=== PATIENT | female | born 1940 | race Caucasian/White ===

== ENCOUNTER → 2019-12-01 12:10 | Outpatient (CLI) | payer MEDICARE, SELFPAY ==
--- NOTE | ~2019-12-01 | XR_ITS ---
XR shoulder RT min 2V 12/01/2019 13:36 Indication: Adhesive capsulitis of the right shoulder Procedure: 4 views right shoulder Comparison: No prior studies for comparison. Findings: No fracture or traumatic malalignment. There are mild degenerative changes of the glenohume ral and acromioclavicular joints. Osteopenia. No significant soft tissue abnormality. No radiopaque f oreign bodies. Impression: 1: No acute fracture or subluxation. Reviewed, dictated and finalized at location B. Impression: 1: No acute fracture or subluxation.
== END ==
PROVIDERS: PCP Family Medicine; Visit Provider Physician Assistant
DX: M75.01 Adhesive capsulitis of right shoulder (principal)
CPT/HCPCS: 73030

== ENCOUNTER → 2020-07-12 14:55 | Outpatient (CLI) | payer MEDICARE, SELFPAY ==
--- NOTE | ~2020-07-12 | XR_ITS ---
XR_[id number]_CR DATE: 07/12/2020 15:16 INDICATION: Left rib pain. No recent known injury. Shortness of breath. History of COPD. TECHNIQUE: PA chest. 3 views of the left ribs. COMPARISON: None FINDINGS: Diffuse osteopenia. No recent rib fracture is evident. No apparent bone destruction. There is diffuse idiopathic skeletal hyperostosis of the thoracic spine. Mild to moderate bilateral hyperinflation. No pulmonary infiltrate or consolidation, pleural effusion or pulmonary vascular congestion or pneumothorax is detected. Heart size appears borderline. Aortic calcification. IMPRESSION: Diffuse osteopenia No apparent recent rib fracture or bone destruction Borderline heart size. Aortic calcification. Mild to moderate pulmonary hyperinflation Reviewed, dictated and finalized at Location A. Reviewed, dictated and finalized at location A. 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
== END ==
PROVIDERS: PCP Physician Assistant; Visit Provider Family Medicine
DX: R07.81 Pleurodynia (principal); M85.88 Other specified disorders of bone density and structure, other site; R91.8 Other nonspecific abnormal finding of lung field
CPT/HCPCS: 71101

== ENCOUNTER → 2020-08-06 08:55 | Outpatient (CLI) | payer MEDICARE, SELFPAY ==
--- NOTE | ~2020-08-06 | CT_ITS ---
EXAMINATION: CT abdomen pelvis wo con DATE: 08/06/2020 09:11 INDICATION: Right lower quadrant pain TECHNIQUE: Computed tomography (CT) of the abdomen and pelvis was performed without intravenous contr ast. The dose-length product was 869.13 mGy-cm. Automated exposure control and iterative reconstructi on technique were employed. COMPARISON: CT dated 01/26/2019. FINDINGS: Lung bases are unremarkable. No significant pleural or pericardial effusion. Heart size is normal. Moderate atherosclerosis. Small subcentimeter hypodensities of the right kidney, most likely benign cysts. No renal stones or hydronephrosis. The liver, spleen, pancreas, adrenal glands are unremarkable. Gallbladder is present. Colonic diverti culosis without evidence for diverticulitis. There are focal mesenteric calcifications in the right m id abdomen, likely of no clinical significance. No evidence for perforation. No free air or free flui d. Moderate osteoarthritis of the hips. There is degenerative grade 1 spondylolisthesis at L4-5. IMPRESSION: 1. No acute abdominal abnormality. Reviewed, dictated and finalized at location A.
== END ==
PROVIDERS: PCP Physician Assistant; Visit Provider Surgery
DX: R10.31 Right lower quadrant pain (principal)
CPT/HCPCS: 74176

== ENCOUNTER → 2021-03-04 10:36 | Outpatient (CLI) | payer MEDICARE, SELFPAY ==
--- NOTE | ~2021-03-04 | MR_ITS ---
EXAMINATION: MR abdomen wo con INDICATION: Generalized abdominal pain TECHNIQUE: Coronal SSFSE ARC, WATER:coronal LAVA-FLEX, Coronal 2D FIESTA FatSat, Axial SSFSE BH ARC, Axial 3D DualEcho BH, Axial SSFSE-IR, Axial DWI b=500, Axial 2D FIESTA FatSat, Axial LAVA ARC, Wilburn l In and Opposed phase LAVA FLEX COMPARISON: None available CONTRAST: None FINDINGS: Within the limitations of noncontrast examination, the liver, spleen, pancreas, gallbladder , and adrenal glands are normal. Cysts of the kidneys measure up to 9 mm on the right. There are no p athologically enlarged lymph nodes. No dilated loops of bowel are identified. IMPRESSION: 1. No MRI correlate for the patient's symptoms. Reviewed, dictated and finalized at location A.
== END ==
PROVIDERS: PCP Family Medicine; Visit Provider Physician Assistant
DX: R10.84 Generalized abdominal pain (principal)
CPT/HCPCS: 74181

== ENCOUNTER → 2021-11-21 10:59 | Outpatient (CLI) | payer MEDICARE, SELFPAY ==
--- NOTE | ~2021-11-21 | XR_ITS ---
EXAMINATION: XR chest 2V 11/21/2021 11:33 INDICATION: Bronchitis PROCEDURE: 2 view chest COMPARISON: Comparison to multiple prior studies sequentially, with oldest reviewed study dated 07/13/2012. FINDINGS: The lungs are clear. The cardiomediastinal silhouette is within normal limits. There are no pleural effusions. There is no pneumothorax suspected. The lungs are hyperinflated which is consistent with, but not diagnostic of chronic obstructive pulmo nary disease. 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 IMPRESSION: 1: NO ACUTE CARDIOPULMONARY DISEASE. Reviewed, dictated and finalized at location A.
== END ==
PROVIDERS: PCP Family Medicine; Visit Provider Physician Assistant
DX: J40 Bronchitis, not specified as acute or chronic (principal)
CPT/HCPCS: 71046

== ENCOUNTER 2022-06-18 00:41 | Day surgery (SDC) | payer MEDICARE, SELFPAY ==
[2022-06-08 14:41] VITALS: BMI 31.6
[2022-06-18 07:45] VITALS: BP 168/69; PULSE 70; RESP 17; TEMP 36.2; O2SAT 97; BMI 32.7
[2022-06-18] MEDS: LACTATED RINGERS 1,000 ML 150 ML IV CONT (07:56)
--- NOTE | 2022-06-18 08:06 | PM.HPGS ---
History of Present Illness History of Present Illness Consent: Risks, benefits, and alternatives have been discussed and questions answered. Patient agrees to proceed with procedure. Chief complaint: dysphagia Narrative: Felisa Valencia is a 81 year old female Presents for EGD. Patient complains of food catching in the midportion of her chest. This happens more with solid foods than liquids. Patient denies any heartburn. She has had no bleeding. She has had no weight loss. 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 Patient noticed improvement after dilatation. She presents today for follow-up EGD. Her family history is noncontributory. Review of Systems Review of Systems: Review of systems noncontributory. [facility] Past Medical History Medical History A-fib CAD (coronary artery disease) CHF (congestive heart failure) COPD (chronic obstructive pulmonary disease) HTN (hypertension) Hypothyroidism Peptic ulcer Surgical History Surgical History History of right knee joint replacement Hx of parathyroidectomy Hx of total hysterectomy Family History Family History Father No problems noted. Mother Diverticulitis of both large and small intestine with perforation and bleeding without abscess Sibling Malignant neoplasm of prostate Bladder cancer Pacemaker complications Mesothelioma Daughter Myelofibrosis Other Asthma Family history of malignant neoplasm Hypertension Social History Social History Smoking packs per day: 1 Smoking cigarettes per day: 20.0 Years smoked: 35 Smoking pack-years: 35.00 Smoking status: Former smoker Tobacco type: cigarettes Alcohol intake: never Substance use: never Substance use type: does not use Living arrangements: with family Occupation/Education: retired Gender identity (if verbalized by the patient): Female Sexual Orientation (if Verbalized by the Patient): Straight or Heterosexual Spiritual care concerns: No Meds Home Medications and Allergies Home Medications Medication Instructions Recorded Confirmed Type calcium carbonate 215 mg calcium 215 mg PO BID 07/22/20 06/18/22 History (500 mg) chewable tablet (Antacid Calcium) ipratropium 20 mcg-albuterol 100 1 puff inhalation QID 07/22/20 06/18/22 History mcg/actuation mist for inhalation (Combivent Respimat) levothyroxine 150 mcg tablet 150 mcg PO DAILY 07/22/20 06/18/22 History (Synthroid) nebulizers #1 ea 07/22/20 06/18/22 History warfarin 5 mg tablet 5 mg PO DAILY 07/22/20 06/18/22 History amiodarone 100 mg tablet 100 mg PO DAILY 04/15/22 06/18/22 History cholecalciferol (vitamin D3) 50 4,000 mcg PO BID 06/08/22 06/18/22 History mcg (2,000 unit) tablet (Vitamin D3) furosemide 40 mg tablet 40 mg PO DAILY 06/08/22 06/18/22 History ipratropium 0.5 mg-albuterol 3 mg 3 ml inhalation Q4-5H PRN 06/08/22 06/18/22 History (2.5 mg base)/3 mL nebulization Shortness Of Breath Or Wheezing soln irbesartan 150 mg tablet 75 mg PO BID 06/08/22 06/18/22 History magnesium 3 tablet PO HS 06/08/22 06/18/22 History vitamin A 2,400 mcg capsule 4,800 mcg PO BID 06/08/22 06/18/22 History Allergies Allergy/AdvReac Type Severity Reaction Status Date / Time flecainide Allergy Intermediate Elevated Verified 06/18/22 07:43 BP, Chest Tightness Quinolones Allergy Mild REDNESS/ITCHING Verified 06/18/22 07:43 AT EARS apixaban Allergy Unknown Rash Verified 06/18/22 07:43 apple Allergy Unknown Rash Verified 06/18/22 07:43 carvedilol Allergy Unknown Unknown Verified 06/18/22 07:43 Cephalosporins Allergy Unknown UNKNOWN Verified 06/18/22 07:43 cimetidine Allergy Unknown Unknown Verified 06/18/22 07:43 ciprofloxacin Young
[2022-06-18 08:12] LABS: INR 1.3; Prothrombin Time 15.9 Seconds (11.1-14.7)
--- NOTE | 2022-06-18 08:43 | WPDANESEPPF ---
Anes - Initial Pre Proc Eval Procedure: Operation Date: 06/18/22 09:00 Proposed Procedures p Esophagogastroduodenoscopy - Jorge A Cantrell MD Date/Time: 06/18/22 08:43 Surgeon: Jorge A Cantrell MD Pre Op Diagnosis: dysphagia Patient Data Age: 81 Gender: F Height: 1.68 m Weight: 92 kg Last Vital Signs Temp 97.2 F L 06/18/22 07:45 Pulse 70 06/18/22 07:45 Resp 17 06/18/22 07:45 BP 168/69 H 06/18/22 07:45 Pulse Ox 97 06/18/22 07:45 O2 Del Method Room Air 06/18/22 07:45 Allergies Allergy/AdvReac Type Severity Reaction Status Date / Time flecainide Allergy Intermediate Elevated Verified 06/18/22 07:43 BP, Chest Tightness Quinolones Allergy Mild REDNESS/ITCHING Verified 06/18/22 07:43 AT EARS apixaban Allergy Unknown Rash Verified 06/18/22 07:43 apple Allergy Unknown Rash Verified 06/18/22 07:43 carvedilol Allergy Unknown Unknown Verified 06/18/22 07:43 Cephalosporins Allergy Unknown UNKNOWN Verified 06/18/22 07:43 cimetidine Allergy Unknown Unknown Verified 06/18/22 07:43 ciprofloxacin Allergy Unknown Unknown Verified 06/18/22 07:43 citalopram Allergy Unknown Unknown Verified 06/18/22 07:43 clarithromycin Allergy Unknown Unknown Verified 06/18/22 07:43 doxycycline Allergy Unknown Rash Verified 06/18/22 07:43 Influenza Virus Vaccines Allergy Unknown Arm Verified 06/18/22 07:43 Swelling/Chills iodine Allergy Unknown Swelling Verified 06/18/22 07:43 levofloxacin Allergy Unknown Rash Verified 06/18/22 07:43 metoprolol Allergy Unknown Elevated Verified 06/18/22 07:43 BP, Chest Tightness pneumococcal vaccine Allergy Unknown Anaphylaxis Verified 06/18/22 07:43 propranolol Allergy Unknown Unknown Verified 06/18/22 07:43 rivaroxaban Allergy Unknown Elevated Verified 06/18/22 07:43 BP, Chest Tightness Sulfa (Sulfonamide Allergy Unknown Rash Verified 06/18/22 07:43 Antibiotics) tetanus and diphtheria Allergy Unknown Rash Verified 06/18/22 07:43 toxoids tetanus immune globulin Allergy Unknown Arm Verified 06/18/22 07:43 Swelling tetanus toxoid, adsorbed Allergy Unknown ANAPHYLAXIS Verified 06/18/22 07:43 metronidazole AdvReac Severe Stopped Verified 06/18/22 07:43 Breathing APPLE Allergy Severe ANAPHYLAXIS Uncoded 06/18/22 07:43 NECTARINE Allergy Severe Anaphylaxis Uncoded 06/18/22 07:43 FLU SHOTS Allergy Unknown ANAPHYLAXIS Uncoded 06/18/22 07:43 Home Medications Medication Instructions Recorded Confirmed Type calcium carbonate 215 mg calcium 215 mg PO BID 07/22/20 06/18/22 History (500 mg) chewable tablet (Antacid Calcium) ipratropium 20 mcg-albuterol 100 1 puff inhalation QID 07/22/20 06/18/22 History mcg/actuation mist for inhalation (Combivent Respimat) levothyroxine 150 mcg tablet 150 mcg PO DAILY 07/22/20 06/18/22 History (Synthroid) nebulizers #1 ea 07/22/20 06/18/22 History warfarin 5 mg tablet 5 mg PO DAILY 07/22/20 06/18/22 History amiodarone 100 mg tablet 100 mg PO DAILY 04/15/22 06/18/22 History cholecalciferol (vitamin D3) 50 4,000 mcg PO BID 06/08/22 06/18/22 History mcg (2,000 unit) tablet (Vitamin D3) furosemide 40 mg tablet 40 mg PO DAILY 06/08/22 06/18/22 History ipratropium 0.5 mg-albuterol 3 mg 3 ml inhalation Q4-5H PRN 06/08/22 06/18/22 History (2.5 mg base)/3 mL nebulization Shortness Of Breath Or Wheezing soln irbesartan 150 mg tablet 75 mg PO BID 06/08/22 06/18/22 History magnesium 3 tablet PO HS 06/08/22 06/18/22 History vitamin A 2,400 mcg capsule 4,800 mcg PO BID 06/08/22 06/18/22 History Laboratory Tests 06/18/22 07:50 PT 15.9 Seconds H Seconds (11.1-14.7) INR 1.3 Patient hx anesthesia problems: none Family hx anesthesia problems: none Results Review: All pre-operative results and documents have been reviewed as part of the pre-operative evaluation. [facility], [facility] Past Medical History Medical History (Reviewed 11/30/22 @ 13:29 by Alfonso Ann A-fi
[2022-06-18 09:39] VITALS: BP 133/59; PULSE 58; RESP 17; O2SAT 99
[2022-06-18 09:52] VITALS: BP 149/69; PULSE 67; RESP 20; O2SAT 100
[2022-06-18 10:02] VITALS: BP 167/74; PULSE 62; RESP 17; O2SAT 100
== END 2022-06-18 10:09 | disposition home or self-care (01) ==
PROVIDERS: PCP Physician Assistant; Visit Provider Internal Medicine Gastroenterology
PROC: 0DJ08ZZ Inspection of Upper Intestinal Tract, Via Natural or Artificial Opening Endoscopic (ICD-10-PCS; CPT 43235; principal; 2022-06-18 09:00)
DX: R13.10 Dysphagia, unspecified (principal); I48.91 Unspecified atrial fibrillation; I25.10 Atherosclerotic heart disease of native coronary artery without angina pectoris; I11.0 Hypertensive heart disease with heart failure; I50.9 Heart failure, unspecified; J44.9 Chronic obstructive pulmonary disease, unspecified; E03.9 Hypothyroidism, unspecified; Z87.11 Personal history of peptic ulcer disease; Z79.51 Long term (current) use of inhaled steroids; Z79.01 Long term (current) use of anticoagulants; Z87.891 Personal history of nicotine dependence
CPT/HCPCS: 43450; 43235; 36415; 85610; J2704; J7120

== ENCOUNTER → 2022-07-21 14:15 | Outpatient (CLI) | payer MEDICARE, SELFPAY ==
--- NOTE | ~2022-07-21 | XR_ITS ---
XR knee LT 3V DATE: 07/21/2022 14:36 INDICATION: Pain and swelling of left knee. No injury TECHNIQUE: Basye and standing AP and lateral views COMPARISON: None FINDINGS: There is valgus deformity. There is tricompartment osteoarthritis, most severe at the media l compartment with prominent loss of medial joint space and periarticular spurring. There is prominen t periarticular spurring of the patellofemoral compartment and to a minimal extent at the lateral com partment. There is faint chondrocalcinosis at the medial and lateral compartments. No radiopaque intra-articula r loose body is noted. No fracture or dislocation or joint effusion is evident. No periosteal reaction or bone destruction. There is osteopenia. 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
== END ==
PROVIDERS: PCP Family Medicine; Visit Provider Physician Assistant
DX: M17.12 Unilateral primary osteoarthritis, left knee (principal); M85.862 Other specified disorders of bone density and structure, left lower leg
CPT/HCPCS: 73562

== ENCOUNTER 2023-01-06 14:12 | Outpatient (CLI) | payer MEDICARE, SELFPAY ==
[2023-01-06 19:28] LABS: Total Triiodothyronine (T3) 0.73 NG/ML (0.97-1.69)
[2023-01-06 19:51] LABS: Free T4 Free Thyroxine 2.32 ng/mL (0.78-2.19)
[2023-01-09 05:27] LABS: Triiodothyronine T3 Free 2.2 pg/mL (2.3-4.2)
== END 2023-01-06 14:13 | disposition home or self-care (01) ==
PROVIDERS: PCP Family Medicine; Visit Provider Internal Medicine Endocrinology, Diabetes & Metabolism
DX: E03.9 Hypothyroidism, unspecified (principal); E04.9 Nontoxic goiter, unspecified; R13.10 Dysphagia, unspecified
CPT/HCPCS: 36415; 84436; 84439; 84443; 84480; 84481

== ENCOUNTER 2023-04-12 11:05 | Outpatient (CLI) | payer MEDICARE, SELFPAY ==
--- NOTE | ~2023-04-12 | US_ITS ---
EXAMINATION: US thyroid DATE: 04/12/2023 11:22 INDICATION: Hypothyroidism, unspecified. TECHNIQUE: Multiple ultrasound images of the thyroid were obtained. COMPARISON: Ultrasound 02/21/2013 FINDINGS: The right thyroid lobe measures 2.1 x 0.7 x 0.7 cm. The left thyroid lobe measures 2.1 x 0.7 x 0.7 c m. There is normal echotexture and echogenicity throughout the thyroid gland. No discrete nodules id entified. Normal vascular flow is present. IMPRESSION: 1. Small thyroid. Reviewed, dictated and finalized at location A. 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 Small thyroid.
== END 2023-04-12 11:06 ==
PROVIDERS: PCP Internal Medicine Endocrinology, Diabetes & Metabolism; Visit Provider Internal Medicine Endocrinology, Diabetes & Metabolism
DX: E03.9 Hypothyroidism, unspecified (principal); R49.0 Dysphonia
CPT/HCPCS: 76536

== ENCOUNTER 2023-09-06 12:02 | Outpatient (CLI) | payer MEDICARE, SELFPAY ==
--- NOTE | ~2023-09-06 | DEXA_ITS ---
Bone Density Report Name: RAUL AYON Age: 83 Sex: Female Ethnicity: White Date of : 1940 Indication: postmenopausal; screening for osteoporosis; height loss; asthma or emphysema; hysterectomy; Referring Provider: Mar Thurman Study: Bone densitometry was performed. Exam Date: September 06, 2023 Accession number: [id number] Bone Density: Region BMD T-score Z-score Classification AP Spine (L1-L4) 0.953 -0.9 1.9 Normal Femoral Neck (Left) 0.656 -1.7 0.7 Osteopenia Total Hip (Left) 0.722 -1.8 0.4 Osteopenia Femoral Neck (Right) 0.626 -2.0 0.4 Osteopenia Total Hip (Right) 0.712 -1.9 0.3 Osteopenia Total Hip Mean 0.717 -1.9 0.4 Osteopenia World Health Organization criteria for BMD impression classify patients as: Normal (T-score at or above -1.0), Osteopenia (T-score between -1.0 and -2.5), or Osteoporosis (T-score at or below -2.5). 10-year Fracture Risk(1): Major Osteoporotic Fracture 14% Hip Fracture 4.2% Reported Risk Factors: [place] (), Neck BMD=0.626, BMI=34.7 (1) FRAX(R) Version 3.08. Fracture probability calculated for an untreated patient. Fracture probability may be lower if the patient has received treatment. Clinical Information Provided by Patient: Has used the following medications: Vitamin D, Calcium, SYNTHROID Has the following medical conditions: Asthma or Emphysema, Hysterectomy Patient maximum height was 68.0 Menopause Age: 47 No regular weight bearing exercise Drinks caffeinated beverages Onset of menses at age 13 Number of children 3 Impression: The patient has low bone mass, based on the Right Femoral Neck T-score. The patient has an estimated ten-year risk of hip fracture of 4.2% and an estimated ten-year risk of major fracture of 14%, based on the WHO FRAX algorithm. Discussion: BONE DENSITY IS LOW AT ONE OR MORE SKELETAL SITES. THE PATIENT'S BMD AND CLINICAL RISK FACTORS CONTRIBUTE TO THIS PATIENT'S INCREASED RISK OF FRACTURE. This patient's lowest T-score is low at one or more skeletal sites. It meets the World Health Organization's (WHO) criteria for ?low bone mass? (T-score between -1.0 and -2.5). The patient's 10-year risk of hip fracture as calculated by FRAX exceeds the threshold where pharmacological therapy is recommended by the National Osteoporosis Foundation (NOF). However, all treatment decisions require clinical judgment and consideration of individual patient factors, including patient preferences, comorbidities, previous drug use, risk factors not captured in the FRAX model (e.g., frailty, falls, vitamin D deficiency, increased bone turnover, interval significant decline in bone density) and possible under or overestimation of fracture risk by FRAX. The patient should follow a healthful lifestyle (good nutrition with adequate calcium and
== END 2023-09-06 12:03 ==
PROVIDERS: PCP Internal Medicine Endocrinology, Diabetes & Metabolism; Visit Provider Internal Medicine Endocrinology, Diabetes & Metabolism
DX: Z78.0 Asymptomatic menopausal state (principal); M85.852 Other specified disorders of bone density and structure, left thigh; M85.851 Other specified disorders of bone density and structure, right thigh
CPT/HCPCS: 77080

== ENCOUNTER 2024-07-22 13:58 | Outpatient (NON) | payer MEDICARE, SELFPAY ==
--- OUTSIDE RECORDS SUMMARY | 2024-07-22 14:05 | XMS_ITS | Continuity of Care Document ---
Author Organization [facility] [place] Address [address] [place] [address] Phone Care Team Providers Care Client Architect Name Role Phone Catracho Bojorquez MD Unavailable Unavailable Allergies, Adverse Reactions, Alerts Substance Reaction Status Criticality CIMETIDINE HCL Active No Informatio n cimetidine Active No Information rivaroxaban Active No Information carvedilol Active No Information citalopram Active No Information doxycycline Active No Information apple Active No Information Iodinated Contrast Media Active No Information Sulfa (Sulfonamide Antibiotics) Active No Information levofloxacin Active No Information ciprofloxacin Active No Information Medications Medication Instructions Dosage Effective Dates (start - stop) Status Comments Synthroid 150 mcg tablet take 1 tablet by oral route every day 150 MCG - Active irbesartan 75 mg tablet take 1 tablet by oral route every day 75 MG - Active digoxin 125 mcg (0.125 mg) tablet take 1 tablet by oral route every day 125 MCG - Active furosemide 40 mg tablet take 3 tablet by oral route every day 120 MG - Active warfarin 5 mg tablet take 1 tablet by or al route every day 5 MG - Active warfarin 7.5 mg tablet take 1 tablet by oral route every day 7.5 MG - Active Combivent Respimat 20 mcg-100 mcg/actuation solution for inhalation inhale 1 puff by inhalation route 4 times every day ; may take additional puffs as needed not to exceed 6 puffs in 24hrs 1.00 puff - Active magnesium 200 mg tablet take 2 by oral route every day 2 - Active ThyroSafe 65 mg tablet Take once daily - Active Vitamin D3 50 mcg (2,000 unit) tablet take 1 by oral route every day 1 - Active vitamin A 2,400 mcg capsule take once daily - Active Viactiv 650 mg-12.5 mcg-40 mcg chewable tablet take 1 tablet by oral route every day 1 tablet - Active Procedures Procedure Date Fundus Photography W/ Report No Charge Refraction After Cataract Laser Surgery Office/outpatient Visit, New Advance Directives Directive Yes / No Effective Date File Name No Information Encounters Encounter Description Practice Location Reason(s) For Visit Diagnoses Date Provider Providers Copied on Encounter Office/outpa tient Visit, [facility], [address] [place] [address] [address], [place], [place], [id number], [place] [phone] [place] Professional yag pc ou evaluation (chief complaint) Presence of intraocular lensOther secondary cataract, right eyeMacular hole of left eye 1 [place]. [address] [facility], [facility] [address], [place], [place], [id number], [place]. tel:[phone] Sal Bliss MD.Referring Provider: Ashley Turcios, [address], [address]. tel:[phone] [facility], [address] [place] [address] [address], [place], [place], [id number], [place] tel:[phone] SEC Radha Bruno No Information 1 [place]. [address] [facility] [address], [place], [place], [id number], [place]. tel:[phone] Specialist: Sal Bliss MD, [address] [facility] [address], [place], [address]. tel:[phone] Provider: Ashley Turcios, [facility] [address], [address]. tel:[phone] Family History Family Member Type Diagnosis Age At Onset No Information Payers Payer name Insurance type Covered libertarian ID Authoriza tion(s) [place] [id number] [facility] [id number] Social History Type Description Quantity Date Captured Comments Alcohol Use Details No Caffeine Use Details Tobacco Use Status Ex-cigarette smoker 021 Smoking Status Former smoker Smoking Tobacco Use Details Cigarette: Age Started: 20, Age Stopped: 60, Years Used 40 Cigarette: 1 Packs per day, Pack Year: 40 Sex Female Chief Complaint And Reason For Visit From encounter dated '12/24/2020 10:15'. yag pc ou evaluation (chief complaint). Description: The 80 year old female presents for a yag pc ou evaluation per Dr. Garcia. Patient has hx of mac hole OS and recently had mac hole sx with Dr. Narvaez. Patient is bothered by glare around lights at night x 9 months. Patient is having a hard time watching TV and seeing road signs. Patient is having a hard time reading small print. Patient states she is bothered by lights even during the day. Patient is using Pred qd OS. Reason For Referral Reason For Referral No Information Plan Of Treatment Date Type Action Status Patient Education Learning About YAG Lase r Capsulotomy completed History Of Present Illness Encounter Date Complaint History Of Prese nt Illness yag pc ou evaluation The 80 year old female presents for a yag pc ou evaluation per Dr. Garcia. Patient has hx of mac hole OS and recently had mac hole sx with Dr. Narvaez. Patient is bothered by glare around lights at night x 9 months. Patient is having a hard time watching TV and seeing road signs. Patient is having a hard time reading small print. Patient states she is bothered by lights even during the day. Patient is using Pred qd OS. Functional Status Date Functional Assessmen t No Information Instructions Date Instruction Additional Infor mation Impression/Plan Assessments Type Assessment Date assessment Presence of intraocular lens Dec assessment Other secondary cataract, right eye assessment Macular hole of left eye 2020 Patient Care Teams Name Effective Dates (start - stop) Status Members No Information
--- OUTSIDE RECORDS SUMMARY | 2024-07-22 14:05 | XMS_ITS | Encounter Summary ---
Author Organization [facility] Address Formerly [facility] [place] [address] Care Team Providers Care Ultrasound Supervisor Name Role Phone Mo Moy MD Primary Care Provider [phone] Sal Bliss MD Unavailable [phone] Angel Lopez MD Unavailable Encounter Details Date Type Department Care Team (Late st Contact Info) Description 08/05/2022 Abstract [facility] [phone] Faizan Pereira MA Social History Tobacco Use Types Packs/Day Years Used Date Smoking Tobacco: Former Cigarettes 1 35 1 965 - 2000 Smokeless Tobacco: Never Comments:distant past Alcohol Use Standard Drinks/Week Comments No 0 (1 standard drink = 0.6 oz pur e alcohol) PHQ-2 Answer Date Recorded PHQ-2 Score - If the patient scores above 3, please move on to questions 3-9 0 02/26/2022 Comments No Sex and Gender Information Value Date Recorded Sex Assigned at Female 05/30/2024 12:35 PM HISTOLOGY SPECIALIST Legal Sex Female 6:49 PM CDT Gender Identity Not on file Sexual Orientation Not on file Occupation Industry Job Start Date Job End Date Not on file Not on file Not on file Not on file COVID-19 Exposure Response Date Recorded In the last 10 days, have yo u been in contact with someone who was confirmed or suspected to have Coronavirus/COVID-19? No / Unsure 07/28/2022 1:30 PM CDT documented as of this encounter Plan of Treatment Upcoming Encounters Date Type Department Care Team (Late st Contact Info) Description 10/26/2024 11:00 AM CDT Office Visit [facility] Multispecialty Care - [facility] [address] [facility] [place] [phone] Jacob Landry MD [address] [facility] [address] [place] [address] documented as of this encounter Procedures Procedure Name Priority Date/Time Associated Diagnosis Comments COMPREHENSIVE METABOLIC PANEL Routine 08/04/2022 documented in this encounter Results * (ABNORMAL) COMPREHENSIVE METABOLIC PANEL (08/04/2022) SODIUM S/P/B 137 POTASSIUM S/P/B 5.2 CO2 33 CHLORIDE S/P/B 97 GLUCOSE 77 mg/dL CALCIUM S/P/B 10.3 BUN 49 CREATININE S/P/B 1.97(A) 0.5 - 1.0 EGFR NON-AFR. AMER. 25 <=90 ALKALINE PHOSPHATASE S/P/B 97 ALT 16 AST 17 BILIRUBIN TOTAL S/P/B 0.5 ALBUMIN S/P/B 4.6 3.5 - 5.0 TOTAL PROTEIN S/P/B 6.9 GLOBULIN 2.3 08/04/2022 us Default History Genericprovider LABORATORY Final Result documented in this encounter Visit Diagnoses Not on filedocumented in this encounter Additional Health Concerns Infection Onset Date Last Indicated Resolved Time COVID-19 Rule Out 07/01/2023 07/01/2023 07/01/2023 3:40 PM HISTOLOGY SPECIALIST COVID-19 Rule Out 11/03/2023 11/03/2023 11/03/2023 1:01 AM CDT Assessment Noted Time PHQ-9 Depression Total Score: 0 05/05/20 1:33 PM HISTOLOGY SPECIALIST documented as of this encounter Care Teams Ultrasound Supervisor Relationship Specialty Start Date End Date Mo Moy MD [address] [place] [id number] PCP - General FAMILY PRACTICE 11/26/17 Sal Bliss MD [address] [facility] [place], [place] [id number] [place] [employer] CARDIOVASCULAR DISEASE 12/10/17 Angel Lopez MD [address] [place], [place] [id number] [employer] CLINICAL CARDIAC ELECTROPHYSIOLOGY 01/15/18 documented as of this encounter
--- OUTSIDE RECORDS SUMMARY | 2024-07-22 14:05 | XMS_ITS | Encounter Summary ---
Author Organization [facility] Address [facility] [place] [address] Care Team Providers Care Loan Originator Name Role Phone Mo Moy MD Primary Care Provider [phone] Sal Bliss MD Unavailable [phone] Angel Lopez MD Unavailable Encounter Details Date Type Department Care Team (Late Contact Info) Description 10/14/2018 Abstract [facility] [address] [place], [place] [phone] Sal Bliss MD [address] [address] Social History Tobacco Use Types Packs/Day Years Used Date Smoking Tobacco: Former Cigarettes 0.5 35 1 965 - 2000 Smokeless Tobacco: Never Comments:distant past Alcohol Use Standard Drinks/Week Comments No 0 (1 standard drink = 0.6 oz pur e alcohol) Comments No Sex and Gender Information Value Date Recorded Sex Assigned at Female 05/30/2024 12:35 PM DIRECTOR OF COLLECTIONS AND ARCHIVES Legal Sex Female 6:49 PM CDT Gender Identity Not on file Sexual Orientation Not on file Occupation Industry Job Start Date Job End Date Not on file Not on file Not on file Not on file documented as of this encounter Plan of Treatment Upcoming Encounters Date Type Department Care Team (Late Contact Info) Description 10/26/2024 11:00 AM CDT Office Visit [facility] Medical [facility]pecialty Care - [facility] [address] [facility] [address] [place] [address] Jacob Landry MD [address] [facility] [address] [place] [address] documented as of this encounter Procedures Procedure Name Priority Date/Time Associated Diagnosis Comments PROTHROMBIN TIME, FINGERSTICK Routine 10/14/2018 10:05 AM CDT documented in this encounter Results * PROTIME/INR, FINGERSTICK (10/14/2018 10:05 AM CDT) INR WHOLE BLOOD 2.3 9 10:09 AM CDT [facility] Comment: Recommend INR ranges for Oral Anticoagulant Therapy:Mechanical Cardiac Values 2.5-3.5All others indication 2.0-3.0 10/14/2018 10:0 5 AM CDT 10/14/2018 10:06 AM CDT us Generic Conversion Md [facility] Final R esult [facility] [address] [place] [address], documented in this encounter Visit Diagnoses Diagnosis Atrial fibrillation (CMS/HCC HHS/HCC) Atrial fibrillation documented in this encounter Additional Health Concerns Infection Onset Date Last Indicated Resolved Time COVID-19 Rule Out 01/14/2020 01/27/2020 01/28/2020 4:35 PM CDT COVID-19 Rule Out 07/07/2021 07/07/2021 07/08/2021 7:49 PM DIRECTOR OF COLLECTIONS AND ARCHIVES COVID-19 Rule Out 09/27/2021 09/27/2021 09/28/2021 10:26 AM CDT COVID-19 Rule Out 07/01/2023 07/01/2023 07/01/2023 3:40 PM DIRECTOR OF COLLECTIONS AND ARCHIVES COVID-19 Rule Out 11/03/2023 11/03/2023 11/03/2023 1:01 AM CDT documented as of this encounter Care Teams Loan Originator Relationship Specialty Start Date End Date Mo Moy MD [address] [place] [id number] PCP - General FAMILY PRACTICE 11/26/17 Sal Bliss MD [address] [facility] [place] [address] [place] [employer] CARDIOVASCULAR DISEASE 12/10/17 Angel Lopez MD [address] [facility] [place], [place] [id number] [employer] CLINICAL CARDIAC ELECTROPHYSIOLOGY 01/15/18 documented as of this encounter
--- OUTSIDE RECORDS SUMMARY | 2024-07-22 14:05 | XMS_ITS | Referral Summary ---
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 2.Tree-in-bud opacities in the anterior superior aspect of the rightlower lobe. Minimal tree-in-bud opacity also seen in the lateral aspect of the right upper lobe 3.Air-fluid level is present in the esophagus which appears dilated, may represent gastroesophageal reflux. A small hiatal hernia is present. 4.Colonic diverticulosis. The colon is distended with stool and gas.There is mild colonic wall thickening more prominent involving the left colon with surrounding fat stranding and fluid, may represent colitis. 5.New trace free fluid throughout the abdomen and pelvis more prominentin the left upper abdomen. > Dictated by Dimitris Sneed MD (residential housekeeper). I, Higinio Whittington MD have personally reviewed and interpreted this examination/study. > Interpreting Provider: Higinio Whittington MD on 06/26/2024 10:19 PM [facility] COORDINATOR-MULTIMEDIA TEACHER CT ORDERABLES * (ABNORMAL) URINALYSIS REFLEX TO MICROSCOPIC NO CULTURE (06/26/2024 3:15 PM [facility]) Color UA Ellie(A) Straw, Yellow 06/26/2024 4:12 PM [facility] Clarity UA Slt Cloudy(A) Clear 06/26/2024 4:12 PM [facility] Specific [place] UA 1.025 1.005 - 1.030 06/26/2024 4:12 PM [facility] pH UA 5.0 5.0 - 8.0 pH 06/26/2024 4:12 PM [facility] Protein UA Negative Negative 06/26/2024 4:12 PM [facility] Glucose UA Negative Negative 06/26/2024 4:12 PM [facility] Ketone UA Trace(A) Negative 06/26/2024 4:12 PM [facility] Bilirubin UA Negative Negative 06/26/2024 4:12 PM [facility] Blood UA 1+(A) Negative 06/26/2024 4:12 PM [facility] Nitrite UA Negative Negative 06/26/2024 4:12 PM [facility] Leukocyte Esterase Trace(A) Negative 06/26/2024 4:12 PM [facility] Urobilinogen UA 2.0(A) Negative mg/dL 06/26/2024 4:12 PM [facility] RBC UA 11-20(A) None Seen, 0-2, 3-5 /HPF 06/26/2024 4:12 PM [facility] WBC UA 21-50(A) None Seen, 0-5 /HPF 06/26/2024 4:12 PM [facility] Bacteria UA 1+(A) None /HPF 06/26/2024 4:12 PM [facility] Squamous Epithelial Cells UA 0-2 None Seen, 0-2, 3-5 /HPF 06/26/2024 4:12 PM [facility] Mucus UA 1+ /LPF 06/26/2024 4:12 PM [facility] Urine URINE SPECIMEN OBTAINED VIA INDWELLING URINARY CATHETER / Unknown Collection / Unknown 06/26/2024 3:15 PM [facility] 06/26/2024 3:54 PM [facility] - 06/26/2024 4:12 PM [facility] - URINALYSIS ORDERABLES Performing Organization Address [facility] Co de Phone Number [address] [address], [facility] [phone] * HEMOGLOBIN A1C (06/22/2024 6:18 AM [facility]) Pathologist [facility] Hemoglobin A1c 5.4 <=5.6 % 06/22/2024 10:33 AM [facility] Estimated Average Glucose 108 mg/dL 06/22/2024 10:33 AM [facility] Comment: HbA1c Interpretation: Normal : < 5.7% Pre-diabetes: 5.7-6.4% Diabetes: Equal to or greater than 6.5% Test results diagnostic of diabetes should be repeated for confirmation. Treatment target values recommended by ADA and other clinical organizations should be used to evaluate metabolic control in patients. Reference: [place] [employer], Standards of Care in Diabetes -2020 In patients 70 years and older consider HbA1c target range of 7.0-7.5% (Reference: Obdulio Soriano et al. JAMDA. 2012) The Sebia assay for the measurement of HbA1c is a National Glycohemoglobin Standardization Program (NGSP) certified method. Blood BLOOD SPECIMEN / Unknown Lab Venipuncture / Unknown 06/22/2024 6:18 AM [facility] 06/22/2024 6:37 AM [facility] - CHEMISTRY O RDERABLES Performing Organization Address City/[facility]/ZIP Co de Phone Number [address] [address], [place] [phone] * PREPARE (CROSSMATCH) RBC UNIT(S), 4 Units (06/22/2024 1:17 AM [facility]) Unit Description AS1 LR PRBC [facility] Unit ABO O [facility] Unit Rh POS [facility] Product Number R44 [facility] B LOOD [facility] Unit Donor # [id number] [facility] Unit Status transfused [facility] Product Code [id number] [facility] Blood Type Barcode 5100 [facility] Expiration Date S BLOOD BANK LAB Unit Description AS1 LR PRBC [facility] Unit ABO O [facility] Unit Rh POS [facility] Product Number R02 [facility] B LO[facility] Unit Donor # [id number] [facility] Unit Status released [facility] BLOO D BANK LAB Product Code [id number] [facility] Blood Type Barcode 5100 [facility] Expiration Date [facility] Unit Description AS1 LR PRBC [facility] Unit ABO O [facility] Unit Rh POS [facility] Product Number R02 [facility] B LOOD [facility] Unit Donor # [id number] [facility] Unit Status released [facility] BL[facility] Product Code [id number] [facility] Blood Type Barcode 5100 [facility] Expiration Date [facility] Unit Description AS1 LR PRBC [facility] Unit ABO O [facility] Unit Rh POS [facility] Product Number R02 [facility] B LOOD [facility] Unit Donor # [id number] [facility] Unit Status released [facility] BLOO D [facility] Product Code [id number] [facility] B[facility] OD [facility] Blood Type Barcode 5100 [facility] Expiration Date S BLOOD BANK LAB Blood Bank BLOOD SPECIMEN / Unknown 06/18/2024 2:53 PM [facility] Gordon Ingram MD LAB - BLOOD BANK ORD ERABLES [facility] [address] [place] [address], [facility] [phone] * [place] Korin Surgery (06/21/2024 2:45 PM [facility]) Narrative [facility] RAD[facility] - 06/21/2024 2:45 PM [facility] Fluoroscopy was used for this exam in the OR. Please see the Operative report. Mikey Cortez DO FLUOROSCOPY ORDERABL ES [facility] * TRANSFUSE RED BLOOD CELL LEUKOREDUCED ML(S) (06/21/2024 2:15 PM [facility]) Jorge A Ceron MD NURSING - BLOOD PROD TRANSFUSION * ETT LINE PERFORMABLE (06/21/2024 1:48 PM [facility]) Narrative Kacy Momin DO - 06/21/2024 1:48 PM [facility] Kacy Momin DO 06/21/2024 1:48 PM Endotracheal Tube Placement: Patient Location: OR. Intubation Event Date/Time: 06/21/2024 12:57 PM Procedure: intubation ([id number]) Procedure Section: Sedation: under general anesthesia. Indications for Airway Management: anesthesia Procedure pretreatments used? No Induction: standard IV Patient Position: sniffing Mask Ventilation: easy. Blade Type: Ledy Blade Size: 3 Laryngoscopy View: grade 2 (partial cords) Intubation Adjuncts: stylet Tube: endotracheal tube Placement: oral Tube type: cuff - inflated Tube Size (MM): 7 Depth of Insertion (CM): 22 Measured From: teeth Cuff Inflated With: air Number of Attempts: 1. Placement Verified By: direct visualization, bilateral breath sounds and CO2 monitor Tube secured with: adhesive tape. Dentition unchanged? Yes Difficult Airway? No. Procedure Start Time: 06/21/2024 12:57 PM. Staff Section Anesthesia Provider: Kayc Momin DO, Performed the procedure Provider #1: Cory Nielson MD. Cory Nielson MD GENERAL ANESTHESIA O RDERABLES * TSH (06/21/2024 12:07 AM [facility]) TSH 0.552 0.350 - 4.940 uIU/mL 06/21/2024 1:14 AM [facility] Blood BLOOD SPECIMEN / Unknown Venipuncture / Unknown 06/21/2024 12:07 AM [facility] 06/21/2024 12:22 AM [facility] Gordon Ingram MD LAB - CHEMISTRY JULIANNE OROZCO Performing Organization Address City/[facility]/ZIP Co de Phone Number [facility] [address] [place] [address], [place] [phone] * (ABNORMAL) CALCIUM IONIZED WHOLE BLOOD (06/20/2024 12:21 AM [facility]) Calcium Ionized 1.34 mmol/L 06/20/2024 12:29 AM [facility] pH 7.28(L) 7.35 - 7.45 pH 06/20/2024 12:29 AM [facility] Ionized Calcium pH Adjusted 1.28 1.19 - 1.34 mmol/L 06/20/2024 12:29 AM [facility] Blood BLOOD SPECIMEN / Unknown Venipuncture / Unknown 06/20/2024 12:21 AM [facility] 06/20/2024 12:25 AM [facility] Warren Siegel PA-C LAB - CHEMISTRY O RDERABLES [facility] [address] [place] [address], [facility] [phone] * (ABNORMAL) URINE DRUG SCREEN IMMUNOASSAY (06/19/2024 12:36 PM [facility]) Pathologist [facility] Amphetamines Screen Urine Negative Negative : < 1000 ng/mL 06/19/2024 1:05 PM [facility] Barbiturates Screen Urine Negative Negative : < 200 ng/mL 06/19/2024 1:05 PM [facility] Benzodiazepine Screen Urine Negative Negative : < 200 ng/mL 06/19/2024 1:05 PM [facility] Opiates Urine Positive(A) Negative : < 300 ng/mL 06/19/2024 1:05 PM [facility] Comment:Positive urine opiat e screening results should be confirmed by another generally accepted non-immunological method such as gas chromatography or mass spectrometry. Cocaine Metabolites Urine Negative Negative : < 300 ng/mL 06/19/2024 1:05 PM [facility] Phencyclidine Screen Urine Negative Negative : < 25 ng/ml 06/19/2024 1:05 PM [facility] Cannabinoids Screen Urine Negative Negative : <50 ng/mL 06/19/2024 1:05 PM [facility] Methadone Screen Urine Negative Negative : < 300 ng/mL 06/19/2024 1:05 PM [facility] Fentanyl Screen Urine Positive(A) Negative : <1.5 ng/mL 06/19/2024 1:05 PM [facility] Comment:Positive urine fenta nyl screening results should be confirmed by another generally accepted non-immunological method such as gas chromatography or mass spectrometry. Urine URINE / Unknown Collection / Unknown 06/19/2024 12:36 PM [facility] 06/19/2024 12:39 PM [facility] Narrative [facility] - 06/19/2024 1:05 PM [facility] The Urine Toxicology Screening Panel does not screen for Propoxyphene, Meprobamate, Carisoprodol, Trazodone, bbke-thl-mayynog medications and/or volatiles (Acetone, Isopropanol, Methanol or Ethylene Glycol). Ethanol, Salicylate, Acetaminophen, Tricyclic Antidepressants and several therapeutic drugs may be individually assayed in serum or plasma specimen. Toxicology testing by the [facility] is an aid to medical diagnosis and treatment of patients. No documented chain of custody was maintained. Results are intended to be used for clinical purposes only. Gordon Ingram MD LAB - URINE CHEMISTR Y ORDERABLES [facility] [address] [place] [address], [facility] [phone] * CT 3D Recon W Independent Wksn (06/19/2024 10:27 AM [facility]) Anatomical Region Laterality Modality Computed Tomogra phy 06/19/2024 12:0 2 PM [facility] Impressions 06/19/2024 12:17 PM [facility] IMPRESSION: Three-dimensional rendering for operative planning. The report was drafted by Álvaro Fernández MD (residential nurse) 06/19/2024 12:02 PM. IHiginio MD have personally reviewed and interpreted this examination/study. > Interpreting Provider: Higinio Whittington MD on 06/19/2024 12:17 PM Narrative 06/19/2024 12:17 PM [facility] PROCEDURE: CT 3D RECON W INDEPENDENT WKSN, DATE/TIME OF EXAM: 06/19/2024 10:28 AM, LOCATION [facility] INDICATION: S22.43XA: Closed fracture of multiple ribs of both sides, initial encounter ADDITIONAL CLINICAL INFORMATION: Ordering Provider Reason For Exam: chest ct for possible rib plating Technologist Note: Additional: COMPARISON: None. TECHNIQUE: Three-dimensional shaded surface rendering of the chest wall was performed by a technologist on a separate three-dimensional workstation at the request of the referring physician and submitted for review. FINDINGS: The three-dimensional images confirm the findings of multiple bilateral rib fractures. Please see the report from the original study for further details. Procedure Note Roseann Whittington MD - 06/19/2024 PROCEDURE: CT 3D RECON W INDEPENDENT WKSN, DATE/TIME OF EXAM: 06/19/2024 10:28 AM, LOCATION [facility] INDICATION: S22.43XA: Closed fracture of multiple ribs of both sides, initialencounter ADDITIONAL CLINICAL INFORMATION: Ordering Provider Reason For Exam: chest ct for possible rib plating Technologist Note: Additional: COMPARISON: None. TECHNIQUE: Three-dimensional shaded surface rendering of the chest wallwas performed by a technologist on a separate three-dimensional workstationat the request of the referring physician and submitted for review. FINDINGS: The three-dimensional images confirm the findings of multiple bilateralrib fractures. Please see the report from the original study for further details. IMPRESSION: Three-dimensional rendering for operative planning. The report was drafted by Álvaro Fernández MD (residential nurse) 06/19/2024 12:02 PM. IHiginio MD have personally reviewed and interpreted this examination/study. > Interpreting Provider: Higinio Whittington MD on 06/19/2024 12:17 PM Gordon Ingram MD CT ORDERABLES * TRANSFUSE PLATELET PHERESIS UNIT(S) (06/19/2024 4:54 AM [facility]) Grodon Fernández MD NURSING - BLOOD PROD TRANSFUSION * (ABNORMAL) HGB HCT PANEL (06/19/2024 3:29 AM [facility]) Only the most recent of2 resultswithin the time period is included. Hemoglobin 7.9(L) 11.9 - 15.8 g/dL 06/19/2024 3:42 AM [facility] Hematocrit 25.2(L) 34.8 - 46.1 % 06/19/2024 3:42 AM [facility] Blood BLOOD SPECIMEN / Unknown Venipuncture / Unknown 06/19/2024 3:29 AM [facility] 06/19/2024 3:39 AM [facility] Gordon Ingram MD LAB - HEMATOLOGY ORD ERABLES Performing Organization Address City/[facility]/ZIP Co de Phone Number [address] [address], [facility] [phone] * PTT [facility] (06/18/2024 8:38 PM [facility]) Only the most recent of2 resultswithin the time period is included. APTT 27.5 23.0 - 38.4 Seconds 06/18/2024 9:35 PM [facility] Comment:Suggested therapeuti c range for full dose I.V. unfractionated heparin therapy for venous thromboembolism is 71 to 109 seconds. Blood BLOOD SPECIMEN / Unknown Venipuncture / Unknown 06/18/2024 8:38 PM [facility] 06/18/2024 8:44 PM [facility] Gordon Ingram MD LAB - COAGULATION OR DERABLES Performing Organization Address [facility] Co de Phone Number [address] [address], [facility] [phone] * (ABNORMAL) VITAMIN D 25-HYDROXY (06/18/2024 8:38 PM [facility]) Vitamin D, 25 Hydroxy 94.0(H) 30.0 - 80.0 ng/mL 06/19/2024 6:51 AM [facility] Comment: The recommendations for 25-Hydroxy Vitamin D clinical decision points are as follows: Deficient: <20.0 ng/mL Insufficient: 20.0 - 29.9 ng/mL Sufficient: 30.0 - 100.0 ng/mL Potential Toxicity: >100 ng/mL Reference: The Endocrine Society Clinical Practice Guidelines. 2011 If the 25-Hydroxy Vitamin D results are inconsitent with clinical evidence, it is recommended that follow-up testing using a method such as LC/MS/MS be performed to confirm the result. Blood BLOOD SPECIMEN / Unknown Venipuncture / Unknown 06/18/2024 8:38 PM [facility] 06/18/2024 9:09 PM [facility] Sulema Whyte PA-C LAB - CHEMISTRY OR DERABLES Performing Organization Address [facility]/ZIP Co de Phone Number [address] [address], [facility] [phone] * LACTIC ACID BLOOD (06/18/2024 8:38 PM [facility]) Lactic Acid-Stat 1.4 <=2.0 mmol/L 06/18/2024 9:38 PM [facility] Blood BLOOD SPECIMEN / Unknown Venipuncture / Unknown 06/18/2024 8:38 PM [facility] 06/18/2024 9:12 PM [facility] Gordon Ingram MD LAB - CHEMISTRY JULIANNE OROZCO Performing Organization Address [facility]/ZIP Co de Phone Number [address] [address], [facility] [phone] * CT Ankle Left Wo Contrast (06/18/2024 7:57 PM [facility]) Anatomical Region Laterality Modality Lower Extremity Computed Tomogra phy 06/18/2024 8:46 PM [facility] Narrative 06/18/2024 9:15 PM [facility] PROCEDURE: CT KNEE LEFT WO CONTRAST, CT ANKLE LEFT WO CONTRAST DATE/TIME OF EXAM: 06/18/2024 7:58 PM CLINICAL INFORMATION: None relevant/not provided if blank. Indication: T14.90XA: Trauma COMPARISON: Left knee and ankle x-ray dated 06/18/2024 TECHNIQUE: CT of the [left knee and left ankle' was performed utilizing standard protocol. CT dose reduction technique was used, including Automated Exposure Control. FINDINGS /IMPRESSION: Left knee: No evidence of acute osseous fracture. There is dislocation of the patella laterally. Significant soft tissue swelling and hemorrhage is present at the anteromedial aspect of the knee. Degenerative changes are present in the knee joint and in the patellofemoral and both medial and lateral tibial femoral compartments Left ankle: Acute, comminuted, intra-articular fracture of the distal fibula/lateral malleolus. Acute, mildly displaced intra-articular fracture of the medial malleolus. There is acute, mildly displaced fracture of the posterior malleolus. There is enlargement of the medial clear space, suggestive of ligamentous injury. Adjacent soft tissue edema is present. > Dictated by Dimitris Avila MD (Passenger Conductor) Higinio Price MD have personally reviewed and interpreted this examination/study. > Interpreting Provider: Higinio Whittington MD on 06/18/2024 9:15 PM Procedure Note Roseann Whittington MD - 06/18/2024 PROCEDURE: CT KNEE LEFT WO CONTRAST, CT ANKLE LEFT WO CONTRAST DATE/TIME OF EXAM: 06/18/2024 7:58 PM CLINICAL INFORMATION: None relevant/not provided if blank. Indication: T14.90XA: Trauma COMPARISON: Left knee and ankle x-ray dated 06/18/2024 TECHNIQUE: CT of the [left knee and left ankle' was performed utilizing standard protocol. CT dose reduction technique was used, including Automated ExposureControl. FINDINGS /IMPRESSION: Left knee: No evidence of acute osseous fracture. There is dislocation of thepatella laterally. Significant soft tissue swelling and hemorrhage is present at the anteromedial aspect of the knee. Degenerative changes are present in the knee joint and in the patellofemoral and both medial and lateraltibial femoral compartments Left ankle: Acute, comminuted, intra-articular fracture of the distal fibula/lateral malleolus. Acute, mildly displaced intra-articular fracture of themedial malleolus. There is acute, mildly displaced fracture of the posterior malleolus. There is enlargement of the medial clear space, suggestive ofligamentous injury. Adjacent soft tissue edema is present. > Dictated by Dimitris Avila MD (Passenger Conductor) Higinio Price MD have personally reviewed and interpreted this examination/study. > Interpreting Provider: Higinio Whittington MD on 06/18/2024 9:15 PM Gordon Ingram MD CT ORDERABLES * CT Knee Left Wo Contrast (06/18/2024 7:57 PM [facility]) Anatomical Region Laterality Modality Lower Extremity Computed Tomogra phy 06/18/2024 8:46 PM [facility] Narrative 06/18/2024 9:15 PM [facility] PROCEDURE: CT KNEE LEFT WO CONTRAST, CT ANKLE LEFT WO CONTRAST DATE/TIME OF EXAM: 06/18/2024 7:58 PM CLINICAL INFORMATION: None relevant/not provided if blank. Indication: T14.90XA: Trauma COMPARISON: Left knee and ankle x-ray dated 06/18/2024 TECHNIQUE: CT of the [left knee and left ankle' was performed utilizing standard protocol. CT dose reduction technique was used, including Automated Exposure Control. FINDINGS /IMPRESSION: Left knee: No evidence of acute osseous fracture. There is dislocation of the patella laterally. Significant soft tissue swelling and hemorrhage is present at the anteromedial aspect of the knee. Degenerative changes are present in the knee joint and in the patellofemoral and both medial and lateral tibial femoral compartments Left ankle: Acute, comminuted, intra-articular fracture of the distal fibula/lateral malleolus. Acute, mildly displaced intra-articular fracture of the medial malleolus. There is acute, mildly displaced fracture of the posterior malleolus. There is enlargement of the medial clear space, suggestive of ligamentous injury. Adjacent soft tissue edema is present. > Dictated by Dimitris Avila MD (Passenger Conductor) Higinio Price MD have personally reviewed and interpreted this examination/study. > Interpreting Provider: Higinio Whittington MD on 06/18/2024 9:15 PM Procedure Note Roseann Whittington MD - 06/18/2024 PROCEDURE: CT KNEE LEFT WO CONTRAST, CT ANKLE LEFT WO CONTRAST DATE/TIME OF EXAM: 06/18/2024 7:58 PM CLINICAL INFORMATION: None relevant/not provided if blank. Indication: T14.90XA: Trauma COMPARISON: Left knee and ankle x-ray dated 06/18/2024 TECHNIQUE: CT of the [left knee and left ankle' was performed utilizing standard protocol. CT dose reduction technique was used, including Automated ExposureControl. FINDINGS /IMPRESSION: Left knee: No evidence of acute osseous fracture. There is dislocation of thepatella laterally. Significant soft tissue swelling and hemorrhage is present at the anteromedial aspect of the knee. Degenerative changes are present in the knee joint and in the patellofemoral and both medial and lateraltibial femoral compartments Left ankle: Acute, comminuted, intra-articular fracture of the distal fibula/lateral malleolus. Acute, mildly displaced intra-articular fracture of themedial malleolus. There is acute, mildly displaced fracture of the posterior malleolus. There is enlargement of the medial clear space, suggestive ofligamentous injury. Adjacent soft tissue edema is present. > Dictated by Dimitris Avila MD (Passenger Conductor) IHiginio MD have personally reviewed and interpreted this examination/study. > Interpreting Provider: Higinio Whittington MD on 06/18/2024 9:15 PM Gordon Ingram MD CT ORDERABLES * BLOOD TYPE VERIFICATION (06/18/2024 6:57 PM RADIUS GRINDER) [facility] ABO Rh O POS 06/18/2024 7:2 6 PM [facility]IUS GRINDER [facility] Blood Bank BLOOD SPECIMEN / Unknown Venipuncture / Unknown 06/18/2024 6:57 PM RADIUS GRINDER 06/18/2024 7:05 PM [facility] GRINDER Gordon Ingram MD LAB - BLOOD BANK ORD ERABLES [facility] [address] [place] [address], [facility] [phone] * [facility]ERESIS UNIT(S), 1 Units (06/18/2024 6:45 PM RADIUS GRINDER) Pathologist [facility] Unit Description LRPLTphere B7 IR [facility] Unit ABO O [facility] Unit Rh POS [facility] Product Number P31 [facility] B LOOD [facility]ANK LAB Unit Donor # [id number] [facility] Unit Status transfused [facility] B[facility] OD [facility] Product Code [id number] [facility] Blood Type Barcode 5100 [facility] Expiration Date S BLOOD BANK LAB Blood Bank BLOOD SPECIMEN / Unknown 06/18/2024 2:53 PM [facility]IUS GRINDER Gordon Fernández MD LAB - BLOOD BANK ORD ERABLES [facility] [address] [place] [address], [facility] [phone] * XR Wrist Right 3Vw or More (06/18/2024 3:39 PM RADIUS GRINDER) Anatomical Region Laterality Modality Wrist / Hand Digital Radiogra phy 06/18/2024 5:17 PM RADIUS GRINDER Impressions 06/18/2024 8:04 PM [facility]IUS GRINDER IMPRESSION: No acute fracture or dislocation identified. Report dictated by Vijay Jeong DO (residential housekeeper). IMalcolm MD have personally reviewed and interpreted this examination/study. > Interpreting Provider: Malcolm Marroquin MD on 06/18/2024 8:04 PM Narrative 06/18/2024 8:04 PM RADIUS GRINDER PROCEDURE: XR WRIST RIGHT 3VW OR MORE, DATE/TIME OF EXAM: 06/18/2024 3:39 PM, LOCATION [facility] INDICATION: T14.90XA: Trauma ADDITIONAL CLINICAL INFORMATION: Ordering Provider Reason For Exam: trauma COMPARISON: None. FINDINGS: The osseous structures are intact and well aligned without acute fracture or dislocation. Degenerative changes of the first carpometacarpal joint. The joint spaces are otherwise preserved. The bones are diffusely demineralized. No soft tissue swelling is present. Procedure Note Malcolm Marroquin MD - 06/18/2024 PROCEDURE: XR WRIST RIGHT 3VW OR MORE, DATE/TIME OF EXAM: 53:39 PM, LOCATION [facility] INDICATION: T14.90XA: Trauma ADDITIONAL CLINICAL INFORMATION: Ordering Provider Reason For Exam: trauma COMPARISON: None. FINDINGS: The osseous structures are intact and well aligned without acutefracture or dislocation. Degenerative changes of the first carpometacarpal joint. The joint spaces are otherwise preserved. The bones are diffusely demineralized. No soft tissue swelling is present. IMPRESSION: No acute fracture or dislocation identified. Report dictated by Vijay Jeong DO (residential housekeeper). Malcolm Price MD have personally reviewed and interpreted this examination/study. > Interpreting Provider: Malcolm Marroquin MD on 06/18/2024 8:04 PM Gordon Ingram MD DIAGNOSTIC IMAGING O RDERABLES * XR Tibia Fibula Left 2Vw (06/18/2024 3:39 PM RADIUS GRINDER) Anatomical Region Laterality Modality Lower Extremity Digital Radiogra phy 06/18/2024 5:13 PM [facility]IUS GRINDER Impressions 06/18/2024 5:22 PM [facility] GRINDER IMPRESSION: Quadrimalleolar fracture. Report dictated by Vijay Jeong DO (residential housekeeper). Malcolm Price MD have personally reviewed and interpreted this examination/study. > Interpreting Provider: Malcolm Marroquin MD on 06/18/2024 5:22 PM Narrative 06/18/2024 5:22 PM RADIUS GRINDER PROCEDURE: XR TIBIA FIBULA LEFT 2VW, DATE/TIME OF EXAM: 06/18/2024 3:39 PM, LOCATION [facility] INDICATION: T14.90XA: Trauma COMPARISON: None. FINDINGS: Quadrimalleolar fracture. Bone density and texture are normal. Soft tissue swelling is present. Procedure Note Malcolm Marroquin MD - 06/18/2024 PROCEDURE: XR TIBIA FIBULA LEFT 2VW, DATE/TIME OF EXAM: 06/18/2024 3:39PM, LOCATION [facility] INDICATION: T14.90XA: Trauma COMPARISON: None. FINDINGS: Quadrimalleolar fracture. Bone density and texture are normal. Softtissue swelling is present. IMPRESSION: Quadrimalleolar fracture. Report dictated by Vijay Jeong DO (residential housekeeper). Malcolm Price MD have personally reviewed and interpreted this examination/study. > Interpreting Provider: Malcolm Marroquin MD on 06/18/2024 5:22 PM Gordon Ingram MD DIAGNOSTIC IMAGING O RDERABLES * XR Hand Right 3Vw or More (06/18/2024 3:39 PM RADIUS GRINDER) Anatomical Region Laterality Modality Wrist / Hand Digital Radiogra phy 06/18/2024 5:17 PM RADIUS GRINDER Impressions 06/18/2024 8:05 PM [facility]IUS GRINDER IMPRESSION: No acute fracture or dislocation identified. Report dictated by Vijay eJong DO (residential housekeeper). Malcolm Price MD have personally reviewed and interpreted this examination/study. > Interpreting Provider: Malcolm Marroquin MD on 06/18/2024 8:05 PM Narrative 06/18/2024 8:05 PM RADIUS GRINDER PROCEDURE: XR HAND RIGHT 3VW OR MORE, DATE/TIME OF EXAM: 06/18/2024 3:39 PM, LOCATION [facility] INDICATION: T14.90XA: Trauma COMPARISON: None. FINDINGS: The osseous structures are intact and well aligned without acute fracture or dislocation. Degenerative changes of the third and fifth distal interphalangeal atelectasis first carpometacarpal joints. The joint spaces are otherwise preserved. Nonspecific sclerotic lesion in the fourth proximal phalanx may represent a bone island. The bones are diffusely demineralized. No soft tissue swelling is present. Procedure Note Malcolm Marroquin MD - 06/18/2024 PROCEDURE: XR HAND RIGHT 3VW OR MORE, DATE/TIME OF EXAM: 06/18/2024 3:39 PM, LOCATION [facility] INDICATION: T14.90XA: Trauma COMPARISON: None. FINDINGS: The osseous structures are intact and well aligned without acutefracture or dislocation. Degenerative changes of the third and fifth distal interphalangeal atelectasis first carpometacarpal joints. The jointspaces are otherwise preserved. Nonspecific sclerotic lesion in the fourth proximal phalanx may represent a bone island. The bones are diffusely demineralized. No soft tissue swelling is present. IMPRESSION: No acute fracture or dislocation identified. Report dictated by Vijay Jeong DO (residential housekeeper). Malcolm Price MD have personally reviewed and interpreted this examination/study. > Interpreting Provider: Malcolm Marroquin MD on 06/18/2024 8:05 PM Gordon Ingram MD DIAGNOSTIC IMAGING O RDERABLES * XR Hand Left 3Vw or More (06/18/2024 3:39 PM RADIUS GRINDER) Anatomical Region Laterality Modality Wrist / Hand Digital Radiogra phy 06/18/2024 5:16 PM RADIUS GRINDER Impressions 06/18/2024 8:03 PM RADIUS GRINDER IMPRESSION: No acute fracture or dislocation identified. Report dictated by Vijay Jeong DO (residential housekeeper). Malcolm Price MD have personally reviewed and interpreted this examination/study. > Interpreting Provider: Malcolm Marroquin MD on 06/18/2024 8:03 PM Narrative 06/18/2024 8:03 PM RADIUS GRINDER PROCEDURE: XR HAND LEFT 3VW OR MORE, DATE/TIME OF EXAM: 06/18/2024 3:39 PM, LOCATION [facility] INDICATION: T14.90XA: Trauma COMPARISON: None. FINDINGS: The osseous structures are intact and well aligned without acute fracture or dislocation. The joint spaces are preserved. The bones are diffusely demineralized. No soft tissue swelling is present. Degenerative changes of the fifth distal interphalangeal and first carpometacarpal joints. Procedure Note Malcolm Marroquin MD - 06/18/2024 PROCEDURE: XR HAND LEFT 3VW OR MORE, DATE/TIME OF EXAM: 06/18/2024 3:39PM, LOCATION [facility] INDICATION: T14.90XA: Trauma COMPARISON: None. FINDINGS: The osseous structures are intact and well aligned without acutefracture or dislocation. The joint spaces are preserved. The bones are diffusely demineralized. No soft tissue swelling is present. Degenerative changesof the fifth distal interphalangeal and first carpometacarpal joints. IMPRESSION: No acute fracture or dislocation identified. Report dictated by Vijay Jeong DO (residential housekeeper). Malcolm Price MD have personally reviewed and interpreted this examination/study. > Interpreting Provider: Malcolm Marroquin MD on 06/18/2024 8:03 PM Gordon Ingram MD DIAGNOSTIC IMAGING O RDERABLES * CT LUMBAR SPINE WO CONTRAST - T/L-spine trauma, Spine fracture (06/18/2024 3:21 PM RADIUS GRINDER) Anatomical Region Laterality Modality Spine Computed Tomogra phy 06/18/2024 3:49 PM RADIUS GRINDER Impressions 06/18/2024 5:25 PM RADIUS GRINDER IMPRESSION: 1.No evidence of acute fracture in the cervical, thoracic, or lumbar spine. 2.Please refer to the concurrent, dedicated body report for findings in the chest, abdomen, and pelvis. > Dictated by Vijay Jeong DO (Passenger Conductor), 06/18/2024 3:49 PM. IGlenny MD have personally reviewed and interpreted this examination/study. > Interpreting Provider: Glenny Ragsdale MD on 06/18/2024 5:25 PM Narrative 06/18/2024 5:25 PM [facility]IUS GRINDER PROCEDURE: CT CERVICAL SPINE WO CONTRAST, CT LUMBAR SPINE WO CONTRAST, CT THORACIC SPINE WO CONTRAST, DATE/TIME OF EXAM: 06/18/2024 3:23 PM, LOCATION [facility] INDICATION: Trauma EXAMINATION: 1.CT of the cervical spine without contrast 2.CT of the thoracic spine without contrast 3.CT of the lumbar spine without contrast TECHNIQUE: CT of the cervical spine was performed without contrast according to standard protocol. Reformatted axial, sagittal, and coronal images of the thoracic and lumbar spine were obtained by the technologist from a concurrently performed body CT and sent to the workstation for review. CT dose reduction technique was used, including Automated Exposure Control. COMPARISON: No prior study is available for comparison at the time of this dictation. FINDINGS: Cervical spine: There is gentle cervical kyphosis. Grade 1 anterolisthesis of C3 on C4. Trace retrolisthesis of C5 on C6. Trace anterolisthesis of C7 on T1. The bones are mildly osteopenic. Vertebral bodies are normal in height without evidence of acute fracture. Other than middle atlantoaxial joint osteoarthritis, the craniocervical junction appears normal. 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 Posterior disc bulge noted at multiple levels with varying degrees of mild spinal canal narrowing, most prominent at C6-C7 secondary to posterior disc osteophyte complex. There are varying degrees of advanced facet osteoarthritis. There are varying degrees of advanced uncovertebral joint osteoarthritis with the same degree of neural foraminal stenosis at these levels. There is atherosclerotic calcification of the carotid bifurcations. Thoracic spine: Exaggeration of the thoracic kyphosis. The alignment is otherwise maintained. The bones are osteopenic. Vertebral bodies are normal in height without evidence of acute fracture. There is mild degenerative disc disease with Schmorl's nodes noted at multiple levels. Posterior disc protrusion at T12-L1 with mild spinal canal narrowing. 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 There are varying degrees of neural foraminal stenosis at multiple levels. There is atherosclerotic calcification of the thoracic aorta and its branch vessels. Lumbar spine: Trace retrolisthesis of L1 on L2 and L2 on L3. Trace anterolisthesis of L3 on L4 and L4 on L5. The bones are osteopenic. Vertebral bodies are normal in height without evidence of acute fracture. 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 Posterior disc bulge with a resultant mild spinal canal narrowing noted at multiple levels. 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 There are varying degrees of neural foraminal stenosis at multiple levels. Distended rectum with loads of fecal matter in the rectum and colon. Colonic diverticulosis is partially imaged. There is atherosclerotic calcification of the abdominal aorta and its branch vessels. Procedure Note Glenny Ragsdale MD - 06/18/2024 PROCEDURE: CT CERVICAL SPINE WO CONTRAST, CT LUMBAR SPINE WO CONTRAST,CT THORACIC SPINE WO CONTRAST, DATE/TIME OF EXAM: 06/18/2024 3:23 PM, LOCATION [facility] INDICATION: Trauma EXAMINATION: 1.CT of the cervical spine without contrast 2.CT of the thoracic spine without contrast 3.CT of the lumbar spine without contrast TECHNIQUE: CT of the cervical spine was performed without contrast according to standard protocol. Reformatted axial, sagittal, and coronal images of the thoracic and lumbar spine were obtained by thetechnologist from a concurrently performed body CT and sent to the workstation for review. CT dose reduction technique was used, including AutomatedExposure Control. COMPARISON: No prior study is available for comparison at the time ofthis dictation. FINDINGS: Cervical spine: There is gentle cervical kyphosis. Grade 1 anterolisthesis of C3 on C4. Trace retrolisthesis of C5 on C6. Trace anterolisthesis of C7 on T1. The bones are mildly osteopenic. Vertebral bodies are normal in heightwithout evidence of acute fracture. Other than middle atlantoaxial joint osteoarthritis, the craniocervical junction appears normal. 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 Posterior disc bulge noted atmultiple levels with varying degrees of mild spinal canal narrowing, mostprominent at C6-C7 secondary to posterior disc osteophyte complex. There arevarying degrees of advanced facet osteoarthritis. There are varying degrees of advanced uncovertebral joint osteoarthritis with the same degree ofneural foraminal stenosis at these levels. There is atheroscleroticcalcification of the carotid bifurcations. Thoracic spine: Exaggeration of the thoracic kyphosis. The alignment is otherwise maintained. The bones are osteopenic. Vertebral bodies are normal inheight without evidence of acute fracture. There is mild degenerative discdisease with Schmorl's nodes noted at multiple levels. Posterior disc protrusionat T12-L1 with mild spinal canal narrowing. 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 There are varying degrees of neural foraminal stenosis at multiple levels. There is atherosclerotic calcification of the thoracic aorta and its branch vessels. Lumbar spine: Trace retrolisthesis of L1 on L2 and L2 on L3. Trace anterolisthesis ofL3 on L4 and L4 on L5. The bones are osteopenic. Vertebral bodies arenormal in height without evidence of acute fracture. 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 Posterior disc bulge with a resultant mild spinal canal narrowing noted at multiple levels. 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 There are varying degrees of neural foraminal stenosis at multiple levels. Distended rectum with loads offecal matter in the rectum and colon. Colonic diverticulosis is partiallyimaged. There is atherosclerotic calcification of the abdominal aorta and its branch vessels. IMPRESSION: 1.No evidence of acute fracture in the cervical, thoracic, or lumbarspine. 2.Please refer to the concurrent, dedicated body report for findings inthe chest, abdomen, and pelvis. > Dictated by Vijay Jeong DO (Passenger Conductor), 06/18/2024 3:49 PM. IGlenny MD have personally reviewed and interpretedthis examination/study. > Interpreting Provider: Glenny Ragsdale MD on 06/18/2024 5:25 PM Gordon Ingram MD CT ORDERABLES * CT THORACIC SPINE WO CONTRAST - T/L-spine trauma, spine fracture (06/18/2024 3:21 PM RADIUS GRINDER) Anatomical Region Laterality Modality Spine Computed Tomogra phy 06/18/2024 3:49 PM RADIUS GRINDER Impressions 06/18/2024 5:25 PM RADIUS GRINDER IMPRESSION: 1.No evidence of acute fracture in the cervical, thoracic, or lumbar spine. 2.Please refer to the concurrent, dedicated body report for findings in the chest, abdomen, and pelvis. > Dictated by Vijay Jeong DO (Passenger Conductor), 06/18/2024 3:49 PM. IGlenny MD have personally reviewed and interpreted this examination/study. > Interpreting Provider: Glenny Ragsdale MD on 06/18/2024 5:25 PM Narrative 06/18/2024 5:25 PM RADIUS GRINDER PROCEDURE: CT CERVICAL SPINE WO CONTRAST, CT LUMBAR SPINE WO CONTRAST, CT THORACIC SPINE WO CONTRAST, DATE/TIME OF EXAM: 06/18/2024 3:23 PM, LOCATION [facility] INDICATION: Trauma EXAMINATION: 1.CT of the cervical spine without contrast 2.CT of the thoracic spine without contrast 3.CT of the lumbar spine without contrast TECHNIQUE: CT of the cervical spine was performed without contrast according to standard protocol. Reformatted axial, sagittal, and coronal images of the thoracic and lumbar spine were obtained by the technologist from a concurrently performed body CT and sent to the workstation for review. CT dose reduction technique was used, including Automated Exposure Control. COMPARISON: No prior study is available for comparison at the time of this dictation. FINDINGS: Cervical spine: There is gentle cervical kyphosis. Grade 1 anterolisthesis of C3 on C4. Trace retrolisthesis of C5 on C6. Trace anterolisthesis of C7 on T1. The bones are mildly osteopenic. Vertebral bodies are normal in height without evidence of acute fracture. Other than middle atlantoaxial joint osteoarthritis, the craniocervical junction appears normal. 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 Posterior disc bulge noted at multiple levels with varying degrees of mild spinal canal narrowing, most prominent at C6-C7 secondary to posterior disc osteophyte complex. There are varying degrees of advanced facet osteoarthritis. There are varying degrees of advanced uncovertebral joint osteoarthritis with the same degree of neural foraminal stenosis at these levels. There is atherosclerotic calcification of the carotid bifurcations. Thoracic spine: Exaggeration of the thoracic kyphosis. The alignment is otherwise maintained. The bones are osteopenic. Vertebral bodies are normal in height without evidence of acute fracture. There is mild degenerative disc disease with Schmorl's nodes noted at multiple levels. Posterior disc protrusion at T12-L1 with mild spinal canal narrowing. 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 There are varying degrees of neural foraminal stenosis at multiple levels. There is atherosclerotic calcification of the thoracic aorta and its branch vessels. Lumbar spine: Trace retrolisthesis of L1 on L2 and L2 on L3. Trace anterolisthesis of L3 on L4 and L4 on L5. The bones are osteopenic. Vertebral bodies are normal in height without evidence of acute fracture. 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 Posterior disc bulge with a resultant mild spinal canal narrowing noted at multiple levels. 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 There are varying degrees of neural foraminal stenosis at multiple levels. Distended rectum with loads of fecal matter in the rectum and colon. Colonic diverticulosis is partially imaged. There is atherosclerotic calcification of the abdominal aorta and its branch vessels. Procedure Note Glenny Ragsdale MD - 06/18/2024 PROCEDURE: CT CERVICAL SPINE WO CONTRAST, CT LUMBAR SPINE WO CONTRAST,CT THORACIC SPINE WO CONTRAST, DATE/TIME OF EXAM: 06/18/2024 3:23 PM, LOCATION [facility] INDICATION: Trauma EXAMINATION: 1.CT of the cervical spine without contrast 2.CT of the thoracic spine without contrast 3.CT of the lumbar spine without contrast TECHNIQUE: CT of the cervical spine was performed without contrast according to standard protocol. Reformatted axial, sagittal, and coronal images of the thoracic and lumbar spine were obtained by thetechnologist from a concurrently performed body CT and sent to the workstation for review. CT dose reduction technique was used, including AutomatedExposure Control. COMPARISON: No prior study is available for comparison at the time ofthis dictation. FINDINGS: Cervical spine: There is gentle cervical kyphosis. Grade 1 anterolisthesis of C3 on C4. Trace retrolisthesis of C5 on C6. Trace anterolisthesis of C7 on T1. The bones are mildly osteopenic. Vertebral bodies are normal in heightwithout evidence of acute fracture. Other than middle atlantoaxial joint osteoarthritis, the craniocervical junction appears normal. 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 Posterior disc bulge noted atmultiple levels with varying degrees of mild spinal canal narrowing, mostprominent at C6-C7 secondary to posterior disc osteophyte complex. There arevarying degrees of advanced facet osteoarthritis. There are varying degrees of advanced uncovertebral joint osteoarthritis with the same degree ofneural foraminal stenosis at these levels. There is atheroscleroticcalcification of the carotid bifurcations. Thoracic spine: Exaggeration of the thoracic kyphosis. The alignment is otherwise maintained. The bones are osteopenic. Vertebral bodies are normal inheight without evidence of acute fracture. There is mild degenerative discdisease with Schmorl's nodes noted at multiple levels. Posterior disc protrusionat T12-L1 with mild spinal canal narrowing. 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 There are varying degrees of neural foraminal stenosis at multiple levels. There is atherosclerotic calcification of the thoracic aorta and its branch vessels. Lumbar spine: Trace retrolisthesis of L1 on L2 and L2 on L3. Trace anterolisthesis ofL3 on L4 and L4 on L5. The bones are osteopenic. Vertebral bodies arenormal in height without evidence of acute fracture. 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 Posterior disc bulge with a resultant mild spinal canal narrowing noted at multiple levels. 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 There are varying degrees of neural foraminal stenosis at multiple levels. Distended rectum with loads offecal matter in the rectum and colon. Colonic diverticulosis is partiallyimaged. There is atherosclerotic calcification of the abdominal aorta and its branch vessels. IMPRESSION: 1.No evidence of acute fracture in the cervical, thoracic, or lumbarspine. 2.Please refer to the concurrent, dedicated body report for findings inthe chest, abdomen, and pelvis. > Dictated by Vijay Jeong DO (Passenger Conductor), 06/18/2024 3:49 PM. IGlenny MD have personally reviewed and interpretedthis examination/study. > Interpreting Provider: Glenny Ragsdale MD on 06/18/2024 5:25 PM Gordon Ingram MD CT ORDERABLES * CT CERVICAL SPINE WO CONTRAST - C-Spine Trauma, Spine fracture (06/18/2024 3:21 PM RADIUS GRINDER) Anatomical Region Laterality Modality Spine Computed Tomogra phy 06/18/2024 3:49 PM RADIUS GRINDER Impressions 06/18/2024 5:25 PM RADIUS GRINDER IMPRESSION: 1.No evidence of acute fracture in the cervical, thoracic, or lumbar spine. 2.Please refer to the concurrent, dedicated body report for findings in the chest, abdomen, and pelvis. > Dictated by Vijay Jeong DO (Passenger Conductor), 06/18/2024 3:49 PM. IGlenny MD have personally reviewed and interpreted this examination/study. > Interpreting Provider: Glenny Ragsdale MD on 06/18/2024 5:25 PM Narrative 06/18/2024 5:25 PM RADIUS GRINDER PROCEDURE: CT CERVICAL SPINE WO CONTRAST, CT LUMBAR SPINE WO CONTRAST, CT THORACIC SPINE WO CONTRAST, DATE/TIME OF EXAM: 06/18/2024 3:23 PM, LOCATION [facility] INDICATION: Trauma EXAMINATION: 1.CT of the cervical spine without contrast 2.CT of the thoracic spine without contrast 3.CT of the lumbar spine without contrast TECHNIQUE: CT of the cervical spine was performed without contrast according to standard protocol. Reformatted axial, sagittal, and coronal images of the thoracic and lumbar spine were obtained by the technologist from a concurrently performed body CT and sent to the workstation for review. CT dose reduction technique was used, including Automated Exposure Control. COMPARISON: No prior study is available for comparison at the time of this dictation. FINDINGS: Cervical spine: There is gentle cervical kyphosis. Grade 1 anterolisthesis of C3 on C4. Trace retrolisthesis of C5 on C6. Trace anterolisthesis of C7 on T1. The bones are mildly osteopenic. Vertebral bodies are normal in height without evidence of acute fracture. Other than middle atlantoaxial joint osteoarthritis, the craniocervical junction appears normal. 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 Posterior disc bulge noted at multiple levels with varying degrees of mild spinal canal narrowing, most prominent at C6-C7 secondary to posterior disc osteophyte complex. There are varying degrees of advanced facet osteoarthritis. There are varying degrees of advanced uncovertebral joint osteoarthritis with the same degree of neural foraminal stenosis at these levels. There is atherosclerotic calcification of the carotid bifurcations. Thoracic spine: Exaggeration of the thoracic kyphosis. The alignment is otherwise maintained. The bones are osteopenic. Vertebral bodies are normal in height without evidence of acute fracture. There is mild degenerative disc disease with Schmorl's nodes noted at multiple levels. Posterior disc protrusion at T12-L1 with mild spinal canal narrowing. 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 There are varying degrees of neural foraminal stenosis at multiple levels. There is atherosclerotic calcification of the thoracic aorta and its branch vessels. Lumbar spine: Trace retrolisthesis of L1 on L2 and L2 on L3. Trace anterolisthesis of L3 on L4 and L4 on L5. The bones are osteopenic. Vertebral bodies are normal in height without evidence of acute fracture. 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 Posterior disc bulge with a resultant mild spinal canal narrowing noted at multiple levels. 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 There are varying degrees of neural foraminal stenosis at multiple levels. Distended rectum with loads of fecal matter in the rectum and colon. Colonic diverticulosis is partially imaged. There is atherosclerotic calcification of the abdominal aorta and its branch vessels. Procedure Note Glenny Ragsdale MD - 06/18/2024 PROCEDURE: CT CERVICAL SPINE WO CONTRAST, CT LUMBAR SPINE WO CONTRAST,CT THORACIC SPINE WO CONTRAST, DATE/TIME OF EXAM: 06/18/2024 3:23 PM, LOCATION [facility] INDICATION: Trauma EXAMINATION: 1.CT of the cervical spine without contrast 2.CT of the thoracic spine without contrast 3.CT of the lumbar spine without contrast TECHNIQUE: CT of the cervical spine was performed without contrast according to standard protocol. Reformatted axial, sagittal, and coronal images of the thoracic and lumbar spine were obtained by thetechnologist from a concurrently performed body CT and sent to the workstation for review. CT dose reduction technique was used, including AutomatedExposure Control. COMPARISON: No prior study is available for comparison at the time ofthis dictation. FINDINGS: Cervical spine: There is gentle cervical kyphosis. Grade 1 anterolisthesis of C3 on C4. Trace retrolisthesis of C5 on C6. Trace anterolisthesis of C7 on T1. The bones are mildly osteopenic. Vertebral bodies are normal in heightwithout evidence of acute fracture. Other than middle atlantoaxial joint osteoarthritis, the craniocervical junction appears normal. 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 Posterior disc bulge noted atmultiple levels with varying degrees of mild spinal canal narrowing, mostprominent at C6-C7 secondary to posterior disc osteophyte complex. There arevarying degrees of advanced facet osteoarthritis. There are varying degrees of advanced uncovertebral joint osteoarthritis with the same degree ofneural foraminal stenosis at these levels. There is atheroscleroticcalcification of the carotid bifurcations. Thoracic spine: Exaggeration of the thoracic kyphosis. The alignment is otherwise maintained. The bones are osteopenic. Vertebral bodies are normal inheight without evidence of acute fracture. There is mild degenerative discdisease with Schmorl's nodes noted at multiple levels. Posterior disc protrusionat T12-L1 with mild spinal canal narrowing. 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 There are varying degrees of neural foraminal stenosis at multiple levels. There is atherosclerotic calcification of the thoracic aorta and its branch vessels. Lumbar spine: Trace retrolisthesis of L1 on L2 and L2 on L3. Trace anterolisthesis ofL3 on L4 and L4 on L5. The bones are osteopenic. Vertebral bodies arenormal in height without evidence of acute fracture. 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 Posterior disc bulge with a resultant mild spinal canal narrowing noted at multiple levels. 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 There are varying degrees of neural foraminal stenosis at multiple levels. Distended rectum with loads offecal matter in the rectum and colon. Colonic diverticulosis is partiallyimaged. There is atherosclerotic calcification of the abdominal aorta and its branch vessels. IMPRESSION: 1.No evidence of acute fracture in the cervical, thoracic, or lumbarspine. 2.Please refer to the concurrent, dedicated body report for findings inthe chest, abdomen, and pelvis. > Dictated by Vijay Jeong DO (Passenger Conductor), 06/18/2024 3:49 PM. IGlenny MD have personally reviewed and interpretedthis examination/study. > Interpreting Provider: Glenny Ragsdale MD on 06/18/2024 5:25 PM Gordon Ingram MD CT ORDERABLES * CT HEAD WO CONTRAST - Head Trauma, CSF leak, mental status changes (06/18/2024 3:21 PM [facility] GRINDER) Anatomical Region Laterality Modality Head Computed Tomogra phy 06/18/2024 3:01 PM [facility] Impressions 06/18/2024 3:03 PM [facility]INDER IMPRESSION: 1. No acute intracranial process. 2. 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 > Interpreting Provider: Karin Velasco MD on 06/18/2024 3:03 PM Narrative 06/18/2024 3:03 PM [facility] PROCEDURE: CT HEAD WO CONTRAST, DATE/TIME OF EXAM: 06/18/2024 2:46 PM, LOCATION [facility] INDICATION: Trauma ADDITIONAL CLINICAL INFORMATION: Ordering Provider Reason For Exam: Technologist Note: Additional: TECHNIQUE: CT of the head was performed without contrast according to standard protocol. CONTRAST: COMPARISON: No prior study is available for comparison at the time of this dictation. FINDINGS: The study is degraded by motion artifacts which can obscure abnormalities. No acute intracranial hemorrhage or intra- or extra-axial fluid collections are identified. There is mild cerebral volume loss with associated ex vacuo ventricular dilatation. The basal cisterns are patent. No mass effect or midline shift is seen. The gallo-white matter differentiation is normal. Periventricular white matter hypoattenuation is a nonspecific finding that may be indicative of chronic small vessel ischemic disease. There is atherosclerotic calcification of the carotid siphons. The visualized portions of the orbits, paranasal sinuses, and mastoids appear normal. No acute calvarial fracture is identified. Procedure Note Karin Velasco MD - 06/18/2024 PROCEDURE: CT HEAD WO CONTRAST, DATE/TIME OF EXAM: 06/18/2024 2:46 PM, LOCATION [facility] INDICATION: Trauma ADDITIONAL CLINICAL INFORMATION: Ordering Provider Reason For Exam: Technologist Note: Additional: TECHNIQUE: CT of the head was performed without contrast according to standard protocol. CONTRAST: COMPARISON: No prior study is available for comparison at the time ofthis dictation. FINDINGS: The study is degraded by motion artifacts which can obscureabnormalities. No acute intracranial hemorrhage or intra- or extra-axial fluidcollections are identified. There is mild cerebral volume loss with associated exvacuo ventricular dilatation. The basal cisterns are patent. No mass effect or midline shift is seen. The gallo-white matter differentiation is normal. Periventricular white matter hypoattenuation is a nonspecific findingthat may be indicative of chronic small vessel ischemic disease. There is atherosclerotic calcification of the carotid siphons. The visualized portions of the orbits, paranasal sinuses, and mastoids appear normal. No acute calvarial fracture is identified. IMPRESSION: 1. No acute intracranial process. 2. Chronic small vessel ischemic disease of the brain with cerebralvolume loss. > Interpreting Provider: Karin Velasco MD on 06/18/2024 3:03 PM Gordon Ingram MD CT ORDERABLES * TROPONIN-I HIGH SENSITIVE (06/18/2024 2:44 PM [facility]IUS GRINDER) Pathologist [facility] Troponin I High Sensitive 4 <=14 ng/L 06/18/2024 3:19 PM [facility] GRINDER [facility] Blood BLOOD SPECIMEN / Unknown Venipuncture / Unknown 06/18/2024 2:44 PM RADIUS GRINDER 06/18/2024 2:48 PM [facility] GR[facility]ER Gordon Ingram MD LAB - CHEMISTRY [facility] Organization Address [facility] Co de Phone Number [address] [address] [phone] * (ABNORMAL) TEG 6 GLOBAL HEMOSTASIS W/ LYSIS (06/18/2024 2:44 PM RADIUS GRINDER) Pathologist [facility] Citrated Kaolin R (Reaction Time) 4.3(L) 4.6 - 9.1 min 06/18/2024 3:54 PM RADIUS GRINDER [facility] Comment:CK R result below no rmal range. Consistent with hypercoagulable clotting factors. Citrated Kaolin LY30 (Lysis) 0.1 0.0 - 2.6 % 06/18/2024 3:54 PM RADIUS GRINDER [facility] Citrated Functional Fibrinogen MA (Max Amplitude) 19.3 15.0 - 32.0 mm 06/18/2024 3:54 PM [facility] Citrated RapidTEG MA (Max Amplitude) 62.8 52.0 - 70.0 mm 06/18/2024 3:54 PM RADIUS GRINDER [facility] Blood BLOOD SPECIMEN / Unknown Venipuncture / Unknown 06/18/2024 2:44 PM [facility] GRINDER 06/18/2024 2:52 PM [facility]IUS GRINDER Gordon Ingram MD LAB - HEMATOLOGY ORD ERABLES Performing Organization Address City/[facility]/ZIP Co de Phone Number [facility] [address] [place] [address], [facility] [phone] * (ABNORMAL) TEG 6S PLATELET MAPPING (06/18/2024 2:44 PM RADIUS GRINDER) [facility] Signature TEGPLM (Max Amplitude) Koalin 64.2 53.0 - 68.0 mm 06/18/2024 4:03 PM [facility] TEGPLM (Max Amplitude) ACTF 10.1 2.0 - 19.0 mm 06/18/2024 4:03 PM [facility] TEGPLM (Max Amplitude) ADP 48.6 45.0 - 69.0 mm 06/18/2024 4:03 PM [facility] TEGPLM (Max Amplitude) AA 18.0(L) 51.0 - 71.0 mm 06/18/2024 4:03 PM [facility] Comment:AA MA below normal r dov. Inhibition present. TEGPLM %Inhibition ADP 28.8(H) 0.0 - 17.0 % 06/18/2024 4:03 PM [facility] TEGPLM %Inhibition AA 85.4(H) 0.0 - 11.0 % 06/18/2024 4:03 PM [facility] TEGPLM %Aggregation ADP 71.2(L) 83.0 - 100.0 % 06/18/2024 4:03 PM [facility] TEGPLM % Aggregation AA 14.6(L) 89.0 - 100.0 % 06/18/2024 4:03 PM [facility] Blood BLOOD SPECIMEN / Unknown Venipuncture / Unknown 06/18/2024 2:44 PM [facility] GRINDER 06/18/2024 2:52 PM [facility]IUS GRINDER Gordon Ingram MD LAB - HEMATOLOGY ORD ERABLES [facility] [address] [place] [address], [facility] [phone] * TYPE + SCREEN PANEL (06/18/2024 2:44 PM RADIUS GRINDER) Antibody Screen NEG 3:33 PM [facility]IUS GRINDER [facility] LAB ABO Rh O POS 06/18/2024 3:33 PM RADIUS GRINDER [facility] Blood Bank BLOOD SPECIMEN / Unknown Venipuncture / Unknown 06/18/2024 2:44 PM RADIUS GRINDER 06/18/2024 2:53 PM RADIUS GRINDER Gordon Ingram MD LAB - BLOOD BANK ORD [place] Performing Organization Address [facility]/ZIP Co de Phone Number [facility] [address] [place] [address], [facility] [phone] * ALCOHOL ETHYL BLOOD (06/18/2024 2:44 PM RADIUS GRINDER) Ethanol (mg/dL) <10 <10 mg/dL 3:15 PM [facility] GRINDER [facility] Ethanol Calculated (g/dL) <0.010 <=0.010 g/dL 06/18/2024 3:15 PM RADIUS GRINDER [facility] Blood BLOOD SPECIMEN / Unknown Venipuncture / Unknown 06/18/2024 2:44 PM RADIUS GRINDER 06/18/2024 2:48 PM RADIUS GRINDER Narrative [facility] - 06/18/2024 3:15 PM RADIUS GRINDER Ethanol Interp <10: None Detected. Depression of WELL SITE DRILLING ENGINEER: >100 mg/dl Potentially Critical: >250 mg/dl Potentially Fatal >400 mg/dl Ethanol in the patient's blood will contribute to the osmolar gap. Ethanol's contribution to the osmolar gap can be estimated by dividing the concentration of ethanol in mg/dL by 4.6. This test is for clinical use only and does not equal a SAKSHI for legal purposes. Gordon Ingram MD LAB - CHEMISTRY ORDEfrem OROZCO Performing Organization Address [facility]/ZIP Co de Phone Number [address] [address], [place] [phone] * XR PELVIS 1 OR 2VW (06/18/2024 2:43 PM RADIUS GRINDER) Anatomical Region Laterality Modality Pelvis Digital Radiogra phy 06/18/2024 5:02 PM [facility] GR[facility]ER Impressions 06/18/2024 5:20 PM [facility]ER IMPRESSION: No acute fracture identified. Report dictated by Vijay Jeong DO (residential housekeeper). Malcolm Price MD have personally reviewed and interpreted this examination/study. > Interpreting Provider: Malcolm Marroquin MD on 06/18/2024 5:20 PM Narrative 06/18/2024 5:20 PM [facility] GR[facility]ER PROCEDURE: XR PELVIS 1 OR 2VW, DATE/TIME OF EXAM: 06/18/2024 2:44 PM, LOCATION [facility] INDICATION: Trauma Fracture suspected COMPARISON: None. FINDINGS: No acute fracture is identified. The femoral heads appear well-seated within their respective acetabula. The pubic symphysis is intact. Bone density and texture are normal. The sacroiliac joints are normal. Procedure Note Malcolm Marroquin MD - 06/18/2024 PROCEDURE: XR PELVIS 1 OR 2VW, DATE/TIME OF EXAM: 06/18/2024 2:44 PM, LOCATION [facility] INDICATION: Trauma Fracture suspected COMPARISON: None. FINDINGS: No acute fracture is identified. The femoral heads appear well-seated within their respective acetabula. The pubic symphysis is intact. Bone density and texture are normal. The sacroiliac joints are normal. IMPRESSION: No acute fracture identified. Report dictated by Vijay Jeong DO (residential housekeeper). Malcolm Price MD have personally reviewed and interpreted this examination/study. > Interpreting Provider: Malcolm Marroquin MD on 06/18/2024 5:20 PM Gordon Ingram MD DIAGNOSTIC IMAGING O RDERABLES * XR Knee Left 2Vw or Less (06/18/2024 2:43 PM RADIUS GRINDER) Anatomical Region Laterality Modality Lower Extremity Digital Radiogra phy 06/18/2024 5:03 PM [facility] GRINDER Impressions 06/18/2024 7:59 PM [facility] GRINDER Impression: Likely chronic osseous fragment adjacent to the lateral aspect of the tibial plateau. The patella appears displaced slightly laterally on the best attempted AP view, may be positional. Correlate clinically. Consider sunrise view if clinically indicated. No obvious acute fracture identified. No large joint effusion is seen. Bone density and texture are normal. Diffuse soft tissue swelling on the anterior aspect of the knee. Report dictated by Vijay Jeong DO (residential housekeeper). Malcolm Price MD have personally reviewed and interpreted this examination/study. > Interpreting Provider: Malcolm Marroquin MD on 06/18/2024 7:59 PM Narrative 06/18/2024 7:59 PM [facility] GRINDER PROCEDURE: XR KNEE LEFT 2VW OR LESS, DATE/TIME OF EXAM: 06/18/2024 2:43 PM, LOCATION [facility] INDICATION: T14.90XA: Trauma COMPARISON: None. Procedure Note Malcolm Marroquin MD - 06/18/2024 PROCEDURE: XR KNEE LEFT 2VW OR LESS, DATE/TIME OF EXAM: 06/18/2024 2:43PM, LOCATION [facility] INDICATION: T14.90XA: Trauma COMPARISON: None. Impression: Likely chronic osseous fragment adjacent to the lateral aspect of the tibial plateau. The patella appears displaced slightly laterally on the best attempted AP view, may be positional. Correlate clinically.Consider sunrise view if clinically indicated. No obvious acute fractureidentified. No large joint effusion is seen. Bone density and texture are normal. Diffuse soft tissue swelling on the anterior aspect of the knee. Report dictated by Vijay Jeong DO (residential housekeeper). Malcolm Price MD have personally reviewed and interpreted this examination/study. > Interpreting Provider: Malcolm Marroquin MD on 06/18/2024 7:59 PM Gordon Ingram MD DIAGNOSTIC IMAGING O RDERABLES from Last 3 Months Advance Directives Documents on File Type Date Recorded Patient Can Worker Expl anation Adv Directive/Living Will/POA 06/27/2024 10:06 AM * Full Code (Latest Code Status on File) Date Activated Date Inactivated Comments 06/18/2024 4:59 PM 07/05/2024 12:48 PM
--- OUTSIDE RECORDS SUMMARY | 2024-07-22 14:05 | XMS_ITS | Encounter Summary ---
Author Organization [facility] Address [facility] [place] [address] Care Team Providers Care Veterinary Laboratory Technician Name Role Phone Mo Moy MD Primary Care Provider [phone] Sal Bliss MD Unavailable [phone] Angel Lopez MD Unavailable Encounter Details Date Type Department Care Team (Late st Contact Info) Description 01/26/2019 Abstract [facility] at [address] [address] Faizan Pereira MA Social History Tobacco Use Types Packs/Day Years Used Date Smoking Tobacco: Former Cigarettes 0.5 35 1 965 - 2000 Smokeless Tobacco: Never Comments:distant past Alcohol Use Standard Drinks/Week Comments No 0 (1 standard drink = 0.6 oz pur e alcohol) Comments No Sex and Gender Information Value Date Recorded Sex Assigned at Female 05/30/2024 12:35 PM PHOTOENGRAVING APPRENTICE Legal Sex Female 6:49 PM CDT Gender Identity Not on file Sexual Orientation Not on file Occupation Industry Job Start Date Job End Date Not on file Not on file Not on file Not on file documented as of this encounter Plan of Treatment Upcoming Encounters Date Type Department Care Team (Late st Contact Info) Description 10/26/2024 11:00 AM CDT Office Visit [facility] - [address] [place] [address] Jacob Landry MD [address] [place] [address] [place] [id number] documented as of this encounter Procedures Procedure Name Priority Date/Time Associated Diagnosis Comments CBC (OUTSIDE LAB) Routine 01/24/2019 COMPREHENSIVE METABOLIC PANEL Routine 01/24/2019 LIPID PANEL Routine 01/24/2019 THYROXINE, FREE (FT4) Routine 01/24/2019 THYROID STIM HORMONE TSH Routine 01/24/2019 documented in this encounter Results * LIPID PANEL (01/24/2019) CHOLESTEROL 243 HDL 72 TRIGLYCERIDES 99 NON HDL CHOLESTEROL 171 LDL (CALCULATED) 150 01/24/2019 us Doc [facility] LABORATORY Edited Resul t - Final * (ABNORMAL) COMPREHENSIVE METABOLIC PANEL (01/24/2019) Pathologist [facility] SODIUM S/P/B 140 POTASSIUM S/P/B 4.7 CO2 27 CHLORIDE S/P/B 103 GLUCOSE 91 mg/dL CALCIUM S/P/B 10.0 BUN 25 CREATININE S/P/B 1.24(A) 0.5 - 1.0 EGFR AFR. AMER. 48 <=90 EGFR NON-AFR. AMER. 42 <=90 ALKALINE PHOSPHATASE S/P/B 89 ALT 19 AST 20 BILIRUBIN TOTAL S/P/B 0.5 ALBUMIN S/P/B 4.2 3.5 - 5.0 TOTAL PROTEIN S/P/B 6.9 GLOBULIN 2.7 01/24/2019 us Doc [facility] Abstract LABORATORY Edited Resul t - Final * THYROID STIM HORMONE, TSH (01/24/2019) TSH 0.52 0.40 - 4.50 01/24/2019 us Doc [facility] Final Result * THYROXINE, FREE (FT4) (01/24/2019) FREE T4 1.7 0.8 - 1.8 01/24/2019 us Doc [facility] Final Result * CBC (OUTSIDE LAB) (01/24/2019) WBC 6.9 HGB 11.6 HCT 34.9 PLT 191 01/24/2019 us Doc [facility] Abstract LAB-OUTSIDE/ABSTRACTED Final Result documented in this encounter Visit Diagnoses Not on filedocumented in this encounter Additional Health Concerns Infection Onset Date Last Indicated Resolved Time COVID-19 Rule Out 01/14/2020 01/27/2020 01/28/2020 4:35 PM CDT COVID-19 Rule Out 07/07/2021 07/07/2021 07/08/2021 7:49 PM PHOTOENGRAVING APPRENTICE COVID-19 Rule Out 09/27/2021 09/27/2021 09/28/2021 10:26 AM CDT COVID-19 Rule Out 07/01/2023 07/01/2023 07/01/2023 3:40 PM PHOTOENGRAVING APPRENTICE COVID-19 Rule Out 11/03/2023 11/03/2023 11/03/2023 1:01 AM CDT documented as of this encounter Care Teams Veterinary Laboratory Technician Relationship Specialty Start Date End Date Mo Moy MD [address] [place] [phone] PCP - General FAMILY PRACTICE 11/26/17 Sal Bliss MD [address] [address] [place] Bonding Supervisor CARDIOVASCULAR DISEASE 12/10/17 Angel Lopez MD [facility]. [facility] [address] [place] [address] EP Bonding Supervisor CLINICAL CARDIAC ELECTROPHYSIOLOGY 01/15/18 documented as of this encounter
--- OUTSIDE RECORDS SUMMARY | 2024-07-22 14:05 | XMS_ITS | Encounter Summary ---
Author Organization [facility] Address [facility] [place] [address] Care Team Providers Care Central Office Frame Wirer Name Role Phone Mo Moy MD Primary Care Provider [phone] Sal Bliss MD Unavailable [phone] Angel Lopez MD Unavailable Encounter Details Date Type Department Care Team (Late st Contact Info) Description 12/29/2017 Abstract [facility] at [address] [address] Faizan Pereira MA Social History Tobacco Use Types Packs/Day Years Used Date Smoking Tobacco: Former Cigarettes Q uit: 2000 Smokeless Tobacco: Never Alcohol Use Standard Drinks/Week Comments No 0 (1 standard drink = 0.6 oz pur e alcohol) Comments Unknown Sex and Gender Information Value Date Recorded Sex Assigned at Female 05/30/2024 12:35 PM STEM SIZER Legal Sex Female 6:49 PM CDT Gender Identity Not on file Sexual Orientation Not on file documented as of this encounter Progress Notes * MARIA DE JESUS Allen - 01/03/2018 8:47 AM CDT PG pt send letter continue current meds documented in this encounter Plan of Treatment Upcoming Encounters Date Type Department Care Team (Late st Contact Info) Description 10/26/2024 11:00 AM CDT Office Visit [facility] Multispecialty Care - [facility] [address] [place] [address] Jacob Landry MD [address] [facility] [address] [place] [address] documented as of this encounter Procedures Procedure Name Priority Date/Time Associated Diagnosis Comments COMPREHENSIVE METABOLIC PANEL Routine 12/13/2017 COMPREHENSIVE METABOLIC PANEL Routine 06/28/2017 LIPID PANEL Routine 06/28/2017 THYROXINE, FREE (FT4) Routine 06/28/2017 THYROID STIM HORMONE TSH Routine 06/28/2017 documented in this encounter Results * (ABNORMAL) COMPREHENSIVE METABOLIC PANEL (12/13/2017) SODIUM S/P/B 136 POTASSIUM S/P/B 4.3 CO2 24.2 CHLORIDE S/P/B 101 GLUCOSE 107 mg/dL CALCIUM S/P/B 9.7 BUN 22 CREATININE S/P/B 1.06(A) 0.5 - 1.0 EGFR AFR. AMER. 59 <=90 EGFR NON-AFR. AMER. 51 <=90 ALKALINE PHOSPHATASE S/P/B 111 ALT 22 AST 16 BILIRUBIN TOTAL S/P/B 0.4 ALBUMIN S/P/B 3.8 3.5 - 5.0 TOTAL PROTEIN S/P/B 7.3 12/13/2017 [facility] LABORATORY Edited Resul t - Final * (ABNORMAL) COMPREHENSIVE METABOLIC PANEL (06/28/2017) SODIUM S/P/B 140 POTASSIUM S/P/B 4.6 CO2 26 CHLORIDE S/P/B 104 GLUCOSE 114 mg/dL CALCIUM S/P/B 9.7 BUN 29 CREATININE S/P/B 1.08(A) 0.5 - 1.0 EGFR AFR. AMER. 58 <=90 EGFR NON-AFR. AMER. 50 <=90 ALKALINE PHOSPHATASE S/P/B 102 ALT 13 AST 16 BILIRUBIN TOTAL S/P/B 0.5 ALBUMIN S/P/B 4.7 3.5 - 5.0 TOTAL PROTEIN S/P/B 7.1 GLOBULIN 2.4 06/28/2017 [facility] LABORATORY Final Result * THYROID STIM HORMONE, TSH (06/28/2017) TSH 4.14 06/28/2017 us [facility] LABORATORY Final Result * THYROXINE, FREE (FT4) (06/28/2017) FREE T4 1.7 06/28/2017 us [facility] LABORATORY Final Result * LIPID PANEL (06/28/2017) CHOLESTEROL 227 HDL 74 TRIGLYCERIDES 140 NON HDL CHOLESTEROL 153 LDL (CALCULATED) 128 06/28/2017 us [facility] LABORAT[facility] Final Result documented in this encounter Visit Diagnoses Not on filedocumented in this encounter Additional Health Concerns Infection Onset Date Last Indicated Resolved Time COVID-19 Rule Out 01/14/2020 01/27/2020 01/28/2020 4:35 PM CDT COVID-19 Rule Out 07/07/2021 07/07/2021 07/08/2021 7:49 PM STEM SIZER COVID-19 Rule Out 09/27/2021 09/27/2021 09/28/2021 10:26 AM CDT COVID-19 Rule Out 07/01/2023 07/01/2023 07/01/2023 3:40 PM STEM SIZER COVID-19 Rule Out 11/03/2023 11/03/2023 11/03/2023 1:01 AM CDT documented as of this encounter Care Teams Central Office Frame Wirer Relationship Specialty Start Date End Date Mo Moy MD [address] [place] [id number] PCP - General FAMILY PRACTICE 11/26/17 Sal Bliss MD [address] [facility] [place] [address] [place] Band Tacker CARDIOVASCULAR DISEASE 12/10/17 Angel Lopez MD [address] [facility]. [address] [place], [place] [id number] [place] [employer] CLINICAL CARDIAC ELECTROPHYSIOLOGY 01/15/18 documented as of this encounter
--- OUTSIDE RECORDS SUMMARY | 2024-07-22 14:06 | XMS_ITS | Encounter Summary ---
Author Organization [facility] Address [facility] [place] [address] Care Team Providers Care Monitor Tech Name Role Phone Mo Moy MD Primary Care Provider [phone] Sal Bliss MD Unavailable [phone] Angel Lopez MD Unavailable Encounter Details Date Type Department Care Team (Late st Contact Info) Description 07/05/2023 Hospital Follow-up Call [facility] Management [address] [place] [address] Chrissy Chaney RN Social History Tobacco Use Types Packs/Day Years Used Date Smoking Tobacco: Former Cigarettes 1 35 1 965 - 2000 Smokeless Tobacco: Never Comments:distant past Alcohol Use Standard Drinks/Week Comments No 0 (1 standard drink = 0.6 oz pur e alcohol) [facility] Utilities Answer Date Recorded In the past 12 months has e [employer], gas, oil, or water [employer] threatened to shut off services in your home? No 07/01/2023 Humiliation, Afraid, Rape, and Kick questionnair e Answer Date Recorded Within the last year, have y ou been afraid of your partner or ex-partner? No 07/01/2023 Within the last year, have y ou been humiliated or emotionally abused in other ways by your partner or ex-partner? No Within the last year, have y ou been kicked, hit, slapped, or otherwise physically hurt by your partner or ex-partner? No 07/01/2023 Within the last year, have y ou been raped or forced to have any kind of sexual activity by your partner or ex-partner? No 07/01/2023 Overall Financial Resource Strain (CARDIA) Answe r Date Recorded How hard is it for you to pa y for the very basics like food, housing, medical care, and heating? Not hard at all 07/01/2023 PHQ-2 Answer Date Recorded Patient Health Questionnaire-2 Score 0 10/26/2022 Hunger Vital Sign Answer Date Recorded Within the past 12 months, y ou worried that your food would run out before you got the money to buy more. Never true 07/01/19 24 Within the past 12 months, t he food you bought just didn't last and you didn't have money to get more. Never true 07/01/2023 PRAPARE - Transportation Answer Date Re corded In the past 12 months, has l ack of transportation kept you from medical appointments or from getting medications? No 06/17 In the past 12 months, has l ack of transportation kept you from meetings, work, or from getting things needed for daily living? No 07/01/2023 Housing Stability Vital Sign Answer Maxwell e Recorded In the last 12 months, was t here a time when you were not able to pay the mortgage or rent on time? No 07/01/2023 In the last 12 months, how many places have you lived? 1 07/01/2023 In the last 12 months, was t here a time when you did not have a steady place to sleep or slept in a longterm (including now)? No 07/01/2023 Comments No Sex and Gender Information Value Date Recorded Sex Assigned at Female 05/30/2024 12:35 PM LINUX ADMINISTRATOR Legal Sex Female 6:49 PM CDT Gender Identity Not on file Sexual Orientation Not on file Occupation Industry Job Start Date Job End Date Not on file Not on file Not on file Not on file documented as of this encounter Functional Status * Are you deaf or do you have serious difficulty hearing Answer Date of Assessment Author Status No 07/03/2023 10:20 AM LINUX ADMINISTRATOR Maddi Bryant R N Active * Are you blind or do you have serious difficulty seeing, even when wearing glasses? Answer Date of Assessment Author Status No 07/03/2023 10:20 AM Maddi Daniel R N Active * Do you have serious difficulty walking or climbing stairs? Answer Date of Assessment Author Status Yes 07/03/2023 10:20 AM Maddi Daniel R N Active * Do you have difficulty dressing or bathing? Answer Date of Assessment Author Status No 07/03/2023 10:20 AM Maddi Daniel R N Active * Because of a physical, mental, or emotional condition, do you have difficulty doing errands alone such as visiting a doctor's office or shopping? Answer Date of Assessment Author Status No 07/03/2023 10:20 AM Maddi Daniel R N Active documented as of this encounter Mental Status * Because of a physical, mental, or emotional condition, do you have serious difficulty concentrating, remembering, or making decisions? Answer Entry Date Author Status No 07/03/2023 10:20 AM Maddi Daniel R N Active documented in this encounter Plan of Treatment Upcoming Encounters Date Type Department Care Team (Late st Contact Info) Description 10/26/2024 11:00 AM CDT Office Visit [facility] Multispecialty Care - [address], [address] [place] [address] Jacob Landry MD [address] [place] [address] [place] [address] documented as of this encounter Visit Diagnoses Not on filedocumented in this encounter Additional Health Concerns Infection Onset Date Last Indicated Resolved Time COVID-19 Rule Out 11/03/2023 11/03/2023 11/03/2023 1:01 AM CDT Assessment Noted Time PHQ-9 Depression Total Score: 0 05/05/20 21 1:33 PM LINUX ADMINISTRATOR documented as of this encounter Care Teams Monitor Tech Relationship Specialty Start Date End Date Mo Moy MD [address] [place] [id number] PCP - General FAMILY PRACTICE 11/26/17 Sal Bliss MD [address] [place] [address] [place] Contact Center Engineer CARDIOVASCULAR DISEASE 12/10/17 Angel Lopez MD [address] [place] [address] EP Contact Center Engineer CLINICAL CARDIAC ELECTROPHYSIOLOGY 01/15/18 documented as of this encounter
--- OUTSIDE RECORDS SUMMARY | 2024-07-22 14:06 | XMS_ITS | Patient Health Summary ---
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 Acetaminophen, Tricyclic Antidepressants and several therapeutic drugs may be individually assayed in serum or plasma specimen. Toxicology testing by the [facility] is an aid to medical diagnosis and treatment of patients. No documented chain of custody was maintained. Results are intended to be used for clinical purposes only. Gordon Ingram MD LAB - URINE CHEMISTR Y ORDERABLES [facility] [address] [place] [address], [facility] [phone] * CT 3D Recon W Independent Wksn (06/19/2024 10:27 AM JUICE TESTER) Anatomical Region Laterality Modality Computed Tomogra phy 06/19/2024 12:0 2 PM JUICE TESTER Impressions 06/19/2024 12:17 PM JUICE TESTER IMPRESSION: Three-dimensional rendering for operative planning. The report was drafted by Álvaro Fernández MD (administration vice president) 06/19/2024 12:02 PM. Higinio Price MD have personally reviewed and interpreted this examination/study. > Interpreting Provider: Higinio Whittington MD on 06/19/2024 12:17 PM Narrative 06/19/2024 12:17 PM JUICE TESTER PROCEDURE: CT 3D RECON W INDEPENDENT WKSN, DATE/TIME OF EXAM: 06/19/2024 10:28 AM, LOCATION [facility] INDICATION: S22.43XA: Closed fracture of multiple ribs [...] 06/19/2024 PROCEDURE: CT 3D RECON W INDEPENDENT SN, DATE/TIME OF EXAM: 06/19/2024 10:28 AM, LOCATION [facility] INDICATION: S22.43XA: Closed fracture of multiple ribs [...] report was drafted by Álvaro Fernández MD (administration vice president) 06/19/2024 12:02 PM. IHiginio MD have personally reviewed and interpreted this examination/study. > Interpreting Provider: Higinio Whittington MD on 06/19/2024 12:17 PM Gordon Ingram MD CT ORDERABLES * TRANSFUSE PLATELET PHERESIS UNIT(S) (06/19/2024 4:54 AM JUICE TESTER) Gordon Fernández MD NURSING - BLOOD PROD TRANSFUSION * (ABNORMAL) HGB HCT PANEL (06/19/2024 3:29 AM JUICE TESTER) Only the most recent of2 resultswithin the time period is included. Hemoglobin 7.9(L) 11.9 - 15.8 g/dL 06/19/2024 3:42 AM [facility] Hematocrit 25.2(L) 34.8 - 46.1 % 06/19/2024 3:42 AM [facility] Blood BLOOD SPECIMEN / Unknown Venipuncture / Unknown 06/19/2024 3:29 AM JUICE TESTER 06/19/2024 3:39 AM JUICE TESTER Gordon Ingram MD LAB - HEMATOLOGY ORD ERABLES Performing Organization Address [facility] Co de Phone Number [address] [address], [facility] [phone] * PTT [facility] (06/18/2024 8:38 PM JUICE TESTER) Only the most recent of2 resultswithin the time period is included. Pathologist [facility] [place] APTT 27.5 23.0 - 38.4 Seconds 06/18/2024 9:35 PM [facility] Comment:Suggested therapeuti c range for full dose I.V. unfractionated heparin therapy for venous thromboembolism is 71 to 109 seconds. Blood BLOOD SPECIMEN / Unknown Venipuncture / Unknown 06/18/2024 8:38 PM JUICE TESTER 06/18/2024 8:44 PM JUICE TESTER Gordon Ingram MD LAB - COAGULATION OR DERABLES Performing Organization Address [facility]/ZIP Co de Phone Number [address] [address], [facility] [phone] * (ABNORMAL) VITAMIN D 25-HYDROXY (06/18/2024 8:38 PM JUICE TESTER) Vitamin D, 25 Hydroxy 94.0(H) 30.0 - 80.0 ng/mL 06/19/2024 6:51 AM [facility] Comment: The recommendations for 25-Hydroxy Vitamin [...] Unknown Venipuncture / Unknown 06/18/2024 8:38 PM JUICE TESTER 06/18/2024 9:09 PM JUICE TESTER Sulema Whyte PA-C LAB - CHEMISTRY OR DERABLES [address] [address], [place] [phone] * LACTIC ACID BLOOD (06/18/2024 8:38 PM JUICE TESTER) Lactic Acid-Stat 1.4 <=2.0 mmol/L 06/18/2024 9:38 PM JUICE TESTER [facility] Blood BLOOD SPECIMEN / Unknown Venipuncture / Unknown 06/18/2024 8:38 PM JUICE TESTER 06/18/2024 9:12 PM JUICE TESTER Gordon Ingram MD LAB - CHEMISTRY JULIANNE OROZCO Performing Organization Address City/[facility]/ZIP Co de Phone Number [address] [address], [place] [phone] * CT Ankle Left Wo Contrast (06/18/2024 7:57 PM JUICE TESTER) Anatomical Region Laterality Modality Lower Extremity Computed Tomogra phy 06/18/2024 8:46 PM JUICE TESTER Narrative 06/18/2024 9:15 PM JUICE TESTER PROCEDURE: CT KNEE LEFT WO CONTRAST, CT [...] present. > Dictated by Dimitris Avila MD ([employer]) Higinio Price MD have personally reviewed and [...] present. > Dictated by Dimitris Avila MD ([employer]) IHiginio MD have personally reviewed and interpreted this examination/study. > Interpreting Provider: Higinio Whittington MD on 06/18/2024 9:15 PM Gordon Christie Ingram MD CT ORDERABLES * CT Knee Left Wo Contrast (06/18/2024 7:57 PM JUICE TESTER) Anatomical Region Laterality Modality Lower Extremity Computed Tomogra phy 06/18/2024 8:46 PM JUICE TESTER Narrative 06/18/2024 9:15 PM JUICE TESTER PROCEDURE: CT KNEE LEFT WO CONTRAST, CT [...] present. > Dictated by Dimitris Avila MD ([employer]) Higinio Price MD have personally reviewed and [...] present. > Dictated by Dimitris Avila MD ([employer]) IHiginio MD have personally reviewed and interpreted this examination/study. > Interpreting Provider: Higinio Whittington MD on 06/18/2024 9:15 PM Gordon Ingram MD CT ORDERABLES * BLOOD TYPE VERIFICATION (06/18/2024 6:57 PM JUICE TESTER) ABO Rh O POS 06/18/2024 7:2 6 PM JUICE TESTER [facility] Blood Bank BLOOD SPECIMEN / Unknown Venipuncture / Unknown 06/18/2024 6:57 PM JUICE TESTER 06/18/2024 7:05 PM JUICE TESTER Gordon Ingram MD LAB - BLOOD BANK ORD ERABLES [facility] [address] [place] [address], [facility] [phone] * PREPARE PLATELET PHERESIS UNIT(S), 1 Units (06/18/2024 6:45 PM JUICE TESTER) Unit Description LRPLTphere B7 IR [facility] Unit ABO O [facility] Unit Rh POS [facility] Product Number P31 [facility] LO[facility] Unit Donor # [id number] [facility] Unit Status transfused [facility] Product Code [id number] [facility] Blood Type Barcode 5100 [facility] Expiration Date S BLOOD BANK LAB Blood Bank BLOOD SPECIMEN / Unknown 06/18/2024 2:53 PM JUICE TESTER Gordon Fernández MD LAB - BLOOD BANK ORD ERABLES [facility] [address] [place] [address], [facility] [phone] * XR Wrist Right 3Vw or More (06/18/2024 3:39 PM JUICE TESTER) Anatomical Region Laterality Modality Wrist / Hand Digital Radiogra phy 06/18/2024 5:17 PM JUICE TESTER Impressions 06/18/2024 8:04 PM JUICE TESTER IMPRESSION: No acute fracture or dislocation identified. Report dictated by Vijay Jeong DO (nursing resident). IMalcolm MD have personally reviewed and interpreted this examination/study. > Interpreting Provider: Malcolm Marroquin MD on 06/18/2024 8:04 PM Narrative 06/18/2024 8:04 PM JUICE TESTER PROCEDURE: XR WRIST RIGHT 3VW OR MORE, DATE/TIME OF EXAM: 06/18/2024 3:39 PM, LOCATION [facility] INDICATION: T14.90XA: Trauma ADDITIONAL CLINICAL INFORMATION: Ordering [...] MORE, DATE/TIME OF EXAM: 53:39 PM, LOCATION [facility] INDICATION: T14.90XA: Trauma ADDITIONAL CLINICAL INFORMATION: Ordering [...] identified. Report dictated by Vijay Jeong DO (nursing resident). Malcolm Price MD have personally reviewed and interpreted this examination/study. > Interpreting Provider: Malcolm Marroquin MD on 06/18/2024 8:04 PM Gordon Christie Ingram MD DIAGNOSTIC IMAGING O RDERABLES * XR Tibia Fibula Left 2Vw (06/18/2024 3:39 PM JUICE TESTER) Anatomical Region Laterality Modality Lower Extremity Digital Radiogra phy 06/18/2024 5:13 PM JUICE TESTER Impressions 06/18/2024 5:22 PM JUICE TESTER IMPRESSION: Quadrimalleolar fracture. Report dictated by Vijay Jeong DO (nursing resident). Malcolm Price MD have personally reviewed and interpreted this examination/study. > Interpreting Provider: Malcolm Marroquin MD on 06/18/2024 5:22 PM Narrative 06/18/2024 5:22 PM JUICE TESTER PROCEDURE: XR TIBIA FIBULA LEFT 2VW, DATE/TIME OF EXAM: 06/18/2024 3:39 PM, LOCATION [facility] INDICATION: T14.90XA: Trauma COMPARISON: None. FINDINGS: Quadrimalleolar fracture. Bone density and texture are normal. Soft tissue swelling is present. Procedure Note Malcolm Marroquin MD - 06/18/2024 PROCEDURE: XR TIBIA FIBULA LEFT 2VW, DATE/TIME OF EXAM: 06/18/2024 3:39PM, LOCATION [facility] INDICATION: T14.90XA: Trauma COMPARISON: None. FINDINGS: Quadrimalleolar fracture. Bone density and texture are normal. Softtissue swelling is present. IMPRESSION: Quadrimalleolar fracture. Report dictated by Vijay Jeong DO (nursing resident). Malcolm Price MD have personally reviewed and interpreted this examination/study. > Interpreting Provider: Malcolm Marroquin MD on 06/18/2024 5:22 PM Gordon Ingram MD DIAGNOSTIC IMAGING O RDERABLES * XR Hand Right 3Vw or More (06/18/2024 3:39 PM JUICE TESTER) Anatomical Region Laterality Modality Wrist / Hand Digital Radiogra phy 06/18/2024 5:17 PM JUICE TESTER Impressions 06/18/2024 8:05 PM JUICE TESTER IMPRESSION: No acute fracture or dislocation identified. Report dictated by Vijay Jeong DO (nursing resident). Malcolm Price MD have personally reviewed and interpreted this examination/study. > Interpreting Provider: Malcolm Marroquin MD on 06/18/2024 8:05 PM Narrative 06/18/2024 8:05 PM JUICE TESTER PROCEDURE: XR HAND RIGHT 3VW OR MORE, DATE/TIME OF EXAM: 06/18/2024 3:39 PM, LOCATION [facility] INDICATION: T14.90XA: Trauma COMPARISON: None. FINDINGS: The [...] DATE/TIME OF EXAM: 06/18/2024 3:39 PM, LOCATION [facility] INDICATION: T14.90XA: Trauma COMPARISON: None. FINDINGS: The [...] identified. Report dictated by Vijay Jeong DO (nursing resident). Malcolm Price MD have personally reviewed and interpreted this examination/study. > Interpreting Provider: Malcolm Marroquin MD on 06/18/2024 8:05 PM Gordon Ingram MD DIAGNOSTIC IMAGING O RDERABLES * XR Hand Left 3Vw or More (06/18/2024 3:39 PM JUICE TESTER) Anatomical Region Laterality Modality Wrist / Hand Digital Radiogra phy 06/18/2024 5:16 PM JUICE TESTER Impressions 06/18/2024 8:03 PM JUICE TESTER IMPRESSION: No acute fracture or dislocation identified. Report dictated by Vijay Jeong DO (nursing resident). Malcolm Price MD have personally reviewed and interpreted this examination/study. > Interpreting Provider: Malcolm Marroquin MD on 06/18/2024 8:03 PM Narrative 06/18/2024 8:03 PM JUICE TESTER PROCEDURE: XR HAND LEFT 3VW OR MORE, DATE/TIME OF EXAM: 06/18/2024 3:39 PM, LOCATION [facility] INDICATION: T14.90XA: Trauma COMPARISON: None. FINDINGS: The [...] MORE, DATE/TIME OF EXAM: 06/18/2024 3:39PM, LOCATION [facility] INDICATION: T14.90XA: Trauma COMPARISON: None. FINDINGS: The osseous structures are intact and well aligned without acutefracture or dislocation. The joint spaces are preserved. The bones are diffusely demineralized. No soft tissue swelling is present. Degenerative changesof the fifth distal interphalangeal and first carpometacarpal joints. IMPRESSION: No acute fracture or dislocation identified. Report dictated by Vijay Jeong DO (nursing resident). Malcolm Price MD have personally reviewed and interpreted this examination/study. > Interpreting Provider: Malcolm Marroquin MD on 06/18/2024 8:03 PM Gordon Ingram MD DIAGNOSTIC IMAGING O RDERABLES * CT LUMBAR SPINE WO CONTRAST - T/L-spine trauma, Spine fracture (06/18/2024 3:21 PM JUICE TESTER) Anatomical Region Laterality Modality Spine Computed Tomogra phy 06/18/2024 3:49 PM JUICE TESTER Impressions 06/18/2024 5:25 PM JUICE TESTER IMPRESSION: 1.No evidence of acute fracture in the cervical, thoracic, or lumbar spine. 2.Please refer to the concurrent, dedicated body report for findings in the chest, abdomen, and pelvis. > Dictated by Vijay Jeong DO ([employer]), 06/18/2024 3:49 PM. Glenny Price MD have personally reviewed and interpreted this examination/study. > Interpreting Provider: Glenny Ragsdale MD on 06/18/2024 5:25 PM Narrative 06/18/2024 5:25 PM JUICE TESTER PROCEDURE: CT CERVICAL SPINE WO CONTRAST, CT LUMBAR SPINE WO CONTRAST, CT THORACIC SPINE WO CONTRAST, DATE/TIME OF EXAM: 06/18/2024 3:23 PM, LOCATION [facility] INDICATION: Trauma EXAMINATION: 1.CT of the cervical [...] DATE/TIME OF EXAM: 06/18/2024 3:23 PM, LOCATION [facility] INDICATION: Trauma EXAMINATION: 1.CT of the cervical [...] pelvis. > Dictated by Vijay Jeong DO ([employer]), 06/18/2024 3:49 PM. Glenny Price MD have personally reviewed and interpretedthis examination/study. > Interpreting Provider: Glenny Ragsdale MD on 06/18/2024 5:25 PM Gordon Ingram MD CT ORDERABLES * CT THORACIC SPINE WO CONTRAST - T/L-spine trauma, spine fracture (06/18/2024 3:21 PM JUICE TESTER) Anatomical Region Laterality Modality Spine Computed Tomogra phy 06/18/2024 3:49 PM JUICE TESTER Impressions 06/18/2024 5:25 PM JUICE TESTER IMPRESSION: 1.No evidence of acute fracture in the cervical, thoracic, or lumbar spine. 2.Please refer to the concurrent, dedicated body report for findings in the chest, abdomen, and pelvis. > Dictated by Vijay Jeong DO ([employer]), 06/18/2024 3:49 PM. IGlenny MD have personally reviewed and interpreted this examination/study. > Interpreting Provider: Glenny Ragsdale MD on 06/18/2024 5:25 PM Narrative 06/18/2024 5:25 PM JUICE TESTER PROCEDURE: CT CERVICAL SPINE WO CONTRAST, CT LUMBAR SPINE WO CONTRAST, CT THORACIC SPINE WO CONTRAST, DATE/TIME OF EXAM: 06/18/2024 3:23 PM, LOCATION [facility] INDICATION: Trauma EXAMINATION: 1.CT of the cervical [...] DATE/TIME OF EXAM: 06/18/2024 3:23 PM, LOCATION [facility] INDICATION: Trauma EXAMINATION: 1.CT of the cervical [...] pelvis. > Dictated by Vijay Jeong DO ([employer]), 06/18/2024 3:49 PM. IGlenny MD have personally reviewed and interpretedthis examination/study. > Interpreting Provider: Glenny Ragsdale MD on 06/18/2024 5:25 PM Gordon Ingram MD CT ORDERABLES * CT CERVICAL SPINE WO CONTRAST - C-Spine Trauma, Spine fracture (06/18/2024 3:21 PM JUICE TESTER) Anatomical Region Laterality Modality Spine Computed Tomogra phy 06/18/2024 3:49 PM JUICE TESTER Impressions 06/18/2024 5:25 PM JUICE TESTER IMPRESSION: 1.No evidence of acute fracture in the cervical, thoracic, or lumbar spine. 2.Please refer to the concurrent, dedicated body report for findings in the chest, abdomen, and pelvis. > Dictated by Vijay Jeong DO ([employer]), 06/18/2024 3:49 PM. IGlenny MD have personally reviewed and interpreted this examination/study. > Interpreting Provider: Glenny Ragsdale MD on 06/18/2024 5:25 PM Narrative 06/18/2024 5:25 PM JUICE TESTER PROCEDURE: CT CERVICAL SPINE WO CONTRAST, CT LUMBAR SPINE WO CONTRAST, CT THORACIC SPINE WO CONTRAST, DATE/TIME OF EXAM: 06/18/2024 3:23 PM, LOCATION [facility] INDICATION: Trauma EXAMINATION: 1.CT of the cervical [...] DATE/TIME OF EXAM: 06/18/2024 3:23 PM, LOCATION [facility] INDICATION: Trauma EXAMINATION: 1.CT of the cervical [...] pelvis. > Dictated by Vijay Jeong DO ([employer]), 06/18/2024 3:49 PM. IGlenny MD have personally reviewed and interpretedthis examination/study. > Interpreting Provider: Glenny Ragsdale MD on 06/18/2024 5:25 PM Gordon A Ingram MD CT ORDERABLES * CT HEAD WO CONTRAST - Head Trauma, CSF leak, mental status changes (06/18/2024 3:21 PM JUICE TESTER) Anatomical Region Laterality Modality Head Computed Tomogra phy 06/18/2024 3:01 PM JUICE TESTER Impressions 06/18/2024 3:03 PM JUICE TESTER IMPRESSION: 1. No acute intracranial process. 2. 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 > Interpreting Provider: Karin Velasco MD on 06/18/2024 3:03 PM Narrative 06/18/2024 3:03 PM JUICE TESTER PROCEDURE: CT HEAD WO CONTRAST, DATE/TIME OF EXAM: 06/18/2024 2:46 PM, LOCATION [facility] INDICATION: Trauma ADDITIONAL CLINICAL INFORMATION: Ordering Provider [...] DATE/TIME OF EXAM: 06/18/2024 2:46 PM, LOCATION [facility] INDICATION: Trauma ADDITIONAL CLINICAL INFORMATION: Ordering Provider [...] * TROPONIN-I HIGH SENSITIVE (06/18/2024 2:44 PM JUICE TESTER) [facility] Troponin I High Sensitive 4 <=14 ng/L 06/18/2024 3:19 PM JUICE TESTER [facility] Blood BLOOD SPECIMEN / Unknown Venipuncture / Unknown 06/18/2024 2:44 PM JUICE TESTER 06/18/2024 2:48 PM JUICE TESTER Gordon Ingram MD [facility] Organization Address City/State/ZIP Co de Phone Number [facility] [address] [place] [address], [facility] [phone] * (ABNORMAL) TEG 6 GLOBAL HEMOSTASIS W/ LYSIS (06/18/2024 2:44 PM JUICE TESTER) [facility] Citrated Kaolin R (Reaction Time) 4.3(L) 4.6 - 9.1 min 06/18/2024 3:54 PM [facility] Comment:CK R result below no rmal range. Consistent with hypercoagulable clotting factors. Citrated Kaolin LY30 (Lysis) 0.1 0.0 - 2.6 % 06/18/2024 3:54 PM JUICE TESTER [facility] Citrated Functional Fibrinogen MA (Max Amplitude) 19.3 15.0 - 32.0 mm 06/18/2024 3:54 PM JUICE TESTER [facility] Citrated RapidTEG MA (Max Amplitude) 62.8 52.0 - 70.0 mm 06/18/2024 3:54 PM [facility] Blood BLOOD SPECIMEN / Unknown Venipuncture / Unknown 06/18/2024 2:44 PM JUICE TESTER 06/18/2024 2:52 PM JUICE TESTER Gordon Ingram MD LAB - HEMATOLOGY ORD ERABLES [facility] [address] [place] [address], [facility] [phone] * (ABNORMAL) TEG 6S PLATELET MAPPING (06/18/2024 2:44 PM JUICE TESTER) TEGPLM (Max Amplitude) Koalin 64.2 53.0 - 68.0 mm 06/18/2024 4:03 PM [facility] TEGPLM (Max Amplitude) ACTF 10.1 2.0 - 19.0 mm 06/18/2024 4:03 PM [facility] TEGPLM (Max Amplitude) ADP 48.6 45.0 - 69.0 mm 06/18/2024 4:03 PM [facility] TEGPLM (Max Amplitude) AA 18.0(L) 51.0 - 71.0 mm 06/18/2024 4:03 PM [facility] Comment:AA MA below normal r dov. Inhibition present. TEGPLM %Inhibition ADP 28.8(H) 0.0 - 17.0 % 06/18/2024 4:03 PM [facility] TEGPLM %Inhibition AA 85.4(H) 0.0 - 11.0 % 06/18/2024 4:03 PM [facility] TEGPLM %Aggregation ADP 71.2(L) 83.0 - 100.0 % 06/18/2024 4:03 PM [facility] TEGPLM % Aggregation AA 14.6(L) 89.0 - 100.0 % 06/18/2024 4:03 PM [facility] Blood BLOOD SPECIMEN / Unknown Venipuncture / Unknown 06/18/2024 2:44 PM JUICE TESTER 06/18/2024 2:52 PM JUICE TESTER Gordon Ingram MD LAB - HEMATOLOGY ORD ERABLES Performing Organization Address [facility] Co de Phone Number [address] [address], [facility] [phone] * TYPE + SCREEN PANEL (06/18/2024 2:44 PM JUICE TESTER) Antibody Screen NEG 3:33 PM JUICE TESTER [facility] ABO Rh O POS 06/18/2024 3:33 PM JUICE TESTER [facility] Blood Bank BLOOD SPECIMEN / Unknown Venipuncture / Unknown 06/18/2024 2:44 PM JUICE TESTER 06/18/2024 2:53 PM JUICE TESTER Gordon Ingram MD LAB - BLOOD BANK ORD ERABLES Performing Organization Address [facility] Co de Phone Number [facility] [address] [place] [address], [facility] [phone] * ALCOHOL ETHYL BLOOD (06/18/2024 2:44 PM JUICE TESTER) Ethanol (mg/dL) <10 <10 mg/dL 3:15 PM JUICE TESTER [facility] Ethanol Calculated (g/dL) <0.010 <=0.010 g/dL 06/18/2024 3:15 PM [facility] Blood BLOOD SPECIMEN / Unknown Venipuncture / Unknown 06/18/2024 2:44 PM JUICE TESTER 06/18/2024 2:48 PM JUICE TESTER Narrative [facility] - 06/18/2024 3:15 PM JUICE TESTER Ethanol Interp <10: None Detected. Depression of DEMOLITION EXPERT: >100 mg/dl Potentially Critical: >250 mg/dl Potentially Fatal >400 mg/dl Ethanol in the patient's blood will contribute to the osmolar gap. Ethanol's contribution to the osmolar gap can be estimated by dividing the concentration of ethanol in mg/dL by 4.6. This test is for clinical use only and does not equal a SAKSHI for legal purposes. Gordon Ingram MD LAB - CHEMISTRY AGE RABLES [facility] [address] [place] [address], [facility] [phone] * XR PELVIS 1 OR 2VW (06/18/2024 2:43 PM JUICE TESTER) Anatomical Region Laterality Modality Pelvis Digital Radiogra phy 06/18/2024 5:02 PM JUICE TESTER Impressions 06/18/2024 5:20 PM JUICE TESTER IMPRESSION: No acute fracture identified. Report dictated by Vijay Jeong DO (nursing resident). Malcolm Price MD have personally reviewed and interpreted this examination/study. > Interpreting Provider: Malcolm Marroquin MD on 06/18/2024 5:20 PM Narrative 06/18/2024 5:20 PM JUICE TESTER PROCEDURE: XR PELVIS 1 OR 2VW, DATE/TIME OF EXAM: 06/18/2024 2:44 PM, LOCATION [facility] INDICATION: Trauma Fracture suspected COMPARISON: None. FINDINGS: No acute fracture is identified. The femoral heads appear well-seated within their respective acetabula. The pubic symphysis is intact. Bone density and texture are normal. The sacroiliac joints are normal. Procedure Note Malcolm Marroquin MD - 06/18/2024 PROCEDURE: XR PELVIS 1 OR 2VW, DATE/TIME OF EXAM: 06/18/2024 2:44 PM, LOCATION [facility] INDICATION: Trauma Fracture suspected COMPARISON: None. FINDINGS: No acute fracture is identified. The femoral heads appear well-seated within their respective acetabula. The pubic symphysis is intact. Bone density and texture are normal. The sacroiliac joints are normal. IMPRESSION: No acute fracture identified. Report dictated by Vijay Jeong DO (nursing resident). Malcolm Price MD have personally reviewed and interpreted this examination/study. > Interpreting Provider: Malcolm Marroquin MD on 06/18/2024 5:20 PM Gordon Ingram MD DIAGNOSTIC IMAGING O RDERABLES * XR Knee Left 2Vw or Less (06/18/2024 2:43 PM JUICE TESTER) Anatomical Region Laterality Modality Lower Extremity Digital Radiogra phy 06/18/2024 5:03 PM JUICE TESTER Impressions 06/18/2024 7:59 PM JUICE TESTER Impression: Likely chronic osseous fragment adjacent to [...] knee. Report dictated by Vijay Jeong DO (nursing resident). Malcolm Price MD have personally reviewed and interpreted this examination/study. > Interpreting Provider: Malcolm Marroquin MD on 06/18/2024 7:59 PM Narrative 06/18/2024 7:59 PM JUICE TESTER PROCEDURE: XR KNEE LEFT 2VW OR LESS, DATE/TIME OF EXAM: 06/18/2024 2:43 PM, LOCATION [facility] INDICATION: T14.90XA: Trauma COMPARISON: None. Procedure Note Malcolm Marroquin MD - 06/18/2024 PROCEDURE: XR KNEE LEFT 2VW OR LESS, DATE/TIME OF EXAM: 06/18/2024 2:43PM, LOCATION [facility] INDICATION: T14.90XA: Trauma COMPARISON: None. Impression: Likely [...] knee. Report dictated by Vijay Jeong DO (nursing resident). Malcolm Price MD have personally reviewed and interpreted this examination/study. > Interpreting Provider: Malcolm Marroquin MD on 06/18/2024 7:59 PM Gordon Ingram MD DIAGNOSTIC IMAGING O ERABLES
--- OUTSIDE RECORDS SUMMARY | 2024-07-22 14:06 | XMS_ITS | Encounter Summary ---
Author Organization [facility] Address [facility] [place] [address] Care Team Providers Care Trash Man Name Role Phone Mo Moy MD Primary Care Provider [phone] Sal Bliss MD Unavailable [phone] Angel Lopez MD Unavailable Encounter Details Date Type Department Care Team (Late st Contact Info) Description 03/14/2018 Abstract [facility] at [address] [address] Faizan Pereira MA Social History Tobacco Use Types Packs/Day Years Used Date Smoking Tobacco: Former Cigarettes 0.5 35 1 965 - 2000 Smokeless Tobacco: Never Comments:distant past Alcohol Use Standard Drinks/Week Comments No 0 (1 standard drink = 0.6 oz pur e alcohol) Comments No Sex and Gender Information Value Date Recorded Sex Assigned at Female 05/30/2024 12:35 PM BOX ESTIMATOR Legal Sex Female 6:49 PM CDT Gender Identity Not on file Sexual Orientation Not on file documented as of this encounter Progress Notes * MARIA DE JESUS Allen - 03/14/2018 2:47 PM CDT PG pt send letter continue current meds documented in this encounter Plan of Treatment Upcoming Encounters Date Type Department Care Team (Late st Contact Info) Description 10/26/2024 11:00 AM CDT Office Visit [facility] - [facility] [address] [place] [address] Jacob Landry MD [address] [place] [address] documented as of this encounter Procedures Procedure Name Priority Date/Time Associated Diagnosis Comments THYROID STIM HORMONE TSH Routine 03/01/2018 MAGNESIUM Routine 03/01/2018 DIGOXIN Routine 03/01/2018 documented in this encounter Results * DIGOXIN (03/01/2018) DIGOXIN 0.8 03/01/2018 [facility] Final Result * THYROID STIM HORMONE, TSH (03/01/2018) TSH 2.093 03/01/2018 [facility] Final Result * MAGNESIUM (03/01/2018) MAGNESIUM 1.4 03/01/2018 [facility] Final Result documented in this encounter Visit Diagnoses Not on filedocumented in this encounter Additional Health Concerns Infection Onset Date Last Indicated Resolved Time COVID-19 Rule Out 01/14/2020 01/27/2020 01/28/2020 4:35 PM CDT COVID-19 Rule Out 07/07/2021 07/07/2021 07/08/2021 7:49 PM BOX ESTIMATOR COVID-19 Rule Out 09/27/2021 09/27/2021 09/28/2021 10:26 AM CDT COVID-19 Rule Out 07/01/2023 07/01/2023 07/01/2023 3:40 PM BOX ESTIMATOR COVID-19 Rule Out 11/03/2023 11/03/2023 11/03/2023 1:01 AM CDT documented as of this encounter Care Teams Trash Man Relationship Specialty Start Date End Date Mo Moy MD [address] [place] [id number] PCP - General FAMILY PRACTICE 11/26/17 Sal Bliss MD [address] [facility] [address] [place] [address] [employer] Manager Community CARDIOVASCULAR DISEASE 12/10/17 Angel Lopez MD [address] [facility] [address] [place], [place] [id number] EP Manager Community CLINICAL CARDIAC ELECTROPHYSIOLOGY 01/15/18 documented as of this encounter
--- OUTSIDE RECORDS SUMMARY | 2024-07-22 14:06 | XMS_ITS | Clinical Summary ---
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 Type Barcode 5100 [facility] BLOOD BANK LAB Expiration Date S BLOOD BANK LAB Unit Description AS1 LR PRBC [facility] BLOOD BANK LAB Unit ABO O [facility] BLOOD [facility]ANK LAB Unit POS [facility] BLOOD BANK LAB Product Number R02 [facility] B LOOD BANK LAB Unit Donor # [id number] [facility] BLOOD BANK LAB Unit Status released [facility] BLOO D BANK LAB Product Code [id number] [facility] BLO OD BANK LAB Blood Type Barcode 5100 [facility] BLOOD BANK LAB Expiration Date S BLOOD BANK LAB Unit Description AS1 LR PRBC [facility] BLOOD BANK LAB Unit ABO O [facility] BLOOD BANK LAB Unit POS [facility] BLOOD BANK LAB Product Number R02 [facility] B LOOD BANK LAB Unit Donor # [id number] [facility] BLOOD BANK LAB Unit Status released [facility] BLOO D BANK LAB Product Code [id number] [facility] BLO OD BANK LAB Blood Type Barcode 5100 [facility] BLOOD BANK LAB Expiration Date S BLOOD BANK LAB Unit Description AS1 LR PRBC [facility] BLOOD [facility] LAB Unit ABO O [facility] BLOOD [facility] Unit POS [facility] BLOOD B[facility] LAB Product Number R02 [facility] B LOOD BANK LAB Unit Donor # [id number] [facility] BLOOD BANK LAB Unit Status released [facility] BLOO D BANK LAB Product Code [id number] [facility] BLO OD BANK LAB Blood Type Barcode 5100 [facility] BLOOD BANK LAB Expiration Date S BLOOD BANK LAB Blood Bank BLOOD SPECIMEN / Unknown 06/18/2024 2:53 PM SALES AND MARKETING INTERN Gordon Ingram MD LAB - BLOOD BANK ORD ERABLES [facility] BLOOD BANK LAB [address] [place] [address], [facility] [phone] * FL Korin Surgery (06/21/2024 2:45 PM SALES AND MARKETING INTERN) Narrative [facility] RADIOLOGY - 06/21/2024 2:45 PM SALES AND MARKETING INTERN Fluoroscopy was used for this exam in the OR. Please see the Operative report. Mikey Cortez DO FLUOROSCOPY ORDERABL ES Performing Organization Address City/[facility]/ZIP Co de Phone Number [facility] RADIOLOGY * TRANSFUSE RED BLOOD CELL LEUKOREDUCED ML(S) (06/21/2024 2:15 PM SALES AND MARKETING INTERN) Jorge A Ceron MD NURSING - BLOOD PROD TRANSFUSION * ETT LINE PERFORMABLE (06/21/2024 1:48 PM SALES AND MARKETING INTERN) Narrative Kacy Momin DO - 06/21/2024 1:48 PM SALES AND MARKETING INTERN Kacy Momin DO 06/21/2024 1:48 PM Endotracheal Tube Placement: Patient Location: OR. Intubation Event Date/Time: 06/21/2024 12:57 PM Procedure: intubation ([id number]) Procedure Section: Sedation: under general anesthesia. Indications [...] PM. Staff Section Anesthesia Provider: Kacy Momin DO Performed the procedure Provider #1: Cory Nielson MD. Cory Nielson MD GENERAL ANESTHESIA O RDERABLES * TSH (06/21/2024 12:07 AM SALES AND MARKETING INTERN) TSH 0.552 0.350 - 4.940 uIU/mL 06/21/2024 1:14 AM [facility] Blood BLOOD SPECIMEN / Unknown Venipuncture / Unknown 06/21/2024 12:07 AM SALES AND MARKETING INTERN 06/21/2024 12:22 AM SALES AND MARKETING INTERN Gordon Ingram MD LAB - CHEMISTRY JULIANNE OROZCO Performing Organization Address City/[facility]/ZIP Co de Phone Number [facility] [address] [place] [phone], [facility] [phone] * (ABNORMAL) CALCIUM IONIZED WHOLE BLOOD (06/20/2024 12:21 AM SALES AND MARKETING INTERN) [facility] Calcium Ionized 1.34 mmol/L 06/20/2024 12:29 AM [facility] pH 7.28(L) 7.35 - 7.45 pH 06/20/2024 12:29 AM [facility] Ionized Calcium pH Adjusted 1.28 1.19 - 1.34 mmol/L 06/20/2024 12:29 AM [facility] Blood BLOOD SPECIMEN / Unknown Venipuncture / Unknown 06/20/2024 12:21 AM SALES AND MARKETING INTERN 06/20/2024 12:25 AM SALES AND MARKETING INTERN Warren Siegel PA-C LAB - CHEMISTRY Dewayne RDERABLES Performing Organization Address City/[facility]/ZIP Co de Phone Number [address] [address], [facility] [phone] * (ABNORMAL) URINE DRUG SCREEN IMMUNOASSAY (06/19/2024 12:36 PM SALES AND MARKETING INTERN) [facility] Amphetamines Screen Urine Negative Negative : < 1000 ng/mL 06/19/2024 1:05 PM [facility] Barbiturates Screen Urine Negative Negative : < 200 ng/mL 06/19/2024 1:05 PM [facility] Benzodiazepine Screen Urine Negative Negative : < 200 ng/mL 06/19/2024 1:05 PM [facility] Opiates Urine Positive(A) Negative : < 300 ng/mL 06/19/2024 1:05 PM [facility] Comment:Positive urine opiat e screening results should be confirmed by another generally accepted non-immunological method such as gas chromatography or mass spectrometry. Cocaine Metabolites Urine Negative Negative : < 300 ng/mL 06/19/2024 1:05 PM [facility] Phencyclidine Screen Urine Negative Negative : < 25 ng/ml 06/19/2024 1:05 PM [facility] Cannabinoids Screen Urine Negative Negative : <50 ng/mL 06/19/2024 1:05 PM [facility] Methadone Screen Urine Negative Negative : < 300 ng/mL 06/19/2024 1:05 PM [facility] Fentanyl Screen Urine Positive(A) Negative : <1.5 ng/mL 06/19/2024 1:05 PM [facility] Comment:Positive urine fenta nyl screening results should be confirmed by another generally accepted non-immunological method such as gas chromatography or mass spectrometry. Urine URINE / Unknown Collection / Unknown 06/19/2024 12:36 PM SALES AND MARKETING INTERN 06/19/2024 12:39 PM SALES AND MARKETING INTERN Narrative [facility] - 06/19/2024 1:05 PM SALES AND MARKETING INTERN The Urine Toxicology Screening Panel does not screen for Propoxyphene, Meprobamate, Carisoprodol, Trazodone, eqay-wgo-oyfynus medications and/or volatiles (Acetone, Isopropanol, Methanol or Ethylene Glycol). Ethanol, Salicylate, Acetaminophen, Tricyclic Antidepressants and several therapeutic drugs may be individually assayed in serum or plasma specimen. Toxicology testing by the [facility] is an aid to medical diagnosis and treatment of patients. No documented chain of custody was maintained. Results are intended to be used for clinical purposes only. Gordon Ingram MD LAB - URINE CHEMISTR Y ORDERABLES [facility] [address] [place] [address], [facility] [phone] * CT 3D Recon W Independent Wksn (06/19/2024 10:27 AM SALES AND MARKETING INTERN) Anatomical Region Laterality Modality Computed Tomogra phy 06/19/2024 12:0 2 PM SALES AND MARKETING INTERN Impressions 06/19/2024 12:17 PM SALES AND MARKETING INTERN IMPRESSION: Three-dimensional rendering for operative planning. The report was drafted by Álvaro Fernández MD (academic affairs vice president) 06/19/2024 12:02 PM. Higinio Price MD have personally reviewed and interpreted this examination/study. > Interpreting Provider: Higinio Whittington MD on 06/19/2024 12:17 PM Narrative 06/19/2024 12:17 PM SALES AND MARKETING INTERN PROCEDURE: CT 3D RECON W INDEPENDENT WKSN, DATE/TIME OF EXAM: 06/19/2024 10:28 AM, LOCATION [facility] INDICATION: S22.43XA: Closed fracture of multiple ribs [...] DATE/TIME OF EXAM: 06/19/2024 10:28 AM, LOCATION [facility] INDICATION: S22.43XA: Closed fracture of multiple ribs [...] report was drafted by Álvaro Fernández MD (academic affairs vice president) 06/19/2024 12:02 PM. Higinio Price MD have personally reviewed and interpreted this examination/study. > Interpreting Provider: Higinio Whittington MD on 06/19/2024 12:17 PM Gordon Ingram MD CT ORDERABLES * TRANSFUSE PLATELET PHERESIS UNIT(S) (06/19/2024 4:54 AM SALES AND MARKETING INTERN) Gordon Fernández MD NURSING - BLOOD PROD TRANSFUSION * (ABNORMAL) HGB HCT PANEL (06/19/2024 3:29 AM SALES AND MARKETING INTERN) Only the most recent of2 resultswithin the time period is included. Hemoglobin 7.9(L) 11.9 - 15.8 g/dL 06/19/2024 3:42 AM SALES AND MARKETING INTERN [facility] Hematocrit 25.2(L) 34.8 - 46.1 % 06/19/2024 3:42 AM [facility] Blood BLOOD SPECIMEN / Unknown Venipuncture / Unknown 06/19/2024 3:29 AM SALES AND MARKETING INTERN 06/19/2024 3:39 AM SALES AND MARKETING INTERN Gordon Ingram MD LAB - HEMATOLOGY ORD ERABLES [facility] [address] [place] [address], [place] [phone] * PTT [facility] (06/18/2024 8:38 PM SALES AND MARKETING INTERN) Only the most recent of2 resultswithin the time period is included. APTT 27.5 23.0 - 38.4 Seconds 06/18/2024 9:35 PM SALES AND MARKETING INTERN [facility] Comment:Suggested therapeuti c range for full dose I.V. unfractionated heparin therapy for venous thromboembolism is 71 to 109 seconds. Blood BLOOD SPECIMEN / Unknown Venipuncture / Unknown 06/18/2024 8:38 PM SALES AND MARKETING INTERN 06/18/2024 8:44 PM SALES AND MARKETING INTERN Gordon Ingram MD LAB - COAGULATION OR DERABLES Performing Organization Address City/[facility]/ZIP Co de Phone Number [facility] [address] [place] [address], [place] [phone] * (ABNORMAL) VITAMIN D 25-HYDROXY (06/18/2024 8:38 PM SALES AND MARKETING INTERN) Vitamin D, 25 Hydroxy 94.0(H) 30.0 - 80.0 ng/mL 06/19/2024 6:51 AM SALES AND MARKETING INTERN [facility] Comment: The recommendations for 25-Hydroxy Vitamin D [...] Unknown Venipuncture / Unknown 06/18/2024 8:38 PM SALES AND MARKETING INTERN 06/18/2024 9:09 PM SALES AND MARKETING INTERN Sulema Whyte PA-C LAB - CHEMISTRY OR DERABLES [address] [address], [facility] [phone] * LACTIC ACID BLOOD (06/18/2024 8:38 PM SALES AND MARKETING INTERN) [facility] Lactic Acid-Stat 1.4 <=2.0 mmol/L 06/18/2024 9:38 PM SALES AND MARKETING INTERN [facility] Blood BLOOD SPECIMEN / Unknown Venipuncture / Unknown 06/18/2024 8:38 PM SALES AND MARKETING INTERN 06/18/2024 9:12 PM SALES AND MARKETING INTERN Gordon Ingram MD LAB - CHEMISTRY JULIANNE OROZCO [address] [address], [place] [phone] * CT Ankle Left Wo Contrast (06/18/2024 7:57 PM SALES AND MARKETING INTERN) Anatomical Region Laterality Modality Lower Extremity Computed Tomogra phy 06/18/2024 8:46 PM SALES AND MARKETING INTERN Narrative 06/18/2024 9:15 PM SALES AND MARKETING INTERN PROCEDURE: CT KNEE LEFT WO CONTRAST, CT [...] present. > Dictated by Dimitris Avila MD (Apartment Groundskeeper) Higinio Price MD have personally reviewed and [...] present. > Dictated by Dimitris Avila MD (Apartment Groundskeeper) Higinio Price MD have personally reviewed and interpreted this examination/study. > Interpreting Provider: Higinio Whittington MD on 06/18/2024 9:15 PM Gordon Ingram MD CT ORDERABLES * CT Knee Left Wo Contrast (06/18/2024 7:57 PM SALES AND MARKETING INTERN) Anatomical Region Laterality Modality Lower Extremity Computed Tomogra phy 06/18/2024 8:46 PM SALES AND MARKETING INTERN Narrative 06/18/2024 9:15 PM SALES AND MARKETING INTERN PROCEDURE: CT KNEE LEFT WO CONTRAST, CT [...] present. > Dictated by Dimitris Avila MD (Apartment Groundskeeper) IHiginio MD have personally reviewed and interpreted [...] present. > Dictated by Dimitris Avila MD (Apartment Groundskeeper) Higinio Price MD have personally reviewed and interpreted this examination/study. > Interpreting Provider: Higinio Whittington MD on 06/18/2024 9:15 PM Gordon Ingram MD CT ORDERABLES * BLOOD TYPE VERIFICATION (06/18/2024 6:57 PM SALES AND MARKETING INTERN) ABO Rh O POS 06/18/2024 7:2 6 PM SALES AND MARKETING INTERN [facility] BLOOD BANK LAB Blood Bank BLOOD SPECIMEN / Unknown Venipuncture / Unknown 06/18/2024 6:57 PM SALES AND MARKETING INTERN 06/18/2024 7:05 PM SALES AND MARKETING INTERN Gordon Ingram MD LAB - BLOOD BANK ORD ERABLES [facility] BLOOD BANK LAB [address] [place] [address], [facility] [phone] * PREPARE PLATELET PHERESIS UNIT(S), 1 Units (06/18/2024 6:45 PM SALES AND MARKETING INTERN) Unit Description LRPLTphere B7 IR [facility] BLOOD BANK LAB Unit ABO O [facility] BLOOD BANK LAB Unit Rh POS [facility] BLOOD BANK LAB Product Number P31 [facility] B LOOD BANK LAB Unit Donor # [id number] [facility] BLOOD BANK LAB Unit Status transfused [facility] BLO OD BANK LAB Product Code [id number] [facility] BLO OD BANK LAB Blood Type Barcode 5100 [facility] BLOOD BANK LAB Expiration Date S BLOOD BANK LAB Blood Bank BLOOD SPECIMEN / Unknown 06/18/2024 2:53 PM SALES AND MARKETING INTERN Gordon Fernández MD LAB - BLOOD BANK ORD ERABLES Performing Organization Address [facility]/ZIP Co de Phone Number [facility] BLOOD BANK LAB [address] [place] [address], [facility] [phone] * XR Wrist Right 3Vw or More (06/18/2024 3:39 PM SALES AND MARKETING INTERN) Anatomical Region Laterality Modality Wrist / Hand Digital Radiogra phy 06/18/2024 5:17 PM SALES AND MARKETING INTERN Impressions 06/18/2024 8:04 PM SALES AND MARKETING INTERN IMPRESSION: No acute fracture or dislocation identified. Report dictated by Vijay Jeong DO (radiology specialist). I, Malcolm Marroquin MD have personally reviewed and interpreted this examination/study. > Interpreting Provider: Malcolm Marroquin MD on 06/18/2024 8:04 PM Narrative 06/18/2024 8:04 PM SALES AND MARKETING INTERN PROCEDURE: XR WRIST RIGHT 3VW OR MORE, DATE/TIME OF EXAM: 06/18/2024 3:39 PM, LOCATION [facility] INDICATION: T14.90XA: Trauma ADDITIONAL CLINICAL INFORMATION: Ordering [...] MORE, DATE/TIME OF EXAM: 53:39 PM, LOCATION [facility] INDICATION: T14.90XA: Trauma ADDITIONAL CLINICAL INFORMATION: Ordering [...] identified. Report dictated by Vijay Jeong DO (radiology specialist). Malcolm Price MD have personally reviewed and interpreted this examination/study. > Interpreting Provider: Malcolm Marroquin MD on 06/18/2024 8:04 PM Gordon Ingram MD DIAGNOSTIC IMAGING O RDERABLES * XR Tibia Fibula Left 2Vw (06/18/2024 3:39 PM SALES AND MARKETING INTERN) Anatomical Region Laterality Modality Lower Extremity Digital Radiogra phy 06/18/2024 5:13 PM SALES AND MARKETING INTERN Impressions 06/18/2024 5:22 PM SALES AND MARKETING INTERN IMPRESSION: Quadrimalleolar fracture. Report dictated by Vijay Jeong DO (radiology specialist). Malcolm Price MD have personally reviewed and interpreted this examination/study. > Interpreting Provider: Malcolm Marroquin MD on 06/18/2024 5:22 PM Narrative 06/18/2024 5:22 PM SALES AND MARKETING INTERN PROCEDURE: XR TIBIA FIBULA LEFT 2VW, DATE/TIME OF EXAM: 06/18/2024 3:39 PM, LOCATION [facility] INDICATION: T14.90XA: Trauma COMPARISON: None. FINDINGS: Quadrimalleolar fracture. Bone density and texture are normal. Soft tissue swelling is present. Procedure Note Malcolm Marroquin MD - 06/18/2024 PROCEDURE: XR TIBIA FIBULA LEFT 2VW, DATE/TIME OF EXAM: 06/18/2024 3:39PM, LOCATION [facility] INDICATION: T14.90XA: Trauma COMPARISON: None. FINDINGS: Quadrimalleolar fracture. Bone density and texture are normal. Softtissue swelling is present. IMPRESSION: Quadrimalleolar fracture. Report dictated by Vijay Jeong DO (radiology specialist). Malcolm Price MD have personally reviewed and interpreted this examination/study. > Interpreting Provider: Malcolm Marroquin MD on 06/18/2024 5:22 PM Gordon Ingram MD DIAGNOSTIC IMAGING O RDERABLES * XR Hand Right 3Vw or More (06/18/2024 3:39 PM [employer] INTERN) Anatomical Region Laterality Modality Wrist / Hand Digital Radiogra phy 06/18/2024 5:17 PM [employer] MARKETING INTERN Impressions 06/18/2024 8:05 PM [employer] MARKET[employer] INTERN IMPRESSION: No acute fracture or dislocation identified. Report dictated by Vijay Jeong DO (radiology specialist). Malcolm Price MD have personally reviewed and interpreted this examination/study. > Interpreting Provider: Malcolm Marroquin MD on 06/18/2024 8:05 PM Narrative 06/18/2024 8:05 PM [employer]N PROCEDURE: XR HAND RIGHT 3VW OR MORE, DATE/TIME OF EXAM: 06/18/2024 3:39 PM, LOCATION [facility] INDICATION: T14.90XA: Trauma COMPARISON: None. FINDINGS: The [...] DATE/TIME OF EXAM: 06/18/2024 3:39 PM, LOCATION [facility] INDICATION: T14.90XA: Trauma COMPARISON: None. FINDINGS: The [...] identified. Report dictated by Vijay Jeong DO (radiology specialist). Malcolm Price MD have personally reviewed and interpreted this examination/study. > Interpreting Provider: Malcolm Marroquin MD on 06/18/2024 8:05 PM Gordon Christie Ingram MD DIAGNOSTIC IMAGING O RDERABLES * XR Hand Left 3Vw or More (06/18/2024 3:39 PM [employer] INTERN) Anatomical Region Laterality Modality Wrist / Hand Digital Radiogra phy 06/18/2024 5:16 PM [employer] INTERN Impressions 06/18/2024 8:03 PM [employer] MARK[employer] INTERN IMPRESSION: No acute fracture or dislocation identified. Report dictated by Vijay Jeong DO (radiology specialist). Malcolm Price MD have personally reviewed and interpreted this examination/study. > Interpreting Provider: Malcolm Marroquin MD on 06/18/2024 8:03 PM Narrative 06/18/2024 8:03 PM [employer] PROCEDURE: XR HAND LEFT 3VW OR MORE, DATE/TIME OF EXAM: 06/18/2024 3:39 PM, LOCATION [facility] INDICATION: T14.90XA: Trauma COMPARISON: None. FINDINGS: The [...] MORE, DATE/TIME OF EXAM: 06/18/2024 3:39PM, LOCATION [facility] INDICATION: T14.90XA: Trauma COMPARISON: None. FINDINGS: The osseous structures are intact and well aligned without acutefracture or dislocation. The joint spaces are preserved. The bones are diffusely demineralized. No soft tissue swelling is present. Degenerative changesof the fifth distal interphalangeal and first carpometacarpal joints. IMPRESSION: No acute fracture or dislocation identified. Report dictated by Vijay Jeong DO (radiology specialist). Malcolm Price MD have personally reviewed and interpreted this examination/study. > Interpreting Provider: Malcolm Marroquin MD on 06/18/2024 8:03 PM Gordon Ingram MD DIAGNOSTIC IMAGING O RDERABLES * CT LUMBAR SPINE WO CONTRAST - T/L-spine trauma, Spine fracture (06/18/2024 3:21 PM [employer]N) Anatomical Region Laterality Modality Spine Computed Tomogra phy 06/18/2024 3:49 PM [employer] MARKETING INTERN Impressions 06/18/2024 5:25 PM SAL[employer] MARKETING INTERN IMPRESSION: 1.No evidence of acute fracture in the cervical, thoracic, or lumbar spine. 2.Please refer to the concurrent, dedicated body report for findings in the chest, abdomen, and pelvis. > Dictated by Vijay Jeong DO (Apartment Groundskeeper), 06/18/2024 3:49 PM. Glenny Price MD have personally reviewed and interpreted this examination/study. > Interpreting Provider: Glenny Ragsdale MD on 06/18/2024 5:25 PM Narrative 06/18/2024 5:25 PM [employer]N PROCEDURE: CT CERVICAL SPINE WO CONTRAST, CT LUMBAR SPINE WO CONTRAST, CT THORACIC SPINE WO CONTRAST, DATE/TIME OF EXAM: 06/18/2024 3:23 PM, LOCATION [facility] INDICATION: Trauma EXAMINATION: 1.CT of the cervical [...] DATE/TIME OF EXAM: 06/18/2024 3:23 PM, LOCATION [facility] INDICATION: Trauma EXAMINATION: 1.CT of the cervical [...] pelvis. > Dictated by Vijay Jeong DO (Apartment Groundskeeper), 06/18/2024 3:49 PM. Glenny Price MD have personally reviewed and interpretedthis examination/study. > Interpreting Provider: Glenny Ragsdale MD on 06/18/2024 5:25 PM Gordon Ingram MD CT ORDERABLES * CT THORACIC SPINE WO CONTRAST - T/L-spine trauma, spine fracture (06/18/2024 3:21 PM [employer] MARK[employer] INTERN) Anatomical Region Laterality Modality Spine Computed Tomogra phy 06/18/2024 3:49 PM SAL[employer] MARKETING INTERN Impressions 06/18/2024 5:25 PM SAL[employer] MARKETING INTERN IMPRESSION: 1.No evidence of acute fracture in the cervical, thoracic, or lumbar spine. 2.Please refer to the concurrent, dedicated body report for findings in the chest, abdomen, and pelvis. > Dictated by Vijay Jeong DO (Apartment Groundskeeper), 06/18/2024 3:49 PM. Glenny Price MD have personally reviewed and interpreted this examination/study. > Interpreting Provider: Glenny Ragsdale MD on 06/18/2024 5:25 PM Narrative 06/18/2024 5:25 PM [employer]N PROCEDURE: CT CERVICAL SPINE WO CONTRAST, CT LUMBAR SPINE WO CONTRAST, CT THORACIC SPINE WO CONTRAST, DATE/TIME OF EXAM: 06/18/2024 3:23 PM, LOCATION [facility] INDICATION: Trauma EXAMINATION: 1.CT of the cervical [...] DATE/TIME OF EXAM: 06/18/2024 3:23 PM, LOCATION [facility] INDICATION: Trauma EXAMINATION: 1.CT of the cervical [...] pelvis. > Dictated by Vijay Jeong DO (Apartment Groundskeeper), 06/18/2024 3:49 PM. Glenny Price MD have personally reviewed and interpretedthis examination/study. > Interpreting Provider: Glenny Ragsdale MD on 06/18/2024 5:25 PM Gordon Ingram MD CT ORDERABLES * CT CERVICAL SPINE WO CONTRAST - C-Spine Trauma, Spine fracture (06/18/2024 3:21 PM [employer] MARKETING INTERN) Anatomical Region Laterality Modality Spine Computed Tomogra phy 06/18/2024 3:49 PM SAL[employer] MARKETING INTERN Impressions 06/18/2024 5:25 PM SALES AND MARKETING INTERN IMPRESSION: 1.No evidence of acute fracture in the cervical, thoracic, or lumbar spine. 2.Please refer to the concurrent, dedicated body report for findings in the chest, abdomen, and pelvis. > Dictated by Vijay Jeong DO (Apartment Groundskeeper), 06/18/2024 3:49 PM. Glenny Price MD have personally reviewed and interpreted this examination/study. > Interpreting Provider: Glenny Ragsdale MD on 06/18/2024 5:25 PM Narrative 06/18/2024 5:25 PM [employer]N PROCEDURE: CT CERVICAL SPINE WO CONTRAST, CT LUMBAR SPINE WO CONTRAST, CT THORACIC SPINE WO CONTRAST, DATE/TIME OF EXAM: 06/18/2024 3:23 PM, LOCATION [facility] INDICATION: Trauma EXAMINATION: 1.CT of the cervical [...] DATE/TIME OF EXAM: 06/18/2024 3:23 PM, LOCATION [facility] INDICATION: Trauma EXAMINATION: 1.CT of the cervical [...] pelvis. > Dictated by Vijay Jeong DO (Apartment Groundskeeper), 06/18/2024 3:49 PM. IGlenny MD have personally reviewed and interpretedthis examination/study. > Interpreting Provider: Glenny Ragsdale MD on 06/18/2024 5:25 PM Gordon Ingram MD CT ORDERABLES * CT HEAD WO CONTRAST - Head Trauma, CSF leak, mental status changes (06/18/2024 3:21 PM [employer] MARKETING INTERN) Anatomical Region Laterality Modality Head Computed Tomogra phy 06/18/2024 3:01 PM SAL[employer] MARKETING INTERN Impressions 06/18/2024 3:03 PM SAL[employer] AND MARKETING INTERN IMPRESSION: 1. No acute intracranial process. 2. 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 > Interpreting Provider: Karin Velasco MD on 06/18/2024 3:03 PM Narrative 06/18/2024 3:03 PM [employer] MARK[employer] INTERN PROCEDURE: CT HEAD WO CONTRAST, DATE/TIME OF EXAM: 06/18/2024 2:46 PM, LOCATION [facility] INDICATION: Trauma ADDITIONAL CLINICAL INFORMATION: Ordering Provider [...] DATE/TIME OF EXAM: 06/18/2024 2:46 PM, LOCATION [facility] INDICATION: Trauma ADDITIONAL CLINICAL INFORMATION: Ordering Provider [...] * TROPONIN-I HIGH SENSITIVE (06/18/2024 2:44 PM SALES AND MARKETING INTERN) [facility] Troponin I High Sensitive 4 <=14 ng/L 06/18/2024 3:19 PM SALES AND MARKETING INTERN [facility] Blood BLOOD SPECIMEN / Unknown Venipuncture / Unknown 06/18/2024 2:44 PM SAL[employer] AND MARKETING INTERN 06/18/2024 2:48 PM SAL[employer] MARKETING INTERN Gordon Ingram MD LAB - CHEMISTRY [facility] Organization Address City/State/[facility] Co de Phone Number [facility] [address] [place] [phone], [facility] [phone] * (ABNORMAL) TEG 6 GLOBAL HEMOSTASIS W/ LYSIS (06/18/2024 2:44 PM SALES AND MARKETING INTERN) Pathologist [facility] Citrated Kaolin R (Reaction Time) 4.3(L) 4.6 - 9.1 min 06/18/2024 3:54 PM SALES AND MARKETING INTERN [facility] Comment:CK R result below no rmal range. Consistent with hypercoagulable clotting factors. Citrated Kaolin LY30 (Lysis) 0.1 0.0 - 2.6 % 06/18/2024 3:54 PM [facility] Citrated Functional Fibrinogen MA (Max Amplitude) 19.3 15.0 - 32.0 mm 06/18/2024 3:54 PM [facility] Citrated RapidTEG MA (Max Amplitude) 62.8 52.0 - 70.0 mm 06/18/2024 3:54 PM [facility] Blood BLOOD SPECIMEN / Unknown Venipuncture / Unknown 06/18/2024 2:44 PM SAL[employer] MARKETING INTERN 06/18/2024 2:52 PM SAL[employer] MARKETING INTERN Gordon Ingram MD LAB - HEMATOLOGY ORD ERABLES [address] [phone], [facility] [phone] * (ABNORMAL) TEG 6S PLATELET MAPPING (06/18/2024 2:44 PM SALES AND MARKETING INTERN) TEGPLM (Max Amplitude) Koalin 64.2 53.0 - 68.0 mm 06/18/2024 4:03 PM [facility] TEGPLM (Max Amplitude) ACTF 10.1 2.0 - 19.0 mm 06/18/2024 4:03 PM [facility] TEGPLM (Max Amplitude) ADP 48.6 45.0 - 69.0 mm 06/18/2024 4:03 PM [facility] TEGPLM (Max Amplitude) AA 18.0(L) 51.0 - 71.0 mm 06/18/2024 4:03 PM [facility] Comment:AA MA below normal r dov. Inhibition present. TEGPLM %Inhibition ADP 28.8(H) 0.0 - 17.0 % 06/18/2024 4:03 PM [facility] TEGPLM %Inhibition AA 85.4(H) 0.0 - 11.0 % 06/18/2024 4:03 PM [facility] TEGPLM %Aggregation ADP 71.2(L) 83.0 - 100.0 % 06/18/2024 4:03 PM [facility] TEGPLM % Aggregation AA 14.6(L) 89.0 - 100.0 % 06/18/2024 4:03 PM SALES AND MARKETING INTERN [facility] Blood BLOOD SPECIMEN / Unknown Venipuncture / Unknown 06/18/2024 2:44 PM SALES AND MARKETING INTERN 06/18/2024 2:52 PM SAL[employer] AND MARKETING INTERN Gordon Ingram MD LAB - HEMATOLOGY ORD ERABLES Performing Organization Address City/[facility]/ZIP Co de Phone Number [facility] [address] [place] [phone], [facility] [phone] * TYPE + SCREEN PANEL (06/18/2024 2:44 PM SALES AND MARKETING INTERN) Antibody Screen NEG 3:33 PM SALES AND MARKETING INTERN [facility] BLOOD BANK LAB ABO Rh O POS 06/18/2024 3:33 PM SALES AND MARKETING INTERN [facility] BLOOD [facility] LAB Blood Bank BLOOD SPECIMEN / Unknown Venipuncture / Unknown 06/18/2024 2:44 PM SALES AND MARKETING INTERN 06/18/2024 2:53 PM SALES AND MARKETING INTERN Gordon Ingram MD LAB - BLOOD BANK ORD ERABLES Performing Organization Address City/[facility]/ZIP Co de Phone Number [facility] BLOOD BANK LAB [address] [place] [phone], [facility] [phone] * ALCOHOL ETHYL BLOOD (06/18/2024 2:44 PM SALES AND MARKETING INTERN) Ethanol (mg/dL) <10 <10 mg/dL 3:15 PM SALES AND MARKETING INTERN [facility] Ethanol Calculated (g/dL) <0.010 <=0.010 g/dL 06/18/2024 3:15 PM [facility] Blood BLOOD SPECIMEN / Unknown Venipuncture / Unknown 06/18/2024 2:44 PM SALES AND MARKETING INTERN 06/18/2024 2:48 PM SALES AND MARKETING INTERN Narrative [facility] - 06/18/2024 3:15 PM SALES AND MARKETING INTERN Ethanol Interp <10: None Detected. 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 Ethanol's contribution to the osmolar gap can be estimated by dividing the concentration of ethanol in mg/dL by 4.6. This test is for clinical use only and does not equal a SAKSHI for legal purposes. Gordon Ingram MD LAB - CHEMISTRY [facility]ULIANNE [id number] [place] [address], [facility] [phone] * XR PELVIS 1 OR 2VW (06/18/2024 2:43 PM SALES AND MARKETING INTERN) Anatomical Region Laterality Modality Pelvis Digital Radiogra phy 06/18/2024 5:02 PM SALES AND MARKETING INTERN Impressions 06/18/2024 5:20 PM SALES AND MARKETING INTERN IMPRESSION: No acute fracture identified. Report dictated by Vijay Jeong DO (radiology specialist). Malcolm Price MD have personally reviewed and interpreted this examination/study. > Interpreting Provider: Malcolm Marroquin MD on 06/18/2024 5:20 PM Narrative 06/18/2024 5:20 PM SAL[employer] MARKETING INTERN PROCEDURE: XR PELVIS 1 OR 2VW, DATE/TIME OF EXAM: 06/18/2024 2:44 PM, LOCATION [facility] INDICATION: Trauma Fracture suspected COMPARISON: None. FINDINGS: No acute fracture is identified. The femoral heads appear well-seated within their respective acetabula. The pubic symphysis is intact. Bone density and texture are normal. The sacroiliac joints are normal. Procedure Note Malcolm Marroquin MD - 06/18/2024 PROCEDURE: XR PELVIS 1 OR 2VW, DATE/TIME OF EXAM: 06/18/2024 2:44 PM, LOCATION [facility] INDICATION: Trauma Fracture suspected COMPARISON: None. FINDINGS: No acute fracture is identified. The femoral heads appear well-seated within their respective acetabula. The pubic symphysis is intact. Bone density and texture are normal. The sacroiliac joints are normal. IMPRESSION: No acute fracture identified. Report dictated by Vijay Jeong DO (radiology specialist). Malcolm Price MD have personally reviewed and interpreted this examination/study. > Interpreting Provider: Malcolm Marroquin MD on 06/18/2024 5:20 PM Gordon Ingram MD DIAGNOSTIC IMAGING O RDERABLES * XR Knee Left 2Vw or Less (06/18/2024 2:43 PM SALES AND MARKETING INTERN) Anatomical Region Laterality Modality Lower Extremity Digital Radiogra phy 06/18/2024 5:03 PM SALES AND MARKETING INTERN Impressions 06/18/2024 7:59 PM SALES AND MARKETING INTERN Impression: Likely chronic osseous fragment adjacent to [...] knee. Report dictated by Vijay Jeong DO (radiology specialist). Malcolm Price MD have personally reviewed and interpreted this examination/study. > Interpreting Provider: Malcolm Marroquin MD on 06/18/2024 7:59 PM Narrative 06/18/2024 7:59 PM SALES AND MARKETING INTERN PROCEDURE: XR KNEE LEFT 2VW OR LESS, DATE/TIME OF EXAM: 06/18/2024 2:43 PM, LOCATION [facility] INDICATION: T14.90XA: Trauma COMPARISON: None. Procedure Note Malcolm Marroquin MD - 06/18/2024 PROCEDURE: XR KNEE LEFT 2VW OR LESS, DATE/TIME OF EXAM: 06/18/2024 2:43PM, LOCATION [facility] INDICATION: T14.90XA: Trauma COMPARISON: None. Impression: Likely [...] knee. Report dictated by Vijay Jeong DO (radiology specialist). Malcolm Price MD have personally reviewed and interpreted this examination/study. 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
--- OUTSIDE RECORDS SUMMARY | 2024-07-22 14:06 | XMS_ITS | Clinical Summary ---
Author Organization [facility] Address [facility] [place] [address] Care Team Providers Care Resident Care Assistant Name Role Phone Mo Moy MD Primary Care Provider [phone] Sal Bliss MD Unavailable [phone] Angel Lopez MD Unavailable Allergies Active Allergy Reactions Criticality Noted Date Comments Apple Juice Anaphylaxis High 02/24/2018 Allergic to anything with apples Atenolol Shortness of Breath High 09/12/2021 Beta Adrenergic Blockers Shortness of Breath,Chest pressure High 07/01/2023 Carvedilol Shortness of Breath High 12/27/2017 Ciprofloxacin Hives Citalopram Swelling 12/27/2017 Eyes swelling Codeine Anaphylaxis High 06/08/2020 Iodine Other (see comment) 01/12/2018 BURNING IN CHEST - unclear if truly due to iodine Dry throat Doxycycline Unknown 12/27/2017 Apixaban Shortness of Breath High 02/24/2018 Flecainide Shortness of Breath High 12/27/2017 Propranolol Shortness of Breath High 12/27/2017 Influenza Virus Vaccine Swelling 12/27/2017 Localized swelling and malaise Levofloxacin Itching 12/23/2020 Ears burning and itching Throat tightness Metoprolol Shortness of Breath High 12/27/2017 Naproxen Chest pressure 06/08/2020 Sulfa Antibiotics Hives 12/23/2020 Cimetidine Cough 04/27/2018 Tetanus Immune Globulin Anaphylaxis High 12/27/2017 Rivaroxaban Shortness of Breath High 12/27/2017 Medications levothyroxine 150 MCG tablet Take 1 tablet (150 mcg total) by mouth every morning. 8 Active ipratropium-alb uterol 0.5-2.5 (3) MG/3ML Solution Take 3 mLs by nebulization 3 (three) times daily as needed. 8 Active Cholecalciferol (VITAMIN D3) 50 MCG (2000 UT) Chew Tab Chew 4,000 Units by mouth daily. 8 Active Vitamin A 8000 units Cap Take 1 capsule by mouth 2 (two) times a day. 8 Active albuterol sulfate HFA 108 (90 Base) MCG/ACT inhaler Inhale 1 puff into the lungs every 4 (four) hours as needed. 0 Active irbesartan 150 MG tablet Take 1 tablet (150 mg total) by mouth daily. 30 tablet 2 Active vitamin C (ASCORBIC ACID) 500 MG tablet Take 1 tablet (500 mg total) by mouth 2 (two) times daily. Active Magnesium 300 MG Cap Take 1,200 mg by mouth every evening. 30 capsule 2 Active HYDROcodone-taiwo taminophen (NORCO) 5-325 MG tablet Take 1 tablet by mouth daily as needed for Pain. 3 Active Cyanocobalamin (B-12) 3000 MCG Cap Take 3,000 mcg by mouth daily. Active calcium-vitamin D-vitamin K (VIACTIV) 500-500-40 MG-UNT-MCG Chew Tab Chew 1 tablet by mouth daily. Active Magnesium 300 MG Cap Take 600 mg by mouth daily. Active Budeson-Glycopy rrol-Formoterol (BREZTRI AEROSPHERE) 160-9-4.8 MCG/ACT Aerosol Inhale 2 puffs into the lungs 2 (two) times daily. 5.9 g 4 Active dilTIAZem (CARDIZEM) 30 MG tablet Take 1 tablet (30 mg total) by mouth 4 (four) times daily. 120 tablet 5 4 Active amiodarone (PACERONE) 100 MG tablet Take 1 tablet (100 mg total) by mouth daily. 90 tablet 1 4 Active amiodarone (PACERONE) 200 MG tablet Take 0.5 tablets (100 mg total) by mouth daily. 45 tablet 1 4 Active furosemide (LASIX) 40 MG tablet Take 1 tablet by mouth once daily 90 tablet 4 Active warfarin (COUMADIN) 5 MG tablet Take 1 tablet (5 mg total) by mouth nightly at bedtime. 90 tablet 4 Active Active Problems Problem Noted Date Diagnosed Date CAP (community acquired pneumonia) 07/01/2023 Chronic obstructive pulmonar y disease, unspecified COPD type ([facility]) 05/05/2021 Gastroesophageal reflux dise ase, unspecified whether esophagitis present 05/05/2021 Cigarette nicotine dependence in remission 05/05 Abnormal finding on lung imaging 05/05/2021 Multiple lung nodules 05/05/2021 Coronary artery disease due to calcified coronar y lesion 05/30/2018 Dyslipidemia 05/30/2018 Essential hypertension 03/07/2018 Abnormal stress test 03/07/2018 S/P ablation of atrial fibrillation 02/24/2018 terminologist current use of anticoagulant therapy 0 12/29/2017 CHF (congestive heart failure) ([facility]) Paroxysmal atrial fibrillation ([facility]) Encounters Date Type Department Care Team Description 05/30/2024 12:40 PM ELECTRON BEAM PHOTO MASK TECHNICIAN - 05/30/2024 11:59 PM [facility] Hospital Encounter [facility] [address] [place] [address] Nathan Scanlon MD Discharge Disposition: Home or Self Care (Routine Discharge) 05/30/2024 Travel 04/26/2024 3:27 PM ELECTRON BEAM PHOTO MASK TECHNICIAN - 04/26/2024 11:59 PM [facility] Hospital Encounter [facility] [address] [place] [address] Nathan Scanlon MD Discharge Disposition: Home or Self Care (Routine Discharge) 04/26/2024 Travel from Last 3 Months Immunizations Name Administration Dates Next Due Influenza Adult (Generic) 02/14/2021(Def erred: Patient Refused),02/15/2020(Deferred: Allergy) Family History Medical History Relation Comments Heart Attack Brother Stent Cardiac Brother Hypertension Daughter 1 No Known Problems Father bowel perferation Mother Relation Status Comments Brother Daughter 1 Alive Daughter 2 Alive Daughter 3 Alive Father (Age 61) kidney failure /respiratory complications Mother (Age 75) comp of divert iculitis Social History Tobacco Use Types Packs/Day Years Used Date Smoking Tobacco: Former Cigarettes 1 35 1 965 - 2000 Smokeless Tobacco: Never Tobacco Cessation:Counseling Given: Not Answered Comments:distant past Alcohol Use Standard Drinks/Week Comments No 0 (1 standard drink = 0.6 oz pur e alcohol) [facility] Utilities Answer Date Recorded In the past 12 months has e [employer], gas, oil, or water [employer] threatened to shut off services in your [...] place to sleep or slept in a residential (including now)? No 07/01/2023 Comments No Sex and Gender Information Value Date Recorded Sex Assigned at Female 05/30/2024 12:35 PM ELECTRON BEAM PHOTO MASK TECHNICIAN Legal Sex Female 6:49 PM CDT Gender Identity Not on file Sexual Orientation Not on file Occupation Industry Job Start Date Job End Date Not on file Not on file Not on file Not on file Last Filed Vital Signs Vital Sign Reading Time Taken Comments Blood Pressure 133/73 11/03/2023 2:30 AM CDT Pulse 67 11/03/2023 2:30 AM CDT Temperature 37.3 C (99.2 F) 11/03/2023 2:30 AM CDT Respiratory Rate 22 11/03/2023 2:30 AM CDT Oxygen Saturation 95% 11/03/2023 2:30 AM CDT Inhaled Oxygen Concentration - - Weight 93 kg (205 lb 0.4 oz) 11/03/2023 12:02 AM CDT Height 165.1 cm (5' 5 ) 11/03/2023 12:02 AM CDT Body Mass Index 34.12 11/03/2023 12:02 AM CDT Plan of Treatment Upcoming Encounters Date Type Department Care Team (Late st Contact Info) Description 10/26/2024 11:00 AM CDT Office Visit [facility] Multispecialty Care - [facility] [address] [place] [id number] Jacob Landry MD [address] [place] [address] Health Maintenance Due Date Last Done Comments ASCVD Statin 1940 Pneumococcal Vaccine: 65+ Years (1 of 2 - PCV) 1946 DTaP, Tdap and Td Vaccines (1 - Tdap) 08/21/1959 Zoster Vaccines (1 of 2) 1990 Annual Medicare Wellness Visit 2005 Dexa Scan (General) 2005 RSV Immunization or 60+ Years (1 - 1-dose 75+ series) 08/21/2015 ASCVD LDL 07/24/2021 07/24/2020, 01/15, 04/27/2018, Additional history exists PHQ-2 ([facility] [place]) 10/27/2023 10/26/2022 COVID-19 Vaccine ( season) 2024 Influenza Adult (#1) 2024 PHQ-2 ([facility] [place]) 05/17/2024 10/26/2022 Meningococcal B Vaccine Aged Out No l onger eligible based on patient's age to complete this topic Meningococcal Vaccine Aged Out No ayaz soraya eligible based on patient's age to complete this topic RSV Immunizations Under 20 Months Aged Out No longer eligible based on patient's age to complete this topic Procedures Procedure Name Priority Date/Time Associated Diagnosis Comments PROTHROMBIN TIME, VENOUS Routine 05/30/2024 12:58 PM ELECTRON BEAM PHOTO MASK TECHNICIAN Atrial flutter ([facility]) PROTHROMBIN TIME, FINGERSTICK Routine 04/26/2024 3:44 PM ELECTRON BEAM PHOTO MASK TECHNICIAN Atrial flutter ([facility]) LIPID PANEL Routine 07/24/2020 8:19 AM ELECTRON BEAM PHOTO MASK TECHNICIAN Coronary artery disease due to calcified coronary lesion from Last 3 Months or Most Recently Relevant to Health Maintenance Results * (ABNORMAL) PROTIME/INR, VENOUS (05/30/2024 12:58 PM ELECTRON BEAM PHOTO MASK TECHNICIAN) PROTIME 43.9(H) 9.1 - 12.4 SEC 05/30/2024 1:07 PM ELECTRON BEAM PHOTO MASK TECHNICIAN [facility] INR 4.0 05/30/2024 1:07 PM ELECTRON BEAM PHOTO MASK TECHNICIAN [facility] Comment: Recommend INR ranges for Oral Anticoagulant Therapy: Mechanical Cardiac Values 2.5-3.5 All others indication 2.0-3.0 05/30/2024 12:5 8 PM ELECTRON BEAM PHOTO MASK TECHNICIAN us Nathan Scanlon MD LABORATORY Final Result Performing Organization Address [facility]/ZIP Co de Phone Number [facility] [address] [place] [address], [place] [phone] * PROTIME/INR, FINGERSTICK (04/26/2024 3:44 PM ELECTRON BEAM PHOTO MASK TECHNICIAN) INR WHOLE BLOOD 2.5 3:47 PM ELECTRON BEAM PHOTO MASK TECHNICIAN [facility] Comment: Recommend INR ranges for Oral Anticoagulant Therapy: Mechanical Cardiac Values 2.5-3.5 All others indication 2.0-3.0 04/26/2024 3:44 PM ELECTRON BEAM PHOTO MASK TECHNICIAN us Nathan Scanlon MD LABORATORY Final Result Performing Organization Address [facility] Co de Phone Number [facility] [address] [place] [address], [place] [phone] * (ABNORMAL) LIPID PANEL (07/24/2020 8:19 AM ELECTRON BEAM PHOTO MASK TECHNICIAN) CHOLESTEROL 244(H) <200.0 MG/DL 07/24/2020 9:02 AM [facility] TRIGLYCERIDES 131 <150 MG/DL 07/24/2020 9:02 AM [facility] HDL 77 >40.0 MG/DL 07/24/2020 9:02 AM [facility] LDL (CALCULATED) 141(H) <100 MG/DL 07/24/2020 9:02 AM [facility] NON HDL CHOLESTEROL 167(H) <130 MG/DL 07/24/2020 9:02 AM [facility] CHOL/HDL RATIO 3.2 0.0 - 4.5 07/24/2020 9:02 AM [facility] VLDL CALCULATION 26 5 - 55 MG/DL 07/24/2020 9:02 AM [facility] LIPID INTERPRETATION 07/24/2020 9:02 AM [facility] Comment: [facility] REPORT RECOMMENDATIONS: ADULT CHILD LOW RISK: CHOLESTEROL <200 <170 TRIGLYCERIDE <150 --- HDL >=60 --- LDL <100 <110 BORDERLINE: CHOLESTEROL 200-239 170-199 TRIGLYCERIDE 150-199 --- HDL 40-59 --- LDL 100-159 110-129 HIGH RISK: CHOLESTEROL >=240 >=200 TRIGLYCERIDE >=200 --- HDL <40 --- LDL >=160 >=130 07/24/2020 8:19 AM ELECTRON BEAM PHOTO MASK TECHNICIAN [facility] Final Result [facility] [address] [place] [address], from Last 3 Months or Most Recently Relevant to Health Maintenance Insurance MEDICARE MEDICARE [facility] Advance Directives Documents on File Type Date 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 [address] [place] Electroneurodiagnostic Technician CARDIOVASCULAR DISEASE 12/10/17 Angel Lopez MD [address] [address] [place] Electroneurodiagnostic Technician CLINICAL CARDIAC ELECTROPHYSIOLOGY 01/15/18
== END 2024-07-22 13:59 | disposition home or self-care (01) ==
PROVIDERS: Visit Provider Family Medicine
DX: N39.0 Urinary tract infection, site not specified (principal)
CPT/HCPCS: 87086; 87186

== ENCOUNTER 2024-07-25 13:45 | Inpatient (IN) | payer MEDICARE, SELFPAY ==
[2024-07-25] VITALS (9 sets, daily range): BP systolic 125–151; BP diastolic 42–60; PULSE 56–72; RESP 15–20; TEMP 36.6; O2SAT 92–100; BMI 33.3
--- NOTE | ~2024-07-25 | XR_ITS ---
CHEST RADIOGRAPH CLINICAL HISTORY: probable pneumonia . COMPARISON: 11/21/2021 TECHNIQUE: Single portable view of the chest. FINDINGS Interval development of significant elevation of the right hemidiaphragm with adjacent compressive at electasis and a small right-sided pleural effusion. Peribronchial thickening is also noted, along with traction bronchiectasis. The remainder of the lungs are clear. IMPRESSION: Significant elevation of the right hemidiaphragm with adjacent compressive atelectasis and a small ri ght-sided pleural effusion. Peribronchial thickening and traction bronchiectasis are also noted. Reviewed, dictated and finalized at location A. IMPRESSION: Significant elevation of the right hemidiaphragm with adjacent compressive atel ectasis and a small right-sided pleural effusion. Peribronchial thickening and traction bronchiectasis are also noted.
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
--- NOTE | ~2024-07-25 | CT_ITS ---
EXAMINATION:CT diagnostic chest wo con DATE: 07/28/2024 14:27 INDICATION: Chest injury. TECHNIQUE: Computed tomography (CT) of the chest was performed without intravenous contrast. Automate d exposure control and iterative reconstruction technique were employed. The dose-length product (DLP ) was 184.76 mGy-cm. COMPARISON: CT abdomen pelvis 08/06/2020 FINDINGS: There is elevation of right hemidiaphragm, new from 08/06/2020. There is atelectasis in the inferior lungs, right worse than left. There are centrilobular nodules in right lower lobe, consisten t with pneumonia. There is a small right pleural effusion. The heart size is normal. There are medina ry artery calcifications. No pericardial effusion. Calcified subcarinal lymph nodes are consistent wi th old granulomatous disease. Material in the gallbladder may be sludge or stones. The gallbladder is normal in size. There are cysts in right kidney measuring up to 9 mm. There are healing fractures of right third-ninth ribs. IMPRESSION: 1. Healing fractures of the right third-ninth ribs. 2. Mild right lower lobe pneumonia. 3. Small right pleural effusion. Reviewed, dictated and finalized at location L.
--- NOTE | 2024-07-25 15:10 | ED_ITS ---
HPI - Female Genitourinary General Chief complaint: Urogenital-Female <Brittani Martinez PA-C - Last Filed: 07/28/24 12:18> Stated complaint: UTI <Brittani Martinez PA-C - Last Filed: 07/28/24 12:18> Time Seen by Provider: 07/25/24 15:11 <Brittani Martinez PA-C - Last Filed: 07/28/24 12:18> Focused HPI: This is a 83 year old female that presents to the ER for UTI. Reports she is allergic to all the oral medications that the bug is sensitive to. Presents for management with IV antibiotics. Reports she has been experiencing dysuria over the last 4 days. Denies fevers, vomiting, flank pain. GENERAL: Elderly, well-nourished, and in no acute distress. HEAD: Normocephalic, atraumatic. CHEST: Clear to auscultation. ?No respiratory distress. HEART: Regular rate and rhythm.? NEURO: ?Alert and oriented x3. Patient screened in triage and initial orders placed.? ?Additional care and disposition to be based upon?diagnostic testing and treatment. <Brittani Martinez PA-C - Last Filed: 07/28/24 12:18> History of Present Illness HPI Narrative: Agree with the HPI above <Vincent Byrd MD - Last Filed: 07/25/24 18:57> Related Data Home medications: Home Medications ?Medication ?Instructions ?Recorded ?Confirmed ?Last Taken ?Type ipratropium 0.5 mg-albuterol 3 mg 3 ml inhalation PRN PRN Shortness 06/08/22 07/25/24 07/04/24 20:10 History (2.5 mg base)/3 mL nebulization Of Breath Or Wheezing soln budesonide-formoterol HFA 160 2 inh inhalation Q12H 07/05/24 07/25/24 07/05/24 09:35 History mcg-4.5 mcg/actuation aerosol inhaler levothyroxine 150 mcg tablet 150 mcg PO DAILY 07/05/24 07/25/24 Unknown History (Synthroid) sennosides 8.6 mg tablet (senna) 17.2 mg PO BID 07/05/24 07/25/24 07/05/24 09:55 History warfarin 3 mg tablet 3 mg PO DAILY 07/05/24 07/25/24 07/04/24 17:00 History <Brittani Martinez PA-C - Last Filed: 07/28/24 12:18> Allergies/Adverse reactions: Allergies Allergy/AdvReac Type Severity Reaction Status Date / Time flecainide Allergy Intermediate Elevated Verified 07/25/24 18:33 BP, Chest Tightness Quinolones Allergy Mild REDNESS/ITCHING Verified 07/25/24 18:33 AT EARS apixaban Allergy Unknown Rash Verified 07/25/24 18:33 apple Allergy Unknown Rash,Anaphy Verified 07/25/24 18:33 laxis carvedilol Allergy Unknown Unknown Verified 07/25/24 18:33 Cephalosporins Allergy Unknown UNKNOWN Verified 07/25/24 18:33 cimetidine Allergy Unknown Unknown Verified 07/25/24 18:33 ciprofloxacin Allergy Unknown Unknown Verified 07/25/24 18:33 citalopram Allergy Unknown Unknown Verified 07/25/24 18:33 clarithromycin Allergy Unknown Unknown Verified 07/25/24 18:33 doxycycline Allergy Unknown Rash Verified 07/25/24 18:33 Influenza Virus Vaccines Allergy Unknown Arm Verified 07/25/24 18:33 Swelling/Chills iodine Allergy Unknown Swelling Verified 07/25/24 18:33 levofloxacin Allergy Unknown Rash Verified 07/25/24 18:33 metoprolol Allergy Unknown Elevated Verified 07/25/24 18:33 BP, Chest Tightness pneumococcal vaccine Allergy Unknown Anaphylaxis Verified 07/25/24 18:33 propranolol Allergy Unknown Unknown Verified 07/25/24 18:33 rivaroxaban Allergy Unknown Elevated Verified 07/25/24 18:33 BP, Chest Tightness Sulfa (Sulfonamide Allergy Unknown Rash Verified 07/25/24 18:33 Antibiotics) tetanus and diphtheria Allergy Unknown Rash Verified 07/25/24 18:33 toxoids tetanus immune globulin Allergy Unknown Arm Verified 07/25/24 18:33 Swelling tetanus toxoid, adsorbed Allergy Unknown ANAPHYLAXIS Verified 07/25/24 18:33 metronidazole AdvReac Severe Stopped Verified 07/25/24 18:33 Breathing APPLE Allergy Severe ANAPHYLAXIS Uncoded 07/25/24 18:33 NECTARINE Allergy Severe Anaphylaxis Uncoded 07/25/24 18:33 FLU SHOTS Allergy Unknown ANAPHYLAXIS Uncoded 07/25/24 18:33 <Brittani Martinez PA-C - Last Filed: 07/28/24 12:18> Review of Systems 2 Review of Systems: As reviewed above in HPI <Vincent Byrd MD - Last Filed: 07/25/24 18:57> [facility] Past Medical History Medical History: Medical History A-fib Stage 4 chronic kidney disease Hyperlipidemia Asthma Chronic kidney disease Depression Anxiety Hyperparathyroidism CAD (coronary artery disease) HTN (hypertension) Hypothyroidism CHF (congestive heart failure) COPD (chronic obstructive pulmonary disease) <Brittani Martinez PA-C - Last Filed: 07/28/24 12:18> Surgical History Surgical History: Surgical History Hx of parathyroidectomy 2009 History of right knee joint replacement 2003 Hx of total hysterectomy 1988 <Brittani Martinez PA-C - Last Filed: 07/28/24 12:18> Family History Family History: Family History Father No problems noted. Mother Diverticulitis of both large and small intestine with perforation and bleeding without abscess Sibling Malignant neoplasm of prostate Bladder cancer Pacemaker complications Mesothelioma Daughter Myelofibrosis Other Asthma Family history of malignant neoplasm Hypertension <Brittani Martinez PA-C - Last Filed: 07/28/24 12:18> Social History Social History: Social History Social History: Caffeine- coffee Smoking packs per day: 1 Smoking cigarettes per day: 20.0 Years smoked: 25 Smoking pack-years: 25.00 Smoking status: Former smoker Alcohol intake: never Substance use: never Substance use type: does not use Do You Feel Safe in your Home?: Yes Lack of Transportation: No Lack of Food: Never True Current Housing: I Have Housing Concerned About Future Housing: No Difficulty Paying Gas/Electric Bills: No Difficulty Paying for Meds: No Currently Unemployed: No Education: High School Diploma/GED Difficulty w/ Childcare or Family Care: No Living arrangements: with family Occupation/Education: retired Gender identity (if verbalized by the patient): Female Sexual Orientation (if Verbalized by the Patient): Straight or Heterosexual Spiritual care concerns: No <Brittani Martinez PA-C - Last Filed: 07/28/24 12:18> Exam 2 Narrative: GENERAL: Elderly, well-appearing not any distress. HEAD: [Normocephalic, atraumatic.] EYES: [PERRLA and EOMI.] ENT: Nares clear, no rhinorrhea or epistaxis. Mucous membranes moist. NECK: Supple. CHEST: [Clear to auscultation. No respiratory distress.] HEART: [Regular rate and rhythm]. No murmur heard. [Normal peripheral pulses.] ABDOMEN: [Soft, nondistended], [nontender], [No rigidity or guarding] EXTREMITIES: Normal range of motion. [No edema.] Boot to her left foot from previous fracture repair SKIN: Warm, dry, no rash. NEURO: [No focal deficits]. Alert and oriented [x3.] PSYCH: [Normal mood and affect.] <Vincent Byrd MD - Last Filed: 07/25/24 18:57> Course Vital Signs Vital signs: Vital Signs Temperature 97.8 F 07/25/24 13:53 Pulse Rate 65 07/25/24 13:53 Respiratory Rate 16 07/25/24 13:53 Blood Pressure 125/60 07/25/24 13:53 Pulse Oximetry 96 07/25/24 13:53 Oxygen Delivery Room Air 07/25/24 13:53 Temperature 97.7 F 07/28/24 05:24 Pulse Rate 70 07/28/24 08:49 Respiratory Rate 20 07/28/24 07:40 Blood Pressure 149/53 H 07/28/24 05:24 Pulse Oximetry 94 07/28/24 08:45 Oxygen Delivery Nasal Cannula 07/28/24 08:45 Oxygen Flow Rate 2 07/28/24 08:45 Fraction of Inspired Oxygen 28 07/28/24 01:35 <Brittani Martinez PA-C - Last Filed: 07/28/24 12:18> Vital Signs Temperature 97.8 F 07/25/24 13:53 Pulse Rate 65 07/25/24 13:53 Respiratory Rate 16 07/25/24 13:53 Blood Pressure 125/60 07/25/24 13:53 Pulse Oximetry 96 07/25/24 13:53 Oxygen Delivery Room Air 07/25/24 13:53 Temperature 97.7 F 07/28/24 05:24 Pulse Rate 70 07/28/24 08:49 Respiratory Rate 20 07/28/24 07:40 Blood Pressure 149/53 H 07/28/24 05:24 Pulse Oximetry 94 07/28/24 08:45 Oxygen Delivery Nasal Cannula 07/28/24 08:45 Oxygen Flow Rate 2 07/28/24 08:45 Fraction of Inspired Oxygen 28 07/28/24 01:35 <Vincent Byrd MD - Last Filed: 07/25/24 18:57> MDM - Female Genitourinary MDM Narrative Medical decision making narrative: 83-year-old female presenting to the emergency department for evaluation and treatment of a complicated urinary tract infection. Patient has been having dysuria symptoms for last several days and has multiple allergies with anaphylactic reactions to different classes of antibiotics. Her primary care provider sent to the ER for IV antibiotics. 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 According to the sensitivities patient would require imipenem or meropenem for treatment. I spoke to the patient and the family and she has never had this medication before. We have initiated a treatment dose of meropenem Q 8 here in the ED and basic laboratory studies were obtained as well as urinalysis. Patient's laboratory studies showed no leukocytosis or anemia worse than her baseline. Normal platelet count. Electrolytes show some dehydration with low sodium and chloride and elevated BUN and creatinine likely secondary to volume depletion. Patient was given a L of fluid here and will be admitted to the hospital for IV antibiotics and hydration. Family comfortable this plan. I spoke to the hospitalist currently being covered by the midlevel provider Gloria Woodall who accepted the patient to a medical-surgical bed at this time. <Vincent Byrd MD - Last Filed: 07/25/24 18:57> Medical Records Attestation: I reviewed the patient's medical records. <Vincent Byrd MD - Last Filed: 07/25/24 18:57> Lab Data Attestation: I reviewed the patient's lab results. <Vincent Byrd MD - Last Filed: 07/25/24 18:57> Result diagrams: 07/28/24 05:48 07/28/24 05:48 <Brittani Martinez PA-C - Last Filed: 07/28/24 12:18> Labs: Lab Results 07/25/24 07/25/24 Range/Units 16:06 17:38 WBC 7.9 (4.5-10.0) K/mm3 RBC 3.06 L (4.2-5.4) M/mm3 Hgb 9.8 L (12.0-15.0) g/dL Hct 29.0 L (37.0-47.0) % MCV 94.8 D (80-100) fl MCH 32.0 (26-34) pg MCHC 33.8 (32-36) g/dl RDW 18.6 H (11.5-14.5) % Plt Count 225 (150-375) k/mm3 MPV 9.8 (7.4-10.4) fl Immature Gran % (Auto) 1.3 H (0-0.5) % Neut % (Auto) 62.3 (45.5-73.1) % Lymph % (Auto) 18.9 (18.3-44.2) % [place] % (Auto) 16.2 H (2.6-8.5) % Eos % (Auto) 1.0 (0-4.4) % Baso % (Auto) 0.3 (0.2-1.2) % Lymph # (Auto) 1.50 (0.9-3.2) K/mm3 [place] # (Auto) 1.3 H (0.1-0.6) K/mm3 Eos # (Auto) 0.1 (0-0.3) K/mm3 Baso # (Auto) 0.0 (0.0-0.1) K/mm3 Abs Immat Gran (auto) 0.10 H (0.00-0.031) K/mm3 Absolute Neuts (auto) 5.0 (1.3-6.7) K/mm3 Absolute Nucleated RBC 0.000 (0.0-0.012) K/mm3 Nucleated RBC % 0.0 (0.0-0.2) % Sodium 124 L (137-145) mmol/L Potassium 3.8 (3.4-5.0) mmol/L Chloride 86 L (98-107) mmol/L Carbon Dioxide 31 H (22-30) mmol/L Anion Gap 7 (4-12) mmol/L BUN 23 H (7-17) mg/dL Creatinine 1.28 H (0.7-1.0) mg/dL Estim Creat Clear Calc Not Reportable Estimated GFR 40 L (59 - ) Glucose 105 (65-110) mg/dL Calcium 9.3 (8.4-10.2) mg/dL Total Bilirubin 0.6 (0.2-1.3) mg/dL AST 31 (14-36) U/L ALT 19 (6-35) U/L Alkaline Phosphatase 181 H (38-126) U/L Total Protein 7.0 (6.3-8.2) g/dL Albumin 3.7 (3.5-5.1) g/dL Urine Color Yellow (Yellow) Urine Appearance Clear (Clear) Urine pH 6.5 (5.0-9.0) Ur Specific [place] 1.006 (1.001-1.035) Urine Protein Negative (Negative) mg/dL Urine Glucose (UA) Negative (Negative) mg/dL Urine Ketones Negative (Negative) mg/dL Ur Blood (Man) Trace (Negative) Urine Nitrate Positive H (Negative) Urine Bilirubin Negative (Negative) Urine Urobilinogen 0.2 (<2.0) mg/dL Add Ur Microanalysis Reviewed Leukocyte Esterase Rfl 3+ H (Negative) NOÉ/UL Urine RBC 0-2 (0-2) /hpf Urine WBC 51-100 H (0-3) /hpf Ur Squamous Epith Cells None seen (Few) /hpf Urine Bacteria 4+ H /hpf Urine Casts 6-10 Hyaline Casts Present (None) /lpf <Brittani Martinez PA-C - Last Filed: 07/28/24 12:18> Lab Results 07/25/24 07/25/24 Range/Units 16:06 17:38 WBC 7.9 (4.5-10.0) K/mm3 RBC 3.06 L (4.2-5.4) M/mm3 Hgb 9.8 L (12.0-15.0) g/dL Hct 29.0 L (37.0-47.0) % MCV 94.8 D (80-100) fl MCH 32.0 (26-34) pg MCHC 33.8 (32-36) g/dl RDW 18.6 H (11.5-14.5) % Plt Count 225 (150-375) k/mm3 MPV 9.8 (7.4-10.4) fl Immature Gran % (Auto) 1.3 H (0-0.5) % Neut % (Auto) 62.3 (45.5-73.1) % Lymph % (Auto) 18.9 (18.3-44.2) % [place] % (Auto) 16.2 H (2.6-8.5) % Eos % (Auto) 1.0 (0-4.4) % Baso % (Auto) 0.3 (0.2-1.2) % Lymph # (Auto) 1.50 (0.9-3.2) K/mm3 [place] # (Auto) 1.3 H (0.1-0.6) K/mm3 Eos # (Auto) 0.1 (0-0.3) K/mm3 Baso # (Auto) 0.0 (0.0-0.1) K/mm3 Abs Immat Gran (auto) 0.10 H (0.00-0.031) K/mm3 Absolute Neuts (auto) 5.0 (1.3-6.7) K/mm3 Absolute Nucleated RBC 0.000 (0.0-0.012) K/mm3 Nucleated RBC % 0.0 (0.0-0.2) % Sodium 124 L (137-145) mmol/L Potassium 3.8 (3.4-5.0) mmol/L Chloride 86 L (98-107) mmol/L Carbon Dioxide 31 H (22-30) mmol/L Anion Gap 7 (4-12) mmol/L BUN 23 H (7-17) mg/dL Creatinine 1.28 H (0.7-1.0) mg/dL Estim Creat Clear Calc Not Reportable Estimated GFR 40 L (59 - ) Glucose 105 (65-110) mg/dL Calcium 9.3 (8.4-10.2) mg/dL Total Bilirubin 0.6 (0.2-1.3) mg/dL AST 31 (14-36) U/L ALT 19 (6-35) U/L Alkaline Phosphatase 181 H (38-126) U/L Total Protein 7.0 (6.3-8.2) g/dL Albumin 3.7 (3.5-5.1) g/dL Urine Color Yellow (Yellow) Urine Appearance Clear (Clear) Urine pH 6.5 (5.0-9.0) Ur Specific [place] 1.006 (1.001-1.035) Urine Protein Negative (Negative) mg/dL Urine Glucose (UA) Negative (Negative) mg/dL Urine Ketones Negative (Negative) mg/dL Ur Blood (Man) Trace (Negative) Urine Nitrate Positive H (Negative) Urine Bilirubin Negative (Negative) Urine Urobilinogen 0.2 (<2.0) mg/dL Add Ur Microanalysis Reviewed Leukocyte Esterase Rfl 3+ H (Negative) NOÉ/UL Urine RBC 0-2 (0-2) /hpf Urine WBC 51-100 H (0-3) /hpf Ur Squamous Epith Cells None seen (Few) /hpf Urine Bacteria 4+ H /hpf Urine Casts 6-10 Hyaline Casts Present (None) /lpf <Vincent Byrd MD - Last Filed: 07/25/24 18:57> Critical Care Time Critical Care Time Critical Care Time: Yes <Vincent Byrd MD - Last Filed: 07/25/24 18:57> Total Critical Care Time: 35 (Treatment of acute kidney injury secondary to intravascular dehydration and electrolyte derangements, complicated urinary tract infection requiring IV antibiotics) <Vincent Byrd MD - Last Filed: 07/25/24 18:57> Discharge Plan Discharge Clinical Impression: Complicated urinary tract infection, Acute dehydration, DAREN (acute kidney injury) <Brittani Martinez PA-C - Last Filed: 07/28/24 12:18> Patient Disposition: Still a Patient <Brittani Martinez PA-C - Last Filed: 07/28/24 12:18> Condition: Stable <Brittani Martinez PA-C - Last Filed: 07/28/24 12:18> Time of Disposition: 18:56 <Brittani Martinez PA-C - Last Filed: 07/28/24 12:18> 18:56 <Vincent Byrd MD - Last Filed: 07/25/24 18:57>
--- OUTSIDE RECORDS SUMMARY | 2024-07-25 15:25 | XMS_ITS | Encounter Summary ---
Author Organization [facility] Address [facility] [place] [address] Care Team Providers Care Segmental Paving Supervisor Name Role Phone Mo Moy MD Primary Care Provider [phone] Sal Bliss MD Unavailable [phone] Angel Lopez MD Unavailable Encounter Details Date Type Department Care Team (Late st Contact Info) Description 01/26/2019 Abstract [facility] at [address] [address] Faizan Pereira MA Social History Tobacco Use Types Packs/Day Years Used Date Smoking Tobacco: Former Cigarettes 0.5 35 1 965 - 2000 Smokeless Tobacco: Never Comments:distant past Alcohol Use Standard Drinks/Week Comments No 0 (1 standard drink = 0.6 oz pur e alcohol) Comments No Sex and Gender Information Value Date Recorded Sex Assigned at Female 05/30/2024 12:35 PM INFORMATION SECURITY DIRECTOR Legal Sex Female 6:49 PM CDT Gender Identity Not on file Sexual Orientation Not on file Occupation Industry Job Start Date Job End Date Not on file Not on file Not on file Not on file documented as of this encounter Plan of Treatment Upcoming Encounters Date Type Department Care Team (Late st Contact Info) Description 10/26/2024 11:00 AM CDT Office Visit [facility] Multispecialty [facility] - [address] [place] [address] Jacob Landry MD [address] [place] [address] [place] [id number] documented as of this encounter Procedures Procedure [...] * (ABNORMAL) COMPREHENSIVE METABOLIC PANEL (01/24/2019) Pathologist [facility] SODIUM S/P/B 140 POTASSIUM S/P/B 4.7 CO2 [...] Rule Out 07/07/2021 07/07/2021 07/08/2021 7:49 PM INFORMATION SECURITY DIRECTOR COVID-19 Rule Out 09/27/2021 09/27/2021 09/28/2021 10:26 AM CDT COVID-19 Rule Out 07/01/2023 07/01/2023 07/01/2023 3:40 PM INFORMATION SECURITY DIRECTOR COVID-19 Rule Out 11/03/2023 11/03/2023 11/03/2023 1:01 AM CDT documented as of this encounter Care Teams Segmental Paving Supervisor Relationship Specialty Start Date End Date Mo Moy MD [address] [place] [id number] PCP - General FAMILY PRACTICE 11/26/17 Sal Bliss MD [address] [address] [employer] Computer Scientist CARDIOVASCULAR DISEASE 12/10/17 Angel Lopez MD [facility]. [facility] [address] [place] [address] EP Bioinformatics Computer Scientist CLINICAL CARDIAC ELECTROPHYSIOLOGY 01/15/18 documented as of this encounter
--- OUTSIDE RECORDS SUMMARY | 2024-07-25 15:25 | XMS_ITS | Encounter Summary ---
Author Organization [facility] Health Address [facility] [facility] [place] [address] Care Team Providers Care Fish Cutter Name Role Phone Unavailable Primary Care Provider Unavailabl e Reason for Referral * Durable Medical Equipment (Routine) - Open Specialty Diagnoses / Procedures Referred By Rach t Referred To Contact Diagnoses Closed fracture of left ankle with routine healing, subsequent encounter Sulema Whyte PA-C [address] [place] [address] Referral ID Status Reason Start Date Expiration Date V isits Requested Visits Authorized [id number] Open Specialty Services Required 07/25/2024 07/25/2025 1 1 Encounter Details Date Type Department Care Team (Late st Contact Info) Description 07/25/2024 9:15 AM CDT Office Visit [facility] - Orthopedics [address] [place] [address], [place] [address] Mikey Cortez DO [address] [place] [address] DIV [place] [address] Closed fracture of left ankle with routine healing, subsequent encounter (Primary Dx) Social History Tobacco Use Types Packs/Day Years [...] care, and heating? Not very hard 06/18/2024 [facility] - Occupational Stress Questionnaire Answer Date Recorded [...] any time in the past 12 m [facility], were you homeless or living in a [facility]p (including now)? No 06/18/2024 Sex and Gender Information Value Date Recorded Sex Assigned at Not on file Gender Identity Not on file Sexual Orientation Not on file documented as of this encounter Last Filed Vital Signs Vital Sign Reading Time Taken Comments Blood Pressure - - Pulse - - Temperature - - Respiratory Rate - - Oxygen Saturation - - Inhaled Oxygen Concentration - - Weight 99.3 kg (219 lb) 07/25/2024 9:33 AM CDT Height 162.6 cm (5' 4 ) 07/25/2024 9:33 AM CDT Body Mass Index 37.59 07/25/2024 9:33 AM CDT documented in this encounter Functional Status Functional Status Response Date of [...] person have difficulty concentrating/remembering/making decisions? No 06/18/2024 documented as of this encounter Plan of Treatment Upcoming Encounters Date Type Department Care Team (Late st Contact Info) Description 08/22/2024 10:30 AM CDT Office Visit [facility] - Orthopedics [address] [place] [address] [place] [address] Mikey Cortez, [address] [place] [address] OF [place] [address] Scheduled Referrals Name Type Priority Associated Diagnoses Order Schedule AMB REFERRAL FOR DME Outpatient Referral Routine Closed fracture of left ankle with routine healing, subsequent encounter 1 Occurrences starting 07/25/2024 until 07/25/2025 documented as of this encounter Goals Goal Patient Goal Type Associated Problems Recent Progress Patient-Stated? Author Mobility General No Maddi Ulloa Note: Expected end date: Patient is in PO Status. The goal is to maintain or improve your mobility at the optimum level for you. Interventions: Perform independent activity per your ability documented as of this encounter Visit Diagnoses Diagnosis Closed fracture of left ankle with routine healing, subsequent encounter- Primary documented in this encounter
--- OUTSIDE RECORDS SUMMARY | 2024-07-25 15:25 | XMS_ITS | Encounter Summary ---
Author Organization [facility] Address [facility] [place] [address] Care Team Providers Care Project Management Intern Name Role Phone Mo Moy MD Primary Care Provider [phone] Sal Bliss MD Unavailable [phone] Angel Lopez MD Unavailable Encounter Details Date Type Department Care Team (Late st Contact Info) Description 08/05/2022 Abstract [facility] [id number] Faizan Pereira MA Social History Tobacco Use [...] Sex Assigned at Female 05/30/2024 12:35 PM NETBACKUP ENGINEER Legal Sex Female 6:49 PM CDT Gender [...] Description 10/26/2024 11:00 AM CDT Office Visit [facility] Mult[facility] - [facility] [address] [facility] [place] [id number] [facility] Land[facility] MD [address] [facility] [address] [place] [address] documented as of this encounter Procedures Procedure [...] Rule Out 07/01/2023 07/01/2023 07/01/2023 3:40 PM NETBACKUP ENGINEER COVID-19 Rule Out 11/03/2023 11/03/2023 11/03/2023 1:01 AM CDT Assessment Noted Time PHQ-9 Depression Total Score: 0 05/05/20 1:33 PM NETBACKUP ENGINEER documented as of this encounter Care Teams Project Management Intern Relationship Specialty Start Date End Date Mo Moy MD [address] [place] [id number] PCP - General FAMILY PRACTICE 11/26/17 Sal Bliss MD [facility] [address] [place], [place] [address] [employer] Sourcing Associate CARDIOVASCULAR DISEASE 12/10/17 Angel Lopez MD [address] [place], [place] [id number] EP Sourcing Associate CLINICAL CARDIAC ELECTROPHYSIOLOGY 01/15/18 documented as of this encounter
--- OUTSIDE RECORDS SUMMARY | 2024-07-25 15:25 | XMS_ITS | Encounter Summary ---
Author Organization [facility] Health Address [address] [place] [address] Care Team Providers Care Expenditure Requisition Clerk Name Role Phone Unavailable Primary Care Provider Unavailabl e Encounter Details Date Type Department Care Team (Late st Contact Info) Description 07/25/2024 9:06 AM CDT Hospital Encounter [facility] [address] [facility] [address] Mikey Cortez, DO [address] [facility] DIV OF [place] [address] Social History Tobacco Use Types Packs/Day Years Used Date Smoking Tobacco: Never Smokeless Tobacco: Never Alcohol Use Standard Drinks/Week Comments Never 0 [...] care, and heating? Not very hard 06/18/2024 [place] of Occupat ional Health - Occupational Stress [...] any time in the past 12 m [facility], were you homeless or living in a custodial (including now)? No 06/18/2024 Sex and Gender Information Value Date Recorded Sex Assigned at Not on file Gender Identity Not on file Sexual Orientation Not on file documented as of this encounter Functional Status Functional Status Response [...] Office Visit [facility] [address] [place] [address], [place] [address] Mikey Cortez, DO [address] [place] [address] [place] [address] documented as of this encounter Goals Goal Patient Goal Type Associated Problems Recent Progress Patient-Stated? Author Mobility General No ArtemioMaddi Marilyn Note: Expected end date: Patient is in PO Status. The goal is to maintain or improve your mobility at the optimum level for you. Interventions: Perform independent activity per your ability documented as of this encounter Procedures Procedure Name Priority Date/Time Associated Diagnosis Comments XR ANKLE LEFT 3VW OR MORE Routine 07/25/2024 9:25 AM CDT Closed fracture of left ankle with routine healing, subsequent encounter documented in this encounter Results * XR Ankle Left 3Vw or More (07/25/2024 9:25 AM CDT) Anatomical Region Laterality Modality Lower Extremity Computed Radiogr aphy 07/25/2024 9:31 AM CDT Impressions 07/25/2024 9:33 AM CDT IMPRESSION: Distal tibial and fibular fractures with fixation, unchanged in alignment. > Interpreting Provider: Reuben Valenzuela MD on 07/25/2024 9:33 AM Narrative 07/25/2024 9:33 AM CDT PROCEDURE: XR ANKLE LEFT 3VW OR MORE DATE/TIME OF EXAM: 07/25/2024 9:26 AM CLINICAL INFORMATION: None relevant/not provided if blank. Indication: S82.892D: Closed fracture of left ankle with routine healing, subsequent encounter Additional History: COMPARISON: 07/05/2024. FINDINGS: Previous cast removed. There is again fixation of a medial malleolar fracture with one screw and a lateral malleolar fracture with a plate and screws including 2 syndesmotic screws. The hardware is intact and the alignment is unchanged. The joint space is normal. There is no dislocation. There is soft tissue swelling. Procedure Note Reuben Valenzuela MD - 07/25/2024 PROCEDURE: XR ANKLE LEFT 3VW OR MORE DATE/TIME OF EXAM: 07/25/2024 9:26 AM CLINICAL INFORMATION: None relevant/not provided if blank. Indication: S82.892D: Closed fracture of left ankle with routinehealing, subsequent encounter Additional History: COMPARISON: 07/05/2024. FINDINGS: Previous cast removed. There is again fixation of a medial malleolar fracture with one screw and a lateral malleolar fracture with a plateand screws including 2 syndesmotic screws. The hardware is intact and the alignment is unchanged. The joint space is normal. There is nodislocation. There is soft tissue swelling. IMPRESSION: Distal tibial and fibular fractures with fixation, unchangedin alignment. > Interpreting Provider: Reuben Valenzuela MD on 07/25/2024 9:33 AM Mikey Cortez DO DIAGNOSTIC IMAGING [facility] documented in this encounter Visit Diagnoses Diagnosis Closed fracture of left ankle with routine healing, subsequent encounter documented in this encounter
--- OUTSIDE RECORDS SUMMARY | 2024-07-25 15:25 | XMS_ITS | Encounter Summary ---
Author Organization [facility] Health Address [facility] [facility] [place] [address] Care Team Providers Care Pest Control Technician Name Role Phone Unavailable Primary Care Provider Unavailabl e Encounter Details Date Type Department Care Team (Latest Contact Info) Description 07/25/2024 Travel Social History Tobacco Use Types Packs/Day Years [...] care, and heating? Not very hard 06/18/2024 [facility] [place] of Occupat ional Health - Occupational Stress [...] any time in the past 12 m [facility], were you homeless or living [...] Description 08/22/2024 10:30 AM CDT Office Visit [facility] - Orthopedics [address] [place] [address], [place] [address] Mikey Cortez DO [address] [place] [address] [place] [address] documented as of this encounter Goals Goal [...]
--- OUTSIDE RECORDS SUMMARY | 2024-07-25 15:25 | XMS_ITS | Encounter Summary ---
Author Organization [facility] Address [facility] [place] [address] Care Team Providers Care Art Sales Consultant Name Role Phone Mo Moy MD Primary Care Provider [phone] Sal Bliss MD Unavailable [phone] Angel Lopez MD Unavailable Encounter Details Date Type Department Care Team (Late Contact Info) Description 10/14/2018 [facility] [address] [place], [place] [id number] Sal Bliss MD [address] [address] Social History Tobacco Use Types Packs/Day Years Used Date Smoking Tobacco: Former Cigarettes 0.5 35 1 965 - 2000 Smokeless Tobacco: Never Comments:distant past Alcohol Use Standard Drinks/Week Comments No 0 (1 standard drink = 0.6 oz pur e alcohol) Comments No Sex and Gender Information Value Date Recorded Sex Assigned at Female 05/30/2024 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 Legal Sex Female 6:49 PM CDT Gender Identity Not on file Sexual Orientation Not on file Occupation Industry Job Start Date Job End Date Not on file Not on file Not on file Not on file documented as of this encounter Plan of Treatment Upcoming Encounters Date Type Department Care Team (Late Contact Info) Description 10/26/2024 11:00 AM CDT Office Visit [facility] Medical Group Multispecialty Care - [facility] [address] [place] [address] Jacob Landry MD [address] [facility] [address] [place] [address] documented as of this encounter Procedures Procedure Name Priority Date/Time Associated Diagnosis Comments PROTHROMBIN TIME, FINGERSTICK Routine 10/14/2018 10:05 AM CDT documented in this encounter Results * PROTIME/INR, FINGERSTICK (10/14/2018 10:05 AM CDT) INR WHOLE BLOOD 2.3 9 10:09 AM CDT [facility] Comment: Recommend INR ranges for Oral Anticoagulant Therapy:Mechanical Cardiac Values 2.5-3.5All others indication 2.0-3.0 10/14/2018 10:0 5 AM CDT 10/14/2018 10:06 AM CDT us Generic Conversion Md [facility] Final R esult [facility] [address] [place] [address], documented in this encounter Visit Diagnoses Diagnosis Atrial fibrillation (CMS/HCC HHS/HCC) Atrial fibrillation documented in this encounter Additional Health Concerns Infection Onset Date Last Indicated Resolved Time COVID-19 Rule Out 01/14/2020 01/27/2020 01/28/2020 4:35 PM CDT COVID-19 Rule Out 07/07/2021 07/07/2021 07/08/2021 7:49 PM ELECTRONIC SCIENCE TEACHER COVID-19 Rule Out 09/27/2021 09/27/2021 09/28/2021 10:26 AM CDT COVID-19 Rule Out 07/01/2023 07/01/2023 07/01/2023 3:40 PM ELECTRONIC SCIENCE TEACHER COVID-19 Rule Out 11/03/2023 11/03/2023 11/03/2023 1:01 AM CDT documented as of this encounter Care Teams Art Sales Consultant Relationship Specialty Start Date End Date Mo Moy MD [address] [place] [address] PCP - General FAMILY PRACTICE 11/26/17 Sal Bliss MD Three [facility] [place] [address] [place] Asbestos Shingle Roofer CARDIOVASCULAR DISEASE 12/10/17 Angel Lopez MD Three [facility]. [address] [place], [place] [phone] EP Asbestos Shingle Roofer CLINICAL CARDIAC ELECTROPHYSIOLOGY 01/15/18 documented as of this encounter
--- OUTSIDE RECORDS SUMMARY | 2024-07-25 15:25 | XMS_ITS | Encounter Summary ---
Author Organization [facility] Address [facility] [place] [address] Care Team Providers Care Environmental Engineer Scientist Name Role Phone Mo Moy MD Primary Care Provider [phone] Sal Bliss MD Unavailable [phone] Angel Lopez MD Unavailable Encounter Details Date Type Department Care Team (Late st Contact Info) Description 12/29/2017 Abstract [facility] at [address] [address] Faizan Pereira MA Social History Tobacco Use Types Packs/Day Years Used Date Smoking Tobacco: Former Cigarettes Q uit: 2000 Smokeless Tobacco: Never Alcohol Use Standard Drinks/Week Comments No 0 (1 standard drink = 0.6 oz pur e alcohol) Comments Unknown Sex and Gender Information Value Date Recorded Sex Assigned at Female 05/30/2024 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 Medical Group Multispecialty Care - [facility] [address] [place] [address] Jacob Landry MD [address] [facility] [address] [place] [address] documented as of this encounter Procedures Procedure [...] Rule Out 07/07/2021 07/07/2021 07/08/2021 7:49 PM SUPERVISOR FISHING COVID-19 Rule Out 09/27/2021 09/27/2021 09/28/2021 10:26 AM CDT COVID-19 Rule Out 07/01/2023 07/01/2023 07/01/2023 3:40 PM SUPERVISOR FISHING COVID-19 Rule Out 11/03/2023 11/03/2023 11/03/2023 1:01 AM CDT documented as of this encounter Care Teams Environmental Engineer Scientist Relationship Specialty Start Date End Date Mo Moy MD [address] [place] [address] PCP - General FAMILY PRACTICE 11/26/17 Sal Bliss MD Three [facility]. [address] [place] [address] [place] Email Operations Manager CARDIOVASCULAR DISEASE 12/10/17 Angel Lopez MD Three [facility]. [address] [place], [place] [phone] EP Email Operations Manager CLINICAL CARDIAC ELECTROPHYSIOLOGY 01/15/18 documented as of this encounter
--- OUTSIDE RECORDS SUMMARY | 2024-07-25 15:26 | XMS_ITS | Clinical Summary ---
Author Organization [facility] Address [facility] [place] [address] Care Team Providers Care Suction Operator Name Role Phone Mo Moy MD Primary Care Provider [phone] Sal Bliss MD Unavailable [phone] Angel Lopez MD Unavailable Allergies Active Allergy [...] obstructive pulmonar y disease, unspecified COPD type ([facility] HHS/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) Paroxysmal atrial fibrillation ([facility]) Encounters Date Type Department Care Team Description 05/30/2024 12:40 PM RAW SHELLFISH PREPARER - 05/30/2024 11:59 PM [facility] Hospital Encounter [facility] [address] [place] [address] Nathan Scanlon MD Discharge Disposition: Home or Self Care (Routine Discharge) 05/30/2024 Travel 04/26/2024 3:27 PM RAW SHELLFISH PREPARER - 04/26/2024 11:59 PM [facility] Hospital Encounter [facility] [address] [place] [address] Nathan Scanlon MD Discharge Disposition: Home or [...] drink = 0.6 oz pur e alcohol) [facility] Utilities Answer Date Recorded In the past 12 months has e [employer], gas, oil, or water [employer] threatened to shut off services in your [...] place to sleep or slept in a penitentiary (including now)? No 07/01/2023 Comments No Sex and Gender Information Value Date Recorded Sex Assigned at Female 05/30/2024 12:35 PM RAW SHELLFISH PREPARER Legal Sex Female 6:49 PM CDT Gender [...] 11:00 AM CDT Office Visit [facility] Medical Group Multispecialty Care - [facility] [address] [place] [address] Jacob Landry MD [address] [facility] [address] [place] [address] Health Maintenance Due Date Last Done Comments [...] 01/15, 04/27/2018, Additional history exists PHQ-2 (Physician [place]) 10/27/2023 10/26/2022 COVID-19 Vaccine ( season) 2024 Influenza Adult (#1) 2024 PHQ-2 (Physician [place]ytton) 05/17/2024 10/26/2022 Meningococcal B Vaccine Aged Out [...] PROTHROMBIN TIME, VENOUS Routine 05/30/2024 12:58 PM RAW SHELLFISH PREPARER Atrial flutter ([facility]) PROTHROMBIN TIME, FINGERSTICK Routine 04/26/2024 3:44 PM RAW SHELLFISH PREPARER Atrial flutter ([facility]) LIPID PANEL Routine 07/24/2020 8:19 AM RAW SHELLFISH PREPARER Coronary artery disease due to calcified coronary lesion from Last 3 Months or Most Recently Relevant to Health Maintenance Results * (ABNORMAL) PROTIME/INR, VENOUS (05/30/2024 12:58 PM RAW SHELLFISH PREPARER) PROTIME 43.9(H) 9.1 - 12.4 SEC 05/30/2024 1:07 PM RAW SHELLFISH PREPARER [facility] INR 4.0 05/30/2024 1:07 PM RAW SHELLFISH PREPARER [facility] Comment: Recommend INR ranges for Oral Anticoagulant Therapy: Mechanical Cardiac Values 2.5-3.5 All others indication 2.0-3.0 05/30/2024 12:5 8 PM RAW SHELLFISH PREPARER us Nathan Scanlon MD LABORATORY Final Result Performing Organization Address [facility]/ZIP Co de Phone Number [facility] [address] [place] [address], [place] [phone] * PROTIME/INR, FINGERSTICK (04/26/2024 3:44 PM RAW SHELLFISH PREPARER) INR WHOLE BLOOD 2.5 3:47 PM RAW SHELLFISH PREPARER [facility] Comment: Recommend INR ranges for Oral Anticoagulant Therapy: Mechanical Cardiac Values 2.5-3.5 All others indication 2.0-3.0 04/26/2024 3:44 PM RAW SHELLFISH PREPARER us Nathan Scanlon MD LABORATORY Final Result Performing Organization Address [facility] Co de Phone Number [facility] [address] [place] [address], [place] [phone] * (ABNORMAL) LIPID PANEL (07/24/2020 8:19 AM RAW SHELLFISH PREPARER) CHOLESTEROL 244(H) <200.0 MG/DL 07/24/2020 9:02 AM [facility] TRIGLYCERIDES 131 <150 MG/DL 07/24/2020 9:02 AM [facility] HDL 77 >40.0 MG/DL 07/24/2020 9:02 AM [facility] LDL (CALCULATED) 141(H) <100 MG/DL 07/24/2020 9:02 AM [facility] NON HDL CHOLESTEROL 167(H) <130 MG/DL 07/24/2020 9:02 AM [facility] CHOL/HDL RATIO 3.2 0.0 - 4.5 07/24/2020 9:02 AM [facility] VLDL CALCULATION 26 5 - 55 MG/DL 07/24/2020 9:02 AM [facility] LIPID INTERPRETATION 07/24/2020 9:02 AM [facility] Comment: [facility] CONCENSUS REPORT RECOMMENDATIONS: ADULT CHILD LOW RISK: CHOLESTEROL <200 <170 TRIGLYCERIDE <150 --- HDL >=60 --- LDL <100 <110 BORDERLINE: CHOLESTEROL 200-239 170-199 TRIGLYCERIDE 150-199 --- HDL 40-59 --- LDL 100-159 110-129 HIGH RISK: CHOLESTEROL >=240 >=200 TRIGLYCERIDE >=200 --- HDL <40 --- LDL >=160 >=130 07/24/2020 8:19 AM RAW SHELLFISH PREPARER [facility] Final Result [facility] [address] [place] [address], from Last 3 Months or Most Recently Relevant to Health Maintenance Insurance MEDICARE MEDICARE [facility] Advance Directives Documents on File Type Date Recorded Patient Buhr Dresser Expl anation Advance Directives and Living Will 02/25/2018 2:15 PM signed 02-11-17 * Full Code (Latest Code Status on File) Date Activated Date Inactivated Comments 07/01/2023 3:27 PM 07/03/2023 1:33 PM * Full Code Date Activated Date Inactivated Comments 07/10/2021 11:30 AM 07/10/2021 6:48 PM * Full Code Date Activated Date Inactivated Comments 02/24/2018 12:03 PM 02/25/2018 3:47 PM Care Teams Suction Operator Relationship Specialty Start Date End Date Mo Moy MD [address] [place] [id number] PCP - General FAMILY PRACTICE 11/26/17 [facility] [address] [address] [place] Director Of Rehabilitative Services CARDIOVASCULAR DISEASE 12/10/17 Angel Lopez MD [address] [address] [place] Director Of Rehabilitative Services CLINICAL CARDIAC ELECTROPHYSIOLOGY 01/15/18
--- OUTSIDE RECORDS SUMMARY | 2024-07-25 15:26 | XMS_ITS | Patient Health Summary ---
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 Modality Spine Computed Tomogra phy 06/18/2024 3:49 PM PLANT FLOOR AUTOMATION MANAGER Impressions 06/18/2024 5:25 PM PLANT FLOOR AUTOMATION MANAGER IMPRESSION: 1.No evidence of acute fracture in the cervical, thoracic, or lumbar spine. 2.Please refer to the concurrent, dedicated body report for findings in the chest, abdomen, and pelvis. > Dictated by Vijay Jeong DO (Concept Artist), 06/18/2024 3:49 PM. IGlenny MD have personally reviewed and interpreted this examination/study. > Interpreting Provider: Glenny Ragsdale MD on 06/18/2024 5:25 PM Narrative 06/18/2024 5:25 PM PLANT FLOOR AUTOMATION MANAGER PROCEDURE: CT CERVICAL SPINE WO CONTRAST, CT LUMBAR SPINE WO CONTRAST, CT THORACIC SPINE WO CONTRAST, DATE/TIME OF EXAM: 06/18/2024 3:23 PM, LOCATION [facility] INDICATION: Trauma EXAMINATION: 1.CT of the cervical [...] DATE/TIME OF EXAM: 06/18/2024 3:23 PM, LOCATION [facility] INDICATION: Trauma EXAMINATION: 1.CT of the cervical [...] pelvis. > Dictated by Vijay Jeong DO (Concept Artist), 06/18/2024 3:49 PM. Glenny Price MD have personally reviewed and interpretedthis examination/study. > Interpreting Provider: Glenny Ragsdale MD on 06/18/2024 5:25 PM Gordon Ingram MD CT ORDERABLES * CT HEAD WO CONTRAST - Head Trauma, CSF leak, mental status changes (06/18/2024 3:21 PM PLANT FLOOR AUTOMATION MANAGER) Anatomical Region Laterality Modality Head Computed Tomogra phy 06/18/2024 3:01 PM PLANT FLOOR AUTOMATION MANAGER Impressions 06/18/2024 3:03 PM PLANT FLOOR AUTOMATION MANAGER IMPRESSION: 1. No acute intracranial process. 2. 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 > Interpreting Provider: Karin Velasco MD on 06/18/2024 3:03 PM Narrative 06/18/2024 3:03 PM PLANT FLOOR AUTOMATION MANAGER PROCEDURE: CT HEAD WO CONTRAST, DATE/TIME OF EXAM: 06/18/2024 2:46 PM, LOCATION [facility] INDICATION: Trauma ADDITIONAL CLINICAL INFORMATION: Ordering Provider [...] DATE/TIME OF EXAM: 06/18/2024 2:46 PM, LOCATION [facility] INDICATION: Trauma ADDITIONAL CLINICAL INFORMATION: Ordering Provider [...] * TROPONIN-I HIGH SENSITIVE (06/18/2024 2:44 PM PLANT FLOOR AUTOMATION MANAGER) Pathologist [facility] Troponin I High Sensitive 4 <=14 ng/L 06/18/2024 3:19 PM PLANT FLOOR AUTOMATION MANAGER [facility] Blood BLOOD SPECIMEN / Unknown Venipuncture / Unknown 06/18/2024 2:44 PM PLANT FLOOR AUTOMATION MANAGER 06/18/2024 2:48 PM PLANT FLOOR AUTOMATION MANAGER Gordon Ingram MD LAB - CHEMISTRY ORDE [facility] Organization Address City/State/ZIP Co de Phone Number [facility] [address] [place] [phone], [facility] [phone] * (ABNORMAL) TEG 6 GLOBAL HEMOSTASIS W/ LYSIS (06/18/2024 2:44 PM PLANT FLOOR AUTOMATION MANAGER) Pathologist [facility] Citrated Kaolin R (Reaction Time) 4.3(L) 4.6 - 9.1 min 06/18/2024 3:54 PM PLANT FLOOR AUTOMATION MANAGER [facility] Comment:CK R result below no rmal range. Consistent with hypercoagulable clotting factors. Citrated Kaolin LY30 (Lysis) 0.1 0.0 - 2.6 % 06/18/2024 3:54 PM PLANT FLOOR AUTOMATION MANAGER [facility] Citrated Functional Fibrinogen MA (Max Amplitude) 19.3 15.0 - 32.0 mm 06/18/2024 3:54 PM [facility] Citrated RapidTEG MA (Max Amplitude) 62.8 52.0 - 70.0 mm 06/18/2024 3:54 PM [facility] Blood BLOOD SPECIMEN / Unknown Venipuncture / Unknown 06/18/2024 2:44 PM PLANT FLOOR AUTOMATION MANAGER 06/18/2024 2:52 PM PLANT FLOOR AUTOMATION MANAGER Gordon Ingram MD LAB - HEMATOLOGY ORD ERABLES [facility] [address] [place] [address], [facility] [phone] * (ABNORMAL) TEG 6S PLATELET MAPPING (06/18/2024 2:44 PM PLANT FLOOR AUTOMATION MANAGER) TEGPLM (Max Amplitude) Koalin 64.2 53.0 - 68.0 mm 06/18/2024 4:03 PM [facility] TEGPLM (Max Amplitude) ACTF 10.1 2.0 - 19.0 mm 06/18/2024 4:03 PM [facility] TEGPLM (Max Amplitude) ADP 48.6 45.0 - 69.0 mm 06/18/2024 4:03 PM [facility] TEGPLM (Max Amplitude) AA 18.0(L) 51.0 - 71.0 mm 06/18/2024 4:03 PM [facility] Comment:AA MA below normal r dov. Inhibition present. TEGPLM %Inhibition ADP 28.8(H) 0.0 - 17.0 % 06/18/2024 4:03 PM [facility] TEGPLM %Inhibition AA 85.4(H) 0.0 - 11.0 % 06/18/2024 4:03 PM [facility] TEGPLM %Aggregation ADP 71.2(L) 83.0 - 100.0 % 06/18/2024 4:03 PM [facility] TEGPLM % Aggregation AA 14.6(L) 89.0 - 100.0 % 06/18/2024 4:03 PM [facility] Blood BLOOD SPECIMEN / Unknown Venipuncture / Unknown 06/18/2024 2:44 PM PLANT FLOOR AUTOMATION MANAGER 06/18/2024 2:52 PM PLANT FLOOR AUTOMATION MANAGER Gordon Ingram MD LAB - HEMATOLOGY ORD ERABLES Performing Organization Address City/[facility]/ZIP Co de Phone Number [address] [phone], [facility] [phone] * TYPE + SCREEN PANEL (06/18/2024 2:44 PM PLANT FLOOR AUTOMATION MANAGER) Antibody Screen NEG 3:33 PM PLANT FLOOR AUTOMATION MANAGER [facility] BLOOD BANK LAB ABO Rh O POS 06/18/2024 3:33 PM PLANT FLOOR AUTOMATION MANAGER [facility] BLOOD BANK LAB Blood Bank BLOOD SPECIMEN / Unknown Venipuncture / Unknown 06/18/2024 2:44 PM PLANT FLOOR AUTOMATION MANAGER 06/18/2024 2:53 PM PLANT FLOOR AUTOMATION MANAGER Gordon Ingram MD LAB - BLOOD BANK ORD DESCANSOBLES Performing Organization Address [facility] de Phone Number [facility] BLOOD BANK LAB [address] [place] [id number], [facility] [phone] * ALCOHOL ETHYL BLOOD (06/18/2024 2:44 PM PLANT FLOOR AUTOMATION MANAGER) Ethanol (mg/dL) <10 <10 mg/dL 3:15 PM [facility] Ethanol Calculated (g/dL) <0.010 <=0.010 g/dL 06/18/2024 3:15 PM [facility] Blood BLOOD SPECIMEN / Unknown Venipuncture / Unknown 06/18/2024 2:44 PM PLANT FLOOR AUTOMATION MANAGER 06/18/2024 2:48 PM PLANT FLOOR AUTOMATION MANAGER Narrative [facility] - 06/18/2024 3:15 PM PLANT FLOOR AUTOMATION MANAGER Ethanol Interp <10: None Detected. Depression of HARDWARE ENGINEERING MANAGER: >100 mg/dl Potentially Critical: >250 mg/dl Potentially [...] Ingram MD LAB - CHEMISTRY JULIANNE OROZCO [facility] [address] [place] [phone], [facility] [phone] * XR PELVIS 1 OR 2VW (06/18/2024 2:43 PM PLANT FLOOR AUTOMATION MANAGER) Anatomical Region Laterality Modality Pelvis Digital Radiogra phy 06/18/2024 5:02 PM PLANT FLOOR AUTOMATION MANAGER Impressions 06/18/2024 5:20 PM PLANT FLOOR AUTOMATION MANAGER IMPRESSION: No acute fracture identified. Report dictated by Vijay Jeong DO (radiology assistant). Malcolm Price MD have personally reviewed and interpreted this examination/study. > Interpreting Provider: Malcolm Marroquin MD on 06/18/2024 5:20 PM Narrative 06/18/2024 5:20 PM PLANT FLOOR AUTOMATION MANAGER PROCEDURE: XR PELVIS 1 OR 2VW, DATE/TIME OF EXAM: 06/18/2024 2:44 PM, LOCATION [facility] INDICATION: Trauma Fracture suspected COMPARISON: None. FINDINGS: No acute fracture is identified. The femoral heads appear well-seated within their respective acetabula. The pubic symphysis is intact. Bone density and texture are normal. The sacroiliac joints are normal. Procedure Note Malcolm Marroquin MD - 06/18/2024 PROCEDURE: XR PELVIS 1 OR 2VW, DATE/TIME OF EXAM: 06/18/2024 2:44 PM, LOCATION [facility] INDICATION: Trauma Fracture suspected COMPARISON: None. FINDINGS: No acute fracture is identified. The femoral heads appear well-seated within their respective acetabula. The pubic symphysis is intact. Bone density and texture are normal. The sacroiliac joints are normal. IMPRESSION: No acute fracture identified. Report dictated by Vijay Jeong DO (radiology assistant). Malcolm Price MD have personally reviewed and interpreted this examination/study. > Interpreting Provider: Malcolm Marroquin MD on 06/18/2024 5:20 PM Gordon Ingram MD DIAGNOSTIC IMAGING O RDERABLES * XR Knee Left 2Vw or Less (06/18/2024 2:43 PM PLANT FLOOR AUTOMATION MANAGER) Anatomical Region Laterality Modality Lower Extremity Digital Radiogra phy 06/18/2024 5:03 PM PLANT FLOOR AUTOMATION MANAGER Impressions 06/18/2024 7:59 PM PLANT FLOOR AUTOMATION MANAGER Impression: Likely chronic osseous fragment adjacent to [...] Report dictated by Vijay Jeong DO (radiology assistant). Malcolm Price MD have personally reviewed and interpreted this examination/study. > Interpreting Provider: Malcolm Marroquin MD on 06/18/2024 7:59 PM Narrative 06/18/2024 7:59 PM PLANT FLOOR AUTOMATION MANAGER PROCEDURE: XR KNEE LEFT 2VW OR LESS, DATE/TIME OF EXAM: 06/18/2024 2:43 PM, LOCATION [facility] INDICATION: T14.90XA: Trauma COMPARISON: None. Procedure Note Malcolm Marroquin MD - 06/18/2024 PROCEDURE: XR KNEE LEFT 2VW OR LESS, DATE/TIME OF EXAM: 06/18/2024 2:43PM, LOCATION [facility] INDICATION: T14.90XA: Trauma COMPARISON: None. Impression: Likely [...] Report dictated by Vijay Jeong DO (radiology assistant). Malcolm Price MD have personally reviewed and interpreted this examination/study. > Interpreting Provider: Malcolm Marroquin MD on 06/18/2024 7:59 PM Gordon Ingram MD DIAGNOSTIC IMAGING O JACEKBLES
--- OUTSIDE RECORDS SUMMARY | 2024-07-25 15:26 | XMS_ITS | Clinical Summary ---
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 Fluoroscopy was used for this exam in the OR. Please see the Operative report. Mikey Cortez DO FLUOROSCOPY ORDERABL ES [facility] * TRANSFUSE RED BLOOD CELL LEUKOREDUCED ML(S) (06/21/2024 2:15 PM TUNNEL FORM PLACING SUPERVISOR) Jorge A Ceron MD NURSING - BLOOD PROD TRANSFUSION * ETT LINE PERFORMABLE (06/21/2024 1:48 PM TUNNEL FORM PLACING SUPERVISOR) Narrative Kacy Momin DO - 06/21/2024 1:48 PM TUNNEL FORM PLACING SUPERVISOR Kacy Momin DO 06/21/2024 1:48 PM Endotracheal Tube Placement: Patient Location: OR. Intubation Event Date/Time: 06/21/2024 12:57 PM Procedure: intubation (25024) Procedure Section: Sedation: under general anesthesia. Indications [...] O RDERABLES * TSH (06/21/2024 12:07 AM TUNNEL FORM PLACING SUPERVISOR) TSH 0.552 0.350 - 4.940 uIU/mL 06/21/2024 1:14 AM [facility] Blood BLOOD SPECIMEN / Unknown Venipuncture / Unknown 06/21/2024 12:07 AM TUNNEL FORM PLACING SUPERVISOR 06/21/2024 12:22 AM TUNNEL FORM PLACING SUPERVISOR Gordon Ingram MD LAB - CHEMISTRY [facility] Address [facility]/State/ZIP Co de Phone Number [address] [phone] [phone] * (ABNORMAL) CALCIUM IONIZED WHOLE BLOOD (06/20/2024 12:21 AM TUNNEL FORM PLACING SUPERVISOR) Calcium Ionized 1.34 mmol/L 06/20/2024 12:29 AM [facility] pH 7.28(L) 7.35 - 7.45 pH 06/20/2024 12:29 AM [facility] Ionized Calcium pH Adjusted 1.28 1.19 - 1.34 mmol/L 06/20/2024 12:29 AM [facility] Blood BLOOD SPECIMEN / Unknown Venipuncture / Unknown 06/20/2024 12:21 AM TUNNEL FORM PLACING SUPERVISOR 06/20/2024 12:[address] [facility] Warren Siegel PA-C LAB - CHEMISTRY O RDERABLES [facility] [address] [place] [address], [facility] [phone] * (ABNORMAL) URINE DRUG SCREEN IMMUNOASSAY (06/19/2024 12:[address] [facility]) [facility] Amphetamines Screen Urine Negative Negative : < 1000 ng/mL 06/19/2024 1:05 PM [facility] Barbiturates Screen Urine Negative Negative : < 200 ng/mL 06/19/2024 1:05 PM [facility] Benzodiazepine Screen Urine Negative Negative : < 200 ng/mL 06/19/2024 1:05 PM [facility] Opiates Urine Positive(A) Negative : < 300 ng/mL 06/19/2024 1:05 PM [facility] Comment:Positive urine opiat e screening results should be confirmed by another generally accepted non-immunological method such as gas chromatography or mass spectrometry. Cocaine Metabolites Urine Negative Negative : < 300 ng/mL 06/19/2024 1:05 PM [facility] Phencyclidine Screen Urine Negative Negative : < 25 ng/ml 06/19/2024 1:05 PM [facility] Cannabinoids Screen Urine Negative Negative : <50 ng/mL 06/19/2024 1:05 PM [facility] Methadone Screen Urine Negative Negative : < 300 ng/mL 06/19/2024 1:05 PM [facility] Fentanyl Screen Urine Positive(A) Negative : <1.5 ng/mL 06/19/2024 1:05 PM [facility] Comment:Positive urine fenta nyl screening results should be confirmed by another generally accepted non-immunological method such as gas chromatography or mass spectrometry. Urine URINE / Unknown Collection / Unknown 06/19/2024 12:36 PM TUNNEL FORM PLACING SUPERVISOR 06/19/2024 12:[address] [facility] Narrative [facility] - 06/19/2024 1:05 PM TUNNEL FORM PLACING SUPERVISOR The Urine Toxicology Screening Panel does not screen for Propoxyphene, Meprobamate, Carisoprodol, Trazodone, gcmk-jmf-wpobzvl medications and/or volatiles (Acetone, Isopropanol, Methanol or Ethylene Glycol). Ethanol, Salicylate, Acetaminophen, Tricyclic Antidepressants and several therapeutic drugs may be individually assayed in serum or plasma specimen. Toxicology testing by the [facility] is an aid to medical diagnosis and treatment of patients. No documented chain of custody was maintained. Results are intended to be used for clinical purposes only. Gordon Christie Ingram MD LAB - URINE CHEMISTR Y ORDERABLES [address] [address], [facility] [phone] * CT 3D Recon W Independent Wksn (06/19/2024 10:27 AM TUNNEL FORM PLACING SUPERVISOR) Anatomical Region Laterality Modality Computed Tomogra phy 06/19/2024 12:0 2 PM TUNNEL FORM PLACING SUPERVISOR Impressions 06/19/2024 12:17 PM TUNNEL FORM PLACING SUPERVISOR IMPRESSION: Three-dimensional rendering for operative planning. The report was drafted by Álvaro Fernández MD (vice president integrated) 06/19/2024 12:02 PM. Higinio Price MD have personally reviewed and interpreted this examination/study. > Interpreting Provider: Higinio Whittington MD on 06/19/2024 12:17 PM Narrative 06/19/2024 12:17 PM TUNNEL FORM PLACING SUPERVISOR PROCEDURE: CT 3D RECON W INDEPENDENT WKSN, DATE/TIME OF EXAM: 06/19/2024 10:28 AM, LOCATION [facility] INDICATION: S22.43XA: Closed fracture of multiple ribs [...] DATE/TIME OF EXAM: 06/19/2024 10:28 AM, LOCATION [facility] INDICATION: S22.43XA: Closed fracture of multiple ribs [...] report was drafted by Álvaro Fernández MD (vice president integrated) 06/19/2024 12:02 PM. Higinio Price MD have personally reviewed and interpreted this examination/study. > Interpreting Provider: Higinio Whittington MD on 06/19/2024 12:17 PM Gordon Ingram MD CT ORDERABLES * TRANSFUSE PLATELET PHERESIS UNIT(S) (06/19/2024 4:54 AM TUNNEL FORM PLACING SUPERVISOR) Gordon Fernández MD NURSING - BLOOD PROD TRANSFUSION * (ABNORMAL) HGB HCT PANEL (06/19/2024 3:29 AM TUNNEL FORM PLACING SUPERVISOR) Only the most recent of2 resultswithin the time period is included. Hemoglobin 7.9(L) 11.9 - 15.8 g/dL 06/19/2024 3:42 AM TUNNEL FORM PLACING SUPERVISOR [facility] Hematocrit 25.2(L) 34.8 - 46.1 % 06/19/2024 3:42 AM TUNNEL FORM PLACING SUPERVISOR [facility] Blood BLOOD SPECIMEN / Unknown Venipuncture / Unknown 06/19/2024 3:29 AM TUNNEL FORM PLACING SUPERVISOR 06/19/2024 3:39 AM TUNNEL FORM PLACING SUPERVISOR Gordon Ingram MD LAB - HEMATOLOGY ORD ERABLES [address] [address], [facility] [phone] * PTT [facility] (06/18/2024 8:38 PM TUNNEL FORM PLACING SUPERVISOR) Only the most recent of2 resultswithin the time period is included. APTT 27.5 23.0 - 38.4 Seconds 06/18/2024 9:35 PM TUNNEL FORM PLACING SUPERVISOR [facility] Comment:Suggested therapeuti c range for full dose I.V. unfractionated heparin therapy for venous thromboembolism is 71 to 109 seconds. Blood BLOOD SPECIMEN / Unknown Venipuncture / Unknown 06/18/2024 8:38 PM TUNNEL FORM PLACING SUPERVISOR 06/18/2024 8:44 PM TUNNEL FORM PLACING SUPERVISOR Gordon Ingram MD LAB - COAGULATION OR DERABLES Performing Organization Address City/[facility]/ZIP Co de Phone Number [address] [address], [facility] [phone] * (ABNORMAL) VITAMIN D 25-HYDROXY (06/18/2024 8:38 PM TUNNEL FORM PLACING SUPERVISOR) Vitamin D, 25 Hydroxy 94.0(H) 30.0 - 80.0 ng/mL 06/19/2024 6:51 AM TUNNEL FORM PLACING SUPERVISOR [facility] Comment: The recommendations for 25-Hydroxy Vitamin [...] Unknown Venipuncture / Unknown 06/18/2024 8:38 PM TUNNEL FORM PLACING SUPERVISOR 06/18/2024 9:09 PM TUNNEL FORM PLACING SUPERVISOR Sulema Whyte PA-C LAB - CHEMISTRY OR DERABLES Performing Organization Address City/[facility]/ZIP Co de Phone Number [address] [address], [facility] [phone] * LACTIC ACID BLOOD (06/18/2024 8:38 PM TUNNEL FORM PLACING SUPERVISOR) Lactic Acid-Stat 1.4 <=2.0 mmol/L 06/18/2024 9:38 PM TUNNEL FORM PLACING SUPERVISOR [facility] Blood BLOOD SPECIMEN / Unknown Venipuncture / Unknown 06/18/2024 8:38 PM TUNNEL FORM PLACING SUPERVISOR 06/18/2024 9:12 PM TUNNEL FORM PLACING SUPERVISOR Gordon Ingram MD LAB - CHEMISTRY ORDE PAM [facility] [address] [place] [address], [facility] [phone] * CT Ankle Left Wo Contrast (06/18/2024 7:57 PM TUNNEL FORM PLACING SUPERVISOR) Anatomical Region Laterality Modality Lower Extremity Computed Tomogra phy 06/18/2024 8:46 PM TUNNEL FORM PLACING SUPERVISOR Narrative 06/18/2024 9:15 PM TUNNEL FORM PLACING SUPERVISOR PROCEDURE: CT KNEE LEFT WO CONTRAST, CT [...] present. > Dictated by Dimitris Avila MD (Cold Roll Operator) Higinio Price MD have personally reviewed and [...] present. > Dictated by Dimitris Avila MD (Cold Roll Operator) Higinio Price MD have personally reviewed and interpreted this examination/study. > Interpreting Provider: Higinio Whittington MD on 06/18/2024 9:15 PM Gordon Ingram MD CT ORDERABLES * CT Knee Left Wo Contrast (06/18/2024 7:57 PM TUNNEL FORM PLACING SUPERVISOR) Anatomical Region Laterality Modality Lower Extremity Computed Tomogra phy 06/18/2024 8:46 PM TUNNEL FORM PLACING SUPERVISOR Narrative 06/18/2024 9:15 PM TUNNEL FORM PLACING SUPERVISOR PROCEDURE: CT KNEE LEFT WO CONTRAST, CT [...] present. > Dictated by Dimitris Avila MD (Cold Roll Operator) Higinio Price MD have personally reviewed and interpreted this examination/study. > Interpreting Provider: Higiino Whittington MD on 06/18/2024 9:15 PM Procedure [...] present. > Dictated by Dimitris Avila MD (Cold Roll Operator) IHiginio MD have personally reviewed and interpreted this examination/study. > Interpreting Provider: Higinio Whittington MD on 06/18/2024 9:15 PM Gordon Ingram MD CT ORDERABLES * BLOOD TYPE VERIFICATION (06/18/2024 6:57 PM TUNNEL FORM PLACING SUPERVISOR) ABO Rh O POS 06/18/2024 7:2 6 PM TUNNEL FORM PLACING SUPERVISOR [facility] Blood Bank BLOOD SPECIMEN / Unknown Venipuncture / Unknown 06/18/2024 6:57 PM TUNNEL FORM PLACING SUPERVISOR 06/18/2024 7:05 PM TUNNEL FORM PLACING SUPERVISOR Gordon Ingram MD LAB - BLOOD BANK ORD ERABLES Performing Organization Address City/[facility]/ZIP Co de Phone Number [facility] [address] [place] [address], [facility] [phone] * PREPARE PLATELET PHERESIS UNIT(S), 1 Units (06/18/2024 6:45 PM TUNNEL FORM PLACING SUPERVISOR) Unit Description LRPLTphere B7 IR [facility] Unit ABO O [facility] Unit Rh POS [facility] Product Number P31 [facility] Unit Donor # [id number] [facility] Unit Status transfused [facility] Product Code [id number] [facility] Blood Type Barcode 5100 [facility] Expiration Date [id number] [facility] Blood Bank BLOOD SPECIMEN / Unknown 06/18/2024 2:53 PM TUNNEL FORM PLACING SUPERVISOR Gordon Fernández MD LAB - BLOOD BANK ORD ERABLES Performing Organization Address City/[facility]/ZIP Co de Phone Number [facility] [address] [place] [address], [facility] [phone] * XR Wrist Right 3Vw or More (06/18/2024 3:39 PM TUNNEL FORM PLACING SUPERVISOR) Anatomical Region Laterality Modality Wrist / Hand Digital Radiogra phy 06/18/2024 5:17 PM TUNNEL FORM PLACING SUPERVISOR Impressions 06/18/2024 8:04 PM TUNNEL FORM PLACING SUPERVISOR IMPRESSION: No acute fracture or dislocation identified. Report dictated by Vijay Jeong DO (marketing services vice president). Malcolm Price MD have personally reviewed and interpreted this examination/study. > Interpreting Provider: Malcolm Marroquin MD on 06/18/2024 8:04 PM Narrative 06/18/2024 8:04 PM TUNNEL FORM PLACING SUPERVISOR PROCEDURE: XR WRIST RIGHT 3VW OR MORE, DATE/TIME OF EXAM: 06/18/2024 3:39 PM, LOCATION [facility] INDICATION: T14.90XA: Trauma ADDITIONAL CLINICAL INFORMATION: Ordering [...] MORE, DATE/TIME OF EXAM: 53:39 PM, LOCATION [facility] INDICATION: T14.90XA: Trauma ADDITIONAL CLINICAL INFORMATION: Ordering [...] identified. Report dictated by Vijay Jeong DO (marketing services vice president). Malcolm Price MD have personally reviewed and interpreted this examination/study. > Interpreting Provider: Malcolm Marroquin MD on 06/18/2024 8:04 PM Gordon Ingram MD DIAGNOSTIC IMAGING O RDERABLES * XR Tibia Fibula Left 2Vw (06/18/2024 3:39 PM TUNNEL FORM PLACING SUPERVISOR) Anatomical Region Laterality Modality Lower Extremity Digital Radiogra phy 06/18/2024 5:13 PM TUNNEL FORM PLACING SUPERVISOR Impressions 06/18/2024 5:22 PM TUNNEL FORM PLACING SUPERVISOR IMPRESSION: Quadrimalleolar fracture. Report dictated by Vijay Jeong DO (marketing services vice president). Malcolm Price MD have personally reviewed and interpreted this examination/study. > Interpreting Provider: Malcolm Marroquin MD on 06/18/2024 5:22 PM Narrative 06/18/2024 5:22 PM TUNNEL FORM PLACING SUPERVISOR PROCEDURE: XR TIBIA FIBULA LEFT 2VW, DATE/TIME OF EXAM: 06/18/2024 3:39 PM, LOCATION [facility] INDICATION: T14.90XA: Trauma COMPARISON: None. FINDINGS: Quadrimalleolar fracture. Bone density and texture are normal. Soft tissue swelling is present. Procedure Note Malcolm Marroquin MD - 06/18/2024 PROCEDURE: XR TIBIA FIBULA LEFT 2VW, DATE/TIME OF EXAM: 06/18/2024 3:39PM, LOCATION [facility] INDICATION: T14.90XA: Trauma COMPARISON: None. FINDINGS: Quadrimalleolar fracture. Bone density and texture are normal. Softtissue swelling is present. IMPRESSION: Quadrimalleolar fracture. Report dictated by Vijay Jeong DO (marketing services vice president). Malcolm Price MD have personally reviewed and interpreted this examination/study. > Interpreting Provider: Malcolm Marroquin MD on 06/18/2024 5:22 PM Gordon Ingram MD DIAGNOSTIC IMAGING O RDERABLES * XR Hand Right 3Vw or More (06/18/2024 3:39 PM TUNNEL FORM PLACING SUPERVISOR) Anatomical Region Laterality Modality Wrist / Hand Digital Radiogra phy 06/18/2024 5:17 PM TUNNEL FORM PLACING SUPERVISOR Impressions 06/18/2024 8:05 PM TUNNEL FORM PLACING SUPERVISOR IMPRESSION: No acute fracture or dislocation identified. Report dictated by Vijay Jeong DO (marketing services vice president). Malcolm Price MD have personally reviewed and interpreted this examination/study. > Interpreting Provider: Malcolm Marroquin MD on 06/18/2024 8:05 PM Narrative 06/18/2024 8:05 PM TUNNEL FORM PLACING SUPERVISOR PROCEDURE: XR HAND RIGHT 3VW OR MORE, DATE/TIME OF EXAM: 06/18/2024 3:39 PM, LOCATION [facility] INDICATION: T14.90XA: Trauma COMPARISON: None. FINDINGS: The [...] DATE/TIME OF EXAM: 06/18/2024 3:39 PM, LOCATION [facility] INDICATION: T14.90XA: Trauma COMPARISON: None. FINDINGS: The [...] identified. Report dictated by Vijay Jeong DO (marketing services vice president). Malcolm Price MD have personally reviewed and interpreted this examination/study. > Interpreting Provider: Malcolm Marroquin MD on 06/18/2024 8:05 PM Gordon Ingram MD DIAGNOSTIC IMAGING O RDERABLES * XR Hand Left 3Vw or More (06/18/2024 3:39 PM TUNNEL FORM PLACING SUPERVISOR) Anatomical Region Laterality Modality Wrist / Hand Digital Radiogra phy 06/18/2024 5:16 PM TUNNEL FORM PLACING SUPERVISOR Impressions 06/18/2024 8:03 PM TUNNEL FORM PLACING SUPERVISOR IMPRESSION: No acute fracture or dislocation identified. Report dictated by Vijay Jeong DO (marketing services vice president). Malcolm Prcie MD have personally reviewed and interpreted this examination/study. > Interpreting Provider: Malcolm Marroquin MD on 06/18/2024 8:03 PM Narrative 06/18/2024 8:03 PM TUNNEL FORM PLACING SUPERVISOR PROCEDURE: XR HAND LEFT 3VW OR MORE, DATE/TIME OF EXAM: 06/18/2024 3:39 PM, LOCATION [facility] INDICATION: T14.90XA: Trauma COMPARISON: None. FINDINGS: The [...] MORE, DATE/TIME OF EXAM: 06/18/2024 3:39PM, LOCATION [facility] INDICATION: T14.90XA: Trauma COMPARISON: None. FINDINGS: The osseous structures are intact and well aligned without acutefracture or dislocation. The joint spaces are preserved. The bones are diffusely demineralized. No soft tissue swelling is present. Degenerative changesof the fifth distal interphalangeal and first carpometacarpal joints. IMPRESSION: No acute fracture or dislocation identified. Report dictated by Vijay Jeong DO (marketing services vice president). I, Malcolm Marroquin MD have personally reviewed and interpreted this examination/study. > Interpreting Provider: Malcolm Marroquin MD on 06/18/2024 8:03 PM Gordon Ingram MD DIAGNOSTIC IMAGING O RDERABLES * CT LUMBAR SPINE WO CONTRAST - T/L-spine trauma, Spine fracture (06/18/2024 3:21 PM TUNNEL FORM PLACING SUPERVISOR) Anatomical Region Laterality Modality Spine Computed Tomogra phy 06/18/2024 3:49 PM TUNNEL FORM PLACING SUPERVISOR Impressions 06/18/2024 5:25 PM TUNNEL FORM PLACING SUPERVISOR IMPRESSION: 1.No evidence of acute fracture in the cervical, thoracic, or lumbar spine. 2.Please refer to the concurrent, dedicated body report for findings in the chest, abdomen, and pelvis. > Dictated by Vijay Jeong DO (Cold Roll Operator), 06/18/2024 3:49 PM. IGlenny MD have personally reviewed and interpreted this examination/study. > Interpreting Provider: Glenny Ragsdale MD on 06/18/2024 5:25 PM Narrative 06/18/2024 5:25 PM TUNNEL FORM PLACING SUPERVISOR PROCEDURE: CT CERVICAL SPINE WO CONTRAST, CT LUMBAR SPINE WO CONTRAST, CT THORACIC SPINE WO CONTRAST, DATE/TIME OF EXAM: 06/18/2024 3:23 PM, LOCATION [facility] INDICATION: Trauma EXAMINATION: 1.CT of the cervical [...] DATE/TIME OF EXAM: 06/18/2024 3:23 PM, LOCATION [facility] INDICATION: Trauma EXAMINATION: 1.CT of the cervical [...] pelvis. > Dictated by Vijay Jeong DO (Cold Roll Operator), 06/18/2024 3:49 PM. Glenny Price MD have personally reviewed and interpretedthis examination/study. > Interpreting Provider: Glenny Ragsdale MD on 06/18/2024 5:25 PM Gordon Ingram MD CT ORDERABLES * CT THORACIC SPINE WO CONTRAST - T/L-spine trauma, spine fracture (06/18/2024 3:21 PM TUNNEL FORM PLACING SUPERVISOR) Anatomical Region Laterality Modality Spine Computed Tomogra phy 06/18/2024 3:49 PM TUNNEL FORM PLACING SUPERVISOR Impressions 06/18/2024 5:25 PM TUNNEL FORM PLACING SUPERVISOR IMPRESSION: 1.No evidence of acute fracture in the cervical, thoracic, or lumbar spine. 2.Please refer to the concurrent, dedicated body report for findings in the chest, abdomen, and pelvis. > Dictated by Vijay Jeong DO (Cold Roll Operator), 06/18/2024 3:49 PM. Glenny Price MD have personally reviewed and interpreted this examination/study. > Interpreting Provider: Glenny Ragsdale MD on 06/18/2024 5:25 PM Narrative 06/18/2024 5:25 PM TUNNEL FORM PLACING SUPERVISOR PROCEDURE: CT CERVICAL SPINE WO CONTRAST, CT LUMBAR SPINE WO CONTRAST, CT THORACIC SPINE WO CONTRAST, DATE/TIME OF EXAM: 06/18/2024 3:23 PM, LOCATION [facility] INDICATION: Trauma EXAMINATION: 1.CT of the cervical [...] DATE/TIME OF EXAM: 06/18/2024 3:23 PM, LOCATION [facility] INDICATION: Trauma EXAMINATION: 1.CT of the cervical [...] pelvis. > Dictated by Vijay Jeong DO (Cold Roll Operator), 06/18/2024 3:49 PM. Glenny Price MD have personally reviewed and interpretedthis examination/study. > Interpreting Provider: Glenny Ragsdale MD on 06/18/2024 5:25 PM Gordon Ingram MD CT ORDERABLES * CT CERVICAL SPINE WO CONTRAST - C-Spine Trauma, Spine fracture (06/18/2024 3:21 PM TUNNEL FORM PLACING SUPERVISOR) Anatomical Region Laterality Modality Spine Computed Tomogra phy 06/18/2024 3:49 PM TUNNEL FORM PLACING SUPERVISOR Impressions 06/18/2024 5:25 PM TUNNEL FORM PLACING SUPERVISOR IMPRESSION: 1.No evidence of acute fracture in the cervical, thoracic, or lumbar spine. 2.Please refer to the concurrent, dedicated body report for findings in the chest, abdomen, and pelvis. > Dictated by Vijay Jeong DO (Cold Roll Operator), 06/18/2024 3:49 PM. Glenny Price MD have personally reviewed and interpreted this examination/study. > Interpreting Provider: Glenny Ragsdale MD on 06/18/2024 5:25 PM Narrative 06/18/2024 5:25 PM TUNNEL FORM PLACING SUPERVISOR PROCEDURE: CT CERVICAL SPINE WO CONTRAST, CT LUMBAR SPINE WO CONTRAST, CT THORACIC SPINE WO CONTRAST, DATE/TIME OF EXAM: 06/18/2024 3:23 PM, LOCATION [facility] INDICATION: Trauma EXAMINATION: 1.CT of the cervical [...] DATE/TIME OF EXAM: 06/18/2024 3:23 PM, LOCATION [facility] INDICATION: Trauma EXAMINATION: 1.CT of the cervical [...] pelvis. > Dictated by Vijay Jeong DO (Cold Roll Operator), 06/18/2024 3:49 PM. IGlenny MD have personally reviewed and interpretedthis examination/study. > Interpreting Provider: Glenny Ragsdale MD on 06/18/2024 5:25 PM Gordon Ingram MD CT ORDERABLES * CT HEAD WO CONTRAST - Head Trauma, CSF leak, mental status changes (06/18/2024 3:21 PM TUNNEL FORM PLACING SUPERVISOR) Anatomical Region Laterality Modality Head Computed Tomogra phy 06/18/2024 3:01 PM TUNNEL FORM PLACING SUPERVISOR Impressions 06/18/2024 3:03 PM TUNNEL FORM PLACING SUPERVISOR IMPRESSION: 1. No acute intracranial process. 2. 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 > Interpreting Provider: Karin Velasco MD on 06/18/2024 3:03 PM Narrative 06/18/2024 3:03 PM TUNNEL FORM PLACING SUPERVISOR PROCEDURE: CT HEAD WO CONTRAST, DATE/TIME OF EXAM: 06/18/2024 2:46 PM, LOCATION [facility] INDICATION: Trauma ADDITIONAL CLINICAL INFORMATION: Ordering Provider [...] DATE/TIME OF EXAM: 06/18/2024 2:46 PM, LOCATION [facility] INDICATION: Trauma ADDITIONAL CLINICAL INFORMATION: Ordering Provider [...] * TROPONIN-I HIGH SENSITIVE (06/18/2024 2:44 PM TUNNEL FORM PLACING SUPERVISOR) Troponin I High Sensitive 4 <=14 ng/L 06/18/2024 3:19 PM TUNNEL FORM PLACING SUPERVISOR [facility] Blood BLOOD SPECIMEN / Unknown Venipuncture / Unknown 06/18/2024 2:44 PM TUNNEL FORM PLACING SUPERVISOR 06/18/2024 2:48 PM TUNNEL FORM PLACING SUPERVISOR Gordon Ingram MD LAB - CHEMISTRY JULIANNE OROZCO Performing Organization Address [facility]/ZIP Co de Phone Number [address] [phone], [facility] [phone] * (ABNORMAL) TEG 6 GLOBAL HEMOSTASIS W/ LYSIS (06/18/2024 2:44 PM TUNNEL FORM PLACING SUPERVISOR) [facility] Citrated Kaolin R (Reaction Time) 4.3(L) 4.6 - 9.1 min 06/18/2024 3:54 PM [facility] Comment:CK R result below no rmal range. Consistent with hypercoagulable clotting factors. Citrated Kaolin LY30 (Lysis) 0.1 0.0 - 2.6 % 06/18/2024 3:54 PM TUNNEL FORM PLACING SUPERVISOR [facility] Citrated Functional Fibrinogen MA (Max Amplitude) 19.3 15.0 - 32.0 mm 06/18/2024 3:54 PM [facility] Citrated RapidTEG MA (Max Amplitude) 62.8 52.0 - 70.0 mm 06/18/2024 3:54 PM [facility] Blood BLOOD SPECIMEN / Unknown Venipuncture / Unknown 06/18/2024 2:44 PM TUNNEL FORM PLACING SUPERVISOR 06/18/2024 2:52 PM TUNNEL FORM PLACING SUPERVISOR Gordon Ingram MD LAB - HEMATOLOGY ORD NILTON Performing Organization Address City/[facility]/ZIP Co de Phone Number [address] [address], [facility] [phone] * (ABNORMAL) TEG 6S PLATELET MAPPING (06/18/2024 2:44 PM TUNNEL FORM PLACING SUPERVISOR) [facility] TEGPLM (Max Amplitude) Koalin 64.2 53.0 - 68.0 mm 06/18/2024 4:03 PM [facility] TEGPLM (Max Amplitude) ACTF 10.1 2.0 - 19.0 mm 06/18/2024 4:03 PM [facility] TEGPLM (Max Amplitude) ADP 48.6 45.0 - 69.0 mm 06/18/2024 4:03 PM [facility] TEGPLM (Max Amplitude) AA 18.0(L) 51.0 - 71.0 mm 06/18/2024 4:03 PM [facility] Comment:AA MA below normal r dov. Inhibition present. TEGPLM %Inhibition ADP 28.8(H) 0.0 - 17.0 % 06/18/2024 4:03 PM [facility] TEGPLM %Inhibition AA 85.4(H) 0.0 - 11.0 % 06/18/2024 4:03 PM [facility] TEGPLM %Aggregation ADP 71.2(L) 83.0 - 100.0 % 06/18/2024 4:03 PM [facility] TEGPLM % Aggregation AA 14.6(L) 89.0 - 100.0 % 06/18/2024 4:03 PM [facility] Blood BLOOD SPECIMEN / Unknown Venipuncture / Unknown 06/18/2024 2:44 PM TUNNEL FORM PLACING SUPERVISOR 06/18/2024 2:52 PM TUNNEL FORM PLACING SUPERVISOR Gordon Ingram MD LAB - HEMATOLOGY ORD ERABLES Performing Organization Address City/[facility]/ZIP Co de Phone Number [address] [phone], [facility] [phone] * TYPE + SCREEN PANEL (06/18/2024 2:44 PM TUNNEL FORM PLACING SUPERVISOR) Antibody Screen NEG 3:33 PM TUNNEL FORM PLACING SUPERVISOR [facility] ABO Rh O POS 06/18/2024 3:33 PM TUNNEL FORM PLACING SUPERVISOR [facility] Blood Bank BLOOD SPECIMEN / Unknown Venipuncture / Unknown 06/18/2024 2:44 PM TUNNEL FORM PLACING SUPERVISOR 06/18/2024 2:53 PM TUNNEL FORM PLACING SUPERVISOR Gordon Ingram MD LAB - BLOOD BANK ORD ERABLES [facility] [address] [place] [address], [facility] [phone] * ALCOHOL ETHYL BLOOD (06/18/2024 2:44 PM TUNNEL FORM PLACING SUPERVISOR) Ethanol (mg/dL) <10 <10 mg/dL 3:15 PM TUNNEL FORM PLACING SUPERVISOR [facility] Ethanol Calculated (g/dL) <0.010 <=0.010 g/dL 06/18/2024 3:15 PM TUNNEL FORM PLACING SUPERVISOR [facility] Blood BLOOD SPECIMEN / Unknown Venipuncture / Unknown 06/18/2024 2:44 PM TUNNEL FORM PLACING SUPERVISOR 06/18/2024 2:48 PM TUNNEL FORM PLACING SUPERVISOR Narrative [facility] - 06/18/2024 3:15 PM TUNNEL FORM PLACING SUPERVISOR Ethanol Interp <10: None Detected. Depression of BATTERY TESTER FIELD: >100 mg/dl Potentially Critical: >250 mg/dl Potentially [...] - CHEMISTRY JULIANNE OROZCO Performing Organization Address [facility]/ZIP Co de Phone Number [facility] [address] [place] [phone], [facility] [phone] * XR PELVIS 1 OR 2VW (06/18/2024 2:43 PM TUNNEL FORM PLACING SUPERVISOR) Anatomical Region Laterality Modality Pelvis Digital Radiogra phy 06/18/2024 5:02 PM TUNNEL FORM PLACING SUPERVISOR Impressions 06/18/2024 5:20 PM TUNNEL FORM PLACING SUPERVISOR IMPRESSION: No acute fracture identified. Report dictated by Vijay Jeong DO (marketing services vice president). I, Malcolm Marroquin MD have personally reviewed and interpreted this examination/study. > Interpreting Provider: Malcolm Marroquin MD on 06/18/2024 5:20 PM Narrative 06/18/2024 5:20 PM TUNNEL FORM PLACING SUPERVISOR PROCEDURE: XR PELVIS 1 OR 2VW, DATE/TIME OF EXAM: 06/18/2024 2:44 PM, LOCATION [facility] INDICATION: Trauma Fracture suspected COMPARISON: None. FINDINGS: No acute fracture is identified. The femoral heads appear well-seated within their respective acetabula. The pubic symphysis is intact. Bone density and texture are normal. The sacroiliac joints are normal. Procedure Note Malcolm Marroquin MD - 06/18/2024 PROCEDURE: XR PELVIS 1 OR 2VW, DATE/TIME OF EXAM: 06/18/2024 2:44 PM, LOCATION [facility] INDICATION: Trauma Fracture suspected COMPARISON: None. FINDINGS: No acute fracture is identified. The femoral heads appear well-seated within their respective acetabula. The pubic symphysis is intact. Bone density and texture are normal. The sacroiliac joints are normal. IMPRESSION: No acute fracture identified. Report dictated by Vijay Jeong DO (marketing services vice president). Malcolm Price MD have personally reviewed and interpreted this examination/study. > Interpreting Provider: Malcolm Marroquin MD on 06/18/2024 5:20 PM Gordon Ingram MD DIAGNOSTIC IMAGING O RDERABLES * XR Knee Left 2Vw or Less (06/18/2024 2:43 PM TUNNEL FORM PLACING SUPERVISOR) Anatomical Region Laterality Modality Lower Extremity Digital Radiogra phy 06/18/2024 5:03 PM TUNNEL FORM PLACING SUPERVISOR Impressions 06/18/2024 7:59 PM TUNNEL FORM PLACING SUPERVISOR Impression: Likely chronic osseous fragment adjacent to [...] knee. Report dictated by Vijay Jeong DO (marketing services vice president). Malcolm Price MD have personally reviewed and interpreted this examination/study. > Interpreting Provider: Malcolm Marroquin MD on 06/18/2024 7:59 PM Narrative 06/18/2024 7:59 PM TUNNEL FORM PLACING SUPERVISOR PROCEDURE: XR KNEE LEFT 2VW OR LESS, DATE/TIME OF EXAM: 06/18/2024 2:43 PM, LOCATION [facility] INDICATION: T14.90XA: Trauma COMPARISON: None. Procedure Note Malcolm Marroquin MD - 06/18/2024 PROCEDURE: XR KNEE LEFT 2VW OR LESS, DATE/TIME OF EXAM: 06/18/2024 2:43PM, LOCATION [facility] INDICATION: T14.90XA: Trauma COMPARISON: None. Impression: Likely [...] knee. Report dictated by Vijay Jeong DO (marketing services vice president). IMalcolm MD have personally reviewed and interpreted this examination/study. 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
--- OUTSIDE RECORDS SUMMARY | 2024-07-25 15:26 | XMS_ITS | Encounter Summary ---
Author Organization [facility] Address [facility] [place] [address] Care Team Providers Care Manager Critical Care Name Role Phone Mo Moy MD Primary Care Provider [phone] Sal Bliss MD Unavailable [phone] Angel Lopez MD Unavailable Encounter Details Date Type Department Care Team (Late st Contact Info) Description 03/14/2018 Abstract [facility] at [address] [address] Faizan Pereira MA Social History Tobacco Use Types Packs/Day Years Used Date Smoking Tobacco: Former Cigarettes 0.5 35 1 965 - 2000 Smokeless Tobacco: Never Comments:distant past Alcohol Use Standard Drinks/Week Comments No 0 (1 standard drink = 0.6 oz pur e alcohol) Comments No Sex and Gender Information Value Date Recorded Sex Assigned at Female 05/30/2024 12:35 PM PALLIATIVE SENIOR NP Legal Sex Female 6:49 PM CDT Gender [...] Description 10/26/2024 11:00 AM CDT Office Visit [facility] - [facility] [address] [place] [address] Jacbo Landry MD [address] [facility] [address] [place] [address] documented as of this encounter Procedures Procedure [...] Rule Out 07/07/2021 07/07/2021 07/08/2021 7:49 PM PALLIATIVE SENIOR NP COVID-19 Rule Out 09/27/2021 09/27/2021 09/28/2021 10:26 AM CDT COVID-19 Rule Out 07/01/2023 07/01/2023 07/01/2023 3:40 PM PALLIATIVE SENIOR NP COVID-19 Rule Out 11/03/2023 11/03/2023 11/03/2023 1:01 AM CDT documented as of this encounter Care Teams Manager Critical Care Relationship Specialty Start Date End Date Mo Moy MD [address] [place] [id number] PCP - General FAMILY PRACTICE 11/26/17 Sal Bliss MD [address] [facility] [address] [place] [address] [place] Lead Customer Service Representative CARDIOVASCULAR DISEASE 12/10/17 Angel Lopez MD [address] [facility] [address] [place], [place] [phone] EP Lead Customer Service Representative CLINICAL CARDIAC ELECTROPHYSIOLOGY 01/15/18 documented as of this encounter
--- OUTSIDE RECORDS SUMMARY | 2024-07-25 15:26 | XMS_ITS | Referral Summary ---
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 [facility]D TESTER) Only the most recent of2 resultswithin the time period is included. APTT 27.5 23.0 - 38.4 Seconds 06/18/2024 9:35 PM [facility] TE[facility] Comment:Suggested therapeuti c range for full dose I.V. unfractionated heparin therapy for venous thromboembolism is 71 to 109 seconds. Blood BLOOD SPECIMEN / Unknown Venipuncture / Unknown 06/18/2024 8:38 PM [facility] 06/18/2024 8:44 PM [facility] Gordon Ingram MD LAB - COAGULATION OR DERABLES Performing Organization Address [facility]/ZIP Co de Phone Number [address] [address], [facility] [phone] * (ABNORMAL) VITAMIN D 25-HYDROXY (06/18/2024 8:38 PM [facility] TE[facility]) Vitamin D, 25 Hydroxy 94.0(H) 30.0 - 80.0 ng/mL 06/19/2024 6:51 AM [facility] TE[facility] Comment: The recommendations for 25-Hydroxy Vitamin [...] Unknown Venipuncture / Unknown 06/18/2024 8:38 PM [facility] 06/18/2024 9:09 PM [facility] Sulema Whyte PA-C LAB - CHEMISTRY OR DERABLES Performing Organization Address [facility] Co de Phone Number [address] [address], [facility] [phone] * LACTIC ACID BLOOD (06/18/2024 8:38 PM [facility]) Lactic Acid-Stat 1.4 <=2.0 mmol/L 06/18/2024 9:38 PM [facility] Blood BLOOD SPECIMEN / Unknown Venipuncture / Unknown 06/18/2024 8:38 PM [facility] 06/18/2024 9:12 PM [facility] Gordon Ingram MD LAB - CHEMISTRY JULIANNE OROZCO [facility] [address] [place] [address], [facility] [phone] * CT Ankle Left Wo Contrast (06/18/2024 7:57 PM [facility] TE[facility]) Anatomical Region Laterality Modality Lower Extremity Computed Tomogra phy 06/18/2024 8:46 PM [facility] Narrative 06/18/2024 9:15 PM [facility] PROCEDURE: CT KNEE LEFT WO CONTRAST, [...] present. > Dictated by Dimitris Avila MD (Business Attorney) Higinio Price MD have personally reviewed and [...] present. > Dictated by Dimitris Avila MD (Business Attorney) IHiginio MD have personally reviewed and interpreted this examination/study. > Interpreting Provider: Higinio Whittington MD on 06/18/2024 9:15 PM Gordon Christie Ingram MD CT ORDERABLES * CT Knee Left Wo Contrast (06/18/2024 7:57 PM [facility] TE[facility]) Anatomical Region Laterality Modality Lower Extremity Computed Tomogra phy 06/18/2024 8:46 PM [facility] Narrative 06/18/2024 9:15 PM [facility] TE[facility] PROCEDURE: CT KNEE LEFT WO CONTRAST, [...] present. > Dictated by Dimitris Avila MD (Business Attorney) Higinio Price MD have personally reviewed and [...] present. > Dictated by Dimitris Avila MD (Business Attorney) Higinio Price MD have personally reviewed and interpreted this examination/study. > Interpreting Provider: Higinio Whittington MD on 06/18/2024 9:15 PM Gordon Ingram MD CT ORDERABLES * BLOOD TYPE VERIFICATION (06/18/2024 6:57 PM [facility] TESTER) ABO Rh O POS 06/18/2024 7:2 6 PM [facility] B[facility]OD [facility] LAB Blood Bank BLOOD SPECIMEN / Unknown Venipuncture / Unknown 06/18/2024 6:57 PM [facility] 06/18/2024 7:05 PM [facility] Gordon Ingram MD LAB - BLOOD BANK ORD ERABLES Performing Organization Address City/[facility]/ZIP Co de Phone Number [facility]OD [facility] LAB [address] [place] [address], [facility] [phone] * PREPARE PLATELET PHERESIS UNIT(S), 1 Units (06/18/2024 6:45 PM [facility]D TESTER) Unit Description LRPLTphere B7 IR [facility] BLOOD [facility] LAB Unit ABO O [facility]LOOD [facility] LAB Unit Rh POS [facility] BLOOD [facility] LAB Product Number P31 [facility] B LOOD BANK LAB Unit Donor # [id number] [facility] BLOOD [facility] LAB Unit Status transfused [facility] BLO OD BANK LAB Product Code [id number] [facility] BLO OD BANK LAB Blood Type Barcode 5100 [facility]LOOD [facility] LAB Expiration Date [id number] S BLOOD BANK LAB Blood Bank BLOOD SPECIMEN / Unknown 06/18/2024 2:53 PM [facility] TESTER Gordon Fernández MD LAB - BLOOD BANK ORD ERABLES Performing Organization Address City/[facility] Co de Phone Number [facility] BLOOD [facility] LAB [address] [place] [address], [facility] [phone] * XR Wrist Right 3Vw or More (06/18/2024 3:39 PM [facility] TE[facility]) Anatomical Region Laterality Modality Wrist / Hand Digital Radiogra phy 06/18/2024 5:17 PM [facility] Impressions 06/18/2024 8:04 PM [facility] IMPRESSION: No acute fracture or dislocation identified. Report dictated by Vijay Jeong DO (radiology therapist). IMalcolm MD have personally reviewed and interpreted this examination/study. > Interpreting Provider: Malcolm Marroquin MD on 06/18/2024 8:04 PM Narrative 06/18/2024 8:04 PM [facility] PROCEDURE: XR WRIST RIGHT 3VW OR MORE, DATE/TIME OF EXAM: 06/18/2024 3:39 PM, LOCATION [facility] INDICATION: T14.90XA: Trauma ADDITIONAL CLINICAL INFORMATION: Ordering Provider Reason For Exam: trauma COMPARISON: None. FINDINGS: The osseous structures are intact and well aligned without acute fracture or dislocation. Degenerative changes of the first carpometacarpal joint. The joint spaces are otherwise preserved. The bones are diffusely demineralized. No soft tissue swelling is present. Procedure Note Maloclm Marroquin MD - 06/18/2024 PROCEDURE: XR WRIST RIGHT 3VW OR MORE, DATE/TIME OF EXAM: 53:39 PM, LOCATION [facility] INDICATION: T14.90XA: Trauma ADDITIONAL CLINICAL INFORMATION: [...] Report dictated by Vijay Jeong DO (radiology therapist). Malcolm Price MD have personally reviewed and interpreted this examination/study. > Interpreting Provider: Malcolm Marroquin MD on 06/18/2024 8:04 PM Gordon Ingram MD DIAGNOSTIC IMAGING O RDERABLES * XR Tibia Fibula Left 2Vw (06/18/2024 3:39 PM [facility]D TESTER) Anatomical Region Laterality Modality Lower Extremity Digital Radiogra phy 06/18/2024 5:13 PM [facility] TESTER Impressions 06/18/2024 5:22 PM [facility] TESTER IMPRESSION: Quadrimalleolar fracture. Report dictated by Vijay Jeong DO (radiology therapist). Malcolm Price MD have personally reviewed and interpreted this examination/study. > Interpreting Provider: Malcolm Marroquin MD on 06/18/2024 5:22 PM Narrative 06/18/2024 5:22 PM [facility] PROCEDURE: XR TIBIA FIBULA LEFT 2VW, DATE/TIME OF EXAM: 06/18/2024 3:39 PM, LOCATION [facility] INDICATION: T14.90XA: Trauma COMPARISON: None. FINDINGS: Quadrimalleolar fracture. Bone density and texture are normal. Soft tissue swelling is present. Procedure Note Malcolm Marroquin MD - 06/18/2024 PROCEDURE: XR TIBIA FIBULA LEFT 2VW, DATE/TIME OF EXAM: 06/18/2024 3:39PM, LOCATION [facility] INDICATION: T14.90XA: Trauma COMPARISON: None. FINDINGS: Quadrimalleolar fracture. Bone density and texture are normal. Softtissue swelling is present. IMPRESSION: Quadrimalleolar fracture. Report dictated by Vijay Jeong DO (radiology therapist). Malcolm Price MD have personally reviewed and interpreted this examination/study. > Interpreting Provider: Malcolm Marroquin MD on 06/18/2024 5:22 PM Gordon Christie Ingram MD DIAGNOSTIC IMAGING O RDERABLES * XR Hand Right 3Vw or More (06/18/2024 3:39 PM [facility]D TESTER) Anatomical Region Laterality Modality Wrist / Hand Digital Radiogra phy 06/18/2024 5:17 PM HERD TESTER Impressions 06/18/2024 8:05 PM [facility] TESTER IMPRESSION: No acute fracture or dislocation identified. Report dictated by Vijay Jeong DO (radiology therapist). Malcolm Price MD have personally reviewed and interpreted this examination/study. > Interpreting Provider: Malcolm Marroquin MD on 06/18/2024 8:05 PM Narrative 06/18/2024 8:05 PM [facility] PROCEDURE: XR HAND RIGHT 3VW OR MORE, DATE/TIME OF EXAM: 06/18/2024 3:39 PM, LOCATION [facility] INDICATION: T14.90XA: Trauma COMPARISON: None. FINDINGS: [...] DATE/TIME OF EXAM: 06/18/2024 3:39 PM, LOCATION [facility] INDICATION: T14.90XA: Trauma COMPARISON: None. FINDINGS: [...] Report dictated by Vijay Jeong DO (radiology therapist). Malcolm Price MD have personally reviewed and interpreted this examination/study. > Interpreting Provider: Malcolm Marroquin MD on 06/18/2024 8:05 PM Gordon Ingram MD DIAGNOSTIC IMAGING O RDERABLES * XR Hand Left 3Vw or More (06/18/2024 3:39 PM [facility] TE[facility]) Anatomical Region Laterality Modality Wrist / Hand Digital Radiogra phy 06/18/2024 5:16 PM [facility]D TESTER Impressions 06/18/2024 8:03 PM [facility] TE[facility] IMPRESSION: No acute fracture or dislocation identified. Report dictated by Vijay Jeong DO (radiology therapist). Malcolm Price MD have personally reviewed and interpreted this examination/study. > Interpreting Provider: Malcolm Marroquin MD on 06/18/2024 8:03 PM Narrative 06/18/2024 8:03 PM [facility] PROCEDURE: XR HAND LEFT 3VW OR MORE, DATE/TIME OF EXAM: 06/18/2024 3:39 PM, LOCATION [facility] INDICATION: T14.90XA: Trauma COMPARISON: None. FINDINGS: [...] MORE, DATE/TIME OF EXAM: 06/18/2024 3:39PM, LOCATION [facility] INDICATION: T14.90XA: Trauma COMPARISON: None. FINDINGS: The osseous structures are intact and well aligned without acutefracture or dislocation. The joint spaces are preserved. The bones are diffusely demineralized. No soft tissue swelling is present. Degenerative changesof the fifth distal interphalangeal and first carpometacarpal joints. IMPRESSION: No acute fracture or dislocation identified. Report dictated by Vijay Jeong DO (radiology therapist). Malcolm Price MD have personally reviewed and interpreted this examination/study. > Interpreting Provider: Malcolm Marroquin MD on 06/18/2024 8:03 PM Gordon Christie Ingram MD DIAGNOSTIC IMAGING O RDERABLES * CT LUMBAR SPINE WO CONTRAST - T/L-spine trauma, Spine fracture (06/18/2024 3:21 PM [facility]D TESTER) Anatomical Region Laterality Modality Spine Computed Tomogra phy 06/18/2024 3:49 PM HERD TESTER Impressions 06/18/2024 5:25 PM [facility]D TESTER IMPRESSION: 1.No evidence of acute fracture in the cervical, thoracic, or lumbar spine. 2.Please refer to the concurrent, dedicated body report for findings in the chest, abdomen, and pelvis. > Dictated by Vijay Jeong DO (Business Attorney), 06/18/2024 3:49 PM. Glenny Price MD have personally reviewed and interpreted this examination/study. > Interpreting Provider: Glenny Ragsdale MD on 06/18/2024 5:25 PM Narrative 06/18/2024 5:25 PM [facility]D TESTER PROCEDURE: CT CERVICAL SPINE WO CONTRAST, CT LUMBAR SPINE WO CONTRAST, CT THORACIC SPINE WO CONTRAST, DATE/TIME OF EXAM: 06/18/2024 3:23 PM, LOCATION [facility] INDICATION: Trauma EXAMINATION: 1.CT of the [...] DATE/TIME OF EXAM: 06/18/2024 3:23 PM, LOCATION [facility] INDICATION: Trauma EXAMINATION: 1.CT of the [...] pelvis. > Dictated by Vijay Jeong DO (Business Attorney), 06/18/2024 3:49 PM. Glenny Price MD have personally reviewed and interpretedthis examination/study. > Interpreting Provider: Glenny Ragsdale MD on 06/18/2024 5:25 PM Gordon Ingram MD CT ORDERABLES * CT THORACIC SPINE WO CONTRAST - T/L-spine trauma, spine fracture (06/18/2024 3:21 PM HERD TESTER) Anatomical Region Laterality Modality Spine Computed Tomogra phy 06/18/2024 3:49 PM HERD TESTER Impressions 06/18/2024 5:25 PM HERD TESTER IMPRESSION: 1.No evidence of acute fracture in the cervical, thoracic, or lumbar spine. 2.Please refer to the concurrent, dedicated body report for findings in the chest, abdomen, and pelvis. > Dictated by Vijay Jeong DO (Business Attorney), 06/18/2024 3:49 PM. Glenny Price MD have personally reviewed and interpreted this examination/study. > Interpreting Provider: Glenny Ragsdale MD on 06/18/2024 5:25 PM Narrative 06/18/2024 5:25 PM HERD TESTER PROCEDURE: CT CERVICAL SPINE WO CONTRAST, CT LUMBAR SPINE WO CONTRAST, CT THORACIC SPINE WO CONTRAST, DATE/TIME OF EXAM: 06/18/2024 3:23 PM, LOCATION [facility] INDICATION: Trauma EXAMINATION: 1.CT of the [...] DATE/TIME OF EXAM: 06/18/2024 3:23 PM, LOCATION [facility] INDICATION: Trauma EXAMINATION: 1.CT of the [...] pelvis. > Dictated by Vijay Jeong DO (Business Attorney), 06/18/2024 3:49 PM. Glenny Price MD have personally reviewed and interpretedthis examination/study. > Interpreting Provider: Glenny Ragsdale MD on 06/18/2024 5:25 PM Gordon Ingram MD CT ORDERABLES * CT CERVICAL SPINE WO CONTRAST - C-Spine Trauma, Spine fracture (06/18/2024 3:21 PM HERD TESTER) Anatomical Region Laterality Modality Spine Computed Tomogra phy 06/18/2024 3:49 PM HERD TESTER Impressions 06/18/2024 5:25 PM HERD TESTER IMPRESSION: 1.No evidence of acute fracture in the cervical, thoracic, or lumbar spine. 2.Please refer to the concurrent, dedicated body report for findings in the chest, abdomen, and pelvis. > Dictated by Vijay Jeong DO (Business Attorney), 06/18/2024 3:49 PM. Glenny Price MD have personally reviewed and interpreted this examination/study. > Interpreting Provider: Glenny Ragsdale MD on 06/18/2024 5:25 PM Narrative 06/18/2024 5:25 PM [facility]D TESTER PROCEDURE: CT CERVICAL SPINE WO CONTRAST, CT LUMBAR SPINE WO CONTRAST, CT THORACIC SPINE WO CONTRAST, DATE/TIME OF EXAM: 06/18/2024 3:23 PM, LOCATION [facility] INDICATION: Trauma EXAMINATION: 1.CT of the [...] DATE/TIME OF EXAM: 06/18/2024 3:23 PM, LOCATION [facility] INDICATION: Trauma EXAMINATION: 1.CT of the [...] pelvis. > Dictated by Vijay Jeong DO (Business Attorney), 06/18/2024 3:49 PM. IGlenny MD have personally reviewed and interpretedthis examination/study. > Interpreting Provider: Glenny Ragsdale MD on 06/18/2024 5:25 PM Gordon Ingram MD CT ORDERABLES * CT HEAD WO CONTRAST - Head Trauma, CSF leak, mental status changes (06/18/2024 3:21 PM HERD TESTER) Anatomical Region Laterality Modality Head Computed Tomogra phy 06/18/2024 3:01 PM HERD TESTER Impressions 06/18/2024 3:03 PM [facility]D TESTER IMPRESSION: 1. No acute intracranial process. 2. 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 > Interpreting Provider: Karin Velasco MD on 06/18/2024 3:03 PM Narrative 06/18/2024 3:03 PM HERD TESTER PROCEDURE: CT HEAD WO CONTRAST, DATE/TIME OF EXAM: 06/18/2024 2:46 PM, LOCATION [facility] INDICATION: Trauma ADDITIONAL CLINICAL INFORMATION: Ordering [...] DATE/TIME OF EXAM: 06/18/2024 2:46 PM, LOCATION [facility] INDICATION: Trauma ADDITIONAL CLINICAL INFORMATION: Ordering [...] * TROPONIN-I HIGH SENSITIVE (06/18/2024 2:44 PM HERD TESTER) Troponin I High Sensitive 4 <=14 ng/L 06/18/2024 3:19 PM HERD TESTER [facility] Blood BLOOD SPECIMEN / Unknown Venipuncture / Unknown 06/18/2024 2:44 PM HERD TESTER 06/18/2024 2:48 PM HERD TESTER Gordon Ingram MD LAB - CHEMISTRY JULIANNE OROZCO [facility] Organization Address City/State/ZIP Co de Phone Number [facility] [address] [place] [address], [facility] [phone] * (ABNORMAL) TEG 6 GLOBAL HEMOSTASIS W/ LYSIS (06/18/2024 2:44 PM HERD TESTER) Citrated Kaolin R (Reaction Time) 4.3(L) 4.6 - 9.1 min 06/18/2024 3:54 PM [facility] Comment:CK R result below no rmal range. Consistent with hypercoagulable clotting factors. Citrated Kaolin LY30 (Lysis) 0.1 0.0 - 2.6 % 06/18/2024 3:54 PM [facility] Citrated Functional Fibrinogen MA (Max Amplitude) 19.3 15.0 - 32.0 mm 06/18/2024 3:54 PM [facility] Citrated RapidTEG MA (Max Amplitude) 62.8 52.0 - 70.0 mm 06/18/2024 3:54 PM [facility] Blood BLOOD SPECIMEN / Unknown Venipuncture / Unknown 06/18/2024 2:44 PM HERD TESTER 06/18/2024 2:52 PM HERD TESTER Gordon Ingram MD LAB - HEMATOLOGY ORD ERABLES [address] [address], [facility] [phone] * (ABNORMAL) TEG 6S PLATELET MAPPING (06/18/2024 2:44 PM HERD TESTER) Pathologist [facility] TEGPLM (Max Amplitude) Koalin 64.2 53.0 - 68.0 mm 06/18/2024 4:03 PM [facility] TEGPLM (Max Amplitude) ACTF 10.1 2.0 - 19.0 mm 06/18/2024 4:03 PM [facility] TEGPLM (Max Amplitude) ADP 48.6 45.0 - 69.0 mm 06/18/2024 4:03 PM [facility] TEGPLM (Max Amplitude) AA 18.0(L) 51.0 - 71.0 mm 06/18/2024 4:03 PM [facility] Comment:AA MA below normal r dov. Inhibition present. TEGPLM %Inhibition ADP 28.8(H) 0.0 - 17.0 % 06/18/2024 4:03 PM [facility] TEGPLM %Inhibition AA 85.4(H) 0.0 - 11.0 % 06/18/2024 4:03 PM [facility] TEGPLM %Aggregation ADP 71.2(L) 83.0 - 100.0 % 06/18/2024 4:03 PM [facility] TEGPLM % Aggregation AA 14.6(L) 89.0 - 100.0 % 06/18/2024 4:03 PM [facility] Blood BLOOD SPECIMEN / Unknown Venipuncture / Unknown 06/18/2024 2:44 PM HERD TESTER 06/18/2024 2:52 PM HERD TESTER Gordon Ingram MD LAB - HEMATOLOGY ORD ERABLES Performing Organization Address City/[facility]/ZIP Co de Phone Number [address] [address], [employer] [phone] * TYPE + SCREEN PANEL (06/18/2024 2:44 PM HERD TESTER) Antibody Screen NEG 3:33 PM [facility] ABO Rh O POS 06/18/2024 3:33 PM [facility] Blood Bank BLOOD SPECIMEN / Unknown Venipuncture / Unknown 06/18/2024 2:44 PM HERD TESTER 06/18/2024 2:53 PM HERD TESTER Gordon Ingram MD LAB - BLOOD BANK ORD ERABLES [facility] [address] [place] [address], [place] [phone] * ALCOHOL ETHYL BLOOD (06/18/2024 2:44 PM HERD TESTER) Ethanol (mg/dL) <10 <10 mg/dL 3:15 PM [facility] Ethanol Calculated (g/dL) <0.010 <=0.010 g/dL 06/18/2024 3:15 PM [facility] Blood BLOOD SPECIMEN / Unknown Venipuncture / Unknown 06/18/2024 2:44 PM HERD TESTER 06/18/2024 2:48 PM HERD TESTER Narrative [facility] - 06/18/2024 3:15 PM HERD TESTER Ethanol Interp <10: None Detected. Depression of BUSINESS MANAGEMENT SPECIALIST: >100 mg/dl Potentially Critical: >250 mg/dl Potentially [...] Ingram MD LAB - CHEMISTRY JULIANNE OROZCO [address] [address], [facility] [phone] * XR PELVIS 1 OR 2VW (06/18/2024 2:43 PM HERD TESTER) Anatomical Region Laterality Modality Pelvis Digital Radiogra phy 06/18/2024 5:02 PM HERD TESTER Impressions 06/18/2024 5:20 PM HERD TESTER IMPRESSION: No acute fracture identified. Report dictated by Vijay Jeong DO (radiology therapist). IMalcolm MD have personally reviewed and interpreted this examination/study. > Interpreting Provider: Malcolm Marroquin MD on 06/18/2024 5:20 PM Narrative 06/18/2024 5:20 PM HERD TESTER PROCEDURE: XR PELVIS 1 OR 2VW, DATE/TIME OF EXAM: 06/18/2024 2:44 PM, LOCATION [facility] INDICATION: Trauma Fracture suspected COMPARISON: None. FINDINGS: No acute fracture is identified. The femoral heads appear well-seated within their respective acetabula. The pubic symphysis is intact. Bone density and texture are normal. The sacroiliac joints are normal. Procedure Note Malcolm Marroquin MD - 06/18/2024 PROCEDURE: XR PELVIS 1 OR 2VW, DATE/TIME OF EXAM: 06/18/2024 2:44 PM, LOCATION [facility] INDICATION: Trauma Fracture suspected COMPARISON: None. FINDINGS: No acute fracture is identified. The femoral heads appear well-seated within their respective acetabula. The pubic symphysis is intact. Bone density and texture are normal. The sacroiliac joints are normal. IMPRESSION: No acute fracture identified. Report dictated by Vijay Jeong DO (radiology therapist). Malcolm Price MD have personally reviewed and interpreted this examination/study. > Interpreting Provider: Malcolm Marroquin MD on 06/18/2024 5:20 PM Gordon Ingram MD DIAGNOSTIC IMAGING O RDERABLES * XR Knee Left 2Vw or Less (06/18/2024 2:43 PM HERD TESTER) Anatomical Region Laterality Modality Lower Extremity Digital Radiogra phy 06/18/2024 5:03 PM HERD TESTER Impressions 06/18/2024 7:59 PM HERD TESTER Impression: Likely chronic osseous fragment adjacent [...] Report dictated by Vijay Jeong DO (radiology therapist). Malcolm Price MD have personally reviewed and interpreted this examination/study. > Interpreting Provider: Malcolm Marroquin MD on 06/18/2024 7:59 PM Narrative 06/18/2024 7:59 PM HERD TESTER PROCEDURE: XR KNEE LEFT 2VW OR LESS, DATE/TIME OF EXAM: 06/18/2024 2:43 PM, LOCATION [facility] INDICATION: T14.90XA: Trauma COMPARISON: None. Procedure Note Malcolm Marroquin MD - 06/18/2024 PROCEDURE: XR KNEE LEFT 2VW OR LESS, DATE/TIME OF EXAM: 06/18/2024 2:43PM, LOCATION [facility] INDICATION: T14.90XA: Trauma COMPARISON: None. Impression: [...] Report dictated by Vijay Jeong DO (radiology therapist). IMalcolm MD have personally reviewed and interpreted this examination/study. 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
--- OUTSIDE RECORDS SUMMARY | 2024-07-25 15:26 | XMS_ITS | Continuity of Care Document ---
Author Organization [email or web address] Address [address] [facility] [address] [place] [address] Phone Care Team Providers Care Flow Nurse Name Role Phone Catracho Bojorquez MD Unavailable [...] Copied on Encounter Office/outpa tient Visit, [facility], [address] [place] [address] [address], [place], [place], [id number], [place] [phone] [place] Professional yag pc ou evaluation (chief complaint) Presence of intraocular lensOther secondary cataract, right eyeMacular hole of left eye 1 [place]. [address] [facility], [facility] A, [place], [place], [id number], [place]. tel:[phone] Sal Bliss MD.Referring Provider: Ashley Turcios, [address], [address]. tel:[phone] [facility], [address] [place] [address] [address], [place], [place], [id number], [place] tel:[phone] SEC Radha Bruno No Information 1 [place]. [address] [facility] [address], [place], [place], [id number], [place]. tel:[phone] Specialist: Sal Bliss MD, [address] [facility] [address], [place], [address]. tel:[phone] Provider: Ashley Turcios, [facility] [address], [address]. tel:[phone] Family History Family Member Type Diagnosis Age At Onset No Information Payers Payer name Insurance type Covered alliance party ID Authoriza tion(s) [place] [id number] [facility] [id number] Social History Type Description Quantity Date Captured [...]
--- OUTSIDE RECORDS SUMMARY | 2024-07-25 15:26 | XMS_ITS | Encounter Summary ---
Author Organization [facility] Address [facility] [place] [address] Care Team Providers Care Head Pastry Chef Name Role Phone Mo Moy MD Primary Care Provider [phone] Sal Bliss MD Unavailable [phone] Angel Lopez MD Unavailable Encounter Details Date Type Department Care Team (Late st Contact Info) Description 07/05/2023 Hospital Follow-up Call [facility] [address] [place] [address] Chrissy Chaney RN Social History Tobacco Use Types Packs/Day Years Used Date Smoking Tobacco: Former Cigarettes 1 35 1 965 - 2000 Smokeless Tobacco: Never Comments:distant past Alcohol Use Standard Drinks/Week Comments No 0 (1 standard drink = 0.6 oz pur e alcohol) [facility] Utilities Answer Date Recorded In the past 12 months has e [employer], gas, oil, or water [employer] threatened to shut off services in your [...] place to sleep or slept in a fci (including now)? No 07/01/2023 Comments No Sex and Gender Information Value Date Recorded Sex Assigned at Female 05/30/2024 12:35 PM [employer] Legal Sex Female 6:49 PM CDT Gender [...] Assessment Author Status No 07/03/2023 10:20 AM [employer] Maddi Bryant R N Active * Are [...] Description 10/26/2024 11:00 AM CDT Office Visit [facility] - [address], [address] [place] [address] Jacob Landry MD [address] [place] [address] [place] [address] documented as of this encounter Visit Diagnoses Not on filedocumented in this encounter Additional Health Concerns Infection Onset Date Last Indicated Resolved Time COVID-19 Rule Out 11/03/2023 11/03/2023 11/03/2023 1:01 AM CDT Assessment Noted Time PHQ-9 Depression Total Score: 0 05/05/20 21 1:33 PM [employer] documented as of this encounter Care Teams Head Pastry Chef Relationship Specialty Start Date End Date Mo Moy MD [address] [place] [id number] PCP - General FAMILY PRACTICE 11/26/17 Sal Bliss MD [address] [place] [address] [place] [employer] Patrol Driver CARDIOVASCULAR DISEASE 12/10/17 Angel Lopez MD [address] [place] [address] EP Security Patrol Driver CLINICAL CARDIAC ELECTROPHYSIOLOGY 01/15/18 documented as of this encounter
[2024-07-25 16:13] LABS: Basophils Percent Auto 0.3 % (0.2-1.2); Eosinophils Absolute Auto 0.1 K/mm3 (0-0.3); Hemoglobin 9.8 g/dL (12.0-15.0); Immature Granulocyte Percent A 1.3 % (0-0.5); Lymphocytes Percent Auto 18.9 % (18.3-44.2); Mean Corpuscular HGB Conc 33.8 g/dl (32-36); Mean Corpuscular Volume 94.8 fl (80-100); Mean Platelet Volume 9.8 fl (7.4-10.4); Monocytes Absolute Auto 1.3 K/mm3 (0.1-0.6); Monocytes Percent Auto 16.2 % (2.6-8.5); Neutrophils Percent Auto 62.3 % (45.5-73.1); Platelet Count Result 225 k/mm3 (150-375); Red Blood Count 3.06 M/mm3 (4.2-5.4); Red Cell Distribution Width 18.6 % (11.5-14.5); White Blood Count 7.9 K/mm3 (4.5-10.0)
[2024-07-25 16:25] LABS: Alanine Aminotransferase 19 U/L (6-35); Albumin Level 3.7 g/dL (3.5-5.1); Alkaline Phosphatase 181 U/L (38-126); Anion Gap 7 mmol/L (4-12); Aspartate Amino Transferase 31 U/L (14-36); Bilirubin,Total 0.6 mg/dL (0.2-1.3); Blood Urea Nitrogen 23 mg/dL (7-17); Calcium 9.3 mg/dL (8.4-10.2); Carbon Dioxide 31 mmol/L (22-30); Chloride 86 mmol/L (98-107); Estimated Glomerular Filt Rate 40; Glucose 105 mg/dL (65-110); Potassium 3.8 mmol/L (3.4-5.0); Sodium 124 mmol/L (137-145)
--- OUTSIDE RECORDS SUMMARY | 2024-07-25 17:27 | XMS_ITS | Encounter Summary ---
Author Organization [facility] Address [facility] [place] [address] Care Team Providers Care Banking Analyst Name Role Phone Unavailable Primary Care Provider Unavailabl e Reason for Referral * Durable Medical Equipment (Routine) - Open Specialty Diagnoses / Procedures Referred By Rach t Referred To Contact Diagnoses Closed fracture of left ankle with routine healing, subsequent encounter Sulema Whyte PA-C [address] [place] [address] Referral ID Status Reason Start Date Expiration Date V isits Requested Visits Authorized [id number] Open Specialty Services Required 07/25/2024 07/25/2025 1 1 Encounter Details Date Type Department Care Team (Late st Contact Info) Description 07/25/2024 9:15 AM CDT Office Visit [facility] - Orthopedics [address] [place] [address], [place] [address] Mikey Cortez DO [address] [place] [address] [place] [address] Closed fracture of left ankle with routine [...] care, and heating? Not very hard 06/18/2024 [facility] - Occupational Stress Questionnaire Answer Date Recorded [...] any time in the past 12 m [facility], were you homeless or living [...] Office Visit [facility] - Orthopedics [address] [place] [address] [place] [address] Mikey Cortez, [address] [place] [address] [place] [address] Scheduled Referrals Name Type Priority Associated Diagnoses [...]
--- OUTSIDE RECORDS SUMMARY | 2024-07-25 17:27 | XMS_ITS | Referral Summary ---
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 accepted non-immunological method such as gas chromatography or mass spectrometry. Urine URINE / Unknown Collection / Unknown 06/19/2024 12:36 PM [facility] [place] 06/19/2024 12:39 PM [facility] - 06/19/2024 1:05 PM [facility] The Urine Toxicology Screening Panel does not screen for Propoxyphene, Meprobamate, Carisoprodol, Trazodone, [id number] medications and/or volatiles (Acetone, Isopropanol, Methanol or Ethylene Glycol). Ethanol, Salicylate, Acetaminophen, Tricyclic Antidepressants and several therapeutic drugs may be individually assayed in serum or plasma specimen. Toxicology testing by the [facility] is an aid to medical diagnosis and treatment of patients. No documented chain of custody was maintained. Results are intended to be used for clinical purposes only. Gordon Ingram MD LAB - URINE CHEMISTR Y ORDERABLES [facility] [address] [place] [address], [facility] [phone] * CT 3D Recon W Independent Wksn (06/19/2024 10:27 AM TOP AND TRIM WORKER) Anatomical Region Laterality Modality Computed Tomogra phy 06/19/2024 12:0 2 PM TOP AND TRIM WORKER Impressions 06/19/2024 12:17 PM TOP AND TRIM WORKER IMPRESSION: Three-dimensional rendering for operative planning. The report was drafted by Álvaro Fernández MD (residential solar consultant) 06/19/2024 12:02 PM. Higinio Price MD have personally reviewed and interpreted this examination/study. > Interpreting Provider: Higinio Whittington MD on 06/19/2024 12:17 PM Narrative 06/19/2024 12:17 PM TOP AND TRIM WORKER PROCEDURE: CT 3D RECON W INDEPENDENT WKSN, DATE/TIME OF EXAM: 06/19/2024 10:28 AM, LOCATION [facility] INDICATION: S22.43XA: Closed fracture of multiple ribs [...] DATE/TIME OF EXAM: 06/19/2024 10:28 AM, LOCATION [facility] INDICATION: S22.43XA: Closed fracture of multiple ribs [...] was drafted by Álvaro Fernández MD (residential solar consultant) 06/19/2024 12:02 PM. IHiginio MD have personally reviewed and interpreted this examination/study. > Interpreting Provider: Higinio Whittington MD on 06/19/2024 12:17 PM Gordon Ingram MD CT ORDERABLES * TRANSFUSE PLATELET PHERESIS UNIT(S) (06/19/2024 4:54 AM TOP AND TRIM WORKER) Gordon Fernández MD NURSING - BLOOD PROD TRANSFUSION * (ABNORMAL) HGB HCT PANEL (06/19/2024 3:29 AM TOP AND TRIM WORKER) Only the most recent of2 resultswithin the time period is included. Hemoglobin 7.9(L) 11.9 - 15.8 g/dL 06/19/2024 3:42 AM TOP AND TRIM WORKER [facility] Hematocrit 25.2(L) 34.8 - 46.1 % 06/19/2024 3:42 AM [facility] Blood BLOOD SPECIMEN / Unknown Venipuncture / Unknown 06/19/2024 3:29 AM TOP AND TRIM WORKER 06/19/2024 3:39 AM TOP AND TRIM WORKER Gordon Ingram MD LAB - HEMATOLOGY ORD ERABLES [facility] [address] [place] [address], [facility] [phone] * PTT [facility] (06/18/2024 8:38 PM TOP AND TRIM WORKER) Only the most recent of2 resultswithin the time period is included. APTT 27.5 23.0 - 38.4 Seconds 06/18/2024 9:35 PM TOP AND TRIM WORKER [facility] Comment:Suggested therapeuti c range for full dose I.V. unfractionated heparin therapy for venous thromboembolism is 71 to 109 seconds. Blood BLOOD SPECIMEN / Unknown Venipuncture / Unknown 06/18/2024 8:38 PM TOP AND TRIM WORKER 06/18/2024 8:44 PM TOP AND TRIM WORKER Gordon Ingram MD LAB - COAGULATION OR DERABLES Performing Organization Address [facility]/ZIP Co de Phone Number [address] [address], [facility] [phone] * (ABNORMAL) VITAMIN D 25-HYDROXY (06/18/2024 8:38 PM TOP AND TRIM WORKER) Vitamin D, 25 Hydroxy 94.0(H) 30.0 - 80.0 ng/mL 06/19/2024 6:51 AM TOP AND TRIM WORKER [facility] Comment: The recommendations for 25-Hydroxy Vitamin [...] Unknown Venipuncture / Unknown 06/18/2024 8:38 PM TOP AND TRIM WORKER 06/18/2024 9:09 PM TOP AND TRIM WORKER Sulema Whyte PA-C LAB - CHEMISTRY OR DERABLES Performing Organization Address [facility] Co de Phone Number [address] [address], [facility] [phone] * LACTIC ACID BLOOD (06/18/2024 8:38 PM TOP AND TRIM WORKER) Lactic Acid-Stat 1.4 <=2.0 mmol/L 06/18/2024 9:38 PM TOP AND TRIM WORKER [facility] Blood BLOOD SPECIMEN / Unknown Venipuncture / Unknown 06/18/2024 8:38 PM TOP AND TRIM WORKER 06/18/2024 9:12 PM TOP AND TRIM WORKER Gordon Ingram MD LAB - CHEMISTRY ORDE PAM [facility] [address] [place] [address], [facility] [phone] * CT Ankle Left Wo Contrast (06/18/2024 7:57 PM TOP AND TRIM WORKER) Anatomical Region Laterality Modality Lower Extremity Computed Tomogra phy 06/18/2024 8:46 PM TOP AND TRIM WORKER Narrative 06/18/2024 9:15 PM TOP AND TRIM WORKER PROCEDURE: CT KNEE LEFT WO CONTRAST, CT [...] present. > Dictated by Dimitris Avila MD (Diet Kitchen Cook) Higinio Price MD have personally reviewed and [...] present. > Dictated by Dimitris Avila MD (Diet Kitchen Cook) IHiginio MD have personally reviewed and interpreted this examination/study. > Interpreting Provider: Higinio Whittington MD on 06/18/2024 9:15 PM Gordon Christie Ingram MD CT ORDERABLES * CT Knee Left Wo Contrast (06/18/2024 7:57 PM TOP AND TRIM WORKER) Anatomical Region Laterality Modality Lower Extremity Computed Tomogra phy 06/18/2024 8:46 PM TOP AND TRIM WORKER Narrative 06/18/2024 9:15 PM TOP AND TRIM WORKER PROCEDURE: CT KNEE LEFT WO CONTRAST, CT [...] present. > Dictated by Dimitris Avila MD (Diet Kitchen Cook) Higinio Price MD have personally reviewed and [...] edema is present. > Dictated by Dimitris Avlia MD (Diet Kitchen Cook) Higinio Price MD have personally reviewed and interpreted this examination/study. > Interpreting Provider: Higinio Whittington MD on 06/18/2024 9:15 PM Gordon Ingram MD CT ORDERABLES * BLOOD TYPE VERIFICATION (06/18/2024 6:57 PM TOP AND TRIM WORKER) ABO Rh O POS 06/18/2024 7:2 6 PM TOP AND TRIM WORKER [facility] BLOOD BANK LAB Blood Bank BLOOD SPECIMEN / Unknown Venipuncture / Unknown 06/18/2024 6:57 PM TOP AND TRIM WORKER 06/18/2024 7:05 PM TOP AND TRIM WORKER Gordon Ingram MD LAB - BLOOD BANK ORD ERABLES Performing Organization Address City/[facility]/ZIP Co de Phone Number [facility] BLOOD BANK LAB [address] [place] [address], [facility] [phone] * PREPARE PLATELET PHERESIS UNIT(S), 1 Units (06/18/2024 6:45 PM TOP AND TRIM WORKER) Unit Description LRPLTphere B7 IR [facility] BLOOD BANK LAB Unit ABO O [facility] BLOOD BANK LAB Unit Rh POS [facility] BLOOD BANK LAB Product Number P31 [facility] B LOOD BANK LAB Unit Donor # [id number] [facility] BLOOD BANK LAB Unit Status transfused [facility] BLO OD BANK LAB Product Code [id number] [facility] BLO OD BANK LAB Blood Type Barcode 5100 [facility] BLOOD BANK LAB Expiration Date [id number] S BLOOD BANK LAB Blood Bank BLOOD SPECIMEN / Unknown 06/18/2024 2:53 PM TOP AND TRIM WORKER Gordon Fernández MD LAB - BLOOD BANK ORD ERABLES Performing Organization Address City/[facility]/ZIP Co de Phone Number [facility] BLOOD BANK LAB [address] [place] [address], [facility] [phone] * XR Wrist Right 3Vw or More (06/18/2024 3:39 PM TOP AND TRIM WORKER) Anatomical Region Laterality Modality Wrist / Hand Digital Radiogra phy 06/18/2024 5:17 PM TOP AND TRIM WORKER Impressions 06/18/2024 8:04 PM TOP AND TRIM WORKER IMPRESSION: No acute fracture or dislocation identified. Report dictated by Vijay Jeong DO (vice president digital strategist). IMalcolm MD have personally reviewed and interpreted this examination/study. > Interpreting Provider: Malcolm Marroquin MD on 06/18/2024 8:04 PM Narrative 06/18/2024 8:04 PM TOP AND TRIM WORKER PROCEDURE: XR WRIST RIGHT 3VW OR MORE, DATE/TIME OF EXAM: 06/18/2024 3:39 PM, LOCATION [facility] INDICATION: T14.90XA: Trauma ADDITIONAL CLINICAL INFORMATION: Ordering [...] MORE, DATE/TIME OF EXAM: 53:39 PM, LOCATION [facility] INDICATION: T14.90XA: Trauma ADDITIONAL CLINICAL INFORMATION: Ordering [...] identified. Report dictated by Vijay Jeong DO (vice president digital strategist). Malcolm Price MD have personally reviewed and interpreted this examination/study. > Interpreting Provider: Malcolm Marroquin MD on 06/18/2024 8:04 PM Gordon Ingram MD DIAGNOSTIC IMAGING O RDERABLES * XR Tibia Fibula Left 2Vw (06/18/2024 3:39 PM TOP AND TRIM WORKER) Anatomical Region Laterality Modality Lower Extremity Digital Radiogra phy 06/18/2024 5:13 PM TOP AND TRIM WORKER Impressions 06/18/2024 5:22 PM TOP AND TRIM WORKER IMPRESSION: Quadrimalleolar fracture. Report dictated by Vijay Jeong DO (vice president digital strategist). Malcolm Price MD have personally reviewed and interpreted this examination/study. > Interpreting Provider: Malcolm Marroquin MD on 06/18/2024 5:22 PM Narrative 06/18/2024 5:22 PM TOP AND TRIM WORKER PROCEDURE: XR TIBIA FIBULA LEFT 2VW, DATE/TIME OF EXAM: 06/18/2024 3:39 PM, LOCATION [facility] INDICATION: T14.90XA: Trauma COMPARISON: None. FINDINGS: Quadrimalleolar fracture. Bone density and texture are normal. Soft tissue swelling is present. Procedure Note Malcolm Marroquin MD - 06/18/2024 PROCEDURE: XR TIBIA FIBULA LEFT 2VW, DATE/TIME OF EXAM: 06/18/2024 3:39PM, LOCATION [facility] INDICATION: T14.90XA: Trauma COMPARISON: None. FINDINGS: Quadrimalleolar fracture. Bone density and texture are normal. Softtissue swelling is present. IMPRESSION: Quadrimalleolar fracture. Report dictated by Vijay Jeong DO (vice president digital strategist). Malcolm Price MD have personally reviewed and interpreted this examination/study. > Interpreting Provider: Malcolm Marroquin MD on 06/18/2024 5:22 PM Gordon Christie Ingram MD DIAGNOSTIC IMAGING O RDERABLES * XR Hand Right 3Vw or More (06/18/2024 3:39 PM TOP AND TRIM WORKER) Anatomical Region Laterality Modality Wrist / Hand Digital Radiogra phy 06/18/2024 5:17 PM TOP AND TRIM WORKER Impressions 06/18/2024 8:05 PM TOP AND TRIM WORKER IMPRESSION: No acute fracture or dislocation identified. Report dictated by Vijay Jeong DO (vice president digital strategist). Malcolm Price MD have personally reviewed and interpreted this examination/study. > Interpreting Provider: Malcolm Marroquin MD on 06/18/2024 8:05 PM Narrative 06/18/2024 8:05 PM TOP AND TRIM WORKER PROCEDURE: XR HAND RIGHT 3VW OR MORE, DATE/TIME OF EXAM: 06/18/2024 3:39 PM, LOCATION [facility] INDICATION: T14.90XA: Trauma COMPARISON: None. FINDINGS: The [...] DATE/TIME OF EXAM: 06/18/2024 3:39 PM, LOCATION [facility] INDICATION: T14.90XA: Trauma COMPARISON: None. FINDINGS: The [...] identified. Report dictated by Vijay Jeong DO (vice president digital strategist). Malcolm Price MD have personally reviewed and interpreted this examination/study. > Interpreting Provider: Malcolm Marroquin MD on 06/18/2024 8:05 PM Gordon Ingram MD DIAGNOSTIC IMAGING O RDERABLES * XR Hand Left 3Vw or More (06/18/2024 3:39 PM TOP AND TRIM WORKER) Anatomical Region Laterality Modality Wrist / Hand Digital Radiogra phy 06/18/2024 5:16 PM TOP AND TRIM WORKER Impressions 06/18/2024 8:03 PM TOP AND TRIM WORKER IMPRESSION: No acute fracture or dislocation identified. Report dictated by Vijay Jeong DO (vice president digital strategist). Malcolm Price MD have personally reviewed and interpreted this examination/study. > Interpreting Provider: Malcolm Marroquin MD on 06/18/2024 8:03 PM Narrative 06/18/2024 8:03 PM TOP AND TRIM WORKER PROCEDURE: XR HAND LEFT 3VW OR MORE, DATE/TIME OF EXAM: 06/18/2024 3:39 PM, LOCATION [facility] INDICATION: T14.90XA: Trauma COMPARISON: None. FINDINGS: The [...] MORE, DATE/TIME OF EXAM: 06/18/2024 3:39PM, LOCATION [facility] INDICATION: T14.90XA: Trauma COMPARISON: None. FINDINGS: The osseous structures are intact and well aligned without acutefracture or dislocation. The joint spaces are preserved. The bones are diffusely demineralized. No soft tissue swelling is present. Degenerative changesof the fifth distal interphalangeal and first carpometacarpal joints. IMPRESSION: No acute fracture or dislocation identified. Report dictated by Vijay Jeong DO (vice president digital strategist). Malcolm Price MD have personally reviewed and interpreted this examination/study. > Interpreting Provider: Malcolm Marroquin MD on 06/18/2024 8:03 PM Gordon Christie Ingram MD DIAGNOSTIC IMAGING O RDERABLES * CT LUMBAR SPINE WO CONTRAST - T/L-spine trauma, Spine fracture (06/18/2024 3:21 PM TOP AND TRIM WORKER) Anatomical Region Laterality Modality Spine Computed Tomogra phy 06/18/2024 3:49 PM TOP AND TRIM WORKER Impressions 06/18/2024 5:25 PM TOP AND TRIM WORKER IMPRESSION: 1.No evidence of acute fracture in the cervical, thoracic, or lumbar spine. 2.Please refer to the concurrent, dedicated body report for findings in the chest, abdomen, and pelvis. > Dictated by Vijay Jeong DO (Diet Kitchen Cook), 06/18/2024 3:49 PM. Glenny Price MD have personally reviewed and interpreted this examination/study. > Interpreting Provider: Glenny Ragsdale MD on 06/18/2024 5:25 PM Narrative 06/18/2024 5:25 PM TOP AND TRIM WORKER PROCEDURE: CT CERVICAL SPINE WO CONTRAST, CT LUMBAR SPINE WO CONTRAST, CT THORACIC SPINE WO CONTRAST, DATE/TIME OF EXAM: 06/18/2024 3:23 PM, LOCATION [facility] INDICATION: Trauma EXAMINATION: 1.CT of the cervical [...] DATE/TIME OF EXAM: 06/18/2024 3:23 PM, LOCATION [facility] INDICATION: Trauma EXAMINATION: 1.CT of the cervical [...] pelvis. > Dictated by Vijay Jeong DO (Diet Kitchen Cook), 06/18/2024 3:49 PM. Glenny Price MD have personally reviewed and interpretedthis examination/study. > Interpreting Provider: Glenny Ragsdale MD on 06/18/2024 5:25 PM Gordon Ingram MD CT ORDERABLES * CT THORACIC SPINE WO CONTRAST - T/L-spine trauma, spine fracture (06/18/2024 3:21 PM TOP AND TRIM WORKER) Anatomical Region Laterality Modality Spine Computed Tomogra phy 06/18/2024 3:49 PM TOP AND TRIM WORKER Impressions 06/18/2024 5:25 PM TOP AND TRIM WORKER IMPRESSION: 1.No evidence of acute fracture in the cervical, thoracic, or lumbar spine. 2.Please refer to the concurrent, dedicated body report for findings in the chest, abdomen, and pelvis. > Dictated by Vijay Jeong DO (Diet Kitchen Cook), 06/18/2024 3:49 PM. Glenny Price MD have personally reviewed and interpreted this examination/study. > Interpreting Provider: Glenny Ragsdale MD on 06/18/2024 5:25 PM Narrative 06/18/2024 5:25 PM TOP AND TRIM WORKER PROCEDURE: CT CERVICAL SPINE WO CONTRAST, CT LUMBAR SPINE WO CONTRAST, CT THORACIC SPINE WO CONTRAST, DATE/TIME OF EXAM: 06/18/2024 3:23 PM, LOCATION [facility] INDICATION: Trauma EXAMINATION: 1.CT of the cervical [...] DATE/TIME OF EXAM: 06/18/2024 3:23 PM, LOCATION [facility] INDICATION: Trauma EXAMINATION: 1.CT of the cervical [...] pelvis. > Dictated by Vijay Jeong DO (Diet Kitchen Cook), 06/18/2024 3:49 PM. Glenny Price MD have personally reviewed and interpretedthis examination/study. > Interpreting Provider: Glenny Ragsdale MD on 06/18/2024 5:25 PM Gordon Ingram MD CT ORDERABLES * CT CERVICAL SPINE WO CONTRAST - C-Spine Trauma, Spine fracture (06/18/2024 3:21 PM TOP AND TRIM WORKER) Anatomical Region Laterality Modality Spine Computed Tomogra phy 06/18/2024 3:49 PM TOP AND TRIM WORKER Impressions 06/18/2024 5:25 PM TOP AND TRIM WORKER IMPRESSION: 1.No evidence of acute fracture in the cervical, thoracic, or lumbar spine. 2.Please refer to the concurrent, dedicated body report for findings in the chest, abdomen, and pelvis. > Dictated by Vijay Jeong DO (Diet Kitchen Cook), 06/18/2024 3:49 PM. Glenny Price MD have personally reviewed and interpreted this examination/study. > Interpreting Provider: Glenny Ragsdale MD on 06/18/2024 5:25 PM Narrative 06/18/2024 5:25 PM TOP AND TRIM WORKER PROCEDURE: CT CERVICAL SPINE WO CONTRAST, CT LUMBAR SPINE WO CONTRAST, CT THORACIC SPINE WO CONTRAST, DATE/TIME OF EXAM: 06/18/2024 3:23 PM, LOCATION [facility] INDICATION: Trauma EXAMINATION: 1.CT of the cervical [...] DATE/TIME OF EXAM: 06/18/2024 3:23 PM, LOCATION [facility] INDICATION: Trauma EXAMINATION: 1.CT of the cervical [...] pelvis. > Dictated by Vijay Jeong DO (Diet Kitchen Cook), 06/18/2024 3:49 PM. IGlenny MD have personally reviewed and interpretedthis examination/study. > Interpreting Provider: Glenny Ragsdale MD on 06/18/2024 5:25 PM Gordon Ingram MD CT ORDERABLES * CT HEAD WO CONTRAST - Head Trauma, CSF leak, mental status changes (06/18/2024 3:21 PM TOP AND TRIM WORKER) Anatomical Region Laterality Modality Head Computed Tomogra phy 06/18/2024 3:01 PM TOP AND TRIM WORKER Impressions 06/18/2024 3:03 PM TOP AND TRIM WORKER IMPRESSION: 1. No acute intracranial process. 2. 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 > Interpreting Provider: Karin Velasco MD on 06/18/2024 3:03 PM Narrative 06/18/2024 3:03 PM TOP AND TRIM WORKER PROCEDURE: CT HEAD WO CONTRAST, DATE/TIME OF EXAM: 06/18/2024 2:46 PM, LOCATION [facility] INDICATION: Trauma ADDITIONAL CLINICAL INFORMATION: Ordering Provider [...] DATE/TIME OF EXAM: 06/18/2024 2:46 PM, LOCATION [facility] INDICATION: Trauma ADDITIONAL CLINICAL INFORMATION: Ordering Provider [...] * TROPONIN-I HIGH SENSITIVE (06/18/2024 2:44 PM TOP AND TRIM WORKER) Troponin I High Sensitive 4 <=14 ng/L 06/18/2024 3:19 PM TOP AND TRIM WORKER [facility] Blood BLOOD SPECIMEN / Unknown Venipuncture / Unknown 06/18/2024 2:44 PM TOP AND TRIM WORKER 06/18/2024 2:48 PM TOP AND TRIM WORKER Gordon Ingram MD LAB - CHEMISTRY JULIANNE OROZCO [facility] Organization Address City/State/ZIP Co de Phone Number [facility] [address] [place] [address], [facility] [phone] * (ABNORMAL) TEG 6 GLOBAL HEMOSTASIS W/ LYSIS (06/18/2024 2:44 PM TOP AND TRIM WORKER) Citrated Kaolin R (Reaction Time) 4.3(L) 4.6 - 9.1 min 06/18/2024 3:54 PM [facility] Comment:CK R result below no rmal range. Consistent with hypercoagulable clotting factors. Citrated Kaolin LY30 (Lysis) 0.1 0.0 - 2.6 % 06/18/2024 3:54 PM [facility] Citrated Functional Fibrinogen MA (Max Amplitude) 19.3 15.0 - 32.0 mm 06/18/2024 3:54 PM [facility] Citrated RapidTEG MA (Max Amplitude) 62.8 52.0 - 70.0 mm 06/18/2024 3:54 PM [facility] Blood BLOOD SPECIMEN / Unknown Venipuncture / Unknown 06/18/2024 2:44 PM TOP AND TRIM WORKER 06/18/2024 2:52 PM TOP AND TRIM WORKER Gordon Ingram MD LAB - HEMATOLOGY ORD ERABLES [address] [address], [facility] [phone] * (ABNORMAL) TEG 6S PLATELET MAPPING (06/18/2024 2:44 PM TOP AND TRIM WORKER) TEGPLM (Max Amplitude) Koalin 64.2 53.0 - 68.0 mm 06/18/2024 4:03 PM [facility] TEGPLM (Max Amplitude) ACTF 10.1 2.0 - 19.0 mm 06/18/2024 4:03 PM [facility] TEGPLM (Max Amplitude) ADP 48.6 45.0 - 69.0 mm 06/18/2024 4:03 PM [facility] TEGPLM (Max Amplitude) AA 18.0(L) 51.0 - 71.0 mm 06/18/2024 4:03 PM [facility] Comment:AA MA below normal r dov. Inhibition present. TEGPLM %Inhibition ADP 28.8(H) 0.0 - 17.0 % 06/18/2024 4:03 PM [facility] TEGPLM %Inhibition AA 85.4(H) 0.0 - 11.0 % 06/18/2024 4:03 PM [facility] TEGPLM %Aggregation ADP 71.2(L) 83.0 - 100.0 % 06/18/2024 4:03 PM [facility] TEGPLM % Aggregation AA 14.6(L) 89.0 - 100.0 % 06/18/2024 4:03 PM [facility] Blood BLOOD SPECIMEN / Unknown Venipuncture / Unknown 06/18/2024 2:44 PM TOP AND TRIM WORKER 06/18/2024 2:52 PM TOP AND TRIM WORKER Gordon Ingram MD LAB - HEMATOLOGY ORD ERABLES Performing Organization Address City/[facility]/ZIP Co de Phone Number [facility] [address] [place] [phone], [facility] [phone] * TYPE + SCREEN PANEL (06/18/2024 2:44 PM TOP AND TRIM WORKER) Antibody Screen NEG 3:33 PM TOP AND TRIM WORKER [facility] BLOOD BANK LAB ABO Rh O POS 06/18/2024 3:33 PM [facility] BLOOD BANK LAB Blood Bank BLOOD SPECIMEN / Unknown Venipuncture / Unknown 06/18/2024 2:44 PM [employer] AND TRIM WORKER 06/18/2024 2:53 PM TOP AND TRIM WORKER Gordon Ingram MD LAB - BLOOD BANK ORD ERABLES [facility] BLOOD BANK LAB [address] [place] [id number], [place] [phone] * ALCOHOL ETHYL BLOOD (06/18/2024 2:44 PM TOP AND TRIM WORKER) Ethanol (mg/dL) <10 <10 mg/dL 3:15 PM [facility] Ethanol Calculated (g/dL) <0.010 <=0.010 g/dL 06/18/2024 3:15 PM [facility] Blood BLOOD SPECIMEN / Unknown Venipuncture / Unknown 06/18/2024 2:44 PM TOP AND TRIM WORKER 06/18/2024 2:48 PM TOP AND TRIM WORKER Narrative [facility] - 06/18/2024 3:15 PM TOP AND TRIM WORKER Ethanol Interp <10: None Detected. Depression of STAINING MACHINE OPERATOR: >100 mg/dl Potentially Critical: >250 mg/dl Potentially Fatal >400 mg/dl Ethanol in the patient's blood will contribute to the osmolar gap. Ethanol's contribution to the osmolar gap can be estimated by dividing the concentration of ethanol in mg/dL by 4.6. This test is for clinical use only and does not equal a SAKSHI for legal purposes. Gordon Christie Ingram MD LAB - CHEMISTRY [facility] [address] [id number], [facility] [phone] * XR PELVIS 1 OR 2VW (06/18/2024 2:43 PM TOP AND TRIM WORKER) Anatomical Region Laterality Modality Pelvis Digital Radiogra phy 06/18/2024 5:02 PM TOP AND TRIM WORKER Impressions 06/18/2024 5:20 PM TOP AND TRIM WORKER IMPRESSION: No acute fracture identified. Report dictated by Vijay Jeong DO (vice president digital strategist). IMalcolm MD have personally reviewed and interpreted this examination/study. > Interpreting Provider: Malcolm Marroquin MD on 06/18/2024 5:20 PM Narrative 06/18/2024 5:20 PM [employer] AND TRIM WORKER PROCEDURE: XR PELVIS 1 OR 2VW, DATE/TIME OF EXAM: 06/18/2024 2:44 PM, LOCATION [facility] INDICATION: Trauma Fracture suspected COMPARISON: None. FINDINGS: No acute fracture is identified. The femoral heads appear well-seated within their respective acetabula. The pubic symphysis is intact. Bone density and texture are normal. The sacroiliac joints are normal. Procedure Note Malcolm Marroquin MD - 06/18/2024 PROCEDURE: XR PELVIS 1 OR 2VW, DATE/TIME OF EXAM: 06/18/2024 2:44 PM, LOCATION [facility] INDICATION: Trauma Fracture suspected COMPARISON: None. FINDINGS: No acute fracture is identified. The femoral heads appear well-seated within their respective acetabula. The pubic symphysis is intact. Bone density and texture are normal. The sacroiliac joints are normal. IMPRESSION: No acute fracture identified. Report dictated by Vijay Jeong DO (vice president digital strategist). Malcolm Price MD have personally reviewed and interpreted this examination/study. > Interpreting Provider: Malcolm Marroquin MD on 06/18/2024 5:20 PM Gordon Ingram MD DIAGNOSTIC IMAGING O RDERABLES * XR Knee Left 2Vw or Less (06/18/2024 2:43 PM TOP AND TRIM WORKER) Anatomical Region Laterality Modality Lower Extremity Digital Radiogra phy 06/18/2024 5:03 PM TOP AND TRIM WORKER Impressions 06/18/2024 7:59 PM TOP AND TRIM WORKER Impression: Likely chronic osseous fragment adjacent to [...] knee. Report dictated by Vijay Jeong DO (vice president digital strategist). Malcolm Price MD have personally reviewed and interpreted this examination/study. > Interpreting Provider: Malcolm Marroquin MD on 06/18/2024 7:59 PM Narrative 06/18/2024 7:59 PM TOP AND TRIM WORKER PROCEDURE: XR KNEE LEFT 2VW OR LESS, DATE/TIME OF EXAM: 06/18/2024 2:43 PM, LOCATION [facility] INDICATION: T14.90XA: Trauma COMPARISON: None. Procedure Note Malcolm Marroquin MD - 06/18/2024 PROCEDURE: XR KNEE LEFT 2VW OR LESS, DATE/TIME OF EXAM: 06/18/2024 2:43PM, LOCATION [facility] INDICATION: T14.90XA: Trauma COMPARISON: None. Impression: Likely [...] knee. Report dictated by Vijay Jeong DO (vice president digital strategist). IMalcolm MD have personally reviewed and interpreted this examination/study. > Interpreting Provider: Malcolm Marroquin MD on 06/18/2024 7:59 PM Gordon Ingram MD DIAGNOSTIC IMAGING O RDERABLES from Last 3 Months Advance Directives Documents on File Type Date Recorded Patient Stripper And Taper Expl anation Adv Directive/Living Will/POA 06/27/2024 10:06 AM * Full Code (Latest Code Status on File) Date Activated Date Inactivated Comments 06/18/2024 4:59 PM 07/05/2024 12:48 PM
--- OUTSIDE RECORDS SUMMARY | 2024-07-25 17:27 | XMS_ITS | Clinical Summary ---
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 [facility] [phone] * (ABNORMAL) VITAMIN D 25-HYDROXY (06/18/2024 8:38 PM FEED WEIGHER) Vitamin D, 25 Hydroxy 94.0(H) 30.0 - 80.0 ng/mL 06/19/2024 6:51 AM FEED WEIGHER [facility] Comment: The recommendations for 25-Hydroxy Vitamin [...] Unknown Venipuncture / Unknown 06/18/2024 8:38 PM FEED WEIGHER 06/18/2024 9:09 PM FEED WEIGHER Sulema Whyte PA-C LAB - CHEMISTRY OR DERABLES Performing Organization Address City/[facility]/ZIP Co de Phone Number [address] [address], [facility] [phone] * LACTIC ACID BLOOD (06/18/2024 8:38 PM FEED WEIGHER) Lactic Acid-Stat 1.4 <=2.0 mmol/L 06/18/2024 9:38 PM FEED WEIGHER [facility] Blood BLOOD SPECIMEN / Unknown Venipuncture / Unknown 06/18/2024 8:38 PM FEED WEIGHER 06/18/2024 9:12 PM FEED WEIGHER Gordon Ingram MD LAB - CHEMISTRY ORDE PAM [facility] [address] [place] [address], [facility] [phone] * CT Ankle Left Wo Contrast (06/18/2024 7:57 PM FEED WEIGHER) Anatomical Region Laterality Modality Lower Extremity Computed Tomogra phy 06/18/2024 8:46 PM FEED WEIGHER Narrative 06/18/2024 9:15 PM FEED WEIGHER PROCEDURE: CT KNEE LEFT WO CONTRAST, CT [...] present. > Dictated by Dimitris Avila MD (Fuel Attendant) Higinio Price MD have personally reviewed and [...] present. > Dictated by Dimitris Avila MD (Fuel Attendant) Higinio Price MD have personally reviewed and interpreted this examination/study. > Interpreting Provider: Higinio Whittington MD on 06/18/2024 9:15 PM Gordon Ingram MD CT ORDERABLES * CT Knee Left Wo Contrast (06/18/2024 7:57 PM FEED WEIGHER) Anatomical Region Laterality Modality Lower Extremity Computed Tomogra phy 06/18/2024 8:46 PM FEED WEIGHER Narrative 06/18/2024 9:15 PM FEED WEIGHER PROCEDURE: CT KNEE LEFT WO CONTRAST, CT [...] present. > Dictated by Dimitris Avila MD (Fuel Attendant) Higinio Price MD have personally reviewed and [...] present. > Dictated by Dimitris Avila MD (Fuel Attendant) IHiginio MD have personally reviewed and interpreted this examination/study. > Interpreting Provider: Higinio Whittington MD on 06/18/2024 9:15 PM Gordon Ingram MD CT ORDERABLES * BLOOD TYPE VERIFICATION (06/18/2024 6:57 PM FEED WEIGHER) ABO Rh O POS 06/18/2024 7:2 6 PM FEED WEIGHER [facility] Blood Bank BLOOD SPECIMEN / Unknown Venipuncture / Unknown 06/18/2024 6:57 PM FEED WEIGHER 06/18/2024 7:05 PM FEED WEIGHER Gordon Ingram MD LAB - BLOOD BANK ORD ERABLES Performing Organization Address City/[facility]/ZIP Co de Phone Number [facility] [address] [place] [address], [employer] [phone] * PREPARE PLATELET PHERESIS UNIT(S), 1 Units (06/18/2024 6:45 PM FEED WEIGHER) Unit Description LRPLTphere B7 IR [facility] Unit ABO O [facility] Unit Rh POS [facility] Product Number P31 [facility] Unit Donor # [id number] [facility] Unit Status transfused [facility] Product Code [id number] [facility] Blood Type Barcode 5100 [facility] Expiration Date [id number] S BLOOD BANK LAB Blood Bank BLOOD SPECIMEN / Unknown 06/18/2024 2:53 PM FEED WEIGHER Gordon Fernández MD LAB - BLOOD BANK ORD ERABLES Performing Organization Address City/[facility]/ZIP Co de Phone Number [facility] [address] [place] [address], [employer] [phone] * XR Wrist Right 3Vw or More (06/18/2024 3:39 PM FEED WEIGHER) Anatomical Region Laterality Modality Wrist / Hand Digital Radiogra phy 06/18/2024 5:17 PM FEED WEIGHER Impressions 06/18/2024 8:04 PM FEED WEIGHER IMPRESSION: No acute fracture or dislocation identified. Report dictated by Vijay Jeong DO (radiology physician). Malcolm Price MD have personally reviewed and interpreted this examination/study. > Interpreting Provider: Malcolm Marroquin MD on 06/18/2024 8:04 PM Narrative 06/18/2024 8:04 PM FEED WEIGHER PROCEDURE: XR WRIST RIGHT 3VW OR MORE, DATE/TIME OF EXAM: 06/18/2024 3:39 PM, LOCATION [facility] INDICATION: T14.90XA: Trauma ADDITIONAL CLINICAL INFORMATION: [...] MORE, DATE/TIME OF EXAM: 53:39 PM, LOCATION [facility] INDICATION: T14.90XA: Trauma ADDITIONAL CLINICAL INFORMATION: [...] Report dictated by Vijay Jeong DO (radiology physician). Malcolm Price MD have personally reviewed and interpreted this examination/study. > Interpreting Provider: Malcolm Marroquin MD on 06/18/2024 8:04 PM Gordon Ingram MD DIAGNOSTIC IMAGING O RDERABLES * XR Tibia Fibula Left 2Vw (06/18/2024 3:39 PM FEED WEIGHER) Anatomical Region Laterality Modality Lower Extremity Digital Radiogra phy 06/18/2024 5:13 PM FEED WEIGHER Impressions 06/18/2024 5:22 PM FEED WEIGHER IMPRESSION: Quadrimalleolar fracture. Report dictated by Vijay Jeong DO (radiology physician). Malcolm Price MD have personally reviewed and interpreted this examination/study. > Interpreting Provider: Malcolm Marroquin MD on 06/18/2024 5:22 PM Narrative 06/18/2024 5:22 PM FEED WEIGHER PROCEDURE: XR TIBIA FIBULA LEFT 2VW, DATE/TIME OF EXAM: 06/18/2024 3:39 PM, LOCATION [facility] INDICATION: T14.90XA: Trauma COMPARISON: None. FINDINGS: Quadrimalleolar fracture. Bone density and texture are normal. Soft tissue swelling is present. Procedure Note Malcolm Marroquin MD - 06/18/2024 PROCEDURE: XR TIBIA FIBULA LEFT 2VW, DATE/TIME OF EXAM: 06/18/2024 3:39PM, LOCATION [facility] INDICATION: T14.90XA: Trauma COMPARISON: None. FINDINGS: Quadrimalleolar fracture. Bone density and texture are normal. Softtissue swelling is present. IMPRESSION: Quadrimalleolar fracture. Report dictated by Vijay Jeong DO (radiology physician). Malcolm Price MD have personally reviewed and interpreted this examination/study. > Interpreting Provider: Malcolm Marroquin MD on 06/18/2024 5:22 PM Gordon Ingram MD DIAGNOSTIC IMAGING O RDERABLES * XR Hand Right 3Vw or More (06/18/2024 3:39 PM FEED WEIGHER) Anatomical Region Laterality Modality Wrist / Hand Digital Radiogra phy 06/18/2024 5:17 PM FEED WEIGHER Impressions 06/18/2024 8:05 PM FEED WEIGHER IMPRESSION: No acute fracture or dislocation identified. Report dictated by Vijay Jeong DO (radiology physician). Malcolm Price MD have personally reviewed and interpreted this examination/study. > Interpreting Provider: Malcolm Marroquin MD on 06/18/2024 8:05 PM Narrative 06/18/2024 8:05 PM FEED WEIGHER PROCEDURE: XR HAND RIGHT 3VW OR MORE, DATE/TIME OF EXAM: 06/18/2024 3:39 PM, LOCATION [facility] INDICATION: T14.90XA: Trauma COMPARISON: None. FINDINGS: [...] DATE/TIME OF EXAM: 06/18/2024 3:39 PM, LOCATION [facility] INDICATION: T14.90XA: Trauma COMPARISON: None. FINDINGS: [...] Report dictated by Vijay Jeong DO (radiology physician). Malcolm Price MD have personally reviewed and interpreted this examination/study. > Interpreting Provider: Malcolm Marroquin MD on 06/18/2024 8:05 PM Gordon Ingram MD DIAGNOSTIC IMAGING O RDERABLES * XR Hand Left 3Vw or More (06/18/2024 3:39 PM FEED WEIGHER) Anatomical Region Laterality Modality Wrist / Hand Digital Radiogra phy 06/18/2024 5:16 PM FEED WEIGHER Impressions 06/18/2024 8:03 PM FEED WEIGHER IMPRESSION: No acute fracture or dislocation identified. Report dictated by Vijay Jeong DO (radiology physician). Malcolm Price MD have personally reviewed and interpreted this examination/study. > Interpreting Provider: Malcolm Marroquin MD on 06/18/2024 8:03 PM Narrative 06/18/2024 8:03 PM FEED WEIGHER PROCEDURE: XR HAND LEFT 3VW OR MORE, DATE/TIME OF EXAM: 06/18/2024 3:39 PM, LOCATION [facility] INDICATION: T14.90XA: Trauma COMPARISON: None. FINDINGS: [...] MORE, DATE/TIME OF EXAM: 06/18/2024 3:39PM, LOCATION [facility] INDICATION: T14.90XA: Trauma COMPARISON: None. FINDINGS: The osseous structures are intact and well aligned without acutefracture or dislocation. The joint spaces are preserved. The bones are diffusely demineralized. No soft tissue swelling is present. Degenerative changesof the fifth distal interphalangeal and first carpometacarpal joints. IMPRESSION: No acute fracture or dislocation identified. Report dictated by Vijay Jeong DO (radiology physician). I, Malcolm Marroquin MD have personally reviewed and interpreted this examination/study. > Interpreting Provider: Malcolm Marroquin MD on 06/18/2024 8:03 PM Gordon Ingram MD DIAGNOSTIC IMAGING O RDERABLES * CT LUMBAR SPINE WO CONTRAST - T/L-spine trauma, Spine fracture (06/18/2024 3:21 PM FEED WEIGHER) Anatomical Region Laterality Modality Spine Computed Tomogra phy 06/18/2024 3:49 PM FEED WEIGHER Impressions 06/18/2024 5:25 PM FEED WEIGHER IMPRESSION: 1.No evidence of acute fracture in the cervical, thoracic, or lumbar spine. 2.Please refer to the concurrent, dedicated body report for findings in the chest, abdomen, and pelvis. > Dictated by Vijay Jeong DO (Fuel Attendant), 06/18/2024 3:49 PM. IGlenny MD have personally reviewed and interpreted this examination/study. > Interpreting Provider: Glenny Ragsdale MD on 06/18/2024 5:25 PM Narrative 06/18/2024 5:25 PM FEED WEIGHER PROCEDURE: CT CERVICAL SPINE WO CONTRAST, CT LUMBAR SPINE WO CONTRAST, CT THORACIC SPINE WO CONTRAST, DATE/TIME OF EXAM: 06/18/2024 3:23 PM, LOCATION [facility] INDICATION: Trauma EXAMINATION: 1.CT of the [...] DATE/TIME OF EXAM: 06/18/2024 3:23 PM, LOCATION [facility] INDICATION: Trauma EXAMINATION: 1.CT of the [...] pelvis. > Dictated by Vijay Jeong DO (Fuel Attendant), 06/18/2024 3:49 PM. Glenny Price MD have personally reviewed and interpretedthis examination/study. > Interpreting Provider: Glenny Ragsadle MD on 06/18/2024 5:25 PM Gordon Ingram MD CT ORDERABLES * CT THORACIC SPINE WO CONTRAST - T/L-spine trauma, spine fracture (06/18/2024 3:21 PM FEED WEIGHER) Anatomical Region Laterality Modality Spine Computed Tomogra phy 06/18/2024 3:49 PM FEED WEIGHER Impressions 06/18/2024 5:25 PM FEED WEIGHER IMPRESSION: 1.No evidence of acute fracture in the cervical, thoracic, or lumbar spine. 2.Please refer to the concurrent, dedicated body report for findings in the chest, abdomen, and pelvis. > Dictated by Vijay Jeong DO (Fuel Attendant), 06/18/2024 3:49 PM. Glenny Price MD have personally reviewed and interpreted this examination/study. > Interpreting Provider: Glenny Ragsdale MD on 06/18/2024 5:25 PM Narrative 06/18/2024 5:25 PM FEED WEIGHER PROCEDURE: CT CERVICAL SPINE WO CONTRAST, CT LUMBAR SPINE WO CONTRAST, CT THORACIC SPINE WO CONTRAST, DATE/TIME OF EXAM: 06/18/2024 3:23 PM, LOCATION [facility] INDICATION: Trauma EXAMINATION: 1.CT of the [...] DATE/TIME OF EXAM: 06/18/2024 3:23 PM, LOCATION [facility] INDICATION: Trauma EXAMINATION: 1.CT of the [...] pelvis. > Dictated by Vijay Jeong DO (Fuel Attendant), 06/18/2024 3:49 PM. Glenny Price MD have personally reviewed and interpretedthis examination/study. > Interpreting Provider: Glenny Ragsdale MD on 06/18/2024 5:25 PM Gordon Ingram MD CT ORDERABLES * CT CERVICAL SPINE WO CONTRAST - C-Spine Trauma, Spine fracture (06/18/2024 3:21 PM FEED WEIGHER) Anatomical Region Laterality Modality Spine Computed Tomogra phy 06/18/2024 3:49 PM FEED WEIGHER Impressions 06/18/2024 5:25 PM FEED WEIGHER IMPRESSION: 1.No evidence of acute fracture in the cervical, thoracic, or lumbar spine. 2.Please refer to the concurrent, dedicated body report for findings in the chest, abdomen, and pelvis. > Dictated by Vijay Jeong DO (Fuel Attendant), 06/18/2024 3:49 PM. Glenny Price MD have personally reviewed and interpreted this examination/study. > Interpreting Provider: Glenny Ragsdale MD on 06/18/2024 5:25 PM Narrative 06/18/2024 5:25 PM FEED WEIGHER PROCEDURE: CT CERVICAL SPINE WO CONTRAST, CT LUMBAR SPINE WO CONTRAST, CT THORACIC SPINE WO CONTRAST, DATE/TIME OF EXAM: 06/18/2024 3:23 PM, LOCATION [facility] INDICATION: Trauma EXAMINATION: 1.CT of the [...] DATE/TIME OF EXAM: 06/18/2024 3:23 PM, LOCATION [facility] INDICATION: Trauma EXAMINATION: 1.CT of the [...] pelvis. > Dictated by Vijay Jeong DO (Fuel Attendant), 06/18/2024 3:49 PM. IGlenny MD have personally reviewed and interpretedthis examination/study. > Interpreting Provider: Glenny Ragsdale MD on 06/18/2024 5:25 PM Gordon Ingram MD CT ORDERABLES * CT HEAD WO CONTRAST - Head Trauma, CSF leak, mental status changes (06/18/2024 3:21 PM FEED WEIGHER) Anatomical Region Laterality Modality Head Computed Tomogra phy 06/18/2024 3:01 PM FEED WEIGHER Impressions 06/18/2024 3:03 PM FEED WEIGHER IMPRESSION: 1. No acute intracranial process. 2. 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 > Interpreting Provider: Karin Velasco MD on 06/18/2024 3:03 PM Narrative 06/18/2024 3:03 PM FEED WEIGHER PROCEDURE: CT HEAD WO CONTRAST, DATE/TIME OF EXAM: 06/18/2024 2:46 PM, LOCATION [facility] INDICATION: Trauma ADDITIONAL CLINICAL INFORMATION: Ordering [...] DATE/TIME OF EXAM: 06/18/2024 2:46 PM, LOCATION [facility] INDICATION: Trauma ADDITIONAL CLINICAL INFORMATION: Ordering [...] * TROPONIN-I HIGH SENSITIVE (06/18/2024 2:44 PM FEED WEIGHER) Troponin I High Sensitive 4 <=14 ng/L 06/18/2024 3:19 PM FEED WEIGHER [facility] Blood BLOOD SPECIMEN / Unknown Venipuncture / Unknown 06/18/2024 2:44 PM FEED WEIGHER 06/18/2024 2:48 PM FEED WEIGHER Gordon Ingram MD LAB - CHEMISTRY JULIANNE OROZCO Performing Organization Address [facility]/ZIP Co de Phone Number [address] [address], [facility] [phone] * (ABNORMAL) TEG 6 GLOBAL HEMOSTASIS W/ LYSIS (06/18/2024 2:44 PM FEED WEIGHER) [facility] Citrated Kaolin R (Reaction Time) 4.3(L) 4.6 - 9.1 min 06/18/2024 3:54 PM [facility] Comment:CK R result below no rmal range. Consistent with hypercoagulable clotting factors. Citrated Kaolin LY30 (Lysis) 0.1 0.0 - 2.6 % 06/18/2024 3:54 PM FEED WEIGHER [facility] Citrated Functional Fibrinogen MA (Max Amplitude) 19.3 15.0 - 32.0 mm 06/18/2024 3:54 PM [facility] Citrated RapidTEG MA (Max Amplitude) 62.8 52.0 - 70.0 mm 06/18/2024 3:54 PM [facility] Blood BLOOD SPECIMEN / Unknown Venipuncture / Unknown 06/18/2024 2:44 PM FEED WEIGHER 06/18/2024 2:52 PM FEED WEIGHER Gordon Ingram MD LAB - HEMATOLOGY ORD NILTON Performing Organization Address City/[facility]/ZIP Co de Phone Number [address] [address], [facility] [phone] * (ABNORMAL) TEG 6S PLATELET MAPPING (06/18/2024 2:44 PM FEED WEIGHER) [facility] TEGPLM (Max Amplitude) Koalin 64.2 53.0 - 68.0 mm 06/18/2024 4:03 PM [facility] TEGPLM (Max Amplitude) ACTF 10.1 2.0 - 19.0 mm 06/18/2024 4:03 PM [facility] TEGPLM (Max Amplitude) ADP 48.6 45.0 - 69.0 mm 06/18/2024 4:03 PM [facility] TEGPLM (Max Amplitude) AA 18.0(L) 51.0 - 71.0 mm 06/18/2024 4:03 PM [facility] Comment:AA MA below normal r dov. Inhibition present. TEGPLM %Inhibition ADP 28.8(H) 0.0 - 17.0 % 06/18/2024 4:03 PM [facility] TEGPLM %Inhibition AA 85.4(H) 0.0 - 11.0 % 06/18/2024 4:03 PM [facility] TEGPLM %Aggregation ADP 71.2(L) 83.0 - 100.0 % 06/18/2024 4:03 PM [facility] TEGPLM % Aggregation AA 14.6(L) 89.0 - 100.0 % 06/18/2024 4:03 PM [facility] Blood BLOOD SPECIMEN / Unknown Venipuncture / Unknown 06/18/2024 2:44 PM FEED WEIGHER 06/18/2024 2:52 PM FEED WEIGHER Gordon Ingram MD LAB - HEMATOLOGY ORD ERABLES Performing Organization Address City/[facility]/ZIP Co de Phone Number [address] [address], [facility] [phone] * TYPE + SCREEN PANEL (06/18/2024 2:44 PM FEED WEIGHER) Antibody Screen NEG 3:33 PM FEED WEIGHER [facility] ABO Rh O POS 06/18/2024 3:33 PM FEED WEIGHER [facility] Blood Bank BLOOD SPECIMEN / Unknown Venipuncture / Unknown 06/18/2024 2:44 PM FEED WEIGHER 06/18/2024 2:53 PM FEED WEIGHER Gordon Ingram MD LAB - BLOOD BANK ORD ERABLES [facility] [address] [place] [address], [facility] [phone] * ALCOHOL ETHYL BLOOD (06/18/2024 2:44 PM FEED WEIGHER) Ethanol (mg/dL) <10 <10 mg/dL 3:15 PM FEED WEIGHER [facility] Ethanol Calculated (g/dL) <0.010 <=0.010 g/dL 06/18/2024 3:15 PM FEED WEIGHER [facility] Blood BLOOD SPECIMEN / Unknown Venipuncture / Unknown 06/18/2024 2:44 PM FEED WEIGHER 06/18/2024 2:48 PM FEED WEIGHER Narrative [facility] - 06/18/2024 3:15 PM FEED WEIGHER Ethanol Interp <10: None Detected. Depression of WOOD CRAFTER: >100 mg/dl Potentially Critical: >250 mg/dl Potentially [...] - CHEMISTRY JULIANNE OROZCO Performing Organization Address [facility]/ZIP Co de Phone Number [facility] [address] [place] [phone], [facility] [phone] * XR PELVIS 1 OR 2VW (06/18/2024 2:43 PM FEED WEIGHER) Anatomical Region Laterality Modality Pelvis Digital Radiogra phy 06/18/2024 5:02 PM FEED WEIGHER Impressions 06/18/2024 5:20 PM FEED WEIGHER IMPRESSION: No acute fracture identified. Report dictated by Vijay Jeong DO (radiology physician). I, Malcolm Marroquin MD have personally reviewed and interpreted this examination/study. > Interpreting Provider: Malcolm Marroquin MD on 06/18/2024 5:20 PM Narrative 06/18/2024 5:20 PM FEED WEIGHER PROCEDURE: XR PELVIS 1 OR 2VW, DATE/TIME OF EXAM: 06/18/2024 2:44 PM, LOCATION [facility] INDICATION: Trauma Fracture suspected COMPARISON: None. FINDINGS: No acute fracture is identified. The femoral heads appear well-seated within their respective acetabula. The pubic symphysis is intact. Bone density and texture are normal. The sacroiliac joints are normal. Procedure Note Malcolm Marroquin MD - 06/18/2024 PROCEDURE: XR PELVIS 1 OR 2VW, DATE/TIME OF EXAM: 06/18/2024 2:44 PM, LOCATION [facility] INDICATION: Trauma Fracture suspected COMPARISON: None. FINDINGS: No acute fracture is identified. The femoral heads appear well-seated within their respective acetabula. The pubic symphysis is intact. Bone density and texture are normal. The sacroiliac joints are normal. IMPRESSION: No acute fracture identified. Report dictated by Vijay Jeong DO (radiology physician). Malcolm Price MD have personally reviewed and interpreted this examination/study. > Interpreting Provider: Malcolm Marroquin MD on 06/18/2024 5:20 PM Gordon Ingram MD DIAGNOSTIC IMAGING O RDERABLES * XR Knee Left 2Vw or Less (06/18/2024 2:43 PM FEED WEIGHER) Anatomical Region Laterality Modality Lower Extremity Digital Radiogra phy 06/18/2024 5:03 PM FEED WEIGHER Impressions 06/18/2024 7:59 PM FEED WEIGHER Impression: Likely chronic osseous fragment adjacent to [...] Report dictated by Vijay Jeong DO (radiology physician). Malcolm Price MD have personally reviewed and interpreted this examination/study. > Interpreting Provider: Malcolm Marroquin MD on 06/18/2024 7:59 PM Narrative 06/18/2024 7:59 PM FEED WEIGHER PROCEDURE: XR KNEE LEFT 2VW OR LESS, DATE/TIME OF EXAM: 06/18/2024 2:43 PM, LOCATION [facility] INDICATION: T14.90XA: Trauma COMPARISON: None. Procedure Note Malcolm Marroquin MD - 06/18/2024 PROCEDURE: XR KNEE LEFT 2VW OR LESS, DATE/TIME OF EXAM: 06/18/2024 2:43PM, LOCATION [facility] INDICATION: T14.90XA: Trauma COMPARISON: None. Impression: [...] Report dictated by Vijay Jeong DO (radiology physician). IMalcolm MD have personally reviewed and interpreted this examination/study. > Interpreting Provider: Malcolm Marroquin MD on 06/18/2024 7:59 PM Gordon Ingram MD DIAGNOSTIC IMAGING O RDERABLES from Last 3 Months Advance Directives Documents on File Type Date Recorded Patient School Supervisor Expl anation Adv Directive/Living Will/POA 06/27/2024 10:06 AM * Full Code (Latest Code Status on File) Date Activated Date Inactivated Comments 06/18/2024 4:59 PM 07/05/2024 12:48 PM
--- OUTSIDE RECORDS SUMMARY | 2024-07-25 17:27 | XMS_ITS | Encounter Summary ---
Author Organization [facility] Address [address] [place] [address] Care Team Providers Care Bookkeeping Teacher Name Role Phone Unavailable Primary Care Provider Unavailabl e Encounter Details Date Type Department Care Team (Late st Contact Info) Description 07/25/2024 9:06 AM CDT Hospital Encounter [facility] [address] [facility] [address] Mikey Cortez, DO [address] [facility] [address] [place] [address] Social History Tobacco Use Types Packs/Day Years [...] care, and heating? Not very hard 06/18/2024 [place] [facility] - Occupational Stress [...] any time in the past 12 m [facility], were you homeless or living in [...] Visit [facility] [address] [place] [address], [place] [address] Mikey Cortez, DO [address] [place] [address] OF [place] [address] documented as of this encounter Goals Goal [...] with fixation, unchangedin alignment. > Interpreting Provider: Rebuen Valenzuela MD on 07/25/2024 9:33 AM Mikey Cortez DO DIAGNOSTIC IMAGING O RDERABLES documented in this encounter Visit Diagnoses Diagnosis Closed fracture of left ankle with routine healing, subsequent encounter documented in this encounter
--- OUTSIDE RECORDS SUMMARY | 2024-07-25 17:27 | XMS_ITS | Encounter Summary ---
Author Organization [facility] Address Formerly [facility] [place] [address] Care Team Providers Care Red Hat Linux Engineer Name Role Phone Mo Moy MD Primary Care Provider [phone] Sal Bliss MD Unavailable [phone] Angel Lopez MD Unavailable Encounter Details Date Type Department Care Team (Late Contact Info) Description 10/14/2018 Abstract [facility] [address] [place], [place] [id number] Sal Bliss MD [address] [address] Social History Tobacco Use Types Packs/Day Years Used Date Smoking Tobacco: Former Cigarettes 0.5 35 1 965 - 2000 Smokeless Tobacco: Never Comments:distant past Alcohol Use Standard Drinks/Week Comments No 0 (1 standard drink = 0.6 oz pur e alcohol) Comments No Sex and Gender Information Value Date Recorded Sex Assigned at Female 05/30/2024 12:35 PM YELLOW PAGES SPACE SALESPERSON Legal Sex Female 6:49 PM CDT Gender Identity Not on file Sexual Orientation Not on file Occupation Industry Job Start Date Job End Date Not on file Not on file Not on file Not on file documented as of this encounter Plan of Treatment Upcoming Encounters Date Type Department Care Team (Late Contact Info) Description 10/26/2024 11:00 AM CDT Office Visit [facility] Group Multispecialty Care - [facility] [address] [place] [address] Jacob Landry MD [address] [facility] [address] [place] [address] documented as of this encounter Procedures Procedure Name Priority Date/Time Associated Diagnosis Comments PROTHROMBIN TIME, FINGERSTICK Routine 10/14/2018 10:05 AM CDT documented in this encounter Results * PROTIME/INR, FINGERSTICK (10/14/2018 10:05 AM CDT) INR WHOLE BLOOD 2.3 9 10:09 AM CDT [facility] Comment: Recommend INR ranges for Oral Anticoagulant Therapy:Mechanical Cardiac Values 2.5-3.5All others indication 2.0-3.0 10/14/2018 10:0 5 AM CDT 10/14/2018 10:06 AM CDT us Generic Conversion Md [facility] Final R esult [facility] [address] [place] [address], documented in this encounter Visit Diagnoses Diagnosis Atrial fibrillation (CMS/HCC HHS/HCC) Atrial fibrillation documented in this encounter Additional Health Concerns Infection Onset Date Last Indicated Resolved Time COVID-19 Rule Out 01/14/2020 01/27/2020 01/28/2020 4:35 PM CDT COVID-19 Rule Out 07/07/2021 07/07/2021 07/08/2021 7:49 PM YELLOW PAGES SPACE SALESPERSON COVID-19 Rule Out 09/27/2021 09/27/2021 09/28/2021 10:26 AM CDT COVID-19 Rule Out 07/01/2023 07/01/2023 07/01/2023 3:40 PM YELLOW PAGES SPACE SALESPERSON COVID-19 Rule Out 11/03/2023 11/03/2023 11/03/2023 1:01 AM CDT documented as of this encounter Care Teams Red Hat Linux Engineer Relationship Specialty Start Date End Date Mo Moy MD [address] [place] [address] PCP - General FAMILY PRACTICE 11/26/17 Sal Bliss MD [address] [facility] [place] [address] Wilson X Ray Consultant CARDIOVASCULAR DISEASE 12/10/17 Angel Lopez MD [address] [facility] [place], [place] [id number] EP X Ray Consultant CLINICAL CARDIAC ELECTROPHYSIOLOGY 01/15/18 documented as of this encounter
--- OUTSIDE RECORDS SUMMARY | 2024-07-25 17:27 | XMS_ITS | Encounter Summary ---
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 [address] [place] [id number] Jacob Landry MD [address] [facility] [place] [address] documented as of this encounter Procedures Procedure [...] Rule Out 07/01/2023 07/01/2023 07/01/2023 3:40 PM HELIX COIL WINDER COVID-19 Rule Out 11/03/2023 11/03/2023 11/03/2023 1:01 AM CDT Assessment Noted Time PHQ-9 Depression Total Score: 0 05/05/20 1:33 PM HELIX COIL WINDER documented as of this encounter Care Teams Weight And Balance Control Agent Relationship Specialty Start Date End Date Mo Moy MD [address] [place] [address] PCP - General FAMILY PRACTICE 11/26/17 Sal Bliss MD [address] [facility] [place], [place] [address] [place] Irrigationist Designer CARDIOVASCULAR DISEASE 12/10/17 Angel Lopez MD [address] [place], [place] [id number] EP Irrigationist Designer CLINICAL CARDIAC ELECTROPHYSIOLOGY 01/15/18 documented as of this encounter
--- OUTSIDE RECORDS SUMMARY | 2024-07-25 17:27 | XMS_ITS | Encounter Summary ---
Author Organization [facility] Address [facility] [place] [address] Care Team Providers Care Manager Camp Name Role Phone Mo Moy MD Primary Care Provider [phone] Sal Bliss MD Unavailable [phone] Angel Lopez MD Unavailable Encounter Details Date Type Department Care Team (Late st Contact Info) Description 12/29/2017 Abstract [facility] at [address] [address] Faizan Pereira MA Social History Tobacco Use Types Packs/Day Years Used Date Smoking Tobacco: Former Cigarettes Q uit: 2000 Smokeless Tobacco: Never Alcohol Use Standard Drinks/Week Comments No 0 (1 standard drink = 0.6 oz pur e alcohol) Comments Unknown Sex and Gender Information Value Date Recorded Sex Assigned at Female 05/30/2024 12:35 PM 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 Legal Sex Female 6:49 PM CDT Gender [...] Description 10/26/2024 11:00 AM CDT Office Visit [facility] Medical Group Multispecialty Care - [facility] [address] [place] [address] Jacob Landry MD [address] [facility] [address] [place] [address] documented as of this encounter Procedures Procedure [...] Rule Out 07/07/2021 07/07/2021 07/08/2021 7:49 PM 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 COVID-19 Rule Out 09/27/2021 09/27/2021 09/28/2021 10:26 AM CDT COVID-19 Rule Out 07/01/2023 07/01/2023 07/01/2023 3:40 PM 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 COVID-19 Rule Out 11/03/2023 11/03/2023 11/03/2023 1:01 AM CDT documented as of this encounter Care Teams Manager Camp Relationship Specialty Start Date End Date Mo Moy MD [address] [place] [id number] PCP - General FAMILY PRACTICE 11/26/17 Sal Bliss MD [address] [facility] [place] [address] Raymond Damage Assessor CARDIOVASCULAR DISEASE 12/10/17 Angel Lopez MD [address] [facility] [place], [place] [id number] EP Damage Assessor CLINICAL CARDIAC ELECTROPHYSIOLOGY 01/15/18 documented as of this encounter
--- OUTSIDE RECORDS SUMMARY | 2024-07-25 17:27 | XMS_ITS | Patient Health Summary ---
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 Cloudy(A) Clear 06/26/2024 4:12 PM [facility] Specific Salome UA 1.025 1.005 - 1.030 06/26/2024 4:12 PM [facility] pH UA 5.0 5.0 - 8.0 pH 06/26/2024 4:12 PM [facility] Protein UA Negative Negative 06/26/2024 4:12 PM [facility] Glucose UA Negative Negative 06/26/2024 4:12 PM [facility] Ketone UA Trace(A) Negative 06/26/2024 4:12 PM [facility] Bilirubin UA Negative Negative 06/26/2024 4:12 PM [facility] Blood UA 1+(A) Negative 06/26/2024 4:12 PM [facility] Nitrite UA Negative Negative 06/26/2024 4:12 PM [facility] Leukocyte Esterase Trace(A) Negative 06/26/2024 4:12 PM [facility] Urobilinogen UA 2.0(A) Negative mg/dL 06/26/2024 4:12 PM [facility] RBC UA 11-20(A) None Seen, 0-2, 3-5 /HPF 06/26/2024 4:12 PM [facility] WBC UA 21-50(A) None Seen, 0-5 /HPF 06/26/2024 4:12 PM [facility] Bacteria UA 1+(A) None /HPF 06/26/2024 4:12 PM [facility] Squamous Epithelial Cells UA 0-2 None Seen, 0-2, 3-5 /HPF 06/26/2024 4:12 PM [facility] Mucus UA 1+ /LPF 06/26/2024 4:12 PM [facility] Urine URINE SPECIMEN OBTAINED VIA INDWELLING URINARY CATHETER / Unknown Collection / Unknown 06/26/2024 3:15 PM REPAIR DEPARTMENT SUPERVISOR 06/26/2024 3:54 PM REPAIR DEPARTMENT SUPERVISOR Narrative [facility] - 06/26/2024 4:12 PM REPAIR DEPARTMENT SUPERVISOR Vanessa Huynh [facility] LAB - URINALYSIS ORDERABLES Performing Organization Address [facility]/ZIP Co de Phone Number [address] [address], [place] [phone] * HEMOGLOBIN A1C (06/22/2024 6:18 AM [facility]) Hemoglobin A1c 5.4 <=5.6 % 06/22/2024 10:33 AM [facility] Estimated Average Glucose 108 mg/dL 06/22/2024 10:33 AM [facility] Comment: HbA1c Interpretation: Normal : < 5.7% Pre-diabetes: 5.7-6.4% Diabetes: Equal to or greater than 6.5% Test results diagnostic of diabetes should be repeated for confirmation. Treatment target values recommended by ADA and other clinical organizations should be used to evaluate metabolic control in patients. Reference: [place] [employer] Association, Standards of Care in Diabetes -2020 In patients 70 years and older consider HbA1c target range of 7.0-7.5% (Reference: Obdulio Soriano, et al. JAMDA. 2012) The Sebia assay for the measurement of HbA1c is a National Glycohemoglobin Standardization Program (NGSP) certified method. Blood BLOOD SPECIMEN / Unknown Lab Venipuncture / Unknown 06/22/2024 6:18 AM REPAIR DEPARTMENT SUPERVISOR 06/22/2024 6:37 AM REPAIR DEPARTMENT SUPERVISOR Leanne Cedeno [facility] LAB - CHEMISTRY O RDERABLES Performing Organization Address [facility]/ZIP Co de Phone Number [facility] [address] [place] [address], [place] [phone] * PREPARE (CROSSMATCH) RBC UNIT(S), 4 Units (06/22/2024 1:17 AM REPAIR DEPARTMENT SUPERVISOR) Unit Description AS1 LR PRBC [facility]OD [facility] Unit ABO O [facility] Unit POS [facility] Product Number R44 [facility] Unit Donor # [id number] [facility] Unit Status transfused [facility] Product Code [id number] [facility] Blood Type Barcode 5100 [facility] Expiration Date [facility] Unit Description AS1 LR PRBC [facility] Unit ABO O [facility] Unit POS [facility] Product Number R02 [facility] Unit Donor # [id number] [facility] Unit Status released [facility] BLOO D BANK LAB Product Code [id number] [facility] Blood Type Barcode 5100 [facility] Expiration Date [facility] Unit Description AS1 LR PRBC [facility] Unit ABO O [facility] Unit POS [facility] Product Number R02 [facility] Unit Donor # [id number] [facility] Unit Status released [facility] BLOO D [facility] LAB Product Code [id number] [facility] BLO OD [facility] LAB Blood Type Barcode 5100 [facility] Expiration Date [facility] Unit Description AS1 LR PRBC [facility] Unit ABO O [facility] Unit POS [facility] Product Number R02 [facility] LOOD [facility] Unit Donor # [id number] [facility] Unit Status released [facility] BLOO D BANK LAB Product Code [id number] [facility] BLO OD [facility]ANK LAB Blood Type Barcode 5100 [facility] Expiration Date [facility] Blood Bank BLOOD SPECIMEN / Unknown 06/18/2024 2:53 PM REPAIR DEPARTMENT SUPERVISOR Gordon Ingram MD LAB - BLOOD BANK ORD ERABLES [facility]OD [facility] [address] [place] [address] [phone] * [place] Korin Surgery (06/21/2024 2:45 PM REPAIR DEPARTMENT SUPERVISOR) Narrative [facility] RADIOLOGY - 06/21/2024 2:45 PM REPAIR DEPARTMENT SUPERVISOR Fluoroscopy was used for this exam in the OR. Please see the Operative report. Mikey Cortez DO FLUOROSCOPY ORDERABL ES [facility] RADIOLOGY * TRANSFUSE RED BLOOD CELL LEUKOREDUCED ML(S) (06/21/2024 2:15 PM REPAIR DEPARTMENT SUPERVISOR) Jorge A Ceron MD NURSING - BLOOD PROD TRANSFUSION * ETT LINE PERFORMABLE (06/21/2024 1:48 PM REPAIR DEPARTMENT SUPERVISOR) Narrative Kacy Momin DO - 06/21/2024 1:48 PM REPAIR DEPARTMENT SUPERVISOR Kacy Momin DO 06/21/2024 1:48 PM Endotracheal Tube Placement: Patient Location: OR. Intubation Event Date/Time: 06/21/2024 12:57 PM Procedure: intubation ([id number]) Procedure Section: Sedation: under general anesthesia. Indications [...] O RDERABLES * TSH (06/21/2024 12:07 AM REPAIR DEPARTMENT SUPERVISOR) TSH 0.552 0.350 - 4.940 uIU/mL 06/21/2024 1:14 AM REPAIR DEPARTMENT SUPERVISOR [facility] Blood BLOOD SPECIMEN / Unknown Venipuncture / Unknown 06/21/2024 12:07 AM REPAIR DEPARTMENT SUPERVISOR 06/21/2024 12:22 AM REPAIR DEPARTMENT SUPERVISOR Gordon Ingram MD LAB - CHEMISTRY JULIANNE OROZCO Performing Organization Address [facility]/ZIP Co de Phone Number [address] [address], [facility] [phone] * (ABNORMAL) CALCIUM IONIZED WHOLE BLOOD (06/20/2024 12:21 AM REPAIR DEPARTMENT SUPERVISOR) [facility] Calcium Ionized 1.34 mmol/L 06/20/2024 12:29 AM [facility] pH 7.28(L) 7.35 - 7.45 pH 06/20/2024 12:29 AM [facility] Ionized Calcium pH Adjusted 1.28 1.19 - 1.34 mmol/L 06/20/2024 12:29 AM [facility] Blood BLOOD SPECIMEN / Unknown Venipuncture / Unknown 06/20/2024 12:21 AM REPAIR DEPARTMENT SUPERVISOR 06/20/2024 12:25 AM REPAIR DEPARTMENT SUPERVISOR Warren Siegel PA-C LAB - CHEMISTRY Dewayne MIR Performing Organization Address [facility]/ZIP Co de Phone Number [address] [address], [place] [phone] * (ABNORMAL) URINE DRUG SCREEN IMMUNOASSAY (06/19/2024 12:36 PM REPAIR DEPARTMENT SUPERVISOR) [facility] Amphetamines Screen Urine Negative Negative : < 1000 ng/mL 06/19/2024 1:05 PM [facility] Barbiturates Screen Urine Negative Negative : < 200 ng/mL 06/19/2024 1:05 PM [facility] Benzodiazepine Screen Urine Negative Negative : < 200 ng/mL 06/19/2024 1:05 PM [facility] Opiates Urine Positive(A) Negative : < 300 ng/mL 06/19/2024 1:05 PM [facility] Comment:Positive urine opiat e screening results should be confirmed by another generally accepted non-immunological method such as gas chromatography or mass spectrometry. Cocaine Metabolites Urine Negative Negative : < 300 ng/mL 06/19/2024 1:05 PM [facility] Phencyclidine Screen Urine Negative Negative : < 25 ng/ml 06/19/2024 1:05 PM [facility] Cannabinoids Screen Urine Negative Negative : <50 ng/mL 06/19/2024 1:05 PM [facility] Methadone Screen Urine Negative Negative : < 300 ng/mL 06/19/2024 1:05 PM [facility] Fentanyl Screen Urine Positive(A) Negative : <1.5 ng/mL 06/19/2024 1:05 PM [facility] Comment:Positive urine fenta nyl screening results should be confirmed by another generally accepted non-immunological method such as gas chromatography or mass spectrometry. Urine URINE / Unknown Collection / Unknown 06/19/2024 12:36 PM REPAIR DEPARTMENT SUPERVISOR 06/19/2024 12:39 PM [facility] - 06/19/2024 1:05 PM REPAIR DEPARTMENT SUPERVISOR The Urine Toxicology Screening Panel does not screen for Propoxyphene, Meprobamate, Carisoprodol, Trazodone, [id number]-pzb-wfxepnz medications and/or volatiles (Acetone, Isopropanol, Methanol or Ethylene Glycol). Ethanol, Salicylate, Acetaminophen, Tricyclic Antidepressants and several therapeutic drugs may be individually assayed in serum or plasma specimen. Toxicology testing by the [facility] is an aid to medical diagnosis and treatment of patients. No documented chain of custody was maintained. Results are intended to be used for clinical purposes only. Gordon Ingram MD LAB - URINE CHEMISTR Y ORDERABLES [facility] [address] [place] [address], [facility] [phone] * CT 3D Recon W Independent Wksn (06/19/2024 10:27 AM REPAIR DEPARTMENT SUPERVISOR) Anatomical Region Laterality Modality Computed Tomogra phy 06/19/2024 12:0 2 PM REPAIR DEPARTMENT SUPERVISOR Impressions 06/19/2024 12:17 PM REPAIR DEPARTMENT SUPERVISOR IMPRESSION: Three-dimensional rendering for operative planning. The report was drafted by Álvaro Fernández MD (resident caregiver) 06/19/2024 12:02 PM. Higinio Price MD have personally reviewed and interpreted this examination/study. > Interpreting Provider: Higinio Whittington MD on 06/19/2024 12:17 PM Narrative 06/19/2024 12:17 PM REPAIR DEPARTMENT SUPERVISOR PROCEDURE: CT 3D RECON W INDEPENDENT S, DATE/TIME OF EXAM: 06/19/2024 10:28 AM, LOCATION [facility] INDICATION: S22.43XA: Closed fracture of multiple [...] DATE/TIME OF EXAM: 06/19/2024 10:28 AM, LOCATION [facility] INDICATION: S22.43XA: Closed fracture of multiple [...] report was drafted by Álvaro Fernández MD (resident caregiver) 06/19/2024 12:02 PM. Higinio Price MD have personally reviewed and interpreted this examination/study. > Interpreting Provider: Higinio Whittington MD on 06/19/2024 12:17 PM Gordon Christie Ingram MD CT ORDERABLES * TRANSFUSE PLATELET PHERESIS UNIT(S) (06/19/2024 4:54 AM REPAIR DEPARTMENT SUPERVISOR) Gordon Fernández MD NURSING - BLOOD PROD TRANSFUSION * (ABNORMAL) HGB HCT PANEL (06/19/2024 3:29 AM REPAIR DEPARTMENT SUPERVISOR) Only the most recent of2 resultswithin the time period is included. Pathologist [facility] Hemoglobin 7.9(L) 11.9 - 15.8 g/dL 06/19/2024 3:42 AM [facility] Hematocrit 25.2(L) 34.8 - 46.1 % 06/19/2024 3:42 AM [facility] Blood BLOOD SPECIMEN / Unknown Venipuncture / Unknown 06/19/2024 3:29 AM REPAIR DEPARTMENT SUPERVISOR 06/19/2024 3:39 AM REPAIR DEPARTMENT SUPERVISOR Gordon Ingram MD LAB - HEMATOLOGY ORD ERABLES Performing Organization Address City/[facility]/ZIP Co de Phone Number [address] [address], [facility] [phone] * PTT [facility] (06/18/2024 8:38 PM REPAIR DEPARTMENT SUPERVISOR) Only the most recent of2 resultswithin the time period is included. [facility] APTT 27.5 23.0 - 38.4 Seconds 06/18/2024 9:35 PM [facility] Comment:Suggested therapeuti c range for full dose I.V. unfractionated heparin therapy for venous thromboembolism is 71 to 109 seconds. Blood BLOOD SPECIMEN / Unknown Venipuncture / Unknown 06/18/2024 8:38 PM REPAIR DEPARTMENT SUPERVISOR 06/18/2024 8:44 PM REPAIR DEPARTMENT SUPERVISOR Gordon Ingram MD LAB - COAGULATION OR DERABLES Performing Organization Address City/[facility]/ZIP Co de Phone Number [address] [address], [facility] [phone] * (ABNORMAL) VITAMIN D 25-HYDROXY (06/18/2024 8:38 PM REPAIR DEPARTMENT SUPERVISOR) [facility] Vitamin D, 25 Hydroxy 94.0(H) 30.0 - 80.0 ng/mL 06/19/2024 6:51 AM REPAIR DEPARTMENT SUPERVISOR [facility] Comment: The recommendations for 25-Hydroxy Vitamin [...] Unknown Venipuncture / Unknown 06/18/2024 8:38 PM REPAIR DEPARTMENT SUPERVISOR 06/18/2024 9:09 PM REPAIR DEPARTMENT SUPERVISOR Sulema Whyte PA-C LAB - CHEMISTRY OR DERABLES Performing Organization Address [facility]/ZIP Co de Phone Number [address] [address], [facility] [phone] * LACTIC ACID BLOOD (06/18/2024 8:38 PM REPAIR DEPARTMENT SUPERVISOR) Lactic Acid-Stat 1.4 <=2.0 mmol/L 06/18/2024 9:38 PM REPAIR DEPARTMENT SUPERVISOR [facility] Blood BLOOD SPECIMEN / Unknown Venipuncture / Unknown 06/18/2024 8:38 PM REPAIR DEPARTMENT SUPERVISOR 06/18/2024 9:12 PM REPAIR DEPARTMENT SUPERVISOR Gordon Ingram MD LAB - CHEMISTRY JULIANNE OROZCO Performing Organization Address [facility]/ZIP Co de Phone Number [address] [address], [place] [phone] * CT Ankle Left Wo Contrast (06/18/2024 7:57 PM REPAIR DEPARTMENT SUPERVISOR) Anatomical Region Laterality Modality Lower Extremity Computed Tomogra phy 06/18/2024 8:46 PM REPAIR DEPARTMENT SUPERVISOR Narrative 06/18/2024 9:15 PM REPAIR DEPARTMENT SUPERVISOR PROCEDURE: CT KNEE LEFT WO CONTRAST, [...] present. > Dictated by Dimitris Avila MD (Rotary Veneer Machine Operator) Higinio Price MD have personally reviewed [...] present. > Dictated by Dimitris Avila MD (Rotary Veneer Machine Operator) Higinio Price MD have personally reviewed and interpreted this examination/study. > Interpreting Provider: Higinio Whittington MD on 06/18/2024 9:15 PM Gordon Christie Ingram MD CT ORDERABLES * CT Knee Left Wo Contrast (06/18/2024 7:57 PM REPAIR DEPARTMENT SUPERVISOR) Anatomical Region Laterality Modality Lower Extremity Computed Tomogra phy 06/18/2024 8:46 PM REPAIR DEPARTMENT SUPERVISOR Narrative 06/18/2024 9:15 PM REPAIR DEPARTMENT SUPERVISOR PROCEDURE: CT KNEE LEFT WO CONTRAST, [...] present. > Dictated by Dimitris Avila MD (Rotary Veneer Machine Operator) Higinio Price MD have personally reviewed [...] present. > Dictated by Dimitris Avila MD (Rotary Veneer Machine Operator) IHiginio MD have personally reviewed and interpreted this examination/study. > Interpreting Provider: Higinio Whittington MD on 06/18/2024 9:15 PM Gordon Ingram MD CT ORDERABLES * BLOOD TYPE VERIFICATION (06/18/2024 6:57 PM REPAIR DEPARTMENT SUPERVISOR) ABO Rh O POS 06/18/2024 7:2 6 PM REPAIR DEPARTMENT SUPERVISOR [facility] BLOOD [facility] LAB Blood Bank BLOOD SPECIMEN / Unknown Venipuncture / Unknown 06/18/2024 6:57 PM REPAIR DEPARTMENT SUPERVISOR 06/18/2024 7:05 PM REPAIR DEPARTMENT SUPERVISOR Gordon Ingram MD LAB - BLOOD BANK ORD ERABLES [facility] B[facility]OD [facility] [address] [place] [address], [facility] [phone] * PREPARE PLATELET PHERESIS UNIT(S), 1 Units (06/18/2024 6:45 PM REPAIR DEPARTMENT SUPERVISOR) Unit Description LRPLTphere B7 IR [facility] BLOOD [facility] Unit ABO O [facility]OD [facility] Unit Rh POS [facility]OD [facility] Product Number P31 [facility] B LOOD [facility] LAB Unit Donor # [id number] [facility]OD [facility] Unit Status transfused [facility] BLO OD [facility]ANK LAB Product Code [id number] [facility] BLO OD BANK LAB Blood Type Barcode 5100 [facility] BLOOD [facility] LAB Expiration Date S BLOOD BANK LAB Blood Bank BLOOD SPECIMEN / Unknown 06/18/2024 2:53 PM REPAIR DEPARTMENT SUPERVISOR Gordon Fernández MD LAB - BLOOD BANK ORD ERABLES [facility] BLOOD [facility] LAB [address] [place] [address], [facility] [phone] * XR Wrist Right 3Vw or More (06/18/2024 3:39 PM REPAIR DEPARTMENT SUPERVISOR) Anatomical Region Laterality Modality Wrist / Hand Digital Radiogra phy 06/18/2024 5:17 PM REPAIR DEPARTMENT SUPERVISOR Impressions 06/18/2024 8:04 PM REPAIR DEPARTMENT SUPERVISOR IMPRESSION: No acute fracture or dislocation identified. Report dictated by Vijay Jeong DO (president). IMalcolm MD have personally reviewed and interpreted this examination/study. > Interpreting Provider: Malcolm Marroquin MD on 06/18/2024 8:04 PM Narrative 06/18/2024 8:04 PM REPAIR DEPARTMENT SUPERVISOR PROCEDURE: XR WRIST RIGHT 3VW OR MORE, DATE/TIME OF EXAM: 06/18/2024 3:39 PM, LOCATION [facility] INDICATION: T14.90XA: Trauma ADDITIONAL CLINICAL INFORMATION: [...] MORE, DATE/TIME OF EXAM: 53:39 PM, LOCATION [facility] INDICATION: T14.90XA: Trauma ADDITIONAL CLINICAL INFORMATION: [...] identified. Report dictated by Vijay Jeong DO (president). Malcolm Price MD have personally reviewed and interpreted this examination/study. > Interpreting Provider: Malcolm Marroquin MD on 06/18/2024 8:04 PM Gordon Ingram MD DIAGNOSTIC IMAGING O RDERABLES * XR Tibia Fibula Left 2Vw (06/18/2024 3:39 PM REPAIR DEPARTMENT SUPERVISOR) Anatomical Region Laterality Modality Lower Extremity Digital Radiogra phy 06/18/2024 5:13 PM REPAIR DEPARTMENT SUPERVISOR Impressions 06/18/2024 5:22 PM REPAIR DEPARTMENT SUPERVISOR IMPRESSION: Quadrimalleolar fracture. Report dictated by Vijay Jeong DO (president). Malcolm rPice MD have personally reviewed and interpreted this examination/study. > Interpreting Provider: Malcolm Marroquin MD on 06/18/2024 5:22 PM Narrative 06/18/2024 5:22 PM REPAIR DEPARTMENT SUPERVISOR PROCEDURE: XR TIBIA FIBULA LEFT 2VW, DATE/TIME OF EXAM: 06/18/2024 3:39 PM, LOCATION [facility] INDICATION: T14.90XA: Trauma COMPARISON: None. FINDINGS: Quadrimalleolar fracture. Bone density and texture are normal. Soft tissue swelling is present. Procedure Note Malcolm Marroquin MD - 06/18/2024 PROCEDURE: XR TIBIA FIBULA LEFT 2VW, DATE/TIME OF EXAM: 06/18/2024 3:39PM, LOCATION [facility] INDICATION: T14.90XA: Trauma COMPARISON: None. FINDINGS: Quadrimalleolar fracture. Bone density and texture are normal. Softtissue swelling is present. IMPRESSION: Quadrimalleolar fracture. Report dictated by Vijay Jeong DO (president). Malcolm Price MD have personally reviewed and interpreted this examination/study. > Interpreting Provider: Malcolm Marroquin MD on 06/18/2024 5:22 PM Gordon Ingram MD DIAGNOSTIC IMAGING O RDERABLES * XR Hand Right 3Vw or More (06/18/2024 3:39 PM REPAIR DEPARTMENT SUPERVISOR) Anatomical Region Laterality Modality Wrist / Hand Digital Radiogra phy 06/18/2024 5:17 PM REPAIR DEPARTMENT SUPERVISOR Impressions 06/18/2024 8:05 PM REPAIR DEPARTMENT SUPERVISOR IMPRESSION: No acute fracture or dislocation identified. Report dictated by Vijay Jeong DO (president). Malcolm Price MD have personally reviewed and interpreted this examination/study. > Interpreting Provider: Malcolm Marroquin MD on 06/18/2024 8:05 PM Narrative 06/18/2024 8:05 PM REPAIR DEPARTMENT SUPERVISOR PROCEDURE: XR HAND RIGHT 3VW OR MORE, DATE/TIME OF EXAM: 06/18/2024 3:39 PM, LOCATION [facility] INDICATION: T14.90XA: Trauma COMPARISON: None. FINDINGS: [...] DATE/TIME OF EXAM: 06/18/2024 3:39 PM, LOCATION [facility] INDICATION: T14.90XA: Trauma COMPARISON: None. FINDINGS: [...] identified. Report dictated by Vijay Jeong DO (president). Malcolm Price MD have personally reviewed and interpreted this examination/study. > Interpreting Provider: Malcolm Marroquin MD on 06/18/2024 8:05 PM Gordon Christie Ingram MD DIAGNOSTIC IMAGING O RDERABLES * XR Hand Left 3Vw or More (06/18/2024 3:39 PM REPAIR DEPARTMENT SUPERVISOR) Anatomical Region Laterality Modality Wrist / Hand Digital Radiogra phy 06/18/2024 5:16 PM REPAIR DEPARTMENT SUPERVISOR Impressions 06/18/2024 8:03 PM REPAIR DEPARTMENT SUPERVISOR IMPRESSION: No acute fracture or dislocation identified. Report dictated by Vijay Jeong DO (president). Malcolm Price MD have personally reviewed and interpreted this examination/study. > Interpreting Provider: Malcolm Marroquin MD on 06/18/2024 8:03 PM Narrative 06/18/2024 8:03 PM REPAIR DEPARTMENT SUPERVISOR PROCEDURE: XR HAND LEFT 3VW OR MORE, DATE/TIME OF EXAM: 06/18/2024 3:39 PM, LOCATION [facility] INDICATION: T14.90XA: Trauma COMPARISON: None. FINDINGS: [...] MORE, DATE/TIME OF EXAM: 06/18/2024 3:39PM, LOCATION [facility] INDICATION: T14.90XA: Trauma COMPARISON: None. FINDINGS: The osseous structures are intact and well aligned without acutefracture or dislocation. The joint spaces are preserved. The bones are diffusely demineralized. No soft tissue swelling is present. Degenerative changesof the fifth distal interphalangeal and first carpometacarpal joints. IMPRESSION: No acute fracture or dislocation identified. Report dictated by Vijay Jeong DO (president). Malcolm Price MD have personally reviewed and interpreted this examination/study. > Interpreting Provider: Malcolm Marroquin MD on 06/18/2024 8:03 PM Gordon Ingram MD DIAGNOSTIC IMAGING O RDERABLES * CT LUMBAR SPINE WO CONTRAST - T/L-spine trauma, Spine fracture (06/18/2024 3:21 PM REPAIR DEPARTMENT SUPERVISOR) Anatomical Region Laterality Modality Spine Computed Tomogra phy 06/18/2024 3:49 PM REPAIR DEPARTMENT SUPERVISOR Impressions 06/18/2024 5:25 PM REPAIR DEPARTMENT SUPERVISOR IMPRESSION: 1.No evidence of acute fracture in the cervical, thoracic, or lumbar spine. 2.Please refer to the concurrent, dedicated body report for findings in the chest, abdomen, and pelvis. > Dictated by Vijay Jeong DO (Rotary Veneer Machine Operator), 06/18/2024 3:49 PM. Glenny Price MD have personally reviewed and interpreted this examination/study. > Interpreting Provider: Glenny Ragsdale MD on 06/18/2024 5:25 PM Narrative 06/18/2024 5:25 PM REPAIR DEPARTMENT SUPERVISOR PROCEDURE: CT CERVICAL SPINE WO CONTRAST, CT LUMBAR SPINE WO CONTRAST, CT THORACIC SPINE WO CONTRAST, DATE/TIME OF EXAM: 06/18/2024 3:23 PM, LOCATION [facility] INDICATION: Trauma EXAMINATION: 1.CT of the [...] DATE/TIME OF EXAM: 06/18/2024 3:23 PM, LOCATION [facility] INDICATION: Trauma EXAMINATION: 1.CT of the [...] pelvis. > Dictated by Vijay Jeong DO (Rotary Veneer Machine Operator), 06/18/2024 3:49 PM. Glenny Price MD have personally reviewed and interpretedthis examination/study. > Interpreting Provider: Glenny Ragsdale MD on 06/18/2024 5:25 PM Gordon Ingram MD CT ORDERABLES * CT THORACIC SPINE WO CONTRAST - T/L-spine trauma, spine fracture (06/18/2024 3:21 PM REPAIR DEPARTMENT SUPERVISOR) Anatomical Region Laterality Modality Spine Computed Tomogra phy 06/18/2024 3:49 PM REPAIR DEPARTMENT SUPERVISOR Impressions 06/18/2024 5:25 PM REPAIR DEPARTMENT SUPERVISOR IMPRESSION: 1.No evidence of acute fracture in the cervical, thoracic, or lumbar spine. 2.Please refer to the concurrent, dedicated body report for findings in the chest, abdomen, and pelvis. > Dictated by Vijay Jeong DO (Rotary Veneer Machine Operator), 06/18/2024 3:49 PM. Glenny Price MD have personally reviewed and interpreted this examination/study. > Interpreting Provider: Glenny Ragsdale MD on 06/18/2024 5:25 PM Narrative 06/18/2024 5:25 PM REPAIR DEPARTMENT SUPERVISOR PROCEDURE: CT CERVICAL SPINE WO CONTRAST, CT LUMBAR SPINE WO CONTRAST, CT THORACIC SPINE WO CONTRAST, DATE/TIME OF EXAM: 06/18/2024 3:23 PM, LOCATION [facility] INDICATION: Trauma EXAMINATION: 1.CT of the [...] DATE/TIME OF EXAM: 06/18/2024 3:23 PM, LOCATION [facility] INDICATION: Trauma EXAMINATION: 1.CT of the [...] chest, abdomen, and pelvis. > Dictated by Vijya Jeong DO (Rotary Veneer Machine Operator), 06/18/2024 3:49 PM. Glenny Price MD have personally reviewed and interpretedthis examination/study. > Interpreting Provider: Glenny Ragsdale MD on 06/18/2024 5:25 PM Gordon Ingram MD CT ORDERABLES * CT CERVICAL SPINE WO CONTRAST - C-Spine Trauma, Spine fracture (06/18/2024 3:21 PM REPAIR DEPARTMENT SUPERVISOR) Anatomical Region Laterality Modality Spine Computed Tomogra phy 06/18/2024 3:49 PM REPAIR DEPARTMENT SUPERVISOR Impressions 06/18/2024 5:25 PM REPAIR DEPARTMENT SUPERVISOR IMPRESSION: 1.No evidence of acute fracture in the cervical, thoracic, or lumbar spine. 2.Please refer to the concurrent, dedicated body report for findings in the chest, abdomen, and pelvis. > Dictated by Vijay Jeong DO (Rotary Veneer Machine Operator), 06/18/2024 3:49 PM. IGlenny MD have personally reviewed and interpreted this examination/study. > Interpreting Provider: Glenny Ragsdale MD on 06/18/2024 5:25 PM Narrative 06/18/2024 5:25 PM REPAIR DEPARTMENT SUPERVISOR PROCEDURE: CT CERVICAL SPINE WO CONTRAST, CT LUMBAR SPINE WO CONTRAST, CT THORACIC SPINE WO CONTRAST, DATE/TIME OF EXAM: 06/18/2024 3:23 PM, LOCATION [facility] INDICATION: Trauma EXAMINATION: 1.CT of the [...] DATE/TIME OF EXAM: 06/18/2024 3:23 PM, LOCATION [facility] INDICATION: Trauma EXAMINATION: 1.CT of the [...] pelvis. > Dictated by Vijay Jeong DO (Rotary Veneer Machine Operator), 06/18/2024 3:49 PM. Glenny Price MD have personally reviewed and interpretedthis examination/study. > Interpreting Provider: Glenny Ragsdale MD on 06/18/2024 5:25 PM Gordon Ingram MD CT ORDERABLES * CT HEAD WO CONTRAST - Head Trauma, CSF leak, mental status changes (06/18/2024 3:21 PM REPAIR DEPARTMENT SUPERVISOR) Anatomical Region Laterality Modality Head Computed Tomogra phy 06/18/2024 3:01 PM REPAIR DEPARTMENT SUPERVISOR Impressions 06/18/2024 3:03 PM REPAIR DEPARTMENT SUPERVISOR IMPRESSION: 1. No acute intracranial process. 2. 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 > Interpreting Provider: Karin Velasco MD on 06/18/2024 3:03 PM Narrative 06/18/2024 3:03 PM REPAIR DEPARTMENT SUPERVISOR PROCEDURE: CT HEAD WO CONTRAST, DATE/TIME OF EXAM: 06/18/2024 2:46 PM, LOCATION [facility] INDICATION: Trauma ADDITIONAL CLINICAL INFORMATION: Ordering [...] DATE/TIME OF EXAM: 06/18/2024 2:46 PM, LOCATION [facility] INDICATION: Trauma ADDITIONAL CLINICAL INFORMATION: Ordering [...] * TROPONIN-I HIGH SENSITIVE (06/18/2024 2:44 PM REPAIR DEPARTMENT SUPERVISOR) Pathologist [facility] Troponin I High Sensitive 4 <=14 ng/L 06/18/2024 3:19 PM REPAIR DEPARTMENT SUPERVISOR [facility] Blood BLOOD SPECIMEN / Unknown Venipuncture / Unknown 06/18/2024 2:44 PM REPAIR DEPARTMENT SUPERVISOR 06/18/2024 2:48 PM REPAIR DEPARTMENT SUPERVISOR Gordon Ingram MD LAB - CHEMISTRY ORDE [facility] Organization Address City/State/ZIP Co de Phone Number [facility] [address] [place] [phone], [facility] [phone] * (ABNORMAL) TEG 6 GLOBAL HEMOSTASIS W/ LYSIS (06/18/2024 2:44 PM REPAIR DEPARTMENT SUPERVISOR) Pathologist [facility] Citrated Kaolin R (Reaction Time) 4.3(L) 4.6 - 9.1 min 06/18/2024 3:54 PM REPAIR DEPARTMENT SUPERVISOR [facility] Comment:CK R result below no rmal range. Consistent with hypercoagulable clotting factors. Citrated Kaolin LY30 (Lysis) 0.1 0.0 - 2.6 % 06/18/2024 3:54 PM REPAIR DEPARTMENT SUPERVISOR [facility] Citrated Functional Fibrinogen MA (Max Amplitude) 19.3 15.0 - 32.0 mm 06/18/2024 3:54 PM [facility] Citrated RapidTEG MA (Max Amplitude) 62.8 52.0 - 70.0 mm 06/18/2024 3:54 PM [facility] Blood BLOOD SPECIMEN / Unknown Venipuncture / Unknown 06/18/2024 2:44 PM REPAIR DEPARTMENT SUPERVISOR 06/18/2024 2:52 PM REPAIR DEPARTMENT SUPERVISOR Gordon Ingram MD LAB - HEMATOLOGY ORD ERABLES [facility] [address] [place] [address], [facility] [phone] * (ABNORMAL) TEG 6S PLATELET MAPPING (06/18/2024 2:44 PM REPAIR DEPARTMENT SUPERVISOR) TEGPLM (Max Amplitude) Koalin 64.2 53.0 - 68.0 mm 06/18/2024 4:03 PM [facility] TEGPLM (Max Amplitude) ACTF 10.1 2.0 - 19.0 mm 06/18/2024 4:03 PM [facility] TEGPLM (Max Amplitude) ADP 48.6 45.0 - 69.0 mm 06/18/2024 4:03 PM [facility] TEGPLM (Max Amplitude) AA 18.0(L) 51.0 - 71.0 mm 06/18/2024 4:03 PM [facility] Comment:AA MA below normal r dov. Inhibition present. TEGPLM %Inhibition ADP 28.8(H) 0.0 - 17.0 % 06/18/2024 4:03 PM [facility] TEGPLM %Inhibition AA 85.4(H) 0.0 - 11.0 % 06/18/2024 4:03 PM [facility] TEGPLM %Aggregation ADP 71.2(L) 83.0 - 100.0 % 06/18/2024 4:03 PM [facility] TEGPLM % Aggregation AA 14.6(L) 89.0 - 100.0 % 06/18/2024 4:03 PM [facility] Blood BLOOD SPECIMEN / Unknown Venipuncture / Unknown 06/18/2024 2:44 PM REPAIR DEPARTMENT SUPERVISOR 06/18/2024 2:52 PM REPAIR DEPARTMENT SUPERVISOR Gordon Ingram MD LAB - HEMATOLOGY ORD ERABLES Performing Organization Address City/[facility]/ZIP Co de Phone Number [address] [address], [facility] [phone] * TYPE + SCREEN PANEL (06/18/2024 2:44 PM REPAIR DEPARTMENT SUPERVISOR) Antibody Screen NEG 3:33 PM REPAIR DEPARTMENT SUPERVISOR [facility] BLOOD BANK LAB ABO Rh O POS 06/18/2024 3:33 PM REPAIR DEPARTMENT SUPERVISOR [facility] BLOOD [facility] LAB Blood Bank BLOOD SPECIMEN / Unknown Venipuncture / Unknown 06/18/2024 2:44 PM REPAIR DEPARTMENT SUPERVISOR 06/18/2024 2:53 PM REPAIR DEPARTMENT SUPERVISOR Gordon Ingram MD LAB - BLOOD BANK ORD WELLSBLES Performing Organization Address [facility] de Phone Number [facility] BLOOD BANK LAB [address] [place] [address], [facility] [phone] * ALCOHOL ETHYL BLOOD (06/18/2024 2:44 PM REPAIR DEPARTMENT SUPERVISOR) Ethanol (mg/dL) <10 <10 mg/dL 3:15 PM [facility] Ethanol Calculated (g/dL) <0.010 <=0.010 g/dL 06/18/2024 3:15 PM [facility] Blood BLOOD SPECIMEN / Unknown Venipuncture / Unknown 06/18/2024 2:44 PM REPAIR DEPARTMENT SUPERVISOR 06/18/2024 2:48 PM REPAIR DEPARTMENT SUPERVISOR Narrative [facility] - 06/18/2024 3:15 PM REPAIR DEPARTMENT SUPERVISOR Ethanol Interp <10: None Detected. Depression of HOT BLASTER: >100 mg/dl Potentially Critical: >250 mg/dl Potentially [...] Ingram MD LAB - CHEMISTRY JULIANNE OROZCO [facility] [address] [place] [phone], [facility] [phone] * XR PELVIS 1 OR 2VW (06/18/2024 2:43 PM REPAIR DEPARTMENT SUPERVISOR) Anatomical Region Laterality Modality Pelvis Digital Radiogra phy 06/18/2024 5:02 PM REPAIR DEPARTMENT SUPERVISOR Impressions 06/18/2024 5:20 PM REPAIR DEPARTMENT SUPERVISOR IMPRESSION: No acute fracture identified. Report dictated by Vijay Jeong DO (president). Malcolm Price MD have personally reviewed and interpreted this examination/study. > Interpreting Provider: Malcolm Marroquin MD on 06/18/2024 5:20 PM Narrative 06/18/2024 5:20 PM REPAIR DEPARTMENT SUPERVISOR PROCEDURE: XR PELVIS 1 OR 2VW, DATE/TIME OF EXAM: 06/18/2024 2:44 PM, LOCATION [facility] INDICATION: Trauma Fracture suspected COMPARISON: None. FINDINGS: No acute fracture is identified. The femoral heads appear well-seated within their respective acetabula. The pubic symphysis is intact. Bone density and texture are normal. The sacroiliac joints are normal. Procedure Note Malcolm Marroquin MD - 06/18/2024 PROCEDURE: XR PELVIS 1 OR 2VW, DATE/TIME OF EXAM: 06/18/2024 2:44 PM, LOCATION [facility] INDICATION: Trauma Fracture suspected COMPARISON: None. FINDINGS: No acute fracture is identified. The femoral heads appear well-seated within their respective acetabula. The pubic symphysis is intact. Bone density and texture are normal. The sacroiliac joints are normal. IMPRESSION: No acute fracture identified. Report dictated by Vijay Jeong DO (president). Malcolm Price MD have personally reviewed and interpreted this examination/study. > Interpreting Provider: Malcolm Marroquin MD on 06/18/2024 5:20 PM Gordon Ingram MD DIAGNOSTIC IMAGING O RDERABLES * XR Knee Left 2Vw or Less (06/18/2024 2:43 PM REPAIR DEPARTMENT SUPERVISOR) Anatomical Region Laterality Modality Lower Extremity Digital Radiogra phy 06/18/2024 5:03 PM REPAIR DEPARTMENT SUPERVISOR Impressions 06/18/2024 7:59 PM REPAIR DEPARTMENT SUPERVISOR Impression: Likely chronic osseous fragment adjacent [...] knee. Report dictated by Vijay Jeong DO (president). Malcolm Price MD have personally reviewed and interpreted this examination/study. > Interpreting Provider: Malcolm Marroquin MD on 06/18/2024 7:59 PM Narrative 06/18/2024 7:59 PM REPAIR DEPARTMENT SUPERVISOR PROCEDURE: XR KNEE LEFT 2VW OR LESS, DATE/TIME OF EXAM: 06/18/2024 2:43 PM, LOCATION [facility] INDICATION: T14.90XA: Trauma COMPARISON: None. Procedure Note Malcolm Marrqouin MD - 06/18/2024 PROCEDURE: XR KNEE LEFT 2VW OR LESS, DATE/TIME OF EXAM: 06/18/2024 2:43PM, LOCATION [facility] INDICATION: T14.90XA: Trauma COMPARISON: None. Impression: [...] knee. Report dictated by Vijay Jeong DO (president). Malcolm Price MD have personally reviewed and interpreted this examination/study. > Interpreting Provider: Malcolm Marroquin MD on 06/18/2024 7:59 PM Gordno Ingram MD DIAGNOSTIC IMAGING O JACEKBLES
--- OUTSIDE RECORDS SUMMARY | 2024-07-25 17:27 | XMS_ITS | Encounter Summary ---
Author Organization [facility] Health Address [facility] [place] [address] Care Team Providers Care X Ray Tech Name Role Phone Unavailable Primary Care Provider [...] care, and heating? Not very hard 06/18/2024 [facility] Coker of Occupat ional Health - Occupational Stress [...] any time in the past 12 m [facility], were you homeless or living in a [...] Office Visit [facility] [address] [place] [address], [place] [address] Mikey Cortez DO [address] [place] [address] [place] [address] documented as of this encounter Goals Goal [...]
--- OUTSIDE RECORDS SUMMARY | 2024-07-25 17:27 | XMS_ITS | Continuity of Care Document ---
Author Organization [facility] Address [address] [facility] [address] [place] [address] Phone Care Team Providers Care On Air Personality Name Role Phone Catracho Bojorquez MD Unavailable [...] Copied on Encounter Office/outpa tient Visit, [facility], [address] [place] [address] [address], [place], [place], [id number], [place] [phone] [place] Professional yag pc ou evaluation (chief complaint) Presence of intraocular lensOther secondary cataract, right eyeMacular hole of left eye 1 [place]. [address] [facility], [facility] A, [place], [place], [id number], [place]. tel:[phone] Sal Bliss MD.Referring Provider: Ashley Turcios, [address], [address]. tel:[phone] [facility], [address] [place] [address] [address], [place], [place], [id number], [place] tel:[phone] SEC Radha Bruno No Information 1 [place]. [address] [facility] [address], [place], [place], [id number], [place]. tel:[phone] Specialist: Sal Bliss MD, [address] [facility] [address], [place], [address]. tel:[phone] Provider: Ashley Turcios, [facility] [address], [address]. tel:[phone] Family History Family Member Type Diagnosis Age At Onset No Information Payers Payer name Insurance type Covered constitution party ID Authoriza tion(s) [place] [id number] [facility] [id number] Social History Type Description Quantity Date Captured [...]
--- OUTSIDE RECORDS SUMMARY | 2024-07-25 17:27 | XMS_ITS | Encounter Summary ---
Author Organization [facility] Address [facility] [place] [address] Care Team Providers Care Director Of Revenue Cycle Management Name Role Phone Mo Moy MD Primary Care Provider [phone] Sal Bliss MD Unavailable [phone] Angel Lopez MD Unavailable Encounter Details Date Type Department Care Team (Late st Contact Info) Description 01/26/2019 Abstract [facility] at [address] [address] Faizan Pereira MA Social History Tobacco Use Types Packs/Day Years Used Date Smoking Tobacco: Former Cigarettes 0.5 35 1 965 - 2000 Smokeless Tobacco: Never Comments:distant past Alcohol Use Standard Drinks/Week Comments No 0 (1 standard drink = 0.6 oz pur e alcohol) Comments No Sex and Gender Information Value Date Recorded Sex Assigned at Female 05/30/2024 12:35 PM NECK BAND SETTER Legal Sex Female 6:49 PM CDT Gender Identity Not on file Sexual Orientation Not on file Occupation Industry Job Start Date Job End Date Not on file Not on file Not on file Not on file documented as of this encounter Plan of Treatment Upcoming Encounters Date Type Department Care Team (Late st Contact Info) Description 10/26/2024 11:00 AM CDT Office Visit [facility] Multispecialty [facility] - [address] [place] [address] Jacob Landry MD [address] [place] [address] [place] [id number] documented as of this encounter Procedures Procedure [...] Rule Out 07/07/2021 07/07/2021 07/08/2021 7:49 PM NECK BAND SETTER COVID-19 Rule Out 09/27/2021 09/27/2021 09/28/2021 10:26 AM CDT COVID-19 Rule Out 07/01/2023 07/01/2023 07/01/2023 3:40 PM NECK BAND SETTER COVID-19 Rule Out 11/03/2023 11/03/2023 11/03/2023 1:01 AM CDT documented as of this encounter Care Teams Director Of Revenue Cycle Management Relationship Specialty Start Date End Date Mo Moy MD [address] [place] [id number] PCP - General FAMILY PRACTICE 11/26/17 Sal Bliss MD [address] Supervisor CARDIOVASCULAR DISEASE 12/10/17 Angel Lopez MD [facility]. [facility] [address] [place] [address] Super[address] CLINICAL CARDIAC ELECTROPHYSIOLOGY 01/15/18 documented as of this encounter
--- OUTSIDE RECORDS SUMMARY | 2024-07-25 17:28 | XMS_ITS | Encounter Summary ---
Author Organization [facility] Address [facility] [place] [address] Care Team Providers Care Accounts Specialist Name Role Phone Mo Moy MD Primary Care Provider [phone] Sal Bliss MD Unavailable [phone] Angel Lopez MD Unavailable Encounter Details Date Type Department Care Team (Late st Contact Info) Description 03/14/2018 Abstract [facility] at [address] [address] Faizan Pereira MA Social History Tobacco Use Types Packs/Day Years Used Date Smoking Tobacco: Former Cigarettes 0.5 35 1 965 - 2000 Smokeless Tobacco: Never Comments:distant past Alcohol Use Standard Drinks/Week Comments No 0 (1 standard drink = 0.6 oz pur e alcohol) Comments No Sex and Gender Information Value Date Recorded Sex Assigned at Female 05/30/2024 12:35 PM MAINTENANCE WELDER Legal Sex Female 6:49 PM CDT Gender [...] Description 10/26/2024 11:00 AM CDT Office Visit [facility] Medical Group Multispecialty Care - [facility] [address] [facility] [address] [place] [address] Jacob Landry MD [address] [facility] [address] [place] [address] documented as of this encounter Procedures Procedure [...] Rule Out 07/07/2021 07/07/2021 07/08/2021 7:49 PM MAINTENANCE WELDER COVID-19 Rule Out 09/27/2021 09/27/2021 09/28/2021 10:26 AM CDT COVID-19 Rule Out 07/01/2023 07/01/2023 07/01/2023 3:40 PM MAINTENANCE WELDER COVID-19 Rule Out 11/03/2023 11/03/2023 11/03/2023 1:01 AM CDT documented as of this encounter Care Teams Accounts Specialist Relationship Specialty Start Date End Date Mo Moy MD [address] [place] [address] PCP - General FAMILY PRACTICE 11/26/17 Sal Bliss MD [address] [facility] [address] [place] [address] [place] Printing Machine Operator CARDIOVASCULAR DISEASE 12/10/17 Angel Lopez MD [address] [facility] [address] [place], [place] [id number] EP Printing Machine Operator CLINICAL CARDIAC ELECTROPHYSIOLOGY 01/15/18 documented as of this encounter
--- OUTSIDE RECORDS SUMMARY | 2024-07-25 17:28 | XMS_ITS | Clinical Summary ---
Author Organization [facility] Address [facility] [place] [address] Care Team Providers Care Manager Fitness Name Role Phone Mo Moy MD Primary Care Provider [phone] Sal Bliss MD Unavailable [phone] Angel Lopez MD Unavailable Allergies Active Allergy [...] obstructive pulmonar y disease, unspecified COPD type ([facility]) 05/05/2021 Gastroesophageal reflux dise ase, unspecified whether esophagitis present 05/05/2021 Cigarette nicotine dependence in remission 05/05 Abnormal finding on lung imaging 05/05/2021 Multiple lung nodules 05/05/2021 Coronary artery disease due to calcified coronar y lesion 05/30/2018 Dyslipidemia 05/30/2018 Essential hypertension 03/07/2018 Abnormal stress test 03/07/2018 S/P ablation of atrial fibrillation 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 0 12/29/2017 CHF (congestive heart failure) ([facility]) Paroxysmal atrial fibrillation ([facility]) Encounters Date Type Department Care Team Description 05/30/2024 12:40 PM CAT SITTER - 05/30/2024 11:59 PM [facility] Hospital Encounter [facility] [address] [place] [address] Nathan Scanlon MD Discharge Disposition: Home or Self Care (Routine Discharge) 05/30/2024 Travel 04/26/2024 3:27 PM CAT SITTER - 04/26/2024 11:59 PM [facility] Hospital Encounter [facility] [address] [place] [address] Nathan Scanlon MD Discharge Disposition: Home or [...] drink = 0.6 oz pur e alcohol) [facility] Utilities Answer Date Recorded In the past 12 months has e [employer], gas, oil, or water [employer] threatened to shut off services in your [...] place to sleep or slept in a snf (including now)? No 07/01/2023 Comments No Sex and Gender Information Value Date Recorded Sex Assigned at Female 05/30/2024 12:35 PM CAT SITTER Legal Sex Female 6:49 PM CDT Gender [...] Description 10/26/2024 11:00 AM CDT Office Visit [facility] Care - [facility] [address] [place] [id number] Jacob Landry MD [address] [facility] [place] [address] Health Maintenance Due Date Last Done Comments [...] 01/15, 04/27/2018, Additional history exists PHQ-2 ([facility]) 10/27/2023 10/26/2022 COVID-19 Vaccine ( season) 2024 Influenza Adult (#1) 2024 PHQ-2 ([facility] [employer] [place]) 05/17/2024 10/26/2022 Meningococcal B Vaccine Aged Out [...] PROTHROMBIN TIME, VENOUS Routine 05/30/2024 12:58 PM CAT SITTER Atrial flutter ([facility]) PROTHROMBIN TIME, FINGERSTICK Routine 04/26/2024 3:44 PM CAT SITTER Atrial flutter ([facility]) LIPID PANEL Routine 07/24/2020 8:19 AM CAT SITTER Coronary artery disease due to calcified coronary lesion from Last 3 Months or Most Recently Relevant to Health Maintenance Results * (ABNORMAL) PROTIME/INR, VENOUS (05/30/2024 12:58 PM CAT SITTER) PROTIME 43.9(H) 9.1 - 12.4 SEC 05/30/2024 1:07 PM CAT SITTER [facility] INR 4.0 05/30/2024 1:07 PM CAT SITTER [facility] Comment: Recommend INR ranges for Oral Anticoagulant Therapy: Mechanical Cardiac Values 2.5-3.5 All others indication 2.0-3.0 05/30/2024 12:5 8 PM CAT SITTER us Nathan Scanlon MD LABORATORY Final Result Performing Organization Address [facility]/ZIP Co de Phone Number [facility] [address] [place] [address], [place] [phone] * PROTIME/INR, FINGERSTICK (04/26/2024 3:44 PM CAT SITTER) INR WHOLE BLOOD 2.5 3:47 PM CAT SITTER [facility] Comment: Recommend INR ranges for Oral Anticoagulant Therapy: Mechanical Cardiac Values 2.5-3.5 All others indication 2.0-3.0 04/26/2024 3:44 PM CAT SITTER us Nathan Scanlon MD LABORATORY Final Result Performing Organization Address [facility] Co de Phone Number [facility] [address] [place] [address], [place] [phone] * (ABNORMAL) LIPID PANEL (07/24/2020 8:19 AM CAT SITTER) CHOLESTEROL 244(H) <200.0 MG/DL 07/24/2020 9:02 AM [facility] TRIGLYCERIDES 131 <150 MG/DL 07/24/2020 9:02 AM [facility] HDL 77 >40.0 MG/DL 07/24/2020 9:02 AM [facility] LDL (CALCULATED) 141(H) <100 MG/DL 07/24/2020 9:02 AM [facility] NON HDL CHOLESTEROL 167(H) <130 MG/DL 07/24/2020 9:02 AM [facility] CHOL/HDL RATIO 3.2 0.0 - 4.5 07/24/2020 9:02 AM [facility] VLDL CALCULATION 26 5 - 55 MG/DL 07/24/2020 9:02 AM [facility] LIPID INTERPRETATION 07/24/2020 9:02 AM [facility] Comment: NIH CONCENSUS REPORT RECOMMENDATIONS: ADULT CHILD LOW RISK: CHOLESTEROL <200 <170 TRIGLYCERIDE <150 --- HDL >=60 --- LDL <100 <110 BORDERLINE: CHOLESTEROL 200-239 170-199 TRIGLYCERIDE 150-199 --- HDL 40-59 --- LDL 100-159 110-129 HIGH RISK: CHOLESTEROL >=240 >=200 TRIGLYCERIDE >=200 --- HDL <40 --- LDL >=160 >=130 07/24/2020 8:19 AM CAT SITTER [facility] Final Result [facility] [address] [place] [address], from Last 3 Months or Most Recently Relevant to Health Maintenance Insurance MEDICARE MEDICARE [facility] Advance Directives Documents on File Type Date Recorded Patient Maintenance Planning Clerk Expl anation Advance Directives and Living Will 02/25/2018 2:15 PM signed 02-11-17 * Full Code (Latest Code Status on File) Date Activated Date Inactivated Comments 07/01/2023 3:27 PM 07/03/2023 1:33 PM * Full Code Date Activated Date Inactivated Comments 07/10/2021 11:30 AM 07/10/2021 6:48 PM * Full Code Date Activated Date Inactivated Comments 02/24/2018 12:03 PM 02/25/2018 3:47 PM Care Teams Manager Fitness Relationship Specialty Start Date End Date Mo Moy MD [address] [place] [id number] PCP - General FAMILY PRACTICE 11/26/17 Sal Bliss MD [address] [address] [place] Life Skills Trainer CARDIOVASCULAR DISEASE 12/10/17 Angel Lopez MD [address] [address] [place] Life Skills Trainer CLINICAL CARDIAC ELECTROPHYSIOLOGY 01/15/18
--- OUTSIDE RECORDS SUMMARY | 2024-07-25 17:28 | XMS_ITS | Encounter Summary ---
Author Organization [facility] Address [facility] [place] [address] Care Team Providers Care Cdl Dedicated Truck Driver Name Role Phone Mo Moy MD Primary Care Provider [phone] Sal Bliss MD Unavailable [phone] Angel Lopez MD Unavailable Encounter Details Date Type Department Care Team (Late st Contact Info) Description 07/05/2023 Hospital Follow-up Call [facility] [address] [place] [address] Chrissy Chaney RN Social History Tobacco Use Types Packs/Day Years Used Date Smoking Tobacco: Former Cigarettes 1 35 1 965 - 2000 Smokeless Tobacco: Never Comments:distant past Alcohol Use Standard Drinks/Week Comments No 0 (1 standard drink = 0.6 oz pur e alcohol) [facility] Utilities Answer Date Recorded In the past 12 months has e [employer], gas, oil, or water [employer] threatened to shut off services in your [...] place to sleep or slept in a intermediate (including now)? No 07/01/2023 Comments No Sex and Gender Information Value Date Recorded Sex Assigned at Female 05/30/2024 12:35 PM MOLDING ENGINEER Legal Sex Female 6:49 PM CDT [...] Assessment Author Status No 07/03/2023 10:20 AM MOLDING ENGINEER Maddi Bryant R N Active * Are [...] Description 10/26/2024 11:00 AM CDT Office Visit [facility] Multispecialty Care - [address], [address] [place] [address] Jacob Landry MD [address] [place] [address] [place] [phone] documented as of this encounter Visit Diagnoses Not on filedocumented in this encounter Additional Health Concerns Infection Onset Date Last Indicated Resolved Time COVID-19 Rule Out 11/03/2023 11/03/2023 11/03/2023 1:01 AM CDT Assessment Noted Time PHQ-9 Depression Total Score: 0 05/05/20 21 1:33 PM MOLDING ENGINEER documented as of this encounter Care Teams Cdl Dedicated Truck Driver Relationship Specialty Start Date End Date Mo Moy MD [address] [place] [address] PCP - General FAMILY PRACTICE 11/26/17 Sal Bliss MD [address] [place] [address] [place] Dairy Equipment Mechanic CARDIOVASCULAR DISEASE 12/10/17 Angel Lopez MD [address] [place] [address] EP Dairy Equipment Mechanic CLINICAL CARDIAC ELECTROPHYSIOLOGY 01/15/18 documented as of this encounter
[2024-07-25 18:58] LABS: Add Urine Microscopic? YES; Appearance Urine Clear (Clear); Bacteria Urine 4+ /hpf; Bilirubin Urine Negative (Negative); Blood Urine Trace (Negative); Color Urine Yellow (Yellow); Glucose Urine UA Negative (Negative); Hyaline Casts Urine Present /lpf; Ketones Urine Negative (Negative); Leukocyte Esterase Ur 3+ LEU/UL (Negative); Need Manual Microscopic Reviewed; Nitrate Urine Positive (Negative); Protein Urine Negative (Negative); RBC Urine 0-2 /hpf (0-2); Specific Grav Ur 1.006 (1.001-1.035); Squamous Epithelial Cell Urine None Seen /hpf (Few); Urobilinogen Urine 0.2 mg/dL (<2.0); WBC Urine 51-100 /hpf (0-3); pH Urine 6.5 (5.0-9.0)
[2024-07-25] MEDS: SODIUM CHLORIDE 0.9% IV 1,000 ML 999 ML IV CONT (19:02)
[2024-07-25] MEDS: MEROPENEM 1 GM/NS 100 ML 1 GM/100 ML BAG IVPB (19:28)
--- NOTE | 2024-07-25 19:35 | PC.NURSE ---
ABX started at this time. Pt and daughter educated on s/s of allergic reaction and educated on use of call light if pt begins experiencing any side effects. Pt VS WNL and updated on worklist at this time.
[2024-07-25] MEDS: IPRATROPIUM 0.5 MG/ALBUTEROL SULFATE 2.5 MG AMPUL.NEB 3 ML INHALATION (20:45)
--- NOTE | 2024-07-25 21:43 | ADMGEN ---
This patient, Felisa Valencia, was admitted to [facility] Surg Room 315-02. Patient/family oriented to hospital policies and general routines including ID bracelet, bed and alarms, visiting hours, pain management, procedures, bathroom and other care routines, personal items, smoking policy, room service/diet, and visiting hours. Information on how to activate the Rapid Response Team has been discussed. Patient/Family are encouraged to report perceived risks to care and to ask questions if they do not understand what they are told or what they should do.
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
[2024-07-26] VITALS (11 sets, daily range): BP systolic 141–146; BP diastolic 50–54; PULSE 67–74; RESP 16–24; TEMP 36.2–37; O2SAT 91–97
[2024-07-26 03:55] LABS: Free T4 Free Thyroxine Reflex 1.67 ng/dL (0.78-2.19)
[2024-07-26 04:38] LABS: Total Triiodothyronine (T3) 0.56 NG/ML (0.97-1.69)
[2024-07-26] MEDS: MEROPENEM 1 GM/NS 100 ML 1 GM/100 ML BAG IVPB ×3 (05:55→21:38)
[2024-07-26] MEDS: LEVOTHYROXINE SODIUM 150 MCG TABLET PO (06:19)
[2024-07-26 07:01] LABS: Basophils Percent Auto 0.3 % (0.2-1.2); Eosinophils Absolute Auto 0.1 K/mm3 (0-0.3); Eosinophils Percent Auto 1.9 % (0-4.4); Hematocrit 29.2 % (37.0-47.0); Hemoglobin 9.4 g/dL (12.0-15.0); Immature Granulocyte Absolute 0.12 K/mm3 (0.00-0.031); Immature Granulocyte Percent A 2.1 % (0-0.5); Lymphocytes Absolute Auto 0.91 K/mm3 (0.9-3.2); Lymphocytes Percent Auto 15.9 % (18.3-44.2); Mean Corpuscular HGB Conc 32.2 g/dl (32-36); Mean Corpuscular Hemoglobin 31.8 pg (26-34); Mean Corpuscular Volume 98.6 fl (80-100); Mean Platelet Volume 10.1 fl (7.4-10.4); Monocytes Absolute Auto 1.2 K/mm3 (0.1-0.6); Monocytes Percent Auto 20.2 % (2.6-8.5); Neutrophils Absolute Auto 3.4 K/mm3 (1.3-6.7); Neutrophils Percent Auto 59.6 % (45.5-73.1); Platelet Count Result 215 k/mm3 (150-375); Red Blood Count 2.96 M/mm3 (4.2-5.4); Red Cell Distribution Width 18.6 % (11.5-14.5); White Blood Count 5.7 K/mm3 (4.5-10.0)
[2024-07-26 07:05] LABS: Alanine Aminotransferase 17 U/L (6-35); Albumin Level 3.1 g/dL (3.5-5.1); Alkaline Phosphatase 169 U/L (38-126); Anion Gap 1 mmol/L (4-12); Aspartate Amino Transferase 27 U/L (14-36); Bilirubin,Total 0.7 mg/dL (0.2-1.3); Blood Urea Nitrogen 19 mg/dL (7-17); Calcium 9.1 mg/dL (8.4-10.2); Carbon Dioxide 37 mmol/L (22-30); Chloride 92 mmol/L (98-107); Estimated CRCL calculation 38 ml/min; Estimated Glomerular Filt Rate 46; Glucose 90 mg/dL (65-110); Potassium 3.8 mmol/L (3.4-5.0); Sodium 130 mmol/L (137-145)
[2024-07-26 07:10] LABS: Influenza A QL RT-PCR Negative (Negative); Influenza B QL RT-PCR Negative (Negative); RSV RNA, RT-PCR Negative (Negative); SARS-CoV-2 RNA PCR Negative (Negative)
[2024-07-26] MEDS: GABAPENTIN 400 MG CAPSULE PO ×2 (08:27→16:10)
[2024-07-26] MEDS: dilTIAZem HCL CD 120 MG CAP.24HR PO (08:27)
[2024-07-26] MEDS: CHOLECALCIFEROL 1,000 UNITS TABLET 2000 UNITS PO (08:27)
[2024-07-26] MEDS: FUROSEMIDE 40 MG TABLET PO (08:27)
[2024-07-26] MEDS: AMIODARONE HCL 200 MG TABLET PO (08:27)
[2024-07-26] MEDS: SENNOSIDES 8.6 MG TABLET 17.2 MG PO ×2 (08:27→20:32)
[2024-07-26] MEDS: LIDOCAINE 5% PATCH 1 PATCH TOPICAL (08:28)
[2024-07-26 08:38] LABS: INR 1.3; Prothrombin Time 16.3 Seconds (11.1-14.7)
[2024-07-26] MEDS: IPRATROPIUM 0.5 MG/ALBUTEROL SULFATE 2.5 MG AMPUL.NEB 3 ML INHALATION ×2 (12:00→20:58)
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
[2024-07-26] MEDS: WARFARIN (*PBKC) 3 MG TABLET PO (16:11)
[2024-07-26] MEDS: guaiFENesin/DEXTROMETHORPHAN 10 ML UDC PO (18:48)
[2024-07-27] VITALS (7 sets, daily range): BP systolic 130–153; BP diastolic 54–63; PULSE 62–76; RESP 18–22; TEMP 36.7–37; O2SAT 90–93
[2024-07-27] MEDS: LEVOTHYROXINE SODIUM 150 MCG TABLET PO (05:06)
[2024-07-27] MEDS: MEROPENEM 1 GM/NS 100 ML 1 GM/100 ML BAG IVPB ×2 (05:06→14:02)
[2024-07-27 06:02] LABS: Basophils Percent Auto 0.4 % (0.2-1.2); Eosinophils Absolute Auto 0.1 K/mm3 (0-0.3); Eosinophils Percent Auto 1.9 % (0-4.4); Hematocrit 31.7 % (37.0-47.0); Hemoglobin 9.8 g/dL (12.0-15.0); Immature Granulocyte Absolute 0.12 K/mm3 (0.00-0.031); Immature Granulocyte Percent A 2.6 % (0-0.5); Lymphocytes Percent Auto 19.4 % (18.3-44.2); Mean Corpuscular HGB Conc 30.9 g/dl (32-36); Mean Corpuscular Hemoglobin 30.7 pg (26-34); Mean Corpuscular Volume 99.4 fl (80-100); Mean Platelet Volume 9.6 fl (7.4-10.4); Monocytes Absolute Auto 0.9 K/mm3 (0.1-0.6); Monocytes Percent Auto 19.6 % (2.6-8.5); Neutrophils Absolute Auto 2.6 K/mm3 (1.3-6.7); Neutrophils Percent Auto 56.1 % (45.5-73.1); Platelet Count Result 252 k/mm3 (150-375); Red Blood Count 3.19 M/mm3 (4.2-5.4); Red Cell Distribution Width 18.6 % (11.5-14.5); White Blood Count 4.6 K/mm3 (4.5-10.0)
[2024-07-27 06:22] LABS: Alanine Aminotransferase 19 U/L (6-35); Albumin Level 3.5 g/dL (3.5-5.1); Alkaline Phosphatase 168 U/L (38-126); Anion Gap 5 mmol/L (4-12); Aspartate Amino Transferase 28 U/L (14-36); Bilirubin,Total 0.6 mg/dL (0.2-1.3); Blood Urea Nitrogen 16 mg/dL (7-17); Calcium 9.2 mg/dL (8.4-10.2); Carbon Dioxide 35 mmol/L (22-30); Chloride 90 mmol/L (98-107); Estimated CRCL calculation 45 ml/min; Estimated Glomerular Filt Rate 58; Glucose 104 mg/dL (65-110); Potassium 3.6 mmol/L (3.4-5.0); Sodium 130 mmol/L (137-145)
[2024-07-27] MEDS: dilTIAZem HCL CD 120 MG CAP.24HR PO (07:35)
[2024-07-27] MEDS: LIDOCAINE 5% PATCH 1 PATCH TOPICAL (07:35)
[2024-07-27] MEDS: GABAPENTIN 400 MG CAPSULE PO ×2 (07:36→16:54)
[2024-07-27] MEDS: AMIODARONE HCL 200 MG TABLET PO (07:36)
[2024-07-27] MEDS: CHOLECALCIFEROL 1,000 UNITS TABLET 2000 UNITS PO (07:36)
[2024-07-27] MEDS: FUROSEMIDE 40 MG TABLET PO (07:36)
[2024-07-27] MEDS: SENNOSIDES 8.6 MG TABLET 17.2 MG PO ×2 (07:36→21:47)
[2024-07-27] MEDS: IPRATROPIUM 0.5 MG/ALBUTEROL SULFATE 2.5 MG AMPUL.NEB 3 ML INHALATION ×2 (10:17→19:20)
--- NOTE | 2024-07-27 10:42 | PCPTNOTE ---
Attempted to see for physical therapy evaluation, pt states she has requested a breathing treatment and still waiting for it. Is not willing to participate at this time. RN notified, will continue to follow.
[2024-07-27] MEDS: FLUCONAZOLE 150 MG TABLET PO (15:36)
[2024-07-27 16:17] LABS: Influenza A QL RT-PCR Negative (Negative); Influenza B QL RT-PCR Negative (Negative); RSV RNA, RT-PCR Negative (Negative); SARS-CoV-2 RNA PCR Negative (Negative)
--- NOTE | 2024-07-27 16:47 | P.PNIM_ITS ---
Progress Note: A&P Assessment and Plan (1) Complicated urinary tract infection: Code(s): N39.0 - Urinary tract infection, site not specified Status: Acute Assessment and Plan: * UA on 07/25/2024 showed positive nitrate, 3+ leukocyte, 51-100 urine WBC, 4+ urine bacteria, 6-10 urine casts, hyaline cast present * Urine culture was obtained and pending * Patient had recent urine culture on 07/22/2024 showing Pseudomonas aeruginosa which was pansensitive other than Zosyn * She also had another urine culture from 07/11/2024 showing Pseudomonas aeruginosa pansensitive to all antibiotics * She was started on meropenem and will need IV antibiotics to clear her urinary tract infection as she does not have any oral option * Patient has allergy to Cipro and levofloxacin (2) Acute kidney injury superimposed on stage 4 chronic kidney disease: Code(s): N17.9 - Acute kidney failure, unspecified; N18.4 - Chronic kidney disease, stage 4 (severe) Status: Acute Assessment and Plan: * Creatinine 1.28, EGFR 40 * Baseline creatinine appears to be 0.90-0.92, EGFR 58-60 * Continue to trend * Patient was given 1 L of normal saline while in the ED (3) HTN (hypertension): Qualifiers: Hypertension type: primary hypertension Qualified Code(s): I10 - Essential (primary) hypertension Code(s): I10 - Essential (primary) hypertension Status: Acute Assessment and Plan: * Blood pressure ranging 125/60 to 151/56 * Continue hydrochlorothiazide (4) A-fib: Code(s): I48.91 - Unspecified atrial fibrillation Status: Acute Assessment and Plan: * Continue Coumadin and Cardizem (5) Hypothyroidism (acquired): Code(s): E03.9 - Hypothyroidism, unspecified Status: Acute Assessment and Plan: * Continue Synthroid * Will check TSH reflex (6) COPD (chronic obstructive pulmonary disease): Code(s): J44.9 - Chronic obstructive pulmonary disease, unspecified Status: Acute Assessment and Plan: * Continue DuoNeb breathing treatments as needed * Patient reports loss of taste and smell, mild nonproductive cough, horsiness * Will check Respiratory panel for COVID, RSV, Influenza A and B (7) Elevated diaphragm: Code(s): J98.6 - Disorders of diaphragm Status: Acute Assessment and Plan: CXR:Significant elevation of the right hemidiaphragm with adjacent compressive atelectasis and a small right-sided pleural effusion. Peribronchial thickening and traction bronchiectasis are also noted. Order SNIFF test Order Pulmonology consult (8) Oral thrush: Code(s): B37.0 - Candidal stomatitis Status: Acute Assessment and Plan: Nystatin Swish and swallow One dose of fluconazole Subjective Date/time seen: 07/27/24 16:47 Interval history: Patient developed oral thrush possibly due to Meropenem. Given Nystatin swish and swallow and one dose of Fluconazole. Patient has cough. CXR show significant elevation of the right hemidiaphragm with adjacent compressive atelectasis . Consulted Pulmonology and ordered sniff test. Order RSV,COVID and Flu and Tessalon pearls. Review of Systems Review of Systems: All systems reviewed & are unremarkable except as noted in HPI and below Exam Narrative: General: In no acute distress, well nourished Head: atraumatic, no encephalopathy Eyes: PERRLA, sclera clear ENT: moist mucous membranes, nasal passages clear Neck: supple, no JVD, no adenopathy, trachea midline Cardiac: Normal S1 and S2. No murmur, gallops or friction rubs, peripheral pulses intact. Respiratory: Lungs clear to auscultation, no adventitious lung sounds, currently on room air Gastrointestinal: soft, non-distended, non-tender, normoactive bowel sounds. : voiding without difficulty. Extremities: moves all extremities well,mild BLE edema, nonweightbearing to left ankle Skin: clean, dry, intact. No wounds or lesions. Left ankle in taiwo wrap Neuro: Alert and oriented x4, cranial nerves intact, no neuro deficits. Psych: normal mood, normal affect, interactive Objective Data Vital Signs Vital Signs: Vital Signs - 24 hr 07/26/24 18:06 07/26/24 20:58 07/26/24 21:01 Temperature 98.6 F Pulse Rate 74 69 Respiratory Rate 24 H 18 Blood Pressure 146/54 H Pulse Oximetry 96 97 Oxygen Delivery Room Air Oxygen Flow Rate 07/26/24 21:04 07/26/24 21:20 07/27/24 05:42 Temperature 98.2 F Pulse Rate 71 74 Respiratory Rate 24 H 18 Blood Pressure 153/59 H Pulse Oximetry 97 92 Oxygen Delivery Nasal Cannula Oxygen Flow Rate 1 07/27/24 08:00 07/27/24 10:17 07/27/24 10:35 Temperature Pulse Rate 70 Respiratory Rate 22 H Blood Pressure Pulse Oximetry Oxygen Delivery Room Air Room Air Oxygen Flow Rate 07/27/24 14:09 Temperature 98.1 F Pulse Rate 62 Respiratory Rate 18 Blood Pressure 130/54 L Pulse Oximetry 92 Oxygen Delivery Oxygen Flow Rate Intake/Output Intake/Output: Intake & Output 07/24/24 07/25/24 07/26/24 07/27/24 23:59 23:59 23:59 23:59 Intake Total 1100 780 860 Output Total 300 1950 Balance 800 -1170 860 Meds/Results Medications: Active Medications Generic Name Dose Route Start Last Admin Trade Name Freq PRN Reason Stop Dose Admin Acetaminophen 1,000 mg 07/25/24 21:52 Acetaminophen 500 Mg Tablet PO Q8H PRN pain 1-3 Albuterol/Ipratropium 3 ml 07/25/24 22:38 07/27/24 10:17 Ipratropium 0.5 Mg/Albuterol Sulfate 2.5 Mg Ampul.Neb 3 Ml INHALATION 3 ml Q6HRT PRN Administration Shortness Of Breath Or Wheezing Amiodarone HCl 200 mg 07/26/24 09:00 07/27/24 07:36 Amiodarone Hcl 200 Mg Tablet PO 200 mg DAILY [facility] Administration Benzonatate 100 mg 07/27/24 17:00 Benzonatate 100 Mg Capsule PO TID [facility]OL[facility] Diltiazem HCl 120 mg 07/26/24 09:00 07/27/24 07:35 Diltiazem Hcl Cd 120 Mg Cap.24hr PO 120 mg DAILY [facility] Administration Furosemide 40 mg 07/26/24 09:00 07/27/24 07:36 Furosemide 40 Mg Tablet PO 40 mg DAILY [facility] Administration Gabapentin 400 mg 07/26/24 09:00 07/27/24 07:36 Gabapentin 400 Mg Capsule PO 400 mg BID [facility] Administration Guaifenesin/Dextromethorphan 10 ml 07/26/24 18:17 07/26/24 18:48 Guaifenesin/Dextromethorphan 10 Ml Udc PO 10 ml Q4H PRN Administration Cough Hydrochlorothiazide 25 mg 07/26/24 09:00 07/27/24 07:36 Hydrochlorothiazide 25 Mg Tablet PO Not Given QAM [facility] Meropenem 1 gm in 100 mls @ 200 mls/hr 07/28/24 00:00 IVPB 08/01/24 09:29 Q12HR [facility] Levothyroxine Sodium 150 mcg 07/26/24 06:30 07/27/24 05:06 Levothyroxine Sodium 150 Mcg Tablet PO 150 mcg DAILY@0630 [facility] Administration Lidocaine 1 patch 07/26/24 09:00 07/27/24 07:35 Lidocaine 5% Patch TOPICAL 1 patch DAILY [facility] Administration Nystatin 5 ml 07/27/24 17:00 Nystatin 100,000 Units/Ml Susp 5 Ml Oral.Susp PO QID [facility] Ondansetron HCl 4 mg 07/25/24 18:47 Ondansetron Inj 4 Mg/2 Ml Vial IV PUSH Q4H PRN Nausea Oxycodone HCl 5 mg 07/25/24 21:52 Oxycodone Hcl (*Crx) 5 Mg Tab Ir PO Q4H PRN mild/moderate pain 4-6 Senna 17.2 mg 07/26/24 09:00 07/27/24 07:36 Sennosides 8.6 Mg Tablet PO 17.2 mg Q12HR [facility] Administration Vitamin D 2,000 units 07/26/24 09:00 07/27/24 07:36 Cholecalciferol 1,000 Units Tablet PO 2,000 units DAILY [facility] Administration Warfarin Sodium 3 mg 07/26/24 17:00 07/26/24 16:11 Warfarin (*Pbkc) 3 Mg Tablet PO 3 mg DAILY@1700 [facility] Administration Radiology Results: ITS Impressions Chest X-Ray 07/27/24 15:03 IMPRESSION: Significant elevation of the right hemidiaphragm with adjacent compressive atelectasis and a small right-sided pleural effusion. Peribronchial thickening and traction bronchiectasis are also noted. Labs Labs: Laboratory Results - last 24 hr 07/27/24 07/27/24 05:42 15:30 WBC 4.6 RBC 3.19 L Hgb 9.8 L Hct 31.7 L MCV 99.4 MCH 30.7 MCHC 30.9 L RDW 18.6 H Plt Count 252 MPV 9.6 Immature Gran % (Auto) 2.6 H Neut % (Auto) 56.1 Lymph % (Auto) 19.4 [place] % (Auto) 19.6 H Eos % (Auto) 1.9 Baso % (Auto) 0.4 Lymph # (Auto) 0.90 [place] # (Auto) 0.9 H Eos # (Auto) 0.1 Baso # (Auto) 0.0 Abs Immat Gran (auto) 0.12 H Absolute Neuts (auto) 2.6 Absolute Nucleated RBC 0.000 Nucleated RBC % 0.0 Sodium 130 L Potassium 3.6 Chloride 90 L Carbon Dioxide 35 H Anion Gap 5 BUN 16 Creatinine 0.93 Estim Creat Clear Calc 45 Estimated GFR 58 L Glucose 104 Calcium 9.2 Total Bilirubin 0.6 AST 28 ALT 19 Alkaline Phosphatase 168 H Total Protein 6.0 L Albumin 3.5 Influenza A (RT-PCR) Negative Influenza B (RT-PCR) Negative RSV (RT-PCR) Negative SARS-CoV-2 RNA (RT-PCR) Negative Quality VTE Prophylaxis VTE prophylaxis: pharmacologic ordered Hospitalist [facility] Advance Care Plan I have confirmed that the patient's Advanced Care Plan is present, code status is documented, or surrogate decision maker is listed in patient medical record.: Yes Medication Reconciliation I have utilized all available resources to obtain, update and review the patients current medications (includes all prescriptions, OTC, herbals, cannabis, and nutritional supplements).: Yes
[2024-07-27] MEDS: BENZONATATE 100 MG CAPSULE PO (16:54)
[2024-07-27] MEDS: NYSTATIN 100,000 UNITS/ML SUSP 5 ML ORAL.SUSP PO ×2 (16:54→21:47)
[2024-07-27] MEDS: WARFARIN (*PBKC) 3 MG TABLET PO (16:54)
[2024-07-27] MEDS: diphenhydrAMINE HCl CAP 25 MG CAPSULE PO (17:09)
[2024-07-28] VITALS (19 sets, daily range): BP systolic 126–149; BP diastolic 53–112; PULSE 62–76; RESP 16–22; TEMP 36.5–37.2; O2SAT 81–98
[2024-07-28] MEDS: MEROPENEM 1 GM/NS 100 ML 1 GM/100 ML BAG IVPB ×3 (00:18→20:13)
[2024-07-28] MEDS: IPRATROPIUM 0.5 MG/ALBUTEROL SULFATE 2.5 MG AMPUL.NEB 3 ML INHALATION ×4 (01:33→19:58)
[2024-07-28] MEDS: LEVOTHYROXINE SODIUM 150 MCG TABLET PO (05:34)
[2024-07-28 06:21] LABS: Hematocrit 27.7 % (37.0-47.0); Hemoglobin 8.8 g/dL (12.0-15.0); Mean Corpuscular HGB Conc 31.8 g/dl (32-36); Mean Corpuscular Hemoglobin 31.9 pg (26-34); Mean Corpuscular Volume 100.4 fl (80-100); Mean Platelet Volume 9.7 fl (7.4-10.4); Platelet Count Result 231 k/mm3 (150-375); Red Blood Count 2.76 M/mm3 (4.2-5.4); Red Cell Distribution Width 18.6 % (11.5-14.5); White Blood Count 4.9 K/mm3 (4.5-10.0)
[2024-07-28 06:28] LABS: Alanine Aminotransferase 18 U/L (6-35); Alkaline Phosphatase 151 U/L (38-126); Anion Gap 1 mmol/L (4-12); Aspartate Amino Transferase 27 U/L (14-36); Bilirubin,Total 0.4 mg/dL (0.2-1.3); Blood Urea Nitrogen 14 mg/dL (7-17); Calcium 9.3 mg/dL (8.4-10.2); Carbon Dioxide 39 mmol/L (22-30); Chloride 92 mmol/L (98-107); Estimated CRCL calculation 49 ml/min; Estimated Glomerular Filt Rate > 60; Glucose 91 mg/dL (65-110); Potassium 4.2 mmol/L (3.4-5.0); Sodium 132 mmol/L (137-145)
[2024-07-28 06:56] LABS: Anisocytosis 1+; Band Neutrophils Percent 7 % (0-6); Basophils Absolute Manual 0.04 K/mm3 (0.0-0.1); Basophils Percent Manual 1 % (0-1); Hypochromasia 1+; Lymphocytes Absolute Manual 1.66 K/mm3 (1.1-4.5); Lymphocytes Percent Manual 34 % (18-44); Monocytes Absolute Manual 0.29 K/mm3 (0.1-0.90); Monocytes Percent Manual 6 % (3-9); Neutrophils Absolute Manual 2.89 K/mm3 (1.7-7.2); Neutrophils Percent Manual 52 % (46-73); Platelet Estimate Adequate (Adequate); Total Cells Counted 100
[2024-07-28 06:57] LABS: Atypical Lymphocytes Present; Schistocytes None Seen
[2024-07-28] MEDS: BUDESONIDE RESPULE NEB 0.5 MG/2 ML AMP INHALATION ×2 (07:24→19:58)
[2024-07-28 08:29] LABS: INR 1.2; Prothrombin Time 15.8 Seconds (11.1-14.7)
[2024-07-28] MEDS: SENNOSIDES 8.6 MG TABLET 17.2 MG PO ×2 (08:49→20:18)
[2024-07-28] MEDS: CHOLECALCIFEROL 1,000 UNITS TABLET 2000 UNITS PO (08:49)
[2024-07-28] MEDS: AMIODARONE HCL 200 MG TABLET PO (08:49)
[2024-07-28] MEDS: FUROSEMIDE 40 MG TABLET PO (08:49)
[2024-07-28] MEDS: dilTIAZem HCL CD 120 MG CAP.24HR PO (08:49)
[2024-07-28] MEDS: GABAPENTIN 400 MG CAPSULE PO ×2 (08:49→17:22)
[2024-07-28] MEDS: BENZONATATE 100 MG CAPSULE PO ×2 (08:49→17:22)
[2024-07-28] MEDS: hydroCHLOROthiazide 25 MG TABLET PO (08:49)
[2024-07-28] MEDS: LIDOCAINE 5% PATCH 1 PATCH TOPICAL (08:50)
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
[2024-07-28] MEDS: LIDOCAINE 1% LOCAL INJ 2 ML AMPUL 5 ML INFILTRATE (12:40)
[2024-07-28] MEDS: SALINE LOCK FLUSH 10 ML IV PUSH ×2 (13:08→23:04)
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
[2024-07-28] MEDS: WARFARIN (*PBKC) 3 MG TABLET PO (17:22)
[2024-07-28] MEDS: NYSTATIN 100,000 UNITS/ML SUSP 5 ML ORAL.SUSP PO (20:19)
[2024-07-29] VITALS (14 sets, daily range): BP systolic 120–135; BP diastolic 53–78; PULSE 64–71; RESP 18–20; TEMP 36.2–36.6; O2SAT 79–93
[2024-07-29] MEDS: LEVOTHYROXINE SODIUM 150 MCG TABLET PO (05:35)
[2024-07-29] MEDS: SALINE LOCK FLUSH 10 ML IV PUSH ×2 (05:38→13:23)
[2024-07-29] MEDS: IPRATROPIUM 0.5 MG/ALBUTEROL SULFATE 2.5 MG AMPUL.NEB 3 ML INHALATION ×3 (05:52→15:34)
--- NOTE | 2024-07-29 05:56 | PCRCNOTE ---
patient was on an overnight oximetry study, therefore she was not woken for her 0200 breathing tx. See next scheduled treatment.
[2024-07-29 06:24] LABS: Basophils Percent Auto 0.4 % (0.2-1.2); Eosinophils Absolute Auto 0.2 K/mm3 (0-0.3); Eosinophils Percent Auto 2.7 % (0-4.4); Hematocrit 30.1 % (37.0-47.0); Hemoglobin 9.4 g/dL (12.0-15.0); Immature Granulocyte Absolute 0.17 K/mm3 (0.00-0.031); Lymphocytes Absolute Auto 1.95 K/mm3 (0.9-3.2); Lymphocytes Percent Auto 34.9 % (18.3-44.2); Mean Corpuscular HGB Conc 31.2 g/dl (32-36); Mean Corpuscular Hemoglobin 31.3 pg (26-34); Mean Corpuscular Volume 100.3 fl (80-100); Mean Platelet Volume 9.6 fl (7.4-10.4); Monocytes Percent Auto 18.1 % (2.6-8.5); Neutrophils Absolute Auto 2.3 K/mm3 (1.3-6.7); Neutrophils Percent Auto 40.9 % (45.5-73.1); Platelet Count Result 247 k/mm3 (150-375); Red Cell Distribution Width 18.5 % (11.5-14.5); White Blood Count 5.6 K/mm3 (4.5-10.0)
[2024-07-29 06:37] LABS: Alanine Aminotransferase 20 U/L (6-35); Albumin Level 3.4 g/dL (3.5-5.1); Alkaline Phosphatase 160 U/L (38-126); Anion Gap 4 mmol/L (4-12); Aspartate Amino Transferase 30 U/L (14-36); Bilirubin,Total 0.6 mg/dL (0.2-1.3); Blood Urea Nitrogen 14 mg/dL (7-17); Calcium 9.6 mg/dL (8.4-10.2); Carbon Dioxide 39 mmol/L (22-30); Chloride 87 mmol/L (98-107); Estimated CRCL calculation 54 ml/min; Estimated Glomerular Filt Rate > 60; Glucose 95 mg/dL (65-110); Potassium 4.1 mmol/L (3.4-5.0); Sodium 130 mmol/L (137-145)
[2024-07-29 06:52] LABS: INR 1.2; Prothrombin Time 15.9 Seconds (11.1-14.7)
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
[2024-07-29] MEDS: FUROSEMIDE 40 MG TABLET PO (09:05)
[2024-07-29] MEDS: GABAPENTIN 400 MG CAPSULE PO ×2 (09:06→17:22)
[2024-07-29] MEDS: SENNOSIDES 8.6 MG TABLET 17.2 MG PO (09:06)
[2024-07-29] MEDS: AMIODARONE HCL 200 MG TABLET PO (09:07)
[2024-07-29] MEDS: BENZONATATE 100 MG CAPSULE PO ×3 (09:07→17:22)
[2024-07-29] MEDS: hydroCHLOROthiazide 25 MG TABLET PO (09:07)
[2024-07-29] MEDS: CHOLECALCIFEROL 1,000 UNITS TABLET 2000 UNITS PO (09:09)
[2024-07-29] MEDS: LIDOCAINE 5% PATCH 1 PATCH TOPICAL (09:10)
[2024-07-29] MEDS: NYSTATIN 100,000 UNITS/ML SUSP 5 ML ORAL.SUSP PO ×3 (09:11→17:22)
[2024-07-29] MEDS: dilTIAZem HCL CD 120 MG CAP.24HR PO (09:23)
[2024-07-29 09:34] LABS: Alveolar/Arterial O2 Gradient 39.1 mmHg; Base Excess ABG 10.3 mEq/l (+/-2.0); Fractional Inspired Oxygen 21 %; HCO3 ABG 33.9 mEq/l (22.0-26.0); Oxygen Content ABG 12.8 %vol (16.0-22.0); Oxygen Saturation ABG 93.7 % (95.0-100.0); Oxyhemoglobin 90.8 % THb (90.0-100.0); PCO2 ABG 41.5 mmHg (35.0-45.0); PO2 ABG 60.9 mmHg (80.0-100.0)
[2024-07-29 09:36] LABS: Device ROOM AIR; Modified Allen's Test Pass; Site Drawn LEFT RADIAL
[2024-07-29] MEDS: MEROPENEM 1 GM/NS 100 ML 1 GM/100 ML BAG IVPB (09:52)
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
[2024-07-29] MEDS: BUDESONIDE RESPULE NEB 0.5 MG/2 ML AMP INHALATION (09:55)
--- NOTE | 2024-07-29 16:50 | PCRCNOTE ---
Home oxygen eval completed. Patient will need 3L while walking, 2L @ rest, and per Dr. Hyde, 2L @ night. RT notified RN of results.
[2024-07-29] MEDS: WARFARIN (*PBKC) 3 MG TABLET PO (17:22)
--- NOTE | 2024-07-29 17:52 | PC.NURSE ---
Pt IV d/c'd by RIVKA Patel at 1715 07/29/24
== END 2024-07-29 17:40 | disposition home or self-care (01) | DRG 690 ==
LOC: ANHED 18:57 → ANH3MEDSUR 07-26 08:34
PROVIDERS: Internal Medicine Pulmonary Disease; Nurse Practitioner Acute Care; Physician Assistant; Admitting Provider Hospitalist; Emergency Provider Student in an Organized Health Care Education/Training Program; Visit Provider General Practice
DX: N39.0 Urinary tract infection, site not specified (principal); I13.0 Hypertensive heart and chronic kidney disease with heart failure and stage 1 through stage 4 chronic kidney disease, or unspecified chronic kidney disease; N17.9 Acute kidney failure, unspecified; N18.4 Chronic kidney disease, stage 4 (severe); I48.20 Chronic atrial fibrillation, unspecified; B37.0 Candidal stomatitis; I25.10 Atherosclerotic heart disease of native coronary artery without angina pectoris; I50.9 Heart failure, unspecified; J98.6 Disorders of diaphragm; E86.0 Dehydration; E78.5 Hyperlipidemia, unspecified; E21.3 Hyperparathyroidism, unspecified; E03.9 Hypothyroidism, unspecified; J44.9 Chronic obstructive pulmonary disease, unspecified; F41.9 Anxiety disorder, unspecified; F32.A Depression, unspecified; Z20.822 Contact with and (suspected) exposure to COVID-19; Z96.651 Presence of right artificial knee joint; Z87.891 Personal history of nicotine dependence; Z79.01 Long term (current) use of anticoagulants; S22.49XD Multiple fractures of ribs, unspecified side, subsequent encounter for fracture with routine healing; S22.20XD Unspecified fracture of sternum, subsequent encounter for fracture with routine healing; S82.92XD Unspecified fracture of left lower leg, subsequent encounter for closed fracture with routine healing; V89.2XXD Person injured in unspecified motor-vehicle accident, traffic, subsequent encounter
CPT/HCPCS: 36415; 36569; 36600; 71045; 71046; 71250; 76000; 80053; 81001; 82805; 83735; 84439; 84443; 84480; 85018; 85025; 85610; 87086; 87186; 87637; 94618; 94640; 94762; 96374; 97110; 97161; 97165; 97530; 97535; 99285; A9270; C1751; J2003; J2185; J7030

== ENCOUNTER 2024-07-31 13:07 | Outpatient (NON) | payer MEDICARE, SELFPAY ==
[2024-07-31 14:18] LABS: Hematocrit 33.5 % (37.0-47.0); Hemoglobin 10.6 g/dL (12.0-15.0); Mean Corpuscular HGB Conc 31.6 g/dl (32-36); Mean Corpuscular Hemoglobin 31.5 pg (26-34); Mean Corpuscular Volume 99.4 fl (80-100); Mean Platelet Volume 10.2 fl (7.4-10.4); Platelet Count Result 287 k/mm3 (150-375); Red Blood Count 3.37 M/mm3 (4.2-5.4); Red Cell Distribution Width 17.7 % (11.5-14.5); White Blood Count 5.9 K/mm3 (4.5-10.0)
[2024-07-31 14:29] LABS: INR 1.1; Prothrombin Time 14.1 Seconds (11.1-14.7)
[2024-07-31 14:33] LABS: Alanine Aminotransferase 23 U/L (6-35); Albumin Level 3.6 g/dL (3.5-5.1); Alkaline Phosphatase 165 U/L (38-126); Anion Gap 3 mmol/L (4-12); Aspartate Amino Transferase 34 U/L (14-36); Bilirubin,Total 0.6 mg/dL (0.2-1.3); Blood Urea Nitrogen 13 mg/dL (7-17); Calcium 9.6 mg/dL (8.4-10.2); Carbon Dioxide 37 mmol/L (22-30); Chloride 87 mmol/L (98-107); Estimated Glomerular Filt Rate > 60; Glucose 104 mg/dL (65-110); Potassium 3.6 mmol/L (3.4-5.0); Sodium 127 mmol/L (137-145)
--- OUTSIDE RECORDS SUMMARY | 2024-07-31 15:40 | XMS_ITS | Encounter Summary ---
Author Organization [facility] Address [facility] [place] [address] Care Team Providers Care Quill Winder Name Role Phone Mo Moy MD Primary Care Provider [phone] Sal Bliss MD Unavailable [phone] Angel Lopez MD Unavailable Encounter Details Date Type Department Care Team (Late st Contact Info) Description 01/26/2019 Abstract [facility] at [address] [address] Faizan Pereira MA Social History Tobacco Use Types Packs/Day Years Used Date Smoking Tobacco: Former Cigarettes 0.5 35 1 965 - 2000 Smokeless Tobacco: Never Comments:distant past Alcohol Use Standard Drinks/Week Comments No 0 (1 standard drink = 0.6 oz pur e alcohol) Comments No Sex and Gender Information Value Date Recorded Sex Assigned at Female 05/30/2024 12:35 PM WOOL SAMPLER Legal Sex Female 6:49 PM CDT Gender [...] [facility] - [address] [place] [address] Jacob Landry MD [address] [place] [address] [place] [id number] documented as of this encounter Procedures Procedure [...] * (ABNORMAL) COMPREHENSIVE METABOLIC PANEL (01/24/2019) Pathologist [facility] SODIUM S/P/B 140 POTASSIUM S/P/B 4.7 CO2 [...] Rule Out 07/07/2021 07/07/2021 07/08/2021 7:49 PM WOOL SAMPLER COVID-19 Rule Out 09/27/2021 09/27/2021 09/28/2021 10:26 AM CDT COVID-19 Rule Out 07/01/2023 07/01/2023 07/01/2023 3:40 PM WOOL SAMPLER COVID-19 Rule Out 11/03/2023 11/03/2023 11/03/2023 1:01 AM CDT documented as of this encounter Care Teams Quill Winder Relationship Specialty Start Date End Date Mo Moy MD [address] [place] [id number] PCP - General FAMILY PRACTICE 11/26/17 Sal Bliss MD [address] [address] [place] [facility] Psychologist CARDIOVASCULAR DISEASE 12/10/17 Angel Lopez MD [facility] [address] [place] [address] EP Rehabilitation Psychologist CLINICAL CARDIAC ELECTROPHYSIOLOGY 01/15/18 documented as of this encounter
--- OUTSIDE RECORDS SUMMARY | 2024-07-31 15:40 | XMS_ITS | Encounter Summary ---
Author Organization [facility] Address [facility] [place] [address] Care Team Providers Care Sewer Pipe Sorter Name Role Phone Mo Moy MD Primary Care Provider [phone] Sal Bliss MD Unavailable Angel Lopez MD Unavailable Encounter Details Date Type Department Care Team (Late st Contact Info) Description 12/29/2017 Abstract [facility] at [address] [address] Faizan Pereira MA Social History Tobacco Use Types Packs/Day Years Used Date Smoking Tobacco: Former Cigarettes Q uit: 2000 Smokeless Tobacco: Never Alcohol Use Standard Drinks/Week Comments No 0 (1 standard drink = 0.6 oz pur e alcohol) Comments Unknown Sex and Gender Information Value Date Recorded Sex Assigned at Female 05/30/2024 12:[address] INSTRUCTOR Legal Sex Female 6:49 PM CDT Gender [...] Description 10/26/2024 11:00 AM CDT Office Visit [facility] Medical [facility] Multispecialty Care - [facility] [address] [place] [address] Jacob Landry MD [address] [facility] [address] [place] [address] documented as of this encounter Procedures Procedure [...] Rule Out 07/07/2021 07/07/2021 07/08/2021 7:[address] INSTRUCTOR COVID-19 Rule Out 09/27/2021 09/27/2021 09/28/2021 10:26 AM CDT COVID-19 Rule Out 07/01/2023 07/01/2023 07/01/2023 3:[address] INSTRUCTOR COVID-19 Rule Out 11/03/2023 11/03/2023 11/03/2023 1:01 AM CDT documented as of this encounter Care Teams Sewer Pipe Sorter Relationship Specialty Start Date End Date Mo Moy MD [address] [place] [id number] PCP - General FAMILY PRACTICE 11/26/17 Sal Bliss MD [facility]. [address] [place] [address] [place] Managing Director [employer] CARDIOVASCULAR DISEASE 12/10/17 Angel Lopez MD [facility]. [address] [place], [place] [id number] EP Managing Director [employer] CLINICAL CARDIAC ELECTROPHYSIOLOGY 01/15/18 documented as of this encounter
--- OUTSIDE RECORDS SUMMARY | 2024-07-31 15:40 | XMS_ITS | Encounter Summary ---
Author Organization [facility] Address [facility] [place] [address] Care Team Providers Care Cardiology Associate Name Role Phone Mo Moy MD Primary Care Provider [phone] Sal Bliss MD Unavailable [phone] Angel Lopez MD Unavailable Encounter Details Date Type Department Care Team (Late st Contact Info) Description 08/05/2022 Abstract [facility] [id number] Faizan Pereira MA Social History Tobacco Use [...] Sex Assigned at Female 05/30/2024 12:35 PM REGISTERED NURSE CARDIAC TELEMETRY Legal Sex Female 6:49 PM CDT Gender [...] MEDICAL CENTER Medical [facility] Multispecialty Care - [facility] [address] [place] [id number] Jacob Landry MD [address] [facility] [address] [place] [address] documented as of this encounter Procedures Procedure [...] Rule Out 07/01/2023 07/01/2023 07/01/2023 3:40 PM REGISTERED NURSE CARDIAC TELEMETRY COVID-19 Rule Out 11/03/2023 11/03/2023 11/03/2023 1:01 AM CDT Assessment Noted Time PHQ-9 Depression Total Score: 0 05/05/20 1:33 PM REGISTERED NURSE CARDIAC TELEMETRY documented as of this encounter Care Teams Cardiology Associate Relationship Specialty Start Date End Date Mo Moy MD [address] [place] [id number] PCP - General FAMILY PRACTICE 11/26/17 Sal Bliss MD [facility] [address] [place], [place] [address] [place] [employer] Man CARDIOVASCULAR DISEASE 12/10/17 Angel Lopez MD [address] [place], [place] [id number] EP Coloring Room Man CLINICAL CARDIAC ELECTROPHYSIOLOGY 01/15/18 documented as of this encounter
--- OUTSIDE RECORDS SUMMARY | 2024-07-31 15:40 | XMS_ITS | Encounter Summary ---
Author Organization [facility] Address [facility] [place] [address] Care Team Providers Care First Aid Attendant Name Role Phone Mo Moy MD Primary Care Provider [phone] Sal Bliss MD Unavailable [phone] Angel Lopez MD Unavailable Encounter Details Date Type Department Care Team (Late Contact Info) Description 10/14/2018 Abstract [facility] [address] [place], [place] [id number] Sal Bliss MD [address] [address] Social History Tobacco Use Types Packs/Day Years Used Date Smoking Tobacco: Former Cigarettes 0.5 35 1 965 - 2000 Smokeless Tobacco: Never Comments:distant past Alcohol Use Standard Drinks/Week Comments No 0 (1 standard drink = 0.6 oz pur e alcohol) Comments No Sex and Gender Information Value Date Recorded Sex Assigned at Female 05/30/2024 12:35 PM [employer]GLISH [employer]ITION INSTRUCTOR Legal Sex Female 6:49 PM CDT Gender Identity Not on file Sexual Orientation Not on file Occupation Industry Job Start Date Job End Date Not on file Not on file Not on file Not on file documented as of this encounter Plan of Treatment Upcoming Encounters Date Type Department Care Team (Late Contact Info) Description 10/26/2024 11:00 AM CDT Office Visit [facility] [address] [place] [address] Jacob Landry MD [address] [facility] [address] [place] [address] documented as of this encounter Procedures Procedure Name Priority Date/Time Associated Diagnosis Comments PROTHROMBIN TIME, FINGERSTICK Routine 10/14/2018 10:05 AM CDT documented in this encounter Results * PROTIME/INR, FINGERSTICK (10/14/2018 10:05 AM CDT) INR WHOLE BLOOD 2.3 9 10:09 AM CDT [facility] Comment: Recommend INR ranges for Oral Anticoagulant Therapy:Mechanical Cardiac Values 2.5-3.5All others indication 2.0-3.0 10/14/2018 10:0 5 AM CDT 10/14/2018 10:06 AM CDT us Generic Conversion Md [facility] Final R esult [facility] [address] [place] [address], documented in this encounter Visit Diagnoses Diagnosis Atrial fibrillation (CMS/HCC HHS/HCC) Atrial fibrillation documented in this encounter Additional Health Concerns Infection Onset Date Last Indicated Resolved Time COVID-19 Rule Out 01/14/2020 01/27/2020 01/28/2020 4:35 PM CDT COVID-19 Rule Out 07/07/2021 07/07/2021 07/08/2021 7:49 PM ENGLISH [employer]ITION IN[employer]CTOR COVID-19 Rule Out 09/27/2021 09/27/2021 09/28/2021 10:26 AM CDT COVID-19 Rule Out 07/01/2023 07/01/2023 07/01/2023 3:40 PM ENGLISH [employer]POSITION INSTRUCTOR COVID-19 Rule Out 11/03/2023 11/03/2023 11/03/2023 1:01 AM CDT documented as of this encounter Care Teams First Aid Attendant Relationship Specialty Start Date End Date Mo Moy MD [address] [place] [id number] PCP - General FAMILY PRACTICE 11/26/17 Sal Bliss MD [facility]. [address] [place] [address] [place] [employer] CARDIOVASCULAR DISEASE 12/10/17 Angel Lopez MD [facility]. [address] [place], [place] [id number] [employer] CLINICAL CARDIAC ELECTROPHYSIOLOGY 01/15/18 documented as of this encounter
--- OUTSIDE RECORDS SUMMARY | 2024-07-31 15:41 | XMS_ITS | Referral Summary ---
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 planning. The report was drafted by Álvaro Fernández MD (international affairs vice president) 06/19/2024 12:02 PM. Higinio Price MD have personally reviewed and interpreted this examination/study. > Interpreting Provider: Higinio Whittington MD on 06/19/2024 12:17 PM Narrative 06/19/2024 12:17 PM FRENCH INSTRUCTOR PROCEDURE: CT 3D RECON W INDEPENDENT WKSN, DATE/TIME OF EXAM: 06/19/2024 10:28 AM, LOCATION [facility] INDICATION: S22.43XA: Closed fracture of multiple ribs [...] DATE/TIME OF EXAM: 06/19/2024 10:28 AM, LOCATION [facility] INDICATION: S22.43XA: Closed fracture of multiple ribs [...] report was drafted by Álvaro Fernández MD (international affairs vice president) 06/19/2024 12:02 PM. IHiginio MD have personally reviewed and interpreted this examination/study. > Interpreting Provider: Higinio Whittington MD on 06/19/2024 12:17 PM Gordon Ingram MD CT ORDERABLES * TRANSFUSE PLATELET PHERESIS UNIT(S) (06/19/2024 4:54 AM FRENCH INSTRUCTOR) Gordon Fernández MD NURSING - BLOOD PROD TRANSFUSION * (ABNORMAL) HGB HCT PANEL (06/19/2024 3:29 AM FRENCH INSTRUCTOR) Only the most recent of2 resultswithin the time period is included. Hemoglobin 7.9(L) 11.9 - 15.8 g/dL 06/19/2024 3:42 AM FRENCH INSTRUCTOR [facility] Hematocrit 25.2(L) 34.8 - 46.1 % 06/19/2024 3:42 AM FRENCH INSTRUCTOR [facility] Blood BLOOD SPECIMEN / Unknown Venipuncture / Unknown 06/19/2024 3:29 AM FRENCH INSTRUCTOR 06/19/2024 3:39 AM FRENCH INSTRUCTOR Gordon Ingram MD LAB - HEMATOLOGY ORD ERABLES [facility] [address] [place] [address], [facility] [phone] * PTT [facility] (06/18/2024 8:38 PM FRENCH INSTRUCTOR) Only the most recent of2 resultswithin the time period is included. APTT 27.5 23.0 - 38.4 Seconds 06/18/2024 9:35 PM FRENCH INSTRUCTOR [facility] Comment:Suggested therapeuti c range for full dose I.V. unfractionated heparin therapy for venous thromboembolism is 71 to 109 seconds. Blood BLOOD SPECIMEN / Unknown Venipuncture / Unknown 06/18/2024 8:38 PM FRENCH INSTRUCTOR 06/18/2024 8:44 PM FRENCH INSTRUCTOR Gordon Ingram MD LAB - COAGULATION OR DERABLES Performing Organization Address [facility] Co de Phone Number [address] [address], [facility] [phone] * (ABNORMAL) VITAMIN D 25-HYDROXY (06/18/2024 8:38 PM FRENCH INSTRUCTOR) Vitamin D, 25 Hydroxy 94.0(H) 30.0 - 80.0 ng/mL 06/19/2024 6:51 AM FRENCH INSTRUCTOR [facility] Comment: The recommendations for 25-Hydroxy Vitamin D [...] Unknown Venipuncture / Unknown 06/18/2024 8:38 PM FRENCH INSTRUCTOR 06/18/2024 9:09 PM FRENCH INSTRUCTOR Sulema Whyte PA-C LAB - CHEMISTRY OR DERABLES Performing Organization Address City/[facility]/ZIP Co de Phone Number [address] [address], [facility] [phone] * LACTIC ACID BLOOD (06/18/2024 8:38 PM FRENCH INSTRUCTOR) Lactic Acid-Stat 1.4 <=2.0 mmol/L 06/18/2024 9:38 PM FRENCH INSTRUCTOR [facility] Blood BLOOD SPECIMEN / Unknown Venipuncture / Unknown 06/18/2024 8:38 PM FRENCH INSTRUCTOR 06/18/2024 9:12 PM FRENCH INSTRUCTOR Gordon Ingram MD LAB - CHEMISTRY JULIANNE OROZCO [facility] [address] [place] [address], [facility] [phone] * CT Ankle Left Wo Contrast (06/18/2024 7:57 PM FRENCH INSTRUCTOR) Anatomical Region Laterality Modality Lower Extremity Computed Tomogra phy 06/18/2024 8:46 PM FRENCH INSTRUCTOR Narrative 06/18/2024 9:15 PM FRENCH INSTRUCTOR PROCEDURE: CT KNEE LEFT WO CONTRAST, CT [...] present. > Dictated by Dimitris Avila MD (Critical Care Nurse) Higinio Price MD have personally reviewed and [...] present. > Dictated by Dimitris Avila MD (Critical Care Nurse) IHiginio MD have personally reviewed and interpreted this examination/study. > Interpreting Provider: Higinio Whittington MD on 06/18/2024 9:15 PM Gordon Christie Ingram MD CT ORDERABLES * CT Knee Left Wo Contrast (06/18/2024 7:57 PM FRENCH INSTRUCTOR) Anatomical Region Laterality Modality Lower Extremity Computed Tomogra phy 06/18/2024 8:46 PM FRENCH INSTRUCTOR Narrative 06/18/2024 9:15 PM FRENCH INSTRUCTOR PROCEDURE: CT KNEE LEFT WO CONTRAST, CT [...] present. > Dictated by Dimitris Avila MD (Critical Care Nurse) Higinio Price MD have personally reviewed and [...] present. > Dictated by Dimitris Avila MD (Critical Care Nurse) Higinio Price MD have personally reviewed and interpreted this examination/study. > Interpreting Provider: Higinio Whittington MD on 06/18/2024 9:15 PM Gordon Ingram MD CT ORDERABLES * BLOOD TYPE VERIFICATION (06/18/2024 6:57 PM FRENCH INSTRUCTOR) ABO Rh O POS 06/18/2024 7:2 6 PM FRENCH INSTRUCTOR [facility] Blood Bank BLOOD SPECIMEN / Unknown Venipuncture / Unknown 06/18/2024 6:57 PM FRENCH INSTRUCTOR 06/18/2024 7:05 PM FRENCH INSTRUCTOR Gordon Ingram MD LAB - BLOOD BANK ORD ERABLES Performing Organization Address City/[facility]/ZIP Co de Phone Number [facility] [address] [place] [address], [facility] [phone] * PREPARE PLATELET PHERESIS UNIT(S), 1 Units (06/18/2024 6:45 PM FRENCH INSTRUCTOR) Unit Description LRPLTphere B7 IR [facility] Unit ABO O [facility] Unit Rh POS [facility] Product Number P31 [facility] B LOOD [facility] Unit Donor # [id number] [facility] Unit Status transfused [facility] Product Code [id number] [facility] Blood Type Barcode 5100 [facility] Expiration Date S BLOOD BANK LAB Blood Bank BLOOD SPECIMEN / Unknown 06/18/2024 2:53 PM FRENCH INSTRUCTOR Gordon Fernández MD LAB - BLOOD BANK ORD ERABLES Performing Organization Address City/[facility]/ZIP Co de Phone Number [facility] [address] [place] [address], [facility] [phone] * XR Wrist Right 3Vw or More (06/18/2024 3:39 PM FRENCH INSTRUCTOR) Anatomical Region Laterality Modality Wrist / Hand Digital Radiogra phy 06/18/2024 5:17 PM FRENCH INSTRUCTOR Impressions 06/18/2024 8:04 PM FRENCH INSTRUCTOR IMPRESSION: No acute fracture or dislocation identified. Report dictated by Vijay Jeong DO (vice president commercial bank). I, Malcolm Marroquin MD have personally reviewed and interpreted this examination/study. > Interpreting Provider: Malcolm Marroquin MD on 06/18/2024 8:04 PM Narrative 06/18/2024 8:04 PM FRENCH INSTRUCTOR PROCEDURE: XR WRIST RIGHT 3VW OR MORE, DATE/TIME OF EXAM: 06/18/2024 3:39 PM, LOCATION [facility] INDICATION: T14.90XA: Trauma ADDITIONAL CLINICAL INFORMATION: Ordering [...] MORE, DATE/TIME OF EXAM: 53:39 PM, LOCATION [facility] INDICATION: T14.90XA: Trauma ADDITIONAL CLINICAL INFORMATION: Ordering [...] dictated by Vijay Jeong DO (vice president commercial bank). Malcolm Price MD have personally reviewed and interpreted this examination/study. > Interpreting Provider: Malcolm Marroquin MD on 06/18/2024 8:04 PM Gordon Ingram MD DIAGNOSTIC IMAGING O RDERABLES * XR Tibia Fibula Left 2Vw (06/18/2024 3:39 PM FRENCH INSTRUCTOR) Anatomical Region Laterality Modality Lower Extremity Digital Radiogra phy 06/18/2024 5:13 PM FRENCH INSTRUCTOR Impressions 06/18/2024 5:22 PM FRENCH INSTRUCTOR IMPRESSION: Quadrimalleolar fracture. Report dictated by Vijay Jeong DO (vice president commercial bank). Malcolm Price MD have personally reviewed and interpreted this examination/study. > Interpreting Provider: Malcolm Marroquin MD on 06/18/2024 5:22 PM Narrative 06/18/2024 5:22 PM FRENCH INSTRUCTOR PROCEDURE: XR TIBIA FIBULA LEFT 2VW, DATE/TIME OF EXAM: 06/18/2024 3:39 PM, LOCATION [facility] INDICATION: T14.90XA: Trauma COMPARISON: None. FINDINGS: Quadrimalleolar fracture. Bone density and texture are normal. Soft tissue swelling is present. Procedure Note Malcolm Marroquin MD - 06/18/2024 PROCEDURE: XR TIBIA FIBULA LEFT 2VW, DATE/TIME OF EXAM: 06/18/2024 3:39PM, LOCATION [facility] INDICATION: T14.90XA: Trauma COMPARISON: None. FINDINGS: Quadrimalleolar fracture. Bone density and texture are normal. Softtissue swelling is present. IMPRESSION: Quadrimalleolar fracture. Report dictated by Vijay Jeong DO (vice president commercial bank). Malcolm Price MD have personally reviewed and interpreted this examination/study. > Interpreting Provider: Malcolm Marroquin MD on 06/18/2024 5:22 PM Gordon Ingram MD DIAGNOSTIC IMAGING O RDERABLES * XR Hand Right 3Vw or More (06/18/2024 3:39 PM FRENCH INSTRUCTOR) Anatomical Region Laterality Modality Wrist / Hand Digital Radiogra phy 06/18/2024 5:17 PM FRENCH INSTRUCTOR Impressions 06/18/2024 8:05 PM FRENCH INSTRUCTOR IMPRESSION: No acute fracture or dislocation identified. Report dictated by Vijay Jeong DO (vice president commercial bank). Malcolm Price MD have personally reviewed and interpreted this examination/study. > Interpreting Provider: Malcolm Marroquin MD on 06/18/2024 8:05 PM Narrative 06/18/2024 8:05 PM FRENCH INSTRUCTOR PROCEDURE: XR HAND RIGHT 3VW OR MORE, DATE/TIME OF EXAM: 06/18/2024 3:39 PM, LOCATION [facility] INDICATION: T14.90XA: Trauma COMPARISON: None. FINDINGS: The [...] DATE/TIME OF EXAM: 06/18/2024 3:39 PM, LOCATION [facility] INDICATION: T14.90XA: Trauma COMPARISON: None. FINDINGS: The [...] dictated by Vijay Jeong DO (vice president commercial bank). Malcolm Price MD have personally reviewed and interpreted this examination/study. > Interpreting Provider: Malcolm Marroquin MD on 06/18/2024 8:05 PM Gordon Ingram MD DIAGNOSTIC IMAGING O RDERABLES * XR Hand Left 3Vw or More (06/18/2024 3:39 PM FRENCH INSTRUCTOR) Anatomical Region Laterality Modality Wrist / Hand Digital Radiogra phy 06/18/2024 5:16 PM FRENCH INSTRUCTOR Impressions 06/18/2024 8:03 PM FRENCH INSTRUCTOR IMPRESSION: No acute fracture or dislocation identified. Report dictated by Vijay Jeong DO (vice president commercial bank). Malcolm Price MD have personally reviewed and interpreted this examination/study. > Interpreting Provider: Malcolm Marroquin MD on 06/18/2024 8:03 PM Narrative 06/18/2024 8:03 PM FRENCH INSTRUCTOR PROCEDURE: XR HAND LEFT 3VW OR MORE, DATE/TIME OF EXAM: 06/18/2024 3:39 PM, LOCATION [facility] INDICATION: T14.90XA: Trauma COMPARISON: None. FINDINGS: The [...] MORE, DATE/TIME OF EXAM: 06/18/2024 3:39PM, LOCATION [facility] INDICATION: T14.90XA: Trauma COMPARISON: None. FINDINGS: The osseous structures are intact and well aligned without acutefracture or dislocation. The joint spaces are preserved. The bones are diffusely demineralized. No soft tissue swelling is present. Degenerative changesof the fifth distal interphalangeal and first carpometacarpal joints. IMPRESSION: No acute fracture or dislocation identified. Report dictated by Vijay Jeong DO (vice president commercial bank). Malcolm Price MD have personally reviewed and interpreted this examination/study. > Interpreting Provider: Malcolm Marroquin MD on 06/18/2024 8:03 PM Gordon Ingram MD DIAGNOSTIC IMAGING O RDERABLES * CT LUMBAR SPINE WO CONTRAST - T/L-spine trauma, Spine fracture (06/18/2024 3:21 PM FRENCH INSTRUCTOR) Anatomical Region Laterality Modality Spine Computed Tomogra phy 06/18/2024 3:49 PM FRENCH INSTRUCTOR Impressions 06/18/2024 5:25 PM FRENCH INSTRUCTOR IMPRESSION: 1.No evidence of acute fracture in the cervical, thoracic, or lumbar spine. 2.Please refer to the concurrent, dedicated body report for findings in the chest, abdomen, and pelvis. > Dictated by Vijay Jeong DO (Critical Care Nurse), 06/18/2024 3:49 PM. Glenny Price MD have personally reviewed and interpreted this examination/study. > Interpreting Provider: Glenny Ragsdale MD on 06/18/2024 5:25 PM Narrative 06/18/2024 5:25 PM FRENCH INSTRUCTOR PROCEDURE: CT CERVICAL SPINE WO CONTRAST, CT LUMBAR SPINE WO CONTRAST, CT THORACIC SPINE WO CONTRAST, DATE/TIME OF EXAM: 06/18/2024 3:23 PM, LOCATION [facility] INDICATION: Trauma EXAMINATION: 1.CT of the cervical [...] aorta and its branch vessels. Procedure Note Mahmoud, Shamseldeen Y, MD - 06/18/2024 PROCEDURE: CT CERVICAL SPINE WO CONTRAST, CT LUMBAR SPINE WO CONTRAST,CT THORACIC SPINE WO CONTRAST, DATE/TIME OF EXAM: 06/18/2024 3:23 PM, LOCATION [facility] INDICATION: Trauma EXAMINATION: 1.CT of the cervical [...] pelvis. > Dictated by Vijay Jeong DO (Critical Care Nurse), 06/18/2024 3:49 PM. Glenny Price MD have personally reviewed and interpretedthis examination/study. > Interpreting Provider: Glenny Ragsdale MD on 06/18/2024 5:25 PM Gordon Ingram MD CT ORDERABLES * CT THORACIC SPINE WO CONTRAST - T/L-spine trauma, spine fracture (06/18/2024 3:21 PM FRENCH INSTRUCTOR) Anatomical Region Laterality Modality Spine Computed Tomogra phy 06/18/2024 3:49 PM FRENCH INSTRUCTOR Impressions 06/18/2024 5:25 PM FRENCH INSTRUCTOR IMPRESSION: 1.No evidence of acute fracture in the cervical, thoracic, or lumbar spine. 2.Please refer to the concurrent, dedicated body report for findings in the chest, abdomen, and pelvis. > Dictated by Vijay Jeong DO (Critical Care Nurse), 06/18/2024 3:49 PM. Glenny Price MD have personally reviewed and interpreted this examination/study. > Interpreting Provider: Glenny Ragsdale MD on 06/18/2024 5:25 PM Narrative 06/18/2024 5:25 PM FRENCH INSTRUCTOR PROCEDURE: CT CERVICAL SPINE WO CONTRAST, CT LUMBAR SPINE WO CONTRAST, CT THORACIC SPINE WO CONTRAST, DATE/TIME OF EXAM: 06/18/2024 3:23 PM, LOCATION [facility] INDICATION: Trauma EXAMINATION: 1.CT of the cervical [...] DATE/TIME OF EXAM: 06/18/2024 3:23 PM, LOCATION [facility] INDICATION: Trauma EXAMINATION: 1.CT of the cervical [...] pelvis. > Dictated by Vijay Jeong DO (Critical Care Nurse), 06/18/2024 3:49 PM. Glenny Price MD have personally reviewed and interpretedthis examination/study. > Interpreting Provider: Glenny Ragsdale MD on 06/18/2024 5:25 PM Gordon Ingram MD CT ORDERABLES * CT CERVICAL SPINE WO CONTRAST - C-Spine Trauma, Spine fracture (06/18/2024 3:21 PM FRENCH INSTRUCTOR) Anatomical Region Laterality Modality Spine Computed Tomogra phy 06/18/2024 3:49 PM FRENCH INSTRUCTOR Impressions 06/18/2024 5:25 PM FRENCH INSTRUCTOR IMPRESSION: 1.No evidence of acute fracture in the cervical, thoracic, or lumbar spine. 2.Please refer to the concurrent, dedicated body report for findings in the chest, abdomen, and pelvis. > Dictated by Vijay Jeong DO (Critical Care Nurse), 06/18/2024 3:49 PM. Glenny Price MD have personally reviewed and interpreted this examination/study. > Interpreting Provider: Glenny Ragsdale MD on 06/18/2024 5:25 PM Narrative 06/18/2024 5:25 PM FRENCH INSTRUCTOR PROCEDURE: CT CERVICAL SPINE WO CONTRAST, CT LUMBAR SPINE WO CONTRAST, CT THORACIC SPINE WO CONTRAST, DATE/TIME OF EXAM: 06/18/2024 3:23 PM, LOCATION [facility] INDICATION: Trauma EXAMINATION: 1.CT of the cervical [...] DATE/TIME OF EXAM: 06/18/2024 3:23 PM, LOCATION [facility] INDICATION: Trauma EXAMINATION: 1.CT of the cervical [...] pelvis. > Dictated by Vijay Jeong DO (Critical Care Nurse), 06/18/2024 3:49 PM. IGlenny MD have personally reviewed and interpretedthis examination/study. > Interpreting Provider: Glenny Ragsdale MD on 06/18/2024 5:25 PM Gordon Ingram MD CT ORDERABLES * CT HEAD WO CONTRAST - Head Trauma, CSF leak, mental status changes (06/18/2024 3:21 PM FRENCH INSTRUCTOR) Anatomical Region Laterality Modality Head Computed Tomogra phy 06/18/2024 3:01 PM FRENCH INSTRUCTOR Impressions 06/18/2024 3:03 PM FRENCH INSTRUCTOR IMPRESSION: 1. No acute intracranial process. 2. 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 > Interpreting Provider: Karin Velasco MD on 06/18/2024 3:03 PM Narrative 06/18/2024 3:03 PM FRENCH INSTRUCTOR PROCEDURE: CT HEAD WO CONTRAST, DATE/TIME OF EXAM: 06/18/2024 2:46 PM, LOCATION [facility] INDICATION: Trauma ADDITIONAL CLINICAL INFORMATION: Ordering Provider [...] DATE/TIME OF EXAM: 06/18/2024 2:46 PM, LOCATION [facility] INDICATION: Trauma ADDITIONAL CLINICAL INFORMATION: Ordering Provider [...] * TROPONIN-I HIGH SENSITIVE (06/18/2024 2:44 PM FRENCH INSTRUCTOR) Troponin I High Sensitive 4 <=14 ng/L 06/18/2024 3:19 PM FRENCH INSTRUCTOR [facility] Blood BLOOD SPECIMEN / Unknown Venipuncture / Unknown 06/18/2024 2:44 PM FRENCH INSTRUCTOR 06/18/2024 2:48 PM FRENCH INSTRUCTOR Gordon Ingram MD LAB - CHEMISTRY JULIANNE OROZCO [facility] Organization Address City/State/ZIP Co de Phone Number [address] [address] [phone] * (ABNORMAL) TEG 6 GLOBAL HEMOSTASIS W/ LYSIS (06/18/2024 2:44 PM FRENCH INSTRUCTOR) Pathologist [facility] Citrated Kaolin R (Reaction Time) 4.3(L) 4.6 - 9.1 min 06/18/2024 3:54 PM [facility] Comment:CK R result below no rmal range. Consistent with hypercoagulable clotting factors. Citrated Kaolin LY30 (Lysis) 0.1 0.0 - 2.6 % 06/18/2024 3:54 PM [facility] [facility] Cit[facility] Functional Fibrinogen MA (Max Amplitude) 19.3 15.0 - 32.0 mm 06/18/2024 3:54 PM [facility] Citrated RapidTEG MA (Max Amplitude) 62.8 52.0 - 70.0 mm 06/18/2024 3:54 PM [facility] Blood BLOOD SPECIMEN / Unknown Venipuncture / Unknown 06/18/2024 2:44 PM FRENCH INSTRUCTOR 06/18/2024 2:52 PM FRENCH INSTRUCTOR Gordon Ingram MD LAB - HEMATOLOGY ORD ERABLES [facility] [address] [place] [address] [phone] * (ABNORMAL) TEG 6S PLATELET MAPPING (06/18/2024 2:44 PM FRENCH INSTRUCTOR) Pathologist [facility] TEGPLM (Max Amplitude) [place] 64.2 53.0 - 68.0 mm 06/18/2024 4:03 PM [facility] TEGPLM (Max Amplitude) ACTF 10.1 2.0 - 19.0 mm 06/18/2024 4:03 PM [facility] TEGPLM (Max Amplitude) ADP 48.6 45.0 - 69.0 mm 06/18/2024 4:03 PM [facility] TEGPLM (Max Amplitude) AA 18.0(L) 51.0 - 71.0 mm 06/18/2024 4:03 PM [facility] Comment:AA MA below normal r dov. Inhibition present. TEGPLM %Inhibition ADP 28.8(H) 0.0 - 17.0 % 06/18/2024 4:03 PM [facility] TEGPLM %Inhibition AA 85.4(H) 0.0 - 11.0 % 06/18/2024 4:03 PM [facility] TEGPLM %Aggregation ADP 71.2(L) 83.0 - 100.0 % 06/18/2024 4:03 PM [facility] TEGPLM % Aggregation AA 14.6(L) 89.0 - 100.0 % 06/18/2024 4:03 PM [facility] Blood BLOOD SPECIMEN / Unknown Venipuncture / Unknown 06/18/2024 2:44 PM FRENCH INSTRUCTOR 06/18/2024 2:52 PM FRENCH INSTRUCTOR Gordon Ingram MD LAB - HEMATOLOGY ORD ERABLES Performing Organization Address City/[facility]/ZIP Co de Phone Number [address] [address], [facility] [phone] * TYPE + SCREEN PANEL (06/18/2024 2:44 PM FRENCH INSTRUCTOR) Antibody Screen NEG 3:33 PM FRENCH INSTRUCTOR [facility] ABO Rh O POS 06/18/2024 3:33 PM FRENCH INSTRUCTOR [facility] Blood Bank BLOOD SPECIMEN / Unknown Venipuncture / Unknown 06/18/2024 2:44 PM FRENCH INSTRUCTOR 06/18/2024 2:53 PM FRENCH INSTRUCTOR Gordon Ingram MD LAB - BLOOD BANK ORD ERABLES [facility] [address] [place] [id number], [facility] [phone] * ALCOHOL ETHYL BLOOD (06/18/2024 2:44 PM FRENCH INSTRUCTOR) Ethanol (mg/dL) <10 <10 mg/dL 3:15 PM [facility] Ethanol Calculated (g/dL) <0.010 <=0.010 g/dL 06/18/2024 3:15 PM FRENCH INSTRUCTOR [facility] Blood BLOOD SPECIMEN / Unknown Venipuncture / Unknown 06/18/2024 2:44 PM FRENCH INSTRUCTOR 06/18/2024 2:48 PM FRENCH INSTRUCTOR Narrative [facility] - 06/18/2024 3:15 PM FRENCH INSTRUCTOR Ethanol Interp <10: None Detected. Depression of GERIATRIC NURSING ASSISTANT: >100 mg/dl Potentially Critical: >250 mg/dl Potentially [...] Ingram MD LAB - CHEMISTRY JULIANNE OROZCO [facility] [address] [place] [id number], [facility] [phone] * XR PELVIS 1 OR 2VW (06/18/2024 2:43 PM FRENCH INSTRUCTOR) Anatomical Region Laterality Modality Pelvis Digital Radiogra phy 06/18/2024 5:02 PM FRENCH INSTRUCTOR Impressions 06/18/2024 5:20 PM FRENCH INSTRUCTOR IMPRESSION: No acute fracture identified. Report dictated by Vijay Jeong DO ([employer]ice president [employer]). IMalcolm MD have personally reviewed and interpreted this examination/study. > Interpreting Provider: Malcolm Marroquin MD on 06/18/2024 5:20 PM Narrative 06/18/2024 5:20 PM FRENCH INSTRUCTOR PROCEDURE: XR PELVIS 1 OR 2VW, DATE/TIME OF EXAM: 06/18/2024 2:44 PM, LOCATION [facility] INDICATION: Trauma Fracture suspected COMPARISON: None. FINDINGS: No acute fracture is identified. The femoral heads appear well-seated within their respective acetabula. The pubic symphysis is intact. Bone density and texture are normal. The sacroiliac joints are normal. Procedure Note Malcolm Marroquin MD - 06/18/2024 PROCEDURE: XR PELVIS 1 OR 2VW, DATE/TIME OF EXAM: 06/18/2024 2:44 PM, LOCATION [facility] INDICATION: Trauma Fracture suspected COMPARISON: None. FINDINGS: No acute fracture is identified. The femoral heads appear well-seated within their respective acetabula. The pubic symphysis is intact. Bone density and texture are normal. The sacroiliac joints are normal. IMPRESSION: No acute fracture identified. Report dictated by Vijay Jeong DO (vice president [employer]). Malcolm Price MD have personally reviewed and interpreted this examination/study. > Interpreting Provider: Malcolm Marroquin MD on 06/18/2024 5:20 PM Gordon Ingram MD DIAGNOSTIC IMAGING O RDERABLES * XR Knee Left 2Vw or Less (06/18/2024 2:43 PM FRENCH INSTRUCTOR) Anatomical Region Laterality Modality Lower Extremity Digital Radiogra phy 06/18/2024 5:03 PM FRENCH INSTRUCTOR Impressions 06/18/2024 7:59 PM FRENCH INSTRUCTOR Impression: Likely chronic osseous fragment adjacent to [...] dictated by Vijay Jeong DO (vice president [employer]). Malcolm Price MD have personally reviewed and interpreted this examination/study. > Interpreting Provider: Malcolm Marroquin MD on 06/18/2024 7:59 PM Narrative 06/18/2024 7:59 PM FRENCH INSTRUCTOR PROCEDURE: XR KNEE LEFT 2VW OR LESS, DATE/TIME OF EXAM: 06/18/2024 2:43 PM, LOCATION [facility] INDICATION: T14.90XA: Trauma COMPARISON: None. Procedure Note Malcolm Marroquin MD - 06/18/2024 PROCEDURE: XR KNEE LEFT 2VW OR LESS, DATE/TIME OF EXAM: 06/18/2024 2:43PM, LOCATION [facility] INDICATION: T14.90XA: Trauma COMPARISON: None. Impression: Likely [...] dictated by Vijay Jeong DO (vice president [employer]). I, Malcolm Marroquin MD have personally reviewed and interpreted this examination/study. > Interpreting Provider: Malcolm Marroquin MD on 06/18/2024 7:59 PM Gordon Ingram MD DIAGNOSTIC IMAGING O RDERABLES from Last 3 Months Advance Directives Documents on File Type Date Recorded Patient Usps Letter Carrier Expl anation Adv Directive/Living Will/POA 06/27/2024 10:06 AM * Full Code (Latest Code Status on File) Date Activated Date Inactivated Comments 06/18/2024 4:59 PM 07/05/2024 12:48 PM
--- OUTSIDE RECORDS SUMMARY | 2024-07-31 15:41 | XMS_ITS | Patient Health Summary ---
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 Modality Computed Tomogra phy 06/19/2024 12:0 2 PM [employer] Impressions 06/19/2024 12:17 PM [employer] IMPRESSION: Three-dimensional rendering for operative planning. The report was drafted by Álvaro Fernández MD (logistics vice president) 06/19/2024 12:02 PM. Higinio Price MD have personally reviewed and interpreted this examination/study. > Interpreting Provider: Higinio Whittington MD on 06/19/2024 12:17 PM Narrative 06/19/2024 12:17 PM [employer] PROCEDURE: CT 3D RECON W INDEPENDENT S, DATE/TIME OF EXAM: 06/19/2024 10:28 AM, LOCATION [facility] INDICATION: S22.43XA: Closed fracture of multiple [...] DATE/TIME OF EXAM: 06/19/2024 10:28 AM, LOCATION [facility] INDICATION: S22.43XA: Closed fracture of multiple [...] report was drafted by Álvaro Fernández MD (logistics vice president) 06/19/2024 12:02 PM. Higinio Price MD have personally reviewed and interpreted this examination/study. > Interpreting Provider: Higinio Whittington MD on 06/19/2024 12:17 PM Gordon Christie Ingram MD CT ORDERABLES * TRANSFUSE PLATELET PHERESIS UNIT(S) (06/19/2024 4:54 AM [employer]) Gordon Fernández MD NURSING - BLOOD PROD TRANSFUSION * (ABNORMAL) HGB HCT PANEL (06/19/2024 3:29 AM [employer]) Only the most recent of2 resultswithin the time period is included. Pathologist [facility] Hemoglobin 7.9(L) 11.9 - 15.8 g/dL 06/19/2024 3:42 AM [facility] Hematocrit 25.2(L) 34.8 - 46.1 % 06/19/2024 3:42 AM [facility] Blood BLOOD SPECIMEN / Unknown Venipuncture / Unknown 06/19/2024 3:29 AM [employer] 06/19/2024 3:39 AM [employer] Gordon Ingram MD LAB - HEMATOLOGY ORD ERABLES Performing Organization Address City/[facility]/ZIP Co de Phone Number [address] [address], [facility] [phone] * PTT [facility] (06/18/2024 8:38 PM [employer]) Only the most recent of2 resultswithin the time period is included. [facility] APTT 27.5 23.0 - 38.4 Seconds 06/18/2024 9:35 PM [facility] Comment:Suggested therapeuti c range for full dose I.V. unfractionated heparin therapy for venous thromboembolism is 71 to 109 seconds. Blood BLOOD SPECIMEN / Unknown Venipuncture / Unknown 06/18/2024 8:38 PM [employer] 06/18/2024 8:44 PM [employer] Gordon Ingram MD LAB - COAGULATION OR DERABLES Performing Organization Address City/[facility]/ZIP Co de Phone Number [address] [address], [facility] [phone] * (ABNORMAL) VITAMIN D 25-HYDROXY (06/18/2024 8:38 PM [employer]) [facility] Vitamin D, 25 Hydroxy 94.0(H) 30.0 - 80.0 ng/mL 06/19/2024 6:51 AM [employer] [facility] Comment: The recommendations for 25-Hydroxy [...] Unknown Venipuncture / Unknown 06/18/2024 8:38 PM [employer] 06/18/2024 9:09 PM [employer] Sulema Whyte PA-C LAB - CHEMISTRY OR DERABLES Performing Organization Address [facility]/ZIP Co de Phone Number [address] [address], [facility] [phone] * LACTIC ACID BLOOD (06/18/2024 8:38 PM [employer]) Lactic Acid-Stat 1.4 <=2.0 mmol/L 06/18/2024 9:38 PM [employer] [facility] Blood BLOOD SPECIMEN / Unknown Venipuncture / Unknown 06/18/2024 8:38 PM [employer] 06/18/2024 9:12 PM [employer] Gordon Ingram MD LAB - CHEMISTRY JULIANNE OROZCO Performing Organization Address [facility]/ZIP Co de Phone Number [address] [address], [place] [phone] * CT Ankle Left Wo Contrast (06/18/2024 7:57 PM [employer]) Anatomical Region Laterality Modality Lower Extremity Computed Tomogra phy 06/18/2024 8:46 PM [employer] Narrative 06/18/2024 9:15 PM [employer] PROCEDURE: CT KNEE LEFT WO CONTRAST, CT [...] present. > Dictated by Dimitris Avila MD (Scale Balancer) Higinio Price MD have personally reviewed and [...] present. > Dictated by Dimitris Avila MD (Scale Balancer) Higinio Price MD have personally reviewed and interpreted this examination/study. > Interpreting Provider: Higinio Whittington MD on 06/18/2024 9:15 PM Gordon Christie Ingram MD CT ORDERABLES * CT Knee Left Wo Contrast (06/18/2024 7:57 PM [employer]) Anatomical Region Laterality Modality Lower Extremity Computed Tomogra phy 06/18/2024 8:46 PM [employer] Narrative 06/18/2024 9:15 PM [employer] PROCEDURE: CT KNEE LEFT WO CONTRAST, CT [...] present. > Dictated by Dimitris Avila MD (Scale Balancer) Higinio Price MD have personally reviewed and [...] present. > Dictated by Dimitris Avila MD (Scale Balancer) IHiginio MD have personally reviewed and interpreted this examination/study. > Interpreting Provider: Higinio Whittington MD on 06/18/2024 9:15 PM Gordon Ingram MD CT ORDERABLES * BLOOD TYPE VERIFICATION (06/18/2024 6:57 PM [employer]) ABO Rh O POS 06/18/2024 7:2 6 PM [employer] [facility] BLOOD [facility] LAB Blood Bank BLOOD SPECIMEN / Unknown Venipuncture / Unknown 06/18/2024 6:57 PM [employer] 06/18/2024 7:05 PM [employer] Gordon Ingram MD LAB - BLOOD BANK ORD ERABLES [facility] BLOOD BANK LAB [address] [place] [address], [facility] [phone] * PREPARE PLATELET PHERESIS UNIT(S), 1 Units (06/18/2024 6:45 PM [employer]) Unit Description LRPLTphere B7 IR [facility] BLOOD BANK LAB Unit ABO O [facility] BLOOD [facility] Unit Rh POS [facility] BLOOD [facility] Product Number P31 [facility] B LOOD BANK LAB Unit Donor # [id number] [facility] BLOOD [facility] Unit Status transfused [facility] BLO OD [facility]ANK LAB Product Code [id number] [facility] BLO OD [facility]ANK LAB Blood Type Barcode 5100 [facility] BLOOD [facility] LAB Expiration Date S BLOOD BANK LAB Blood Bank BLOOD SPECIMEN / Unknown 06/18/2024 2:53 PM [employer] Gordon Fernández MD LAB - BLOOD BANK ORD ERABLES [facility] BLOOD [facility] [address] [place] [address], [facility] [phone] * XR Wrist Right 3Vw or More (06/18/2024 3:39 PM [employer]) Anatomical Region Laterality Modality Wrist / Hand Digital Radiogra phy 06/18/2024 5:17 PM [employer] Impressions 06/18/2024 8:04 PM [employer] IMPRESSION: No acute fracture or dislocation identified. Report dictated by Vijay Jeong DO (residential substance abuse counselor). IMalcolm MD have personally reviewed and interpreted this examination/study. > Interpreting Provider: Malcolm Marroquin MD on 06/18/2024 8:04 PM Narrative 06/18/2024 8:04 PM [employer] PROCEDURE: XR WRIST RIGHT 3VW OR MORE, DATE/TIME OF EXAM: 06/18/2024 3:39 PM, LOCATION [facility] INDICATION: T14.90XA: Trauma ADDITIONAL CLINICAL INFORMATION: [...] MORE, DATE/TIME OF EXAM: 53:39 PM, LOCATION [facility] INDICATION: T14.90XA: Trauma ADDITIONAL CLINICAL INFORMATION: [...] Report dictated by Vijay Jeong DO (residential substance abuse counselor). Malcolm Price MD have personally reviewed and interpreted this examination/study. > Interpreting Provider: Malcolm Marroquin MD on 06/18/2024 8:04 PM Gordon Ingram MD DIAGNOSTIC IMAGING O RDERABLES * XR Tibia Fibula Left 2Vw (06/18/2024 3:39 PM [employer]) Anatomical Region Laterality Modality Lower Extremity Digital Radiogra phy 06/18/2024 5:13 PM [employer] Impressions 06/18/2024 5:22 PM [employer] IMPRESSION: Quadrimalleolar fracture. Report dictated by Vijay Jeong DO (residential substance abuse counselor). Malcolm Price MD have personally reviewed and interpreted this examination/study. > Interpreting Provider: Malcolm Marroquin MD on 06/18/2024 5:22 PM Narrative 06/18/2024 5:22 PM [employer] PROCEDURE: XR TIBIA FIBULA LEFT 2VW, DATE/TIME OF EXAM: 06/18/2024 3:39 PM, LOCATION [facility] INDICATION: T14.90XA: Trauma COMPARISON: None. FINDINGS: Quadrimalleolar fracture. Bone density and texture are normal. Soft tissue swelling is present. Procedure Note Malcolm Marroquin MD - 06/18/2024 PROCEDURE: XR TIBIA FIBULA LEFT 2VW, DATE/TIME OF EXAM: 06/18/2024 3:39PM, LOCATION [facility] INDICATION: T14.90XA: Trauma COMPARISON: None. FINDINGS: Quadrimalleolar fracture. Bone density and texture are normal. Softtissue swelling is present. IMPRESSION: Quadrimalleolar fracture. Report dictated by Vijay Jeong DO (residential substance abuse counselor). Malcolm Price MD have personally reviewed and interpreted this examination/study. > Interpreting Provider: Malcolm Marroquin MD on 06/18/2024 5:22 PM Gordon Ingram MD DIAGNOSTIC IMAGING O RDERABLES * XR Hand Right 3Vw or More (06/18/2024 3:39 PM [employer]) Anatomical Region Laterality Modality Wrist / Hand Digital Radiogra phy 06/18/2024 5:17 PM [employer] Impressions 06/18/2024 8:05 PM [employer] IMPRESSION: No acute fracture or dislocation identified. Report dictated by Vijay Jeong DO (residential substance abuse counselor). Malcolm Price MD have personally reviewed and interpreted this examination/study. > Interpreting Provider: Malcolm Marroquin MD on 06/18/2024 8:05 PM Narrative 06/18/2024 8:05 PM [employer] PROCEDURE: XR HAND RIGHT 3VW OR MORE, DATE/TIME OF EXAM: 06/18/2024 3:39 PM, LOCATION [facility] INDICATION: T14.90XA: Trauma COMPARISON: None. FINDINGS: [...] DATE/TIME OF EXAM: 06/18/2024 3:39 PM, LOCATION [facility] INDICATION: T14.90XA: Trauma COMPARISON: None. FINDINGS: [...] Report dictated by Vijay Jeong DO (residential substance abuse counselor). Malcolm Price MD have personally reviewed and interpreted this examination/study. > Interpreting Provider: Malcolm Marroquin MD on 06/18/2024 8:05 PM Gordon Christie Ingram MD DIAGNOSTIC IMAGING O RDERABLES * XR Hand Left 3Vw or More (06/18/2024 3:39 PM [employer]) Anatomical Region Laterality Modality Wrist / Hand Digital Radiogra phy 06/18/2024 5:16 PM [employer] Impressions 06/18/2024 8:03 PM [employer] IMPRESSION: No acute fracture or dislocation identified. Report dictated by Vijay Jeong DO (residential substance abuse counselor). Malcolm Price MD have personally reviewed and interpreted this examination/study. > Interpreting Provider: Malcolm Marroquin MD on 06/18/2024 8:03 PM Narrative 06/18/2024 8:03 PM [employer] PROCEDURE: XR HAND LEFT 3VW OR MORE, DATE/TIME OF EXAM: 06/18/2024 3:39 PM, LOCATION [facility] INDICATION: T14.90XA: Trauma COMPARISON: None. FINDINGS: [...] MORE, DATE/TIME OF EXAM: 06/18/2024 3:39PM, LOCATION [facility] INDICATION: T14.90XA: Trauma COMPARISON: None. FINDINGS: The osseous structures are intact and well aligned without acutefracture or dislocation. The joint spaces are preserved. The bones are diffusely demineralized. No soft tissue swelling is present. Degenerative changesof the fifth distal interphalangeal and first carpometacarpal joints. IMPRESSION: No acute fracture or dislocation identified. Report dictated by Vijay Jeong DO (residential substance abuse counselor). Malcolm Price MD have personally reviewed and interpreted this examination/study. > Interpreting Provider: Malcolm Marroquin MD on 06/18/2024 8:03 PM Gordon Ingram MD DIAGNOSTIC IMAGING O RDERABLES * CT LUMBAR SPINE WO CONTRAST - T/L-spine trauma, Spine fracture (06/18/2024 3:21 PM [employer]EM[employer]) Anatomical Region Laterality Modality Spine Computed Tomogra phy 06/18/2024 3:49 PM [employer] Impressions 06/18/2024 5:25 PM [employer] IMPRESSION: 1.No evidence of acute fracture in the cervical, thoracic, or lumbar spine. 2.Please refer to the concurrent, dedicated body report for findings in the chest, abdomen, and pelvis. > Dictated by Vijay Jeong DO (Scale Balancer), 06/18/2024 3:49 PM. Glenny Price MD have personally reviewed and interpreted this examination/study. > Interpreting Provider: Glenny Ragsdale MD on 06/18/2024 5:25 PM Narrative 06/18/2024 5:25 PM [employer] PROCEDURE: CT CERVICAL SPINE WO CONTRAST, CT LUMBAR SPINE WO CONTRAST, CT THORACIC SPINE WO CONTRAST, DATE/TIME OF EXAM: 06/18/2024 3:23 PM, LOCATION [facility] INDICATION: Trauma EXAMINATION: 1.CT of the [...] DATE/TIME OF EXAM: 06/18/2024 3:23 PM, LOCATION [facility] INDICATION: Trauma EXAMINATION: 1.CT of the [...] pelvis. > Dictated by Vijay Jeong DO (Scale Balancer), 06/18/2024 3:49 PM. Glenny Price MD have personally reviewed and interpretedthis examination/study. > Interpreting Provider: Glenny Ragsdale MD on 06/18/2024 5:25 PM Gordon Ingram MD CT ORDERABLES * CT THORACIC SPINE WO CONTRAST - T/L-spine trauma, spine fracture (06/18/2024 3:21 PM [employer]ATION [employer]) Anatomical Region Laterality Modality Spine Computed Tomogra phy 06/18/2024 3:49 PM [employer]ATION [employer] Impressions 06/18/2024 5:25 PM [employer] IMPRESSION: 1.No evidence of acute fracture in the cervical, thoracic, or lumbar spine. 2.Please refer to the concurrent, dedicated body report for findings in the chest, abdomen, and pelvis. > Dictated by Vijay Jeong DO (Scale Balancer), 06/18/2024 3:49 PM. Glenny Price MD have personally reviewed and interpreted this examination/study. > Interpreting Provider: Glenny Ragsdale MD on 06/18/2024 5:25 PM Narrative 06/18/2024 5:25 PM [employer] PROCEDURE: CT CERVICAL SPINE WO CONTRAST, CT LUMBAR SPINE WO CONTRAST, CT THORACIC SPINE WO CONTRAST, DATE/TIME OF EXAM: 06/18/2024 3:23 PM, LOCATION [facility] INDICATION: Trauma EXAMINATION: 1.CT of the [...] DATE/TIME OF EXAM: 06/18/2024 3:23 PM, LOCATION [facility] INDICATION: Trauma EXAMINATION: 1.CT of the [...] pelvis. > Dictated by Vijay Jeong DO (Scale Balancer), 06/18/2024 3:49 PM. Glenny Price MD have personally reviewed and interpretedthis examination/study. > Interpreting Provider: Glenny Ragsdale MD on 06/18/2024 5:25 PM Gordon Ingram MD CT ORDERABLES * CT CERVICAL SPINE WO CONTRAST - C-Spine Trauma, Spine fracture (06/18/2024 3:21 PM [employer]ATION [employer]) Anatomical Region Laterality Modality Spine Computed Tomogra phy 06/18/2024 3:49 PM [employer]ATION [employer] Impressions 06/18/2024 5:25 PM [employer]ATION [employer] IMPRESSION: 1.No evidence of acute fracture in the cervical, thoracic, or lumbar spine. 2.Please refer to the concurrent, dedicated body report for findings in the chest, abdomen, and pelvis. > Dictated by Vijay Jeong DO (Scale Balancer), 06/18/2024 3:49 PM. IGlenny MD have personally reviewed and interpreted this examination/study. > Interpreting Provider: Glenny Ragsdale MD on 06/18/2024 5:25 PM Narrative 06/18/2024 5:25 PM [employer] PROCEDURE: CT CERVICAL SPINE WO CONTRAST, CT LUMBAR SPINE WO CONTRAST, CT THORACIC SPINE WO CONTRAST, DATE/TIME OF EXAM: 06/18/2024 3:23 PM, LOCATION [facility] INDICATION: Trauma EXAMINATION: 1.CT of the [...] DATE/TIME OF EXAM: 06/18/2024 3:23 PM, LOCATION [facility] INDICATION: Trauma EXAMINATION: 1.CT of the [...] pelvis. > Dictated by Vijay Jeong DO (Scale Balancer), 06/18/2024 3:49 PM. Glenny Price MD have personally reviewed and interpretedthis examination/study. > Interpreting Provider: Glenny Ragsdale MD on 06/18/2024 5:25 PM Gordon Ingram MD CT ORDERABLES * CT HEAD WO CONTRAST - Head Trauma, CSF leak, mental status changes (06/18/2024 3:21 PM [employer]ATION [employer]EM[employer]) Anatomical Region Laterality Modality Head Computed Tomogra phy 06/18/2024 3:01 PM [employer] Impressions 06/18/2024 3:03 PM [employer]ATION [employer] IMPRESSION: 1. No acute intracranial process. 2. 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 > Interpreting Provider: Karin Velasco MD on 06/18/2024 3:03 PM Narrative 06/18/2024 3:03 PM [employer] PROCEDURE: CT HEAD WO CONTRAST, DATE/TIME OF EXAM: 06/18/2024 2:46 PM, LOCATION [facility] INDICATION: Trauma ADDITIONAL CLINICAL INFORMATION: Ordering [...] DATE/TIME OF EXAM: 06/18/2024 2:46 PM, LOCATION [facility] INDICATION: Trauma ADDITIONAL CLINICAL INFORMATION: Ordering [...] * TROPONIN-I HIGH SENSITIVE (06/18/2024 2:44 PM [employer]ALLATION [employer]EM[employer]) Pathologist [facility] Troponin I High Sensitive 4 <=14 ng/L 06/18/2024 3:19 PM [employer]ATION [employer] [facility] Blood BLOOD SPECIMEN / Unknown Venipuncture / Unknown 06/18/2024 2:44 PM [employer] 06/18/2024 2:48 PM [employer] Gordon Ingram MD LAB - CHEMISTRY ORDE [facility] Organization Address City/State/ZIP Co de Phone Number [facility] [address] [place] [address], [facility] [phone] * (ABNORMAL) TEG 6 GLOBAL HEMOSTASIS W/ LYSIS (06/18/2024 2:44 PM [employer]ATION FOREM[employer]) Pathologist [facility] Citrated Kaolin R (Reaction Time) 4.3(L) 4.6 - 9.1 min 06/18/2024 3:54 PM [employer]ATION [employer]EM[employer] [facility] Comment:CK R result below no rmal range. Consistent with hypercoagulable clotting factors. Citrated Kaolin LY30 (Lysis) 0.1 0.0 - 2.6 % 06/18/2024 3:54 PM [employer]ATION [employer] [facility] Citrated Functional Fibrinogen MA (Max Amplitude) 19.3 15.0 - 32.0 mm 06/18/2024 3:54 PM [facility] Citrated RapidTEG MA (Max Amplitude) 62.8 52.0 - 70.0 mm 06/18/2024 3:54 PM [facility] Blood BLOOD SPECIMEN / Unknown Venipuncture / Unknown 06/18/2024 2:44 PM [employer] 06/18/2024 2:52 PM [employer] Gordon Ingram MD LAB - HEMATOLOGY ORD ERABLES [facility] [address] [place] [address], [facility] [phone] * (ABNORMAL) TEG 6S PLATELET MAPPING (06/18/2024 2:44 PM SOLAR INSTALLATION FOREMAN) TEGPLM (Max Amplitude) Koalin 64.2 53.0 - [...] Unknown Venipuncture / Unknown 06/18/2024 2:44 PM SOLAR INSTALLATION FOREMAN 06/18/2024 2:52 PM SOLAR INSTALLATION FOREMAN Gordon Ingram MD LAB - HEMATOLOGY ORD ERABLES Performing Organization Address City/[facility]/ZIP Co de Phone Number [address] [address], [facility] [phone] * TYPE + SCREEN PANEL (06/18/2024 2:44 PM SOLAR INSTALLATION FOREMAN) Antibody Screen NEG 3:33 PM SOLAR INSTALLATION FOREMAN [facility] BLOOD BANK LAB ABO Rh O POS 06/18/2024 3:33 PM SOLAR INSTALLATION FOREMAN [facility] BLOOD BANK LAB Blood Bank BLOOD SPECIMEN / Unknown Venipuncture / Unknown 06/18/2024 2:44 PM SOLAR INSTALLATION FOREMAN 06/18/2024 2:53 PM SOLAR INSTALLATION FOREMAN Gordon Ingram MD LAB - BLOOD BANK ORD [place]ES Performing Organization Address [facility] de Phone Number [facility] BLOOD BANK LAB [address] [place] [phone], [facility] [phone] * ALCOHOL ETHYL BLOOD (06/18/2024 2:44 PM SOLAR INSTALLATION FOREMAN) Ethanol (mg/dL) <10 <10 mg/dL 3:15 PM [facility] Ethanol Calculated (g/dL) <0.010 <=0.010 g/dL 06/18/2024 3:15 PM [facility] Blood BLOOD SPECIMEN / Unknown Venipuncture / Unknown 06/18/2024 2:44 PM SOLAR INSTALLATION FOREMAN 06/18/2024 2:48 PM SOLAR INSTALLATION FOREMAN Narrative [facility] - 06/18/2024 3:15 PM SOLAR INSTALLATION FOREMAN Ethanol Interp <10: None Detected. Depression of BARN OPERATOR: >100 mg/dl Potentially Critical: >250 mg/dl [...] Ingram MD LAB - CHEMISTRY JULIANNE OROZCO [facility] [address] [place] [phone], [facility] [phone] * XR PELVIS 1 OR 2VW (06/18/2024 2:43 PM SOLAR INSTALLATION FOREMAN) Anatomical Region Laterality Modality Pelvis Digital Radiogra phy 06/18/2024 5:02 PM SOLAR INSTALLATION FOREMAN Impressions 06/18/2024 5:20 PM SOLAR INSTALLATION FOREMAN IMPRESSION: No acute fracture identified. Report dictated by Vijay Jeong DO (residential substance abuse counselor). Malcolm Price MD have personally reviewed and interpreted this examination/study. > Interpreting Provider: Malcolm Marroquin MD on 06/18/2024 5:20 PM Narrative 06/18/2024 5:20 PM SOLAR INSTALLATION FOREMAN PROCEDURE: XR PELVIS 1 OR 2VW, DATE/TIME OF EXAM: 06/18/2024 2:44 PM, LOCATION [facility] INDICATION: Trauma Fracture suspected COMPARISON: None. FINDINGS: No acute fracture is identified. The femoral heads appear well-seated within their respective acetabula. The pubic symphysis is intact. Bone density and texture are normal. The sacroiliac joints are normal. Procedure Note Malcolm Marroquin MD - 06/18/2024 PROCEDURE: XR PELVIS 1 OR 2VW, DATE/TIME OF EXAM: 06/18/2024 2:44 PM, LOCATION [facility] INDICATION: Trauma Fracture suspected COMPARISON: None. FINDINGS: No acute fracture is identified. The femoral heads appear well-seated within their respective acetabula. The pubic symphysis is intact. Bone density and texture are normal. The sacroiliac joints are normal. IMPRESSION: No acute fracture identified. Report dictated by Vijay Jeong DO (residential substance abuse counselor). Malcolm Price MD have personally reviewed and interpreted this examination/study. > Interpreting Provider: Malcolm Marroquin MD on 06/18/2024 5:20 PM Gordon Ingram MD DIAGNOSTIC IMAGING O RDERABLES * XR Knee Left 2Vw or Less (06/18/2024 2:43 PM SOLAR INSTALLATION FOREMAN) Anatomical Region Laterality Modality Lower Extremity Digital Radiogra phy 06/18/2024 5:03 PM SOLAR INSTALLATION FOREMAN Impressions 06/18/2024 7:59 PM SOLAR INSTALLATION FOREMAN Impression: Likely chronic osseous fragment adjacent to [...] Report dictated by Vijay Jeong DO (residential substance abuse counselor). Malcolm Price MD have personally reviewed and interpreted this examination/study. > Interpreting Provider: Malcolm Marroquin MD on 06/18/2024 7:59 PM Narrative 06/18/2024 7:59 PM SOLAR INSTALLATION FOREMAN PROCEDURE: XR KNEE LEFT 2VW OR LESS, DATE/TIME OF EXAM: 06/18/2024 2:43 PM, LOCATION [facility] INDICATION: T14.90XA: Trauma COMPARISON: None. Procedure Note Malcolm Marroquin MD - 06/18/2024 PROCEDURE: XR KNEE LEFT 2VW OR LESS, DATE/TIME OF EXAM: 06/18/2024 2:43PM, LOCATION [facility] INDICATION: T14.90XA: Trauma COMPARISON: None. Impression: [...] Report dictated by Vijay Jeong DO (residential substance abuse counselor). Malcolm Price MD have personally reviewed and interpreted this examination/study. > Interpreting Provider: Malcolm Marroquin MD on 06/18/2024 7:59 PM Gordon Ingram MD DIAGNOSTIC IMAGING O JACEKBLES
--- OUTSIDE RECORDS SUMMARY | 2024-07-31 15:42 | XMS_ITS | Encounter Summary ---
Author Organization [facility] Address Formerly [facility] [place] [address] Care Team Providers Care License Examiner Name Role Phone Mo Moy MD Primary Care Provider Sal Bliss MD Unavailable [phone] Angel Lopez MD Unavailable Encounter Details Date Type Department Care Team (Late st Contact Info) Description 03/14/2018 Abstract [facility] at [address] [address] Faizan Pereira MA Social History Tobacco Use Types Packs/Day Years Used Date Smoking Tobacco: Former Cigarettes 0.5 35 1 965 - 2000 Smokeless Tobacco: Never Comments:distant past Alcohol Use Standard Drinks/Week Comments No 0 (1 standard drink = 0.6 oz pur e alcohol) Comments No Sex and Gender Information Value Date Recorded Sex Assigned at Female 05/30/2024 12:35 PM CLINICAL NURSING MANAGER Legal Sex Female 6:49 PM CDT Gender [...] Description 10/26/2024 11:00 AM CDT Office Visit [facility] Medical Group Multispecialty Care - [facility] [address] [place] [address] Jacob Landry MD [address] [facility] [address] [place] [address] documented as of this encounter Procedures Procedure [...] Rule Out 07/07/2021 07/07/2021 07/08/2021 7:49 PM CLINICAL NURSING MANAGER COVID-19 Rule Out 09/27/2021 09/27/2021 09/28/2021 10:26 AM CDT COVID-19 Rule Out 07/01/2023 07/01/2023 07/01/2023 3:40 PM CLINICAL NURSING MANAGER COVID-19 Rule Out 11/03/2023 11/03/2023 11/03/2023 1:01 AM CDT documented as of this encounter Care Teams License Examiner Relationship Specialty Start Date End Date Mo Moy MD [address] [place] [address] PCP - General FAMILY PRACTICE 11/26/17 Sal Bliss MD [address] [facility] [address] [place] [address] [place] [employer]mer CARDIOVASCULAR DISEASE 12/10/17 Angel Lopez MD [address] [facility] [address] [place], [place] [id number] [employer] CLINICAL CARDIAC ELECTROPHYSIOLOGY 01/15/18 documented as of this encounter
--- OUTSIDE RECORDS SUMMARY | 2024-07-31 15:42 | XMS_ITS | Encounter Summary ---
Author Organization [place] Address [facility] [place] [address] Care Team Providers Care Ergonomic Specialist Name Role Phone Mo Moy MD Primary Care Provider [phone] Sal Bliss MD Unavailable [phone] Angel Lopez MD Unavailable Encounter Details Date Type Department Care Team (Late st Contact Info) Description 07/05/2023 Hospital Follow-up Call [facility] [address] [place] [address] Chrissy Chaney RN Social History Tobacco Use Types Packs/Day Years Used Date Smoking Tobacco: Former Cigarettes 1 35 1 965 - 2000 Smokeless Tobacco: Never Comments:distant past Alcohol Use Standard Drinks/Week Comments No 0 (1 standard drink = 0.6 oz pur e alcohol) [facility] Utilities Answer Date Recorded In the past 12 months has e [employer], gas, oil, or water [employer] threatened to shut off services in your [...] place to sleep or slept in a jail (including now)? 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 Maddi Bryant R N Active * Are [...] Description 10/26/2024 11:00 AM CDT Office Visit [facility] Medical Group Multispecialty Care - [address], [address] [place] [address] Jacob Landry MD [address] [place] [address] [place] [phone] documented as of this encounter Visit Diagnoses Not on filedocumented in this encounter Additional Health Concerns Infection Onset Date Last Indicated Resolved Time COVID-19 Rule Out 11/03/2023 11/03/2023 11/03/2023 1:01 AM CDT Assessment Noted Time PHQ-9 Depression Total Score: 0 05/05/20 21 1:33 PM 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 [place] [address] [place] [employer] Helper CARDIOVASCULAR DISEASE 12/10/17 Angel Lopez MD [address] [place] [address] EP [employer] CLINICAL CARDIAC ELECTROPHYSIOLOGY 01/15/18 documented as of this encounter
--- OUTSIDE RECORDS SUMMARY | 2024-07-31 15:42 | XMS_ITS | Continuity of Care Document ---
Author Organization [facility] Address [address] [facility] [address] [place] [address] Phone Care Team Providers Care Human Resources Consultant Name Role Phone Catracho Bojorquez MD Unavailable [...] Copied on Encounter Office/outpa tient Visit, [facility], [address] [place] [address] [address], [place], [place], [id number], [place] [phone] [place] Professional yag pc ou evaluation (chief complaint) Presence of intraocular lensOther secondary cataract, right eyeMacular hole of left eye [address] [place]. [address] [facility], [facility] A, [place], [place], [id number], [place]. tel:[phone] Sal Bliss MD.Referring Provider: Ashley Turcios, [address], [address]. tel:[phone] [facility], [address] [place] [address] [address], [place], [place], [id number], [place] tel:[phone] SEC Radha Bruno No Information 1 [place]. [address] [facility] [address], [place], [place], [id number], [place]. tel:[phone] Specialist: Sal Bliss MD, [address] [facility] [address], [place], [address]. tel:[phone] Provider: Ashley Turcios, [facility] [address], [address]. tel:[phone] Family History Family Member Type Diagnosis Age At Onset No Information Payers Payer name Insurance type Covered alliance party ID Authoriza tion(s) [place] [id number] [facility] [id number] Social History Type Description Quantity Date Captured [...]
--- OUTSIDE RECORDS SUMMARY | 2024-07-31 15:42 | XMS_ITS | Clinical Summary ---
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 unfractionated heparin therapy for venous thromboembolism is 71 to 109 seconds. Blood BLOOD SPECIMEN / Unknown Venipuncture / Unknown 06/18/2024 8:38 PM PROGRAMMER ANALYST CONSULTANT 06/18/2024 8:44 PM PROGRAMMER ANALYST CONSULTANT Gordon Ingram MD LAB - COAGULATION OR DERABLES Performing Organization Address [facility] Co de Phone Number [address] [address], [facility] [phone] * (ABNORMAL) VITAMIN D 25-HYDROXY (06/18/2024 8:38 PM PROGRAMMER ANALYST CONSULTANT) Vitamin D, 25 Hydroxy 94.0(H) 30.0 - 80.0 ng/mL 06/19/2024 6:51 AM PROGRAMMER ANALYST CONSULTANT [facility] Comment: The recommendations for 25-Hydroxy Vitamin [...] Unknown Venipuncture / Unknown 06/18/2024 8:38 PM PROGRAMMER ANALYST CONSULTANT 06/18/2024 9:09 PM PROGRAMMER ANALYST CONSULTANT Sulema Whyte PA-C LAB - CHEMISTRY OR DERABLES Performing Organization Address City/[facility]/ZIP Co de Phone Number [facility] [address] [place] [address], [place] [phone] * LACTIC ACID BLOOD (06/18/2024 8:38 PM PROGRAMMER ANALYST CONSULTANT) Lactic Acid-Stat 1.4 <=2.0 mmol/L 06/18/2024 9:38 PM PROGRAMMER ANALYST CONSULTANT [facility] Blood BLOOD SPECIMEN / Unknown Venipuncture / Unknown 06/18/2024 8:38 PM PROGRAMMER ANALYST CONSULTANT 06/18/2024 9:12 PM PROGRAMMER ANALYST CONSULTANT Gordon Ingram MD LAB - CHEMISTRY JULIANNE OROZCO Performing Organization Address [facility] Co de Phone Number [facility] [address] [place] [address], [place] [phone] * CT Ankle Left Wo Contrast (06/18/2024 7:57 PM PROGRAMMER ANALYST CONSULTANT) Anatomical Region Laterality Modality Lower Extremity Computed Tomogra phy 06/18/2024 8:46 PM PROGRAMMER ANALYST CONSULTANT Narrative 06/18/2024 9:15 PM PROGRAMMER ANALYST CONSULTANT PROCEDURE: CT KNEE LEFT WO CONTRAST, CT [...] present. > Dictated by Dimitris Avila MD (Buyer Internship) IHiginio MD have personally reviewed and interpreted [...] present. > Dictated by Dimitris Avila MD (Buyer Internship) IHiginio MD have personally reviewed and interpreted this examination/study. > Interpreting Provider: Higinio Whittington MD on 06/18/2024 9:15 PM Authorizing Provider Result Vanessa Ingram MD CT ORDERABLES * CT Knee Left Wo Contrast (06/18/2024 7:57 PM PROGRAMMER ANALYST CONSULTANT) Anatomical Region Laterality Modality Lower Extremity Computed Tomogra phy 06/18/2024 8:46 PM PROGRAMMER ANALYST CONSULTANT Narrative 06/18/2024 9:15 PM PROGRAMMER ANALYST CONSULTANT PROCEDURE: CT KNEE LEFT WO CONTRAST, CT [...] present. > Dictated by Dimitris Avila MD (Buyer Internship) Higinio Price MD have personally reviewed and [...] present. > Dictated by Dimitris Avila MD (Buyer Internship) IHiginio MD have personally reviewed and interpreted this examination/study. > Interpreting Provider: Higinio Whittington MD on 06/18/2024 9:15 PM Gordon Ingram MD CT ORDERABLES * BLOOD TYPE VERIFICATION (06/18/2024 6:57 PM PROGRAMMER ANALYST CONSULTANT) ABO Rh O POS 06/18/2024 7:2 6 PM PROGRAMMER ANALYST CONSULTANT [facility] Blood Bank BLOOD SPECIMEN / Unknown Venipuncture / Unknown 06/18/2024 6:57 PM PROGRAMMER ANALYST CONSULTANT 06/18/2024 7:05 PM PROGRAMMER ANALYST CONSULTANT Gordon Ingram MD LAB - BLOOD BANK ORD ERABLES [facility] [address] [place] [address], [facility] [phone] * PREPARE PLATELET PHERESIS UNIT(S), 1 Units (06/18/2024 6:45 PM PROGRAMMER ANALYST CONSULTANT) Unit Description LRPLTphere B7 IR [facility] Unit ABO O [facility] Unit Rh POS [facility] Product Number P31 [facility] B[facility] Unit Donor # [id number] [facility] Unit Status transfused [facility] Product Code [id number] [facility] Blood Type Barcode 5100 [facility] Expiration Date S BLOOD BANK LAB Blood Bank BLOOD SPECIMEN / Unknown 06/18/2024 2:53 PM PROGRAMMER ANALYST CONSULTANT Gordon Fernández MD LAB - BLOOD BANK ORD ERABLES [facility] [address] [place] [address], [facility] [phone] * XR Wrist Right 3Vw or More (06/18/2024 3:39 PM PROGRAMMER ANALYST CONSULTANT) Anatomical Region Laterality Modality Wrist / Hand Digital Radiogra phy 06/18/2024 5:17 PM PROGRAMMER ANALYST CONSULTANT Impressions 06/18/2024 8:04 PM PROGRAMMER ANALYST CONSULTANT IMPRESSION: No acute fracture or dislocation identified. Report dictated by Vijay Jeong DO (radiology clerk). Malcolm Price MD have personally reviewed and interpreted this examination/study. > Interpreting Provider: Malcolm Marroquin MD on 06/18/2024 8:04 PM Narrative 06/18/2024 8:04 PM PROGRAMMER ANALYST CONSULTANT PROCEDURE: XR WRIST RIGHT 3VW OR MORE, DATE/TIME OF EXAM: 06/18/2024 3:39 PM, LOCATION [facility] INDICATION: T14.90XA: Trauma ADDITIONAL CLINICAL INFORMATION: Ordering [...] MORE, DATE/TIME OF EXAM: 53:39 PM, LOCATION [facility] INDICATION: T14.90XA: Trauma ADDITIONAL CLINICAL INFORMATION: Ordering [...] Report dictated by Vijay Jeong DO (radiology clerk). Malcolm Price MD have personally reviewed and interpreted this examination/study. > Interpreting Provider: Malcolm Marroquin MD on 06/18/2024 8:04 PM Gordon Ingram MD DIAGNOSTIC IMAGING O RDERABLES * XR Tibia Fibula Left 2Vw (06/18/2024 3:39 PM PROGRAMMER ANALYST CONSULTANT) Anatomical Region Laterality Modality Lower Extremity Digital Radiogra phy 06/18/2024 5:13 PM PROGRAMMER ANALYST CONSULTANT Impressions 06/18/2024 5:22 PM PROGRAMMER ANALYST CONSULTANT IMPRESSION: Quadrimalleolar fracture. Report dictated by Vijay Jeong DO (radiology clerk). Malcolm Pirce MD have personally reviewed and interpreted this examination/study. > Interpreting Provider: Malcolm Marroquin MD on 06/18/2024 5:22 PM Narrative 06/18/2024 5:22 PM PROGRAMMER ANALYST CONSULTANT PROCEDURE: XR TIBIA FIBULA LEFT 2VW, DATE/TIME OF EXAM: 06/18/2024 3:39 PM, LOCATION [facility] INDICATION: T14.90XA: Trauma COMPARISON: None. FINDINGS: Quadrimalleolar fracture. Bone density and texture are normal. Soft tissue swelling is present. Procedure Note Malcolm Marroquin MD - 06/18/2024 PROCEDURE: XR TIBIA FIBULA LEFT 2VW, DATE/TIME OF EXAM: 06/18/2024 3:39PM, LOCATION [facility] INDICATION: T14.90XA: Trauma COMPARISON: None. FINDINGS: Quadrimalleolar fracture. Bone density and texture are normal. Softtissue swelling is present. IMPRESSION: Quadrimalleolar fracture. Report dictated by Vijay Jeong DO (radiology clerk). Malcolm Price MD have personally reviewed and interpreted this examination/study. > Interpreting Provider: Malcolm Marroquin MD on 06/18/2024 5:22 PM Gordon Ingram MD DIAGNOSTIC IMAGING O RDERABLES * XR Hand Right 3Vw or More (06/18/2024 3:39 PM PROGRAMMER ANALYST CONSULTANT) Anatomical Region Laterality Modality Wrist / Hand Digital Radiogra phy 06/18/2024 5:17 PM PROGRAMMER ANALYST CONSULTANT Impressions 06/18/2024 8:05 PM PROGRAMMER ANALYST CONSULTANT IMPRESSION: No acute fracture or dislocation identified. Report dictated by Vijay Jeong DO (radiology clerk). Malcolm Price MD have personally reviewed and interpreted this examination/study. > Interpreting Provider: Malcolm Marroquin MD on 06/18/2024 8:05 PM Narrative 06/18/2024 8:05 PM PROGRAMMER ANALYST CONSULTANT PROCEDURE: XR HAND RIGHT 3VW OR MORE, DATE/TIME OF EXAM: 06/18/2024 3:39 PM, LOCATION [facility] INDICATION: T14.90XA: Trauma COMPARISON: None. FINDINGS: The [...] DATE/TIME OF EXAM: 06/18/2024 3:39 PM, LOCATION [facility] INDICATION: T14.90XA: Trauma COMPARISON: None. FINDINGS: The [...] Report dictated by Vijay Jeong DO (radiology clerk). Malcolm Price MD have personally reviewed and interpreted this examination/study. > Interpreting Provider: Malcolm Marroquin MD on 06/18/2024 8:05 PM Gordon Ingram MD DIAGNOSTIC IMAGING O RDERABLES * XR Hand Left 3Vw or More (06/18/2024 3:39 PM PROGRAMMER ANALYST CONSULTANT) Anatomical Region Laterality Modality Wrist / Hand Digital Radiogra phy 06/18/2024 5:16 PM PROGRAMMER ANALYST CONSULTANT Impressions 06/18/2024 8:03 PM PROGRAMMER ANALYST CONSULTANT IMPRESSION: No acute fracture or dislocation identified. Report dictated by Vijay Jeong DO (radiology clerk). Malcolm Price MD have personally reviewed and interpreted this examination/study. > Interpreting Provider: Malcolm Marroquin MD on 06/18/2024 8:03 PM Narrative 06/18/2024 8:03 PM PROGRAMMER ANALYST CONSULTANT PROCEDURE: XR HAND LEFT 3VW OR MORE, DATE/TIME OF EXAM: 06/18/2024 3:39 PM, LOCATION [facility] INDICATION: T14.90XA: Trauma COMPARISON: None. FINDINGS: The [...] MORE, DATE/TIME OF EXAM: 06/18/2024 3:39PM, LOCATION [facility] INDICATION: T14.90XA: Trauma COMPARISON: None. FINDINGS: The osseous structures are intact and well aligned without acutefracture or dislocation. The joint spaces are preserved. The bones are diffusely demineralized. No soft tissue swelling is present. Degenerative changesof the fifth distal interphalangeal and first carpometacarpal joints. IMPRESSION: No acute fracture or dislocation identified. Report dictated by Vijay Jeong DO (radiology clerk). Malcolm Price MD have personally reviewed and interpreted this examination/study. > Interpreting Provider: Malcolm Marroquin MD on 06/18/2024 8:03 PM Gordon Ingram MD DIAGNOSTIC IMAGING O RDERABLES * CT LUMBAR SPINE WO CONTRAST - T/L-spine trauma, Spine fracture (06/18/2024 3:21 PM PROGRAMMER ANALYST CONSULTANT) Anatomical Region Laterality Modality Spine Computed Tomogra phy 06/18/2024 3:49 PM PROGRAMMER ANALYST CONSULTANT Impressions 06/18/2024 5:25 PM PROGRAMMER ANALYST CONSULTANT IMPRESSION: 1.No evidence of acute fracture in the cervical, thoracic, or lumbar spine. 2.Please refer to the concurrent, dedicated body report for findings in the chest, abdomen, and pelvis. > Dictated by Vijay Jeong DO (Buyer Internship), 06/18/2024 3:49 PM. Glenny Price MD have personally reviewed and interpreted this examination/study. > Interpreting Provider: Glenny Ragsdale MD on 06/18/2024 5:25 PM Narrative 06/18/2024 5:25 PM PROGRAMMER ANALYST CONSULTANT PROCEDURE: CT CERVICAL SPINE WO CONTRAST, CT LUMBAR SPINE WO CONTRAST, CT THORACIC SPINE WO CONTRAST, DATE/TIME OF EXAM: 06/18/2024 3:23 PM, LOCATION [facility] INDICATION: Trauma EXAMINATION: 1.CT of the cervical [...] DATE/TIME OF EXAM: 06/18/2024 3:23 PM, LOCATION [facility] INDICATION: Trauma EXAMINATION: 1.CT of the cervical [...] pelvis. > Dictated by Vijay Jeong DO (Buyer Internship), 06/18/2024 3:49 PM. IGlenny MD have personally reviewed and interpretedthis examination/study. > Interpreting Provider: Glenny Ragsdale MD on 06/18/2024 5:25 PM Gordon Ingram MD CT ORDERABLES * CT THORACIC SPINE WO CONTRAST - T/L-spine trauma, spine fracture (06/18/2024 3:21 PM PROGRAMMER ANALYST CONSULTANT) Anatomical Region Laterality Modality Spine Computed Tomogra phy 06/18/2024 3:49 PM PROGRAMMER ANALYST CONSULTANT Impressions 06/18/2024 5:25 PM PROGRAMMER ANALYST CONSULTANT IMPRESSION: 1.No evidence of acute fracture in the cervical, thoracic, or lumbar spine. 2.Please refer to the concurrent, dedicated body report for findings in the chest, abdomen, and pelvis. > Dictated by Vijay Jeong DO (Buyer Internship), 06/18/2024 3:49 PM. IGlenny MD have personally reviewed and interpreted this examination/study. > Interpreting Provider: Glenny Ragsdale MD on 06/18/2024 5:25 PM Narrative 06/18/2024 5:25 PM PROGRAMMER ANALYST CONSULTANT PROCEDURE: CT CERVICAL SPINE WO CONTRAST, CT LUMBAR SPINE WO CONTRAST, CT THORACIC SPINE WO CONTRAST, DATE/TIME OF EXAM: 06/18/2024 3:23 PM, LOCATION [facility] INDICATION: Trauma EXAMINATION: 1.CT of the cervical [...] DATE/TIME OF EXAM: 06/18/2024 3:23 PM, LOCATION [facility] INDICATION: Trauma EXAMINATION: 1.CT of the cervical [...] pelvis. > Dictated by Vijay Jeong DO (Buyer Internship), 06/18/2024 3:49 PM. IGlenny MD have personally reviewed and interpretedthis examination/study. > Interpreting Provider: Glenny Ragsdale MD on 06/18/2024 5:25 PM Gordon Ingram MD CT ORDERABLES * CT CERVICAL SPINE WO CONTRAST - C-Spine Trauma, Spine fracture (06/18/2024 3:21 PM PROGRAMMER ANALYST CONSULTANT) Anatomical Region Laterality Modality Spine Computed Tomogra phy 06/18/2024 3:49 PM PROGRAMMER ANALYST CONSULTANT Impressions 06/18/2024 5:25 PM PROGRAMMER ANALYST CONSULTANT IMPRESSION: 1.No evidence of acute fracture in the cervical, thoracic, or lumbar spine. 2.Please refer to the concurrent, dedicated body report for findings in the chest, abdomen, and pelvis. > Dictated by Vijay Jeong DO (Buyer Internship), 06/18/2024 3:49 PM. IGlenny MD have personally reviewed and interpreted this examination/study. > Interpreting Provider: Glenny Ragsdale MD on 06/18/2024 5:25 PM Narrative 06/18/2024 5:25 PM PROGRAMMER ANALYST CONSULTANT PROCEDURE: CT CERVICAL SPINE WO CONTRAST, CT LUMBAR SPINE WO CONTRAST, CT THORACIC SPINE WO CONTRAST, DATE/TIME OF EXAM: 06/18/2024 3:23 PM, LOCATION [facility] INDICATION: Trauma EXAMINATION: 1.CT of the cervical [...] DATE/TIME OF EXAM: 06/18/2024 3:23 PM, LOCATION [facility] INDICATION: Trauma EXAMINATION: 1.CT of the cervical [...] pelvis. > Dictated by Vijay Jeong DO (Buyer Internship), 06/18/2024 3:49 PM. IGlenny MD have personally reviewed and interpretedthis examination/study. > Interpreting Provider: Glenny Ragsdale MD on 06/18/2024 5:25 PM Gordon Ingram MD CT ORDERABLES * CT HEAD WO CONTRAST - Head Trauma, CSF leak, mental status changes (06/18/2024 3:21 PM PROGRAMMER ANALYST CONSULTANT) Anatomical Region Laterality Modality Head Computed Tomogra phy 06/18/2024 3:01 PM PROGRAMMER ANALYST CONSULTANT Impressions 06/18/2024 3:03 PM PROGRAMMER ANALYST CONSULTANT IMPRESSION: 1. No acute intracranial process. 2. 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 > Interpreting Provider: Karin Velasco MD on 06/18/2024 3:03 PM Narrative 06/18/2024 3:03 PM PROGRAMMER ANALYST CONSULTANT PROCEDURE: CT HEAD WO CONTRAST, DATE/TIME OF EXAM: 06/18/2024 2:46 PM, LOCATION [facility] INDICATION: Trauma ADDITIONAL CLINICAL INFORMATION: Ordering Provider [...] DATE/TIME OF EXAM: 06/18/2024 2:46 PM, LOCATION [facility] INDICATION: Trauma ADDITIONAL CLINICAL INFORMATION: Ordering Provider [...] * TROPONIN-I HIGH SENSITIVE (06/18/2024 2:44 PM PROGRAMMER ANALYST CONSULTANT) [facility] Troponin I High Sensitive 4 <=14 ng/L 06/18/2024 3:19 PM PROGRAMMER ANALYST CONSULTANT [facility] Blood BLOOD SPECIMEN / Unknown Venipuncture / Unknown 06/18/2024 2:44 PM PROGRAMMER ANALYST CONSULTANT 06/18/2024 2:48 PM PROGRAMMER ANALYST CONSULTANT Gordon Ingram MD LAB - CHEMISTRY ORDE RABTHERESA Performing Organization Address [facility]/ZIP Co de Phone Number [address] [address], [facility] [phone] * (ABNORMAL) TEG 6 GLOBAL HEMOSTASIS W/ LYSIS (06/18/2024 2:44 PM PROGRAMMER ANALYST CONSULTANT) [facility] Citrated Kaolin R (Reaction Time) 4.3(L) 4.6 - 9.1 min 06/18/2024 3:54 PM PROGRAMMER ANALYST CONSULTANT [facility] Comment:CK R result below no rmal range. Consistent with hypercoagulable clotting factors. Citrated Kaolin LY30 (Lysis) 0.1 0.0 - 2.6 % 06/18/2024 3:54 PM PROGRAMMER ANALYST CONSULTANT [facility] Citrated Functional Fibrinogen MA (Max Amplitude) 19.3 15.0 - 32.0 mm 06/18/2024 3:54 PM [facility] Citrated RapidTEG MA (Max Amplitude) 62.8 52.0 - 70.0 mm 06/18/2024 3:54 PM PROGRAMMER ANALYST CONSULTANT [facility] Blood BLOOD SPECIMEN / Unknown Venipuncture / Unknown 06/18/2024 2:44 PM PROGRAMMER ANALYST CONSULTANT 06/18/2024 2:52 PM PROGRAMMER ANALYST CONSULTANT Gordon Ingram MD LAB - HEMATOLOGY ORD ERABLES Performing Organization Address [facility]/ZIP Co de Phone Number [address] [address], [place] [phone] * (ABNORMAL) TEG 6S PLATELET MAPPING (06/18/2024 2:44 PM PROGRAMMER ANALYST CONSULTANT) TEGPLM (Max Amplitude) Koalin 64.2 53.0 - [...] Unknown Venipuncture / Unknown 06/18/2024 2:44 PM PROGRAMMER ANALYST CONSULTANT 06/18/2024 2:52 PM PROGRAMMER ANALYST CONSULTANT Gordon Ingram MD LAB - HEMATOLOGY ORD ERABLES [facility] [address] [place] [phone], [facility] [phone] * TYPE + SCREEN PANEL (06/18/2024 2:44 PM PROGRAMMER ANALYST CONSULTANT) Antibody Screen NEG 3:33 PM [facility] ABO Rh O POS 06/18/2024 3:33 PM [facility] Blood Bank BLOOD SPECIMEN / Unknown Venipuncture / Unknown 06/18/2024 2:44 PM PROGRAMMER ANALYST CONSULTANT 06/18/2024 2:53 PM PROGRAMMER ANALYST CONSULTANT Gordon Ingram MD LAB - BLOOD BANK ORD JACEKBLES Performing Organization Address [facility]/ZIP Co de Phone Number [facility] [address] [place] [address], [facility] [phone] * ALCOHOL ETHYL BLOOD (06/18/2024 2:44 PM PROGRAMMER ANALYST CONSULTANT) Ethanol (mg/dL) <10 <10 mg/dL 3:15 PM PROGRAMMER ANALYST CONSULTANT [facility] Ethanol Calculated (g/dL) <0.010 <=0.010 g/dL 06/18/2024 3:15 PM PROGRAMMER ANALYST CONSULTANT [facility] Blood BLOOD SPECIMEN / Unknown Venipuncture / Unknown 06/18/2024 2:44 PM PROGRAMMER ANALYST CONSULTANT 06/18/2024 2:48 PM PROGRAMMER ANALYST CONSULTANT Narrative [facility] - 06/18/2024 3:15 PM PROGRAMMER ANALYST CONSULTANT Ethanol Interp <10: None Detected. Depression of BOTTLE LABEL INSPECTOR: >100 mg/dl Potentially Critical: >250 mg/dl Potentially Fatal >400 mg/dl Ethanol in the patient's blood will contribute to the osmolar gap. Ethanol's contribution to the osmolar gap can be estimated by dividing the concentration of ethanol in mg/dL by 4.6. This test is for clinical use only and does not equal a SAKSHI for legal purposes. Gordon Ingram MD LAB - CHEMISTRY ORDAscencion OROZCO Performing Organization Address [facility]/ZIP Co de Phone Number [address] [address], [facility] [phone] * XR PELVIS 1 OR 2VW (06/18/2024 2:43 PM PROGRAMMER ANALYST CONSULTANT) Anatomical Region Laterality Modality Pelvis Digital Radiogra phy 06/18/2024 5:02 PM PROGRAMMER ANALYST CONSULTANT Impressions 06/18/2024 5:20 PM PROGRAMMER ANALYST CONSULTANT IMPRESSION: No acute fracture identified. Report dictated by Vijay Jeong DO (radiology clerk). I, Malcolm Marroquin MD have personally reviewed and interpreted this examination/study. > Interpreting Provider: Malcolm Marroquin MD on 06/18/2024 5:20 PM Narrative 06/18/2024 5:20 PM PROGRAMMER ANALYST CONSULTANT PROCEDURE: XR PELVIS 1 OR 2VW, DATE/TIME OF EXAM: 06/18/2024 2:44 PM, LOCATION [facility] INDICATION: Trauma Fracture suspected COMPARISON: None. FINDINGS: No acute fracture is identified. The femoral heads appear well-seated within their respective acetabula. The pubic symphysis is intact. Bone density and texture are normal. The sacroiliac joints are normal. Procedure Note Malcolm Marroquin MD - 06/18/2024 PROCEDURE: XR PELVIS 1 OR 2VW, DATE/TIME OF EXAM: 06/18/2024 2:44 PM, LOCATION [facility] INDICATION: Trauma Fracture suspected COMPARISON: None. FINDINGS: No acute fracture is identified. The femoral heads appear well-seated within their respective acetabula. The pubic symphysis is intact. Bone density and texture are normal. The sacroiliac joints are normal. IMPRESSION: No acute fracture identified. Report dictated by Vijay Jeong DO (radiology clerk). Malcolm Price MD have personally reviewed and interpreted this examination/study. > Interpreting Provider: Malcolm Marroquin MD on 06/18/2024 5:20 PM Gordon Ingram MD DIAGNOSTIC IMAGING O RDERABLES * XR Knee Left 2Vw or Less (06/18/2024 2:43 PM PROGRAMMER ANALYST CONSULTANT) Anatomical Region Laterality Modality Lower Extremity Digital Radiogra phy 06/18/2024 5:03 PM PROGRAMMER ANALYST CONSULTANT Impressions 06/18/2024 7:59 PM PROGRAMMER ANALYST CONSULTANT Impression: Likely chronic osseous fragment adjacent to [...] Report dictated by Vijay Jeong DO (radiology clerk). Malcolm Price MD have personally reviewed and interpreted this examination/study. > Interpreting Provider: Malcolm Marroquin MD on 06/18/2024 7:59 PM Narrative 06/18/2024 7:59 PM PROGRAMMER ANALYST CONSULTANT PROCEDURE: XR KNEE LEFT 2VW OR LESS, DATE/TIME OF EXAM: 06/18/2024 2:43 PM, LOCATION [facility] INDICATION: T14.90XA: Trauma COMPARISON: None. Procedure Note Malcolm Marroquin MD - 06/18/2024 PROCEDURE: XR KNEE LEFT 2VW OR LESS, DATE/TIME OF EXAM: 06/18/2024 2:43PM, LOCATION [facility] INDICATION: T14.90XA: Trauma COMPARISON: None. Impression: Likely [...] of the knee. Report dictated by Vijay Joeng DO (radiology clerk). I, Malcolm Marroquin MD have personally reviewed and interpreted this examination/study. 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
--- OUTSIDE RECORDS SUMMARY | 2024-07-31 15:42 | XMS_ITS | Clinical Summary ---
Author Organization [facility] Address [facility] [place] [address] Care Team Providers Care Car Checker Name Role Phone Mo Moy MD Primary Care Provider [phone] Sal Bliss MD Unavailable [phone] Angel Lopez MD Unavailable Allergies Active Allergy [...] COPD type ([facility]) 05/05/2021 Gastroesophageal reflux dise ase, unspecified whether esophagitis present 05/05/2021 Cigarette nicotine dependence in remission 05/05 Abnormal finding on lung imaging 05/05/2021 Multiple lung nodules 05/05/2021 Coronary artery disease due to calcified coronar y lesion 05/30/2018 Dyslipidemia 05/30/2018 Essential hypertension 03/07/2018 Abnormal stress test 03/07/2018 S/P 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 of atrial fibrillation 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 0 12/29/2017 CHF (congestive heart failure) ([facility]) Paroxysmal atrial fibrillation ([facility]) Encounters Date Type Department Care Team Description 05/30/2024 12:40 PM JAVA WEB SERVICES DEVELOPER - 05/30/2024 11:59 PM [facility] Hospital Encounter [facility] [address] [place] [address] Nathan Scanlon MD Discharge Disposition: Home or Self Care (Routine Discharge) 05/30/2024 Travel from Last 3 Months Immunizations Name [...] drink = 0.6 oz pur e alcohol) [facility] Utilities Answer Date Recorded In the past 12 months has th e electric, gas, oil, or water company threatened to shut off services in your [...] place to sleep or slept in a half-way (including now)? No 07/01/2023 Comments No Sex and Gender Information Value Date Recorded Sex Assigned at Female 05/30/2024 12:35 PM JAVA WEB SERVICES DEVELOPER Legal Sex Female 6:49 PM CDT Gender [...] Description 10/26/2024 11:00 AM CDT Office Visit [facility] Medical Group Multispecialty Care - [address] [place] [phone] Jacob Landry MD [address] [place] [address] [address] [place] [address] Health Maintenance Due Date Last Done Comments [...] 01/15, 04/27/2018, Additional history exists PHQ-2 (Physician [place]) 10/27/2023 10/26/2022 COVID-19 Vaccine ( season) 2024 Influenza Adult (#1) 2024 PHQ-2 (Physician [place]) 05/17/2024 10/26/2022 Meningococcal B Vaccine Aged Out [...] PROTHROMBIN TIME, VENOUS Routine 05/30/2024 12:58 PM JAVA WEB SERVICES DEVELOPER Atrial flutter ([facility]) LIPID PANEL Routine 07/24/2020 8:19 AM JAVA WEB SERVICES DEVELOPER Coronary artery disease due to calcified coronary lesion from Last 3 Months or Most Recently Relevant to Health Maintenance Results * (ABNORMAL) PROTIME/INR, VENOUS (05/30/2024 12:58 PM JAVA WEB SERVICES DEVELOPER) PROTIME 43.9(H) 9.1 - 12.4 SEC 05/30/2024 1:07 PM JAVA WEB SERVICES DEVELOPER [facility] INR 4.0 05/30/2024 1:07 PM JAVA WEB SERVICES DEVELOPER [facility] Comment: Recommend INR ranges for Oral Anticoagulant Therapy: Mechanical Cardiac Values 2.5-3.5 All others indication 2.0-3.0 05/30/2024 12:5 8 PM JAVA WEB SERVICES DEVELOPER us Nathan Scanlon MD LABORATORY Final Result [facility] [address] [place] [address], [place] [phone] * (ABNORMAL) LIPID PANEL (07/24/2020 8:19 AM JAVA WEB SERVICES DEVELOPER) CHOLESTEROL 244(H) <200.0 MG/DL 07/24/2020 9:02 AM [facility] TRIGLYCERIDES 131 <150 MG/DL 07/24/2020 9:02 AM [facility] HDL 77 >40.0 MG/DL 07/24/2020 9:02 AM [facility] LDL (CALCULATED) 141(H) <100 MG/DL 07/24/2020 9:02 AM [facility] NON HDL CHOLESTEROL 167(H) <130 MG/DL 07/24/2020 9:02 AM [facility] CHOL/HDL RATIO 3.2 0.0 - 4.5 07/24/2020 9:02 AM [facility] VLDL CALCULATION 26 5 - 55 MG/DL 07/24/2020 9:02 AM [facility] LIPID INTERPRETATION 07/24/2020 9:02 AM [facility] Comment: NIH CONCENSUS REPORT RECOMMENDATIONS: ADULT CHILD LOW RISK: CHOLESTEROL <200 <170 TRIGLYCERIDE <150 --- HDL >=60 --- LDL <100 <110 BORDERLINE: CHOLESTEROL 200-239 170-199 TRIGLYCERIDE 150-199 --- HDL 40-59 --- LDL 100-159 110-129 HIGH RISK: CHOLESTEROL >=240 >=200 TRIGLYCERIDE >=200 --- HDL <40 --- LDL >=160 >=130 07/24/2020 8:19 AM JAVA WEB SERVICES DEVELOPER Cleopatra [facility]ERR[facility] LAB[facility]AT[facility] Final Result [facility] [address] [place] [address], [place] [phone] from Last 3 Months or Most Recently Relevant to Health Maintenance Insurance MEDICARE MEDICARE Advance Directives Documents on File Type Date Recorded 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 [address] [place] [address] [place] Air Brake Tester CARDIOVASCULAR DISEASE 12/10/17 Angel Lopez MD [address] [place], [place] [phone] EP Air Brake Tester CLINICAL CARDIAC ELECTROPHYSIOLOGY 01/15/18
== END 2024-07-31 13:08 | disposition home or self-care (01) ==
LOC: HOME HLTH 13:12
PROVIDERS: Visit Provider Family Medicine
DX: N18.4 Chronic kidney disease, stage 4 (severe) (principal); N39.0 Urinary tract infection, site not specified; I48.91 Unspecified atrial fibrillation; S82.852A Displaced trimalleolar fracture of left lower leg, initial encounter for closed fracture; S22.49XA Multiple fractures of ribs, unspecified side, initial encounter for closed fracture; S22.20XA Unspecified fracture of sternum, initial encounter for closed fracture; Z79.01 Long term (current) use of anticoagulants; X58.XXXA Exposure to other specified factors, initial encounter
CPT/HCPCS: 80053; 85027; 85610

== ENCOUNTER 2024-08-08 12:03 | Outpatient (NON) | payer MEDICARE, SELFPAY ==
[2024-08-08 12:44] LABS: Add Urine Microscopic? YES; Appearance Urine Cloudy (Clear); Bacteria Urine None Seen /hpf; Bilirubin Urine Negative (Negative); Blood Urine Negative (Negative); Budding Yeast Urine Present /hpf; Color Urine Yellow (Yellow); Glucose Urine UA Negative (Negative); Ketones Urine Negative (Negative); Leukocyte Esterase Ur 3+ LEU/UL (Negative); Mucus Urine Present /lpf; Need Manual Microscopic Reviewed; Nitrate Urine Negative (Negative); Protein Urine Negative (Negative); RBC Urine 0-2 /hpf (0-2); Squamous Epithelial Cell Urine Few /hpf (Few); Urobilinogen Urine 0.2 mg/dL (<2.0); WBC Urine >100 /hpf (0-3); pH Urine 7.5 (5.0-9.0)
--- OUTSIDE RECORDS SUMMARY | 2024-08-08 14:10 | XMS_ITS | Encounter Summary ---
Author Organization [facility] Address [facility] [place] [address] Care Team Providers Care Emergency Management Director Name Role Phone Mo Moy MD Primary Care Provider [phone] Sal Bliss MD Unavailable [phone] Angel Lopez MD Unavailable Encounter Details Date Type Department Care Team (Late Contact Info) Description 10/14/2018 [facility] [address] [place], [place] [id number] Sal Bliss MD [address] [address] Social History Tobacco Use Types Packs/Day Years Used Date Smoking Tobacco: Former Cigarettes 0.5 35 1 965 - 2000 Smokeless Tobacco: Never Comments:distant past Alcohol Use Standard Drinks/Week Comments No 0 (1 standard drink = 0.6 oz pur e alcohol) Comments No Sex and Gender Information Value Date Recorded Sex Assigned at Female 05/30/2024 12:35 PM JUKEBOX COIN COLLECTOR Legal Sex Female 6:49 PM CDT Gender Identity Not on file Sexual Orientation Not on file Occupation Industry Job Start Date Job End Date Not on file Not on file Not on file Not on file documented as of this encounter Plan of Treatment Upcoming Encounters Date Type Department Care Team (Late Contact Info) Description 10/26/2024 11:00 AM CDT Office Visit [facility] Medical Group Multispecialty Care - [facility] [address] [facility] [address] [place] [address] Jacob Landry MD [address] [facility] [address] [place] [address] documented as of this encounter Procedures Procedure Name Priority Date/Time Associated Diagnosis Comments PROTHROMBIN TIME, FINGERSTICK Routine 10/14/2018 10:05 AM CDT documented in this encounter Results * PROTIME/INR, FINGERSTICK (10/14/2018 10:05 AM CDT) INR WHOLE BLOOD 2.3 9 10:09 AM CDT [facility] Comment: Recommend INR ranges for Oral Anticoagulant Therapy:Mechanical Cardiac Values 2.5-3.5All others indication 2.0-3.0 10/14/2018 10:0 5 AM CDT 10/14/2018 10:06 AM CDT us Generic Conversion Md [facility] Final R esult [facility] [address] [place] [address], documented in this encounter Visit Diagnoses Diagnosis Atrial fibrillation (CMS/HCC HHS/HCC) Atrial fibrillation documented in this encounter Additional Health Concerns Infection Onset Date Last Indicated Resolved Time COVID-19 Rule Out 01/14/2020 01/27/2020 01/28/2020 4:35 PM CDT COVID-19 Rule Out 07/07/2021 07/07/2021 07/08/2021 7:49 PM JUKEBOX COIN COLLECTOR COVID-19 Rule Out 09/27/2021 09/27/2021 09/28/2021 10:26 AM CDT COVID-19 Rule Out 07/01/2023 07/01/2023 07/01/2023 3:40 PM JUKEBOX COIN COLLECTOR COVID-19 Rule Out 11/03/2023 11/03/2023 11/03/2023 1:01 AM CDT documented as of this encounter Care Teams Emergency Management Director Relationship Specialty Start Date End Date Mo Moy MD [address] [place] [address] PCP - General FAMILY PRACTICE 11/26/17 Sal Bliss MD Three [facility]. [address] [place] [address] [place] Fruit Grower CARDIOVASCULAR DISEASE 12/10/17 Angel Lopez MD Three [facility]. [address] [place], [place] [phone] EP Fruit Grower CLINICAL CARDIAC ELECTROPHYSIOLOGY 01/15/18 documented as of this encounter
--- OUTSIDE RECORDS SUMMARY | 2024-08-08 14:10 | XMS_ITS | Encounter Summary ---
Author Organization [facility] Address [facility] [place] [address] Care Team Providers Care Time Study Observer Name Role Phone Mo Moy MD Primary Care Provider [phone] Sal Bliss MD Unavailable [phone] Angel Lopez MD Unavailable Encounter Details Date Type Department Care Team (Late st Contact Info) Description 07/05/2023 Hospital Follow-up Call [facility] Care Management [address] [place] [address] hCrissy Chaney RN Social History Tobacco Use Types Packs/Day Years Used Date Smoking Tobacco: Former Cigarettes 1 35 1 965 - 2000 Smokeless Tobacco: Never Comments:distant past Alcohol Use Standard Drinks/Week Comments No 0 (1 standard drink = 0.6 oz pur e alcohol) [facility] Utilities Answer Date Recorded In the past 12 months has e [employer], gas, oil, or water [employer] threatened to shut off services in your [...] Sex Assigned at Female 05/30/2024 12:35 PM GRAIN SACKER Legal Sex Female 6:49 PM CDT Gender [...] Assessment Author Status No 07/03/2023 10:20 AM GRAIN SACKER Maddi Bryant R N Active * Are [...] Author Status No 07/03/2023 10:20 AM Maddi Dainel R N Active documented in this encounter Plan of Treatment Upcoming Encounters Date Type Department Care Team (Late st Contact Info) Description 10/26/2024 11:00 AM CDT Office Visit [facility] Medical Group Multispecialty Care - [address] [place] [address] Jacob Landry MD [address] [place] [address] [place] [address] documented as of this encounter Visit Diagnoses Not on filedocumented in this encounter Additional Health Concerns Infection Onset Date Last Indicated Resolved Time COVID-19 Rule Out 11/03/2023 11/03/2023 11/03/2023 1:01 AM CDT Assessment Noted Time PHQ-9 Depression Total Score: 0 05/05/20 21 1:33 PM GRAIN SACKER documented as of this encounter Care Teams Time Study Observer Relationship Specialty Start Date End Date Mo Moy MD [address] [place] [address] PCP - General FAMILY PRACTICE 11/26/17 Sal Bliss MD [address] [place] [address] [place] Cheesemaker Helper CARDIOVASCULAR DISEASE 12/10/17 Angel Lopez MD [address] [place] [address] EP Cheesemaker Helper CLINICAL CARDIAC ELECTROPHYSIOLOGY 01/15/18 documented as of this encounter
--- OUTSIDE RECORDS SUMMARY | 2024-08-08 14:10 | XMS_ITS | Encounter Summary ---
Author Organization [facility] Address [facility] [place] [address] Care Team Providers Care Steward Racetrack Name Role Phone Mo Moy MD Primary Care Provider [phone] Sal Bliss MD Unavailable [phone] Angel Lopez MD Unavailable Encounter Details Date Type Department Care Team (Late st Contact Info) Description 03/14/2018 Abstract [facility] at [address] [address] Faizan Pereira MA Social History Tobacco Use Types Packs/Day Years Used Date Smoking Tobacco: Former Cigarettes 0.5 35 1 965 - 2000 Smokeless Tobacco: Never Comments:distant past Alcohol Use Standard Drinks/Week Comments No 0 (1 standard drink = 0.6 oz pur e alcohol) Comments No Sex and Gender Information Value Date Recorded Sex Assigned at Female 05/30/2024 12:35 PM CANINE SERVICE TEACHER Legal Sex Female 6:49 PM CDT [...] Description 10/26/2024 11:00 AM CDT Office Visit [facility] Medical Group Multispecialty Care - [facility] [address] [facility] [address] [facility] [place] [address] Jacob Landry MD [address] [facility] [address] [place] [address] documented as of this encounter Procedures Procedure [...] Rule Out 07/07/2021 07/07/2021 07/08/2021 7:49 PM CANINE SERVICE TEACHER COVID-19 Rule Out 09/27/2021 09/27/2021 09/28/2021 10:26 AM CDT COVID-19 Rule Out 07/01/2023 07/01/2023 07/01/2023 3:40 PM CANINE SERVICE TEACHER COVID-19 Rule Out 11/03/2023 11/03/2023 11/03/2023 1:01 AM CDT documented as of this encounter Care Teams Steward Racetrack Relationship Specialty Start Date End Date Mo Moy MD [address] [place] [address] PCP - General FAMILY PRACTICE 11/26/17 Sal Bliss MD [address] [facility] [address] [place] [address] [place] Tower Observer CARDIOVASCULAR DISEASE 12/10/17 Angel Lopez MD [address] [facility] [address] [place], [place] [id number] EP Tower Observer CLINICAL CARDIAC ELECTROPHYSIOLOGY 01/15/18 documented as of this encounter
--- OUTSIDE RECORDS SUMMARY | 2024-08-08 14:10 | XMS_ITS | Encounter Summary ---
Author Organization [facility] Address [facility] [place] [address] Care Team Providers Care Hair Clipper Power Name Role Phone Mo Moy MD Primary Care Provider Sal Bliss MD Unavailable [phone] Angel Lopez MD Unavailable Encounter Details Date Type Department Care Team (Late st Contact Info) Description 12/29/2017 Abstract [facility] at [address] [address] Faizan Pereira MA Social History Tobacco Use Types Packs/Day Years Used Date Smoking Tobacco: Former Cigarettes Q uit: 2000 Smokeless Tobacco: Never Alcohol Use Standard Drinks/Week Comments No 0 (1 standard drink = 0.6 oz pur e alcohol) Comments Unknown Sex and Gender Information Value Date Recorded Sex Assigned at Female 05/30/2024 12:35 PM FINISH GRINDER Legal Sex Female 6:49 PM CDT Gender [...] Description 10/26/2024 11:00 AM CDT Office Visit [facility] Medical Group Multispecialty Care - [facility] [address] [facility] [address] [place] [address] Jacob Landry MD [address] [facility] [address] [place] [address] documented as of this encounter Procedures Procedure [...] Rule Out 07/07/2021 07/07/2021 07/08/2021 7:49 PM FINISH GRINDER COVID-19 Rule Out 09/27/2021 09/27/2021 09/28/2021 10:26 AM CDT COVID-19 Rule Out 07/01/2023 07/01/2023 07/01/2023 3:40 PM FINISH GRINDER COVID-19 Rule Out 11/03/2023 11/03/2023 11/03/2023 1:01 AM CDT documented as of this encounter Care Teams Hair Clipper Power Relationship Specialty Start Date End Date Mo Moy MD [address] [place] [address] PCP - General FAMILY PRACTICE 11/26/17 Sal Bliss MD Three [facility]. [address] [place] [address] [place] Seater Assembler CARDIOVASCULAR DISEASE 12/10/17 Angel Lopez MD Three [facility]. [address] [place], [place] [phone] EP Seater Assembler CLINICAL CARDIAC ELECTROPHYSIOLOGY 01/15/18 documented as of this encounter
--- OUTSIDE RECORDS SUMMARY | 2024-08-08 14:10 | XMS_ITS | Encounter Summary ---
Author Organization [facility] Address [facility] [place] [address] Care Team Providers Care Retirement Specialist Name Role Phone Mo Moy MD Primary Care Provider [phone] Sal Bliss MD Unavailable Angel Lopez MD Unavailable Encounter Details Date Type Department Care Team (Late st Contact Info) Description 01/26/2019 Abstract [facility] at [address] [address] Faizan Pereira MA Social History Tobacco Use Types Packs/Day Years Used Date Smoking Tobacco: Former Cigarettes 0.5 35 1 965 - 2000 Smokeless Tobacco: Never Comments:distant past Alcohol Use Standard Drinks/Week Comments No 0 (1 standard drink = 0.6 oz pur e alcohol) Comments No Sex and Gender Information Value Date Recorded Sex Assigned at Female 05/30/2024 12:35 PM CAREER COORDINATOR Legal Sex Female 6:49 PM CDT Gender Identity Not on file Sexual Orientation Not on file Occupation Industry Job Start Date Job End Date Not on file Not on file Not on file Not on file documented as of this encounter Plan of Treatment Upcoming Encounters Date Type Department Care Team (Late st Contact Info) Description 10/26/2024 11:00 AM CDT Office Visit [facility] Medical Group Multispecialty Care - [address] [place] [address] Jacob Landry MD [address] [place] [address] [place] [address] documented as of this encounter Procedures Procedure [...] (ABNORMAL) COMPREHENSIVE METABOLIC PANEL (01/24/2019) Pathologist [facility] SODIUM S/P/B 140 POTASSIUM S/P/B 4.7 CO2 [...] Rule Out 07/07/2021 07/07/2021 07/08/2021 7:49 PM CAREER COORDINATOR COVID-19 Rule Out 09/27/2021 09/27/2021 09/28/2021 10:26 AM CDT COVID-19 Rule Out 07/01/2023 07/01/2023 07/01/2023 3:40 PM CAREER COORDINATOR COVID-19 Rule Out 11/03/2023 11/03/2023 11/03/2023 1:01 AM CDT documented as of this encounter Care Teams Retirement Specialist Relationship Specialty Start Date End Date Mo Moy MD [address] [place] [id number] PCP - General FAMILY PRACTICE 11/26/17 Sal Bliss MD [address] [address] [place] Factory Lay Out Engineer CARDIOVASCULAR DISEASE 12/10/17 Angel Lopez MD [facility] [address] [place] [address] EP Factory Lay Out Engineer CLINICAL CARDIAC ELECTROPHYSIOLOGY 01/15/18 documented as of this encounter
--- OUTSIDE RECORDS SUMMARY | 2024-08-08 14:10 | XMS_ITS | Continuity of Care Document ---
Author Organization [facility] Address [address] [facility] [address] [place] [address] Phone Care Team Providers Care Dairy Feed Sales Consultant Name Role Phone Catracho Bojorquez MD [...] Copied on Encounter Office/outpa tient Visit, [facility], [address] [place] [address] [address], [place], [place], [id number], [place] [phone] [place] Professional yag pc ou evaluation (chief complaint) Presence of intraocular lensOther secondary cataract, right eyeMacular hole of left eye 1 [place]. [address] [facility] A, [place], [place], [id number], [place]. tel:[phone] Sal Bliss MD.Referring Provider: Ashley Turcios, [address], [address]. tel:[phone] [facility], [address] [place] [address] [address], [place], [place], [id number], [place] tel:[phone] SEC Radha Bruno No Information 1 [place]. [address] [facility] [address], [place], [place], [id number], [place]. tel:[phone] Specialist: Sal Bliss MD, [address] [facility] [address], [place], [address]. tel:[phone] Provider: Ashley Turcios, [facility] [address], [address]. tel:[phone] Family History Family Member Type Diagnosis Age At Onset No Information Payers Payer name Insurance type Covered libertarian ID Authoriza tion(s) [place] MB [id number] [facility] [id number] Social History Type Description Quantity Date Captured [...]
--- OUTSIDE RECORDS SUMMARY | 2024-08-08 14:10 | XMS_ITS | Clinical Summary ---
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 interpreted this [...] present. > Dictated by Dimitris Avila MD (Mixing Machine Operator) Higinio Price MD have personally reviewed and interpreted this examination/study. > Interpreting Provider: Higinio Whittington MD on 06/18/2024 9:15 PM Authorizing Provider Result Vanessa Ingram MD CT ORDERABLES * CT Knee Left Wo Contrast (06/18/2024 7:57 PM ACCESS SERVICES LIBRARIAN) Anatomical Region Laterality Modality Lower Extremity Computed Tomogra phy 06/18/2024 8:46 PM ACCESS SERVICES LIBRARIAN Narrative 06/18/2024 9:15 PM ACCESS SERVICES LIBRARIAN PROCEDURE: CT KNEE LEFT WO CONTRAST, CT [...] present. > Dictated by Dimitris Avila MD (Mixing Machine Operator) Higinio Price MD have personally [...] present. > Dictated by Dimitris Avila MD (Mixing Machine Operator) Higinio Price MD have personally reviewed and interpreted this examination/study. > Interpreting Provider: Higinio Whittington MD on 06/18/2024 9:15 PM Gordon Ingram MD CT ORDERABLES * BLOOD TYPE VERIFICATION (06/18/2024 6:57 PM ACCESS SERVICES LIBRARIAN) ABO Rh O POS 06/18/2024 7:2 6 PM ACCESS SERVICES LIBRARIAN [facility] Blood Bank BLOOD SPECIMEN / Unknown Venipuncture / Unknown 06/18/2024 6:57 PM ACCESS SERVICES LIBRARIAN 06/18/2024 7:05 PM ACCESS SERVICES LIBRARIAN Gordon Ingram MD LAB - BLOOD BANK ORD ERABLES [facility] [address] [place] [address], [place] [phone] * PREPARE PLATELET PHERESIS UNIT(S), 1 Units (06/18/2024 6:45 PM ACCESS SERVICES LIBRARIAN) Unit Description LRPLTphere B7 IR [facility] Unit ABO O [facility] Unit Rh POS [facility] Product Number P31 [facility] Unit Donor # [id number] [facility] Unit Status transfused [facility] Product Code [id number] [facility] Blood Type Barcode 5100 [facility] Expiration Date [id number] S BLOOD BANK LAB Blood Bank BLOOD SPECIMEN / Unknown 06/18/2024 2:53 PM ACCESS SERVICES LIBRARIAN Gordon Fernández MD LAB - BLOOD BANK ORD ERABLES [facility] [address] [place] [address], [place] [phone] * XR Wrist Right 3Vw or More (06/18/2024 3:39 PM ACCESS SERVICES LIBRARIAN) Anatomical Region Laterality Modality Wrist / Hand Digital Radiogra phy 06/18/2024 5:17 PM ACCESS SERVICES LIBRARIAN Impressions 06/18/2024 8:04 PM ACCESS SERVICES LIBRARIAN IMPRESSION: No acute fracture or dislocation identified. Report dictated by Vijay Jeong DO (residential sales). Malcolm Price MD have personally reviewed and interpreted this examination/study. > Interpreting Provider: Malcolm Marroquin MD on 06/18/2024 8:04 PM Narrative 06/18/2024 8:04 PM ACCESS SERVICES LIBRARIAN PROCEDURE: XR WRIST RIGHT 3VW OR MORE, DATE/TIME OF EXAM: 06/18/2024 3:39 PM, LOCATION [facility] INDICATION: T14.90XA: Trauma ADDITIONAL CLINICAL INFORMATION: [...] DATE/TIME OF EXAM: 53:39 PM, LOCATION [facility] INDICATION: T14.90XA: Trauma ADDITIONAL CLINICAL INFORMATION: [...] Report dictated by Vijay Jeong DO (residential sales). Malcolm Price MD have personally reviewed and interpreted this examination/study. > Interpreting Provider: Malcolm Marroquin MD on 06/18/2024 8:04 PM Gordon Ingram MD DIAGNOSTIC IMAGING O RDERABLES * XR Tibia Fibula Left 2Vw (06/18/2024 3:39 PM ACCESS SERVICES LIBRARIAN) Anatomical Region Laterality Modality Lower Extremity Digital Radiogra phy 06/18/2024 5:13 PM ACCESS SERVICES LIBRARIAN Impressions 06/18/2024 5:22 PM ACCESS SERVICES LIBRARIAN IMPRESSION: Quadrimalleolar fracture. Report dictated by Vijay Jeong DO (residential sales). Malcolm Price MD have personally reviewed and interpreted this examination/study. > Interpreting Provider: Malcolm Marroquin MD on 06/18/2024 5:22 PM Narrative 06/18/2024 5:22 PM ACCESS SERVICES LIBRARIAN PROCEDURE: XR TIBIA FIBULA LEFT 2VW, DATE/TIME OF EXAM: 06/18/2024 3:39 PM, LOCATION [facility] INDICATION: T14.90XA: Trauma COMPARISON: None. FINDINGS: Quadrimalleolar fracture. Bone density and texture are normal. Soft tissue swelling is present. Procedure Note Malcolm Marroquin MD - 06/18/2024 PROCEDURE: XR TIBIA FIBULA LEFT 2VW, DATE/TIME OF EXAM: 06/18/2024 3:39PM, LOCATION [facility] INDICATION: T14.90XA: Trauma COMPARISON: None. FINDINGS: Quadrimalleolar fracture. Bone density and texture are normal. Softtissue swelling is present. IMPRESSION: Quadrimalleolar fracture. Report dictated by Vijay Jeong DO (residential sales). Malcolm Price MD have personally reviewed and interpreted this examination/study. > Interpreting Provider: Malcolm Marroquin MD on 06/18/2024 5:22 PM Gordon Ingram MD DIAGNOSTIC IMAGING O RDERABLES * XR Hand Right 3Vw or More (06/18/2024 3:39 PM ACCESS SERVICES LIBRARIAN) Anatomical Region Laterality Modality Wrist / Hand Digital Radiogra phy 06/18/2024 5:17 PM ACCESS SERVICES LIBRARIAN Impressions 06/18/2024 8:05 PM ACCESS SERVICES LIBRARIAN IMPRESSION: No acute fracture or dislocation identified. Report dictated by Vijay Jeong DO (residential sales). Malcolm Price MD have personally reviewed and interpreted this examination/study. > Interpreting Provider: Malcolm Marroquin MD on 06/18/2024 8:05 PM Narrative 06/18/2024 8:05 PM ACCESS SERVICES LIBRARIAN PROCEDURE: XR HAND RIGHT 3VW OR MORE, DATE/TIME OF EXAM: 06/18/2024 3:39 PM, LOCATION [facility] INDICATION: T14.90XA: Trauma COMPARISON: None. FINDINGS: [...] OF EXAM: 06/18/2024 3:39 PM, LOCATION [facility] INDICATION: T14.90XA: Trauma COMPARISON: None. FINDINGS: [...] Report dictated by Vijay Jeong DO (residential sales). IMalcolm MD have personally reviewed and interpreted this examination/study. > Interpreting Provider: Malcolm Marroquin MD on 06/18/2024 8:05 PM Gordon Ingram MD DIAGNOSTIC IMAGING O RDERABLES * XR Hand Left 3Vw or More (06/18/2024 3:39 PM ACCESS SERVICES LIBRARIAN) Anatomical Region Laterality Modality Wrist / Hand Digital Radiogra phy 06/18/2024 5:16 PM ACCESS SERVICES LIBRARIAN Impressions 06/18/2024 8:03 PM ACCESS SERVICES LIBRARIAN IMPRESSION: No acute fracture or dislocation identified. Report dictated by Vijay Jeong DO (residential sales). Malcolm Price MD have personally reviewed and interpreted this examination/study. > Interpreting Provider: Malcolm Marroquin MD on 06/18/2024 8:03 PM Narrative 06/18/2024 8:03 PM ACCESS SERVICES LIBRARIAN PROCEDURE: XR HAND LEFT 3VW OR MORE, DATE/TIME OF EXAM: 06/18/2024 3:39 PM, LOCATION [facility] INDICATION: T14.90XA: Trauma COMPARISON: None. FINDINGS: [...] DATE/TIME OF EXAM: 06/18/2024 3:39PM, LOCATION [facility] INDICATION: T14.90XA: Trauma COMPARISON: None. FINDINGS: The osseous structures are intact and well aligned without acutefracture or dislocation. The joint spaces are preserved. The bones are diffusely demineralized. No soft tissue swelling is present. Degenerative changesof the fifth distal interphalangeal and first carpometacarpal joints. IMPRESSION: No acute fracture or dislocation identified. Report dictated by Vijay Jeong DO (residential sales). Malcolm Price MD have personally reviewed and interpreted this examination/study. > Interpreting Provider: Malcolm Marroquin MD on 06/18/2024 8:03 PM Gordon Ingram MD DIAGNOSTIC IMAGING O RDERABLES * CT LUMBAR SPINE WO CONTRAST - T/L-spine trauma, Spine fracture (06/18/2024 3:21 PM ACCESS SERVICES LIBRARIAN) Anatomical Region Laterality Modality Spine Computed Tomogra phy 06/18/2024 3:49 PM ACCESS SERVICES LIBRARIAN Impressions 06/18/2024 5:25 PM ACCESS SERVICES LIBRARIAN IMPRESSION: 1.No evidence of acute fracture in the cervical, thoracic, or lumbar spine. 2.Please refer to the concurrent, dedicated body report for findings in the chest, abdomen, and pelvis. > Dictated by Vijay Jeong DO (Mixing Machine Operator), 06/18/2024 3:49 PM. IGlenny MD have personally reviewed and interpreted this examination/study. > Interpreting Provider: Glenny Ragsdale MD on 06/18/2024 5:25 PM Narrative 06/18/2024 5:25 PM ACCESS SERVICES LIBRARIAN PROCEDURE: CT CERVICAL SPINE WO CONTRAST, CT LUMBAR SPINE WO CONTRAST, CT THORACIC SPINE WO CONTRAST, DATE/TIME OF EXAM: 06/18/2024 3:23 PM, LOCATION [facility] INDICATION: Trauma EXAMINATION: 1.CT of the [...] OF EXAM: 06/18/2024 3:23 PM, LOCATION [facility] INDICATION: Trauma EXAMINATION: 1.CT of the [...] pelvis. > Dictated by Vijay Jeong DO (Mixing Machine Operator), 06/18/2024 3:49 PM. IGlenny MD have personally reviewed and interpretedthis examination/study. > Interpreting Provider: Glenny Ragsdale MD on 06/18/2024 5:25 PM Gordon Ingram MD CT ORDERABLES * CT THORACIC SPINE WO CONTRAST - T/L-spine trauma, spine fracture (06/18/2024 3:21 PM ACCESS SERVICES LIBRARIAN) Anatomical Region Laterality Modality Spine Computed Tomogra phy 06/18/2024 3:49 PM ACCESS SERVICES LIBRARIAN Impressions 06/18/2024 5:25 PM ACCESS SERVICES LIBRARIAN IMPRESSION: 1.No evidence of acute fracture in the cervical, thoracic, or lumbar spine. 2.Please refer to the concurrent, dedicated body report for findings in the chest, abdomen, and pelvis. > Dictated by Vijay Jeogn DO (Mixing Machine Operator), 06/18/2024 3:49 PM. IGlenny MD have personally reviewed and interpreted this examination/study. > Interpreting Provider: Glenny Ragsdale MD on 06/18/2024 5:25 PM Narrative 06/18/2024 5:25 PM ACCESS SERVICES LIBRARIAN PROCEDURE: CT CERVICAL SPINE WO CONTRAST, CT LUMBAR SPINE WO CONTRAST, CT THORACIC SPINE WO CONTRAST, DATE/TIME OF EXAM: 06/18/2024 3:23 PM, LOCATION [facility] INDICATION: Trauma EXAMINATION: 1.CT of the [...] OF EXAM: 06/18/2024 3:23 PM, LOCATION [facility] INDICATION: Trauma EXAMINATION: 1.CT of the [...] pelvis. > Dictated by Vijay Jeong DO (Mixing Machine Operator), 06/18/2024 3:49 PM. Glenny Price MD have personally reviewed and interpretedthis examination/study. > Interpreting Provider: Glenny Ragsdale MD on 06/18/2024 5:25 PM Gordon Ingram MD CT ORDERABLES * CT CERVICAL SPINE WO CONTRAST - C-Spine Trauma, Spine fracture (06/18/2024 3:21 PM ACCESS SERVICES LIBRARIAN) Anatomical Region Laterality Modality Spine Computed Tomogra phy 06/18/2024 3:49 PM ACCESS SERVICES LIBRARIAN Impressions 06/18/2024 5:25 PM ACCESS SERVICES LIBRARIAN IMPRESSION: 1.No evidence of acute fracture in the cervical, thoracic, or lumbar spine. 2.Please refer to the concurrent, dedicated body report for findings in the chest, abdomen, and pelvis. > Dictated by Vijay Jeong DO (Mixing Machine Operator), 06/18/2024 3:49 PM. Glenny Price MD have personally reviewed and interpreted this examination/study. > Interpreting Provider: Glenny Ragsdale MD on 06/18/2024 5:25 PM Narrative 06/18/2024 5:25 PM ACCESS SERVICES LIBRARIAN PROCEDURE: CT CERVICAL SPINE WO CONTRAST, CT LUMBAR SPINE WO CONTRAST, CT THORACIC SPINE WO CONTRAST, DATE/TIME OF EXAM: 06/18/2024 3:23 PM, LOCATION [facility] INDICATION: Trauma EXAMINATION: 1.CT of the [...] OF EXAM: 06/18/2024 3:23 PM, LOCATION [facility] INDICATION: Trauma EXAMINATION: 1.CT of the [...] pelvis. > Dictated by Vijay Jeong DO (Mixing Machine Operator), 06/18/2024 3:49 PM. IGlenny MD have personally reviewed and interpretedthis examination/study. > Interpreting Provider: Glenny Ragsdale MD on 06/18/2024 5:25 PM Gordon Ingram MD CT ORDERABLES * CT HEAD WO CONTRAST - Head Trauma, CSF leak, mental status changes (06/18/2024 3:21 PM ACCESS SERVICES LIBRARIAN) Anatomical Region Laterality Modality Head Computed Tomogra phy 06/18/2024 3:01 PM ACCESS SERVICES LIBRARIAN Impressions 06/18/2024 3:03 PM ACCESS SERVICES LIBRARIAN IMPRESSION: 1. No acute intracranial process. 2. 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 > Interpreting Provider: Karin Velasco MD on 06/18/2024 3:03 PM Narrative 06/18/2024 3:03 PM ACCESS SERVICES LIBRARIAN PROCEDURE: CT HEAD WO CONTRAST, DATE/TIME OF EXAM: 06/18/2024 2:46 PM, LOCATION [facility] INDICATION: Trauma ADDITIONAL CLINICAL INFORMATION: Ordering [...] OF EXAM: 06/18/2024 2:46 PM, LOCATION [facility] INDICATION: Trauma ADDITIONAL CLINICAL INFORMATION: Ordering [...] * TROPONIN-I HIGH SENSITIVE (06/18/2024 2:44 PM ACCESS SERVICES LIBRARIAN) [facility] Troponin I High Sensitive 4 <=14 ng/L 06/18/2024 3:19 PM ACCESS SERVICES LIBRARIAN [facility] Blood BLOOD SPECIMEN / Unknown Venipuncture / Unknown 06/18/2024 2:44 PM ACCESS SERVICES LIBRARIAN 06/18/2024 2:48 PM ACCESS SERVICES LIBRARIAN Gordon Ingram MD LAB - CHEMISTRY JULIANNE OROZCO Performing Organization Address [facility]/ZIP Co de Phone Number [address] [address], [place] [phone] * (ABNORMAL) TEG 6 GLOBAL HEMOSTASIS W/ LYSIS (06/18/2024 2:44 PM ACCESS SERVICES LIBRARIAN) [facility] Citrated Kaolin R (Reaction Time) 4.3(L) 4.6 - 9.1 min 06/18/2024 3:54 PM ACCESS SERVICES LIBRARIAN [facility] Comment:CK R result below no rmal range. Consistent with hypercoagulable clotting factors. Citrated Kaolin LY30 (Lysis) 0.1 0.0 - 2.6 % 06/18/2024 3:54 PM ACCESS SERVICES LIBRARIAN [facility] Citrated Functional Fibrinogen MA (Max Amplitude) 19.3 15.0 - 32.0 mm 06/18/2024 3:54 PM [facility] Citrated RapidTEG MA (Max Amplitude) 62.8 52.0 - 70.0 mm 06/18/2024 3:54 PM ACCESS SERVICES LIBRARIAN [facility] Blood BLOOD SPECIMEN / Unknown Venipuncture / Unknown 06/18/2024 2:44 PM ACCESS SERVICES LIBRARIAN 06/18/2024 2:52 PM ACCESS SERVICES LIBRARIAN Gordon Ingram MD LAB - HEMATOLOGY ORD ERABLES Performing Organization Address [facility]/ZIP Co de Phone Number [address] [address], [place] [phone] * (ABNORMAL) TEG 6S PLATELET MAPPING (06/18/2024 2:44 PM ACCESS SERVICES LIBRARIAN) [facility] TEGPLM (Max Amplitude) Koalin 64.2 53.0 - [...] Unknown Venipuncture / Unknown 06/18/2024 2:44 PM ACCESS SERVICES LIBRARIAN 06/18/2024 2:52 PM ACCESS SERVICES LIBRARIAN Gordon Ingram MD LAB - HEMATOLOGY ORD ERABLES [facility] [address] [place] [phone], [facility] [phone] * TYPE + SCREEN PANEL (06/18/2024 2:44 PM ACCESS SERVICES LIBRARIAN) Antibody Screen NEG 3:33 PM ACCESS SERVICES LIBRARIAN [facility] ABO Rh O POS 06/18/2024 3:33 PM ACCESS SERVICES LIBRARIAN [facility] Blood Bank BLOOD SPECIMEN / Unknown Venipuncture / Unknown 06/18/2024 2:44 PM ACCESS SERVICES LIBRARIAN 06/18/2024 2:53 PM ACCESS SERVICES LIBRARIAN Gordon Ingram MD LAB - BLOOD BANK ORD ERABLES Performing Organization Address [facility]/ZIP Co de Phone Number [facility] [address] [place] [address], [facility] [phone] * ALCOHOL ETHYL BLOOD (06/18/2024 2:44 PM ACCESS SERVICES LIBRARIAN) Ethanol (mg/dL) <10 <10 mg/dL 3:15 PM ACCESS SERVICES LIBRARIAN [facility] Ethanol Calculated (g/dL) <0.010 <=0.010 g/dL 06/18/2024 3:15 PM ACCESS SERVICES LIBRARIAN [facility] Blood BLOOD SPECIMEN / Unknown Venipuncture / Unknown 06/18/2024 2:44 PM ACCESS SERVICES LIBRARIAN 06/18/2024 2:48 PM ACCESS SERVICES LIBRARIAN Narrative [facility] - 06/18/2024 3:15 PM ACCESS SERVICES LIBRARIAN Ethanol Interp <10: None Detected. Depression of LINUX SECURITY ADMINISTRATOR: >100 mg/dl Potentially Critical: >250 mg/dl Potentially Fatal >400 mg/dl Ethanol in the patient's blood will contribute to the osmolar gap. Ethanol's contribution to the osmolar gap can be estimated by dividing the concentration of ethanol in mg/dL by 4.6. This test is for clinical use only and does not equal a SAKSHI for legal purposes. Gordon Ingram MD LAB - CHEMISTRY ORDE PAM Performing Organization Address [facility] Co de Phone Number [facility] [address] [place] [phone], [facility] [phone] * XR PELVIS 1 OR 2VW (06/18/2024 2:43 PM ACCESS SERVICES LIBRARIAN) Anatomical Region Laterality Modality Pelvis Digital Radiogra phy 06/18/2024 5:02 PM ACCESS SERVICES LIBRARIAN Impressions 06/18/2024 5:20 PM ACCESS SERVICES LIBRARIAN IMPRESSION: No acute fracture identified. Report dictated by Vijay Jeong DO (residential sales). IMalcolm MD have personally reviewed and interpreted this examination/study. > Interpreting Provider: Malcolm Marroquin MD on 06/18/2024 5:20 PM Narrative 06/18/2024 5:20 PM ACCESS SERVICES LIBRARIAN PROCEDURE: XR PELVIS 1 OR 2VW, DATE/TIME OF EXAM: 06/18/2024 2:44 PM, LOCATION [facility] INDICATION: Trauma Fracture suspected COMPARISON: None. FINDINGS: No acute fracture is identified. The femoral heads appear well-seated within their respective acetabula. The pubic symphysis is intact. Bone density and texture are normal. The sacroiliac joints are normal. Procedure Note Malcolm Marroquin MD - 06/18/2024 PROCEDURE: XR PELVIS 1 OR 2VW, DATE/TIME OF EXAM: 06/18/2024 2:44 PM, LOCATION [facility] INDICATION: Trauma Fracture suspected COMPARISON: None. FINDINGS: No acute fracture is identified. The femoral heads appear well-seated within their respective acetabula. The pubic symphysis is intact. Bone density and texture are normal. The sacroiliac joints are normal. IMPRESSION: No acute fracture identified. Report dictated by Vijay Jeong DO (residential sales). Malcolm Price MD have personally reviewed and interpreted this examination/study. > Interpreting Provider: Malcolm Marroquin MD on 06/18/2024 5:20 PM Gordon Ingram MD DIAGNOSTIC IMAGING O RDERABLES * XR Knee Left 2Vw or Less (06/18/2024 2:43 PM ACCESS SERVICES LIBRARIAN) Anatomical Region Laterality Modality Lower Extremity Digital Radiogra phy 06/18/2024 5:03 PM ACCESS SERVICES LIBRARIAN Impressions 06/18/2024 7:59 PM ACCESS SERVICES LIBRARIAN Impression: Likely chronic osseous fragment adjacent to [...] Report dictated by Vijay Jeong DO (residential sales). Malcolm Price MD have personally reviewed and interpreted this examination/study. > Interpreting Provider: Malcolm Marroquin MD on 06/18/2024 7:59 PM Narrative 06/18/2024 7:59 PM ACCESS SERVICES LIBRARIAN PROCEDURE: XR KNEE LEFT 2VW OR LESS, DATE/TIME OF EXAM: 06/18/2024 2:43 PM, LOCATION [facility] INDICATION: T14.90XA: Trauma COMPARISON: None. Procedure Note Malcolm Marroquin MD - 06/18/2024 PROCEDURE: XR KNEE LEFT 2VW OR LESS, DATE/TIME OF EXAM: 06/18/2024 2:43PM, LOCATION [facility] INDICATION: T14.90XA: Trauma COMPARISON: None. Impression: [...] Report dictated by Vijay Jeong DO (residential sales). IMalcolm MD have personally reviewed and interpreted this examination/study. > Interpreting Provider: Malcolm Marroquin MD on 06/18/2024 7:59 PM Gordon Ingram MD DIAGNOSTIC IMAGING O RDERABLES from Last 3 Months Advance Directives Documents on File Type Date Recorded Patient Respiratory Therapist Expl anation Adv Directive/Living Will/POA 06/27/2024 10:06 AM * Full Code (Latest Code Status on File) Date Activated Date Inactivated Comments 06/18/2024 4:59 PM 07/05/2024 12:48 PM
--- OUTSIDE RECORDS SUMMARY | 2024-08-08 14:10 | XMS_ITS | Encounter Summary ---
Author Organization [facility] Address [facility] [place] [address] Care Team Providers Care Construction Trades Teacher Name Role Phone Mo Moy MD Primary Care Provider [phone] Sal Bliss MD Unavailable [phone] Angel Lopez MD Unavailable Encounter Details Date Type Department Care Team (Late st Contact Info) Description 08/05/2022 Abstract [facility] [phone] Faizan Pereira MA Social History Tobacco Use [...] Sex Assigned at Female 05/30/2024 12:35 PM MOSAICIST Legal Sex Female 6:49 PM CDT Gender [...] Description 10/26/2024 11:00 AM CDT Office Visit [facility] Medical Group Multispecialty Care - [facility] [address] [place] [phone] Jacob Landry MD [address] [place] [address] documented as of this encounter Procedures Procedure [...] Rule Out 07/01/2023 07/01/2023 07/01/2023 3:40 PM MOSAICIST COVID-19 Rule Out 11/03/2023 11/03/2023 11/03/2023 1:01 AM CDT Assessment Noted Time PHQ-9 Depression Total Score: 0 05/05/20 1:33 PM MOSAICIST documented as of this encounter Care Teams Construction Trades Teacher Relationship Specialty Start Date End Date Mo Moy MD [address] [place] [id number] PCP - General FAMILY PRACTICE 11/26/17 Sal Bliss MD [address] [facility] [address] [place], [place] [address] [place] Glass Block Bender CARDIOVASCULAR DISEASE 12/10/17 Angel Lopez MD [address] [place], [place] [id number] EP Glass Block Bender CLINICAL CARDIAC ELECTROPHYSIOLOGY 01/15/18 documented as of this encounter
--- OUTSIDE RECORDS SUMMARY | 2024-08-08 14:10 | XMS_ITS | Clinical Summary ---
Author Organization [facility] Address [facility] [place] [address] Care Team Providers Care Quarry Manager Name Role Phone Mo Moy MD Primary Care Provider [phone] Sal Bliss MD Unavailable [phone] Angel Lopez MD Unavailable Allergies Active Allergy [...] obstructive pulmonar y disease, unspecified COPD type ([facility]) 05/05/2021 Gastroesophageal reflux dise ase, unspecified whether esophagitis present 05/05/2021 Cigarette nicotine dependence in remission 05/05 Abnormal finding on lung imaging 05/05/2021 Multiple lung nodules 05/05/2021 Coronary artery disease due to calcified coronar y lesion 05/30/2018 Dyslipidemia 05/30/2018 Essential hypertension 03/07/2018 Abnormal stress test 03/07/2018 S/P ablation of atrial fibrillation 02/24/2018 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 0 12/29/2017 CHF (congestive heart failure) ([facility]) Paroxysmal atrial fibrillation ([facility]) Encounters Date Type Department Care Team Description 05/30/2024 12:40 PM FIELD CROP I FARMWORKER - 05/30/2024 11:59 PM [facility] Hospital Encounter [facility] [address] [place] [address] Nathan Scanlon MD Discharge Disposition: Home or [...] 0.6 oz pur e alcohol) [facility] Utilities Answer Date Recorded In the past [...] place to sleep or slept in a group home (including now)? No 07/01/2023 Comments No Sex and Gender Information Value Date Recorded Sex Assigned at Female 05/30/2024 12:35 PM FIELD CROP I FARMWORKER Legal Sex Female 6:49 PM CDT Gender [...] Description 10/26/2024 11:00 AM CDT Office Visit [facility] Medical Group Multispecialty Care - [address] [place] [phone] Jacob Landry MD [address] [place] [address] [address] [place] [address] Health Maintenance Due Date Last Done Comments [...] 01/15, 04/27/2018, Additional history exists PHQ-2 (Physician Ely Shoshone) 10/27/2023 10/26/2022 COVID-19 Vaccine ( season) 2024 Influenza Adult (#1) 2024 PHQ-2 (Physician Ely [place]oshone) 05/17/2024 10/26/2022 Meningococcal B Vaccine Aged Out [...] PROTHROMBIN TIME, VENOUS Routine 05/30/2024 12:58 PM FIELD CROP I FARMWORKER Atrial flutter ([facility]) LIPID PANEL Routine 07/24/2020 8:19 AM FIELD CROP I FARMWORKER Coronary artery disease due to calcified coronary lesion from Last 3 Months or Most Recently Relevant to Health Maintenance Results * (ABNORMAL) PROTIME/INR, VENOUS (05/30/2024 12:58 PM FIELD CROP I FARMWORKER) PROTIME 43.9(H) 9.1 - 12.4 SEC 05/30/2024 1:07 PM FIELD CROP I FARMWORKER [facility] INR 4.0 05/30/2024 1:07 PM FIELD CROP I FARMWORKER [facility] Comment: Recommend INR ranges for Oral Anticoagulant Therapy: Mechanical Cardiac Values 2.5-3.5 All others indication 2.0-3.0 05/30/2024 12:5 8 PM FIELD CROP I FARMWORKER us Nathan Scanlon MD LABORATORY Final Result [facility] [address] [place] [address], [place] [phone] * (ABNORMAL) LIPID PANEL (07/24/2020 8:19 AM FIELD CROP I FARMWORKER) CHOLESTEROL 244(H) <200.0 MG/DL 07/24/2020 9:02 AM [facility] TRIGLYCERIDES 131 <150 MG/DL 07/24/2020 9:02 AM [facility] HDL 77 >40.0 MG/DL 07/24/2020 9:02 AM [facility] LDL (CALCULATED) 141(H) <100 MG/DL 07/24/2020 9:02 AM [facility] NON HDL CHOLESTEROL 167(H) <130 MG/DL 07/24/2020 9:02 AM [facility] CHOL/HDL RATIO 3.2 0.0 - 4.5 07/24/2020 9:02 AM [facility] VLDL CALCULATION 26 5 - 55 MG/DL 07/24/2020 9:02 AM [facility] LIPID INTERPRETATION 07/24/2020 9:02 AM [facility] Comment: NIH CONCENSUS REPORT RECOMMENDATIONS: ADULT CHILD LOW RISK: CHOLESTEROL <200 <170 TRIGLYCERIDE <150 --- HDL >=60 --- LDL <100 <110 BORDERLINE: CHOLESTEROL 200-239 170-199 TRIGLYCERIDE 150-199 --- HDL 40-59 --- LDL 100-159 110-129 HIGH RISK: CHOLESTEROL >=240 >=200 TRIGLYCERIDE >=200 --- HDL <40 --- LDL >=160 >=130 07/24/2020 8:19 AM FIELD CROP I FARMWORKER [facility] Final Result [facility] [address] [place] [address], [place] [phone] from Last 3 Months or Most Recently Relevant to Health Maintenance Insurance MEDICARE MEDICARE Advance Directives Documents on File Type Date Recorded Patient Roads And Parking Lots Sweeper Operator Expl anation Advance Directives and Living Will 02/25/2018 2:15 PM signed 02-11-17 * Full Code (Latest Code Status on File) Date Activated Date Inactivated Comments 07/01/2023 3:27 PM 07/03/2023 1:33 PM * Full Code Date Activated Date Inactivated Comments 07/10/2021 11:30 AM 07/10/2021 6:48 PM * Full Code Date Activated Date Inactivated Comments 02/24/2018 12:03 PM 02/25/2018 3:47 PM Care Teams Quarry Manager Relationship Specialty Start Date End Date Mo Moy MD [address] [place] [address] PCP - General FAMILY PRACTICE 11/26/17 Sal Bliss MD [address] [facility] [address] [place] [address] [place] Contact Lens Polisher CARDIOVASCULAR DISEASE 12/10/17 Angel Lopez MD [address] [place], [place] [phone] EP Contact Lens Polisher CLINICAL CARDIAC ELECTROPHYSIOLOGY 01/15/18
== END 2024-08-08 12:04 | disposition home or self-care (01) ==
PROVIDERS: PCP Family Medicine; Visit Provider Family Medicine
DX: N39.0 Urinary tract infection, site not specified (principal); S82.852D Displaced trimalleolar fracture of left lower leg, subsequent encounter for closed fracture with routine healing; S22.43XD Multiple fractures of ribs, bilateral, subsequent encounter for fracture with routine healing; X58.XXXD Exposure to other specified factors, subsequent encounter
CPT/HCPCS: 81001; 87086

== ENCOUNTER 2024-08-15 13:53 | Outpatient (NON) | payer MEDICARE, SELFPAY ==
--- OUTSIDE RECORDS SUMMARY | 2024-08-15 15:16 | XMS_ITS | Encounter Summary ---
Author Organization [facility] Address [facility] [place] [address] Care Team Providers Care Reducing Salon Attendant Name Role Phone Mo Moy MD Primary Care Provider [phone] Sal Bliss MD Unavailable [phone] Angel Lopez MD Unavailable Encounter Details Date Type Department Care Team (Late st Contact Info) Description 08/05/2022 Abstract [facility] [phone] Faizan Pereira MA Social History Tobacco Use [...] Sex Assigned at Female 05/30/2024 12:35 PM RESERVOIR ENGINEERING MANAGER Legal Sex Female 6:49 PM CDT [...] Description 10/26/2024 11:00 AM CDT Office Visit [facility] Medical Group Multispecialty Care - [facility] [address] [facility] [place] [phone] Jacob Landry MD [address] [place] [address] documented as of this encounter Procedures Procedure [...] Rule Out 07/01/2023 07/01/2023 07/01/2023 3:40 PM RESERVOIR ENGINEERING MANAGER COVID-19 Rule Out 11/03/2023 11/03/2023 11/03/2023 1:01 AM CDT Assessment Noted Time PHQ-9 Depression Total Score: 0 05/05/20 1:33 PM RESERVOIR ENGINEERING MANAGER documented as of this encounter Care Teams Reducing Salon Attendant Relationship Specialty Start Date End Date Mo Moy MD [address] [place] [address] PCP - General FAMILY PRACTICE 11/26/17 Sal Bliss MD [facility] [address] [place], [place] [phone] [place] Steam Turbine Operator CARDIOVASCULAR DISEASE 12/10/17 Angel Lopez MD [address] [place], [place] [phone] EP Steam Turbine Operator CLINICAL CARDIAC ELECTROPHYSIOLOGY 01/15/18 documented as of this encounter
--- OUTSIDE RECORDS SUMMARY | 2024-08-15 15:16 | XMS_ITS | Encounter Summary ---
Author Organization [facility] Address [facility] [place] [address] Care Team Providers Care Motor Boss Name Role Phone Mo Moy MD Primary Care Provider [phone] Sal Bliss MD Unavailable [phone] Angel Lopez MD Unavailable Encounter Details Date Type Department Care Team (Late Contact Info) Description 10/14/2018 Abstract [facility] [address] [place], [place] [phone] Sal Bliss MD [address] [address] Social History Tobacco Use Types Packs/Day Years Used Date Smoking Tobacco: Former Cigarettes 0.5 35 1 965 - 2000 Smokeless Tobacco: Never Comments:distant past Alcohol Use Standard Drinks/Week Comments No 0 (1 standard drink = 0.6 oz pur e alcohol) Comments No Sex and Gender Information Value Date Recorded Sex Assigned at Female 05/30/2024 12:35 PM RAILROAD WHEELS AND AXLES INSPECTOR Legal Sex Female 6:49 PM CDT Gender Identity Not on file Sexual Orientation Not on file Occupation Industry Job Start Date Job End Date Not on file Not on file Not on file Not on file documented as of this encounter Plan of Treatment Upcoming Encounters Date Type Department Care Team (Late Contact Info) Description 10/26/2024 11:00 AM CDT Office Visit [facility] Medical Group Multispecialty Care - [facility] [address] [facility] [place] [address] Jacob Landry MD [address] [facility] [address] [place] [address] documented as of this encounter Procedures Procedure Name Priority Date/Time Associated Diagnosis Comments PROTHROMBIN TIME, FINGERSTICK Routine 10/14/2018 10:05 AM CDT documented in this encounter Results * PROTIME/INR, FINGERSTICK (10/14/2018 10:05 AM CDT) INR WHOLE BLOOD 2.3 9 10:09 AM CDT [facility] Comment: Recommend INR ranges for Oral Anticoagulant Therapy:Mechanical Cardiac Values 2.5-3.5All others indication 2.0-3.0 10/14/2018 10:0 5 AM CDT 10/14/2018 10:06 AM CDT us Generic Conversion Md [facility] Final R esult [facility] [address] [place] [address], documented in this encounter Visit Diagnoses Diagnosis Atrial fibrillation (CMS/HCC HHS/HCC) Atrial fibrillation documented in this encounter Additional Health Concerns Infection Onset Date Last Indicated Resolved Time COVID-19 Rule Out 01/14/2020 01/27/2020 01/28/2020 4:35 PM CDT COVID-19 Rule Out 07/07/2021 07/07/2021 07/08/2021 7:49 PM RAILROAD WHEELS AND AXLES INSPECTOR COVID-19 Rule Out 09/27/2021 09/27/2021 09/28/2021 10:26 AM CDT COVID-19 Rule Out 07/01/2023 07/01/2023 07/01/2023 3:40 PM RAILROAD WHEELS AND AXLES INSPECTOR COVID-19 Rule Out 11/03/2023 11/03/2023 11/03/2023 1:01 AM CDT documented as of this encounter Care Teams Motor Boss Relationship Specialty Start Date End Date Mo Moy MD [address] [place] [address] PCP - General FAMILY PRACTICE 11/26/17 Sal Bliss MD Three [facility] [place] [address] [place] Pin Drafter Operator CARDIOVASCULAR DISEASE 12/10/17 Angel Lopez MD Three [facility] [place], [place] [id number] EP Pin Drafter Operator CLINICAL CARDIAC ELECTROPHYSIOLOGY 01/15/18 documented as of this encounter
--- OUTSIDE RECORDS SUMMARY | 2024-08-15 15:16 | XMS_ITS | Encounter Summary ---
Author Organization [facility] Address [facility] [place] [address] Care Team Providers Care Assistant Field Hockey Coach Name Role Phone Mo Moy MD Primary Care Provider [phone] Sal Bliss MD Unavailable [phone] Angel Lopez MD Unavailable Encounter Details Date Type Department Care Team (Late st Contact Info) Description 01/26/2019 Abstract [facility] at [address] [address] Faizan Pereira MA Social History Tobacco Use Types Packs/Day Years Used Date Smoking Tobacco: Former Cigarettes 0.5 35 1 965 - 2000 Smokeless Tobacco: Never Comments:distant past Alcohol Use Standard Drinks/Week Comments No 0 (1 standard drink = 0.6 oz pur e alcohol) Comments No Sex and Gender Information Value Date Recorded Sex Assigned at Female 05/30/2024 12:35 PM STOCK DRIER TENDER Legal Sex Female 6:49 PM CDT Gender Identity Not on file Sexual Orientation Not on file Occupation Industry Job Start Date Job End Date Not on file Not on file Not on file Not on file documented as of this encounter Plan of Treatment Upcoming Encounters Date Type Department Care Team (Late st Contact Info) Description 10/26/2024 11:00 AM CDT Office Visit [facility] Medical Group Multispecialty Care - [address] [place] [address] Jacob Landry MD [address] [place] [address] [place] [address] documented as of this encounter Procedures Procedure [...] * (ABNORMAL) COMPREHENSIVE METABOLIC PANEL (01/24/2019) Pathologist [facility] SODIUM S/P/B 140 POTASSIUM S/P/B 4.7 CO2 [...] Rule Out 07/07/2021 07/07/2021 07/08/2021 7:49 PM STOCK DRIER TENDER COVID-19 Rule Out 09/27/2021 09/27/2021 09/28/2021 10:26 AM CDT COVID-19 Rule Out 07/01/2023 07/01/2023 07/01/2023 3:40 PM STOCK DRIER TENDER COVID-19 Rule Out 11/03/2023 11/03/2023 11/03/2023 1:01 AM CDT documented as of this encounter Care Teams Assistant Field Hockey Coach Relationship Specialty Start Date End Date Mo Moy MD [address] [place] [phone] PCP - General FAMILY PRACTICE 11/26/17 Sal Bliss MD [address] [address] [place] Senior Systems Software Engineer CARDIOVASCULAR DISEASE 12/10/17 Angel Lopez MD [facility] [address] [place] [address] EP Senior Systems Software Engineer CLINICAL CARDIAC ELECTROPHYSIOLOGY 01/15/18 documented as of this encounter
--- OUTSIDE RECORDS SUMMARY | 2024-08-15 15:16 | XMS_ITS | Encounter Summary ---
Author Organization [facility] Address [facility] [place] [address] Care Team Providers Care Handling Tech Name Role Phone Mo Moy MD Primary Care Provider [phone] Sal Bliss MD Unavailable [phone] Angel Lopez MD Unavailable Encounter Details Date Type Department Care Team (Late st Contact Info) Description 12/29/2017 Abstract [facility] at [address] [address] Faizan Pereira MA Social History Tobacco Use Types Packs/Day Years Used Date Smoking Tobacco: Former Cigarettes Q uit: 2000 Smokeless Tobacco: Never Alcohol Use Standard Drinks/Week Comments No 0 (1 standard drink = 0.6 oz pur e alcohol) Comments Unknown Sex and Gender Information Value Date Recorded Sex Assigned at Female 05/30/2024 12:35 PM BATCH RECORDS CLERK Legal Sex Female 6:49 PM CDT Gender [...] Description 10/26/2024 11:00 AM CDT Office Visit [facility] Medical Group Multispecialty Care - [facility] [address] [place] [address] Jacob Landry MD [address] [facility] [address] [place] [address] documented as of this encounter Procedures Procedure [...] Rule Out 07/07/2021 07/07/2021 07/08/2021 7:49 PM BATCH RECORDS CLERK COVID-19 Rule Out 09/27/2021 09/27/2021 09/28/2021 10:26 AM CDT COVID-19 Rule Out 07/01/2023 07/01/2023 07/01/2023 3:40 PM BATCH RECORDS CLERK COVID-19 Rule Out 11/03/2023 11/03/2023 11/03/2023 1:01 AM CDT documented as of this encounter Care Teams Handling Tech Relationship Specialty Start Date End Date Mo Moy MD [address] [place] [address] PCP - General FAMILY PRACTICE 11/26/17 Sal Bliss MD Three [facility] [place] [address] [place] Dental Practitioner CARDIOVASCULAR DISEASE 12/10/17 Angel Lopez MD Three [facility]. [address] [place], [place] [phone] EP Dental Practitioner CLINICAL CARDIAC ELECTROPHYSIOLOGY 01/15/18 documented as of this encounter
--- OUTSIDE RECORDS SUMMARY | 2024-08-15 15:17 | XMS_ITS | Encounter Summary ---
Author Organization [facility] Address [facility] [place] [address] Care Team Providers Care Five Piece Expansion Maker Hand Name Role Phone Mo Moy MD Primary Care Provider [phone] Sal Bliss MD Unavailable [phone] Angel Lopez MD Unavailable Encounter Details Date Type Department Care Team (Late st Contact Info) Description 03/14/2018 Abstract [facility] at [address] [address] Faizan Pereira MA Social History Tobacco Use Types Packs/Day Years Used Date Smoking Tobacco: Former Cigarettes 0.5 35 1 965 - 2000 Smokeless Tobacco: Never Comments:distant past Alcohol Use Standard Drinks/Week Comments No 0 (1 standard drink = 0.6 oz pur e alcohol) Comments No Sex and Gender Information Value Date Recorded Sex Assigned at Female 05/30/2024 12:35 PM ACOUSTIC INTELLIGENCE SPECIALIST Legal Sex Female 6:49 PM CDT [...] Description 10/26/2024 11:00 AM CDT Office Visit [facility] Medical Group Multispecialty Care - [facility] [address] [facility] [place] [address] Jacob Landry MD [address] [facility] [address] [place] [address] documented as of this encounter Procedures Procedure [...] Rule Out 07/07/2021 07/07/2021 07/08/2021 7:49 PM ACOUSTIC INTELLIGENCE SPECIALIST COVID-19 Rule Out 09/27/2021 09/27/2021 09/28/2021 10:26 AM CDT COVID-19 Rule Out 07/01/2023 07/01/2023 07/01/2023 3:40 PM ACOUSTIC INTELLIGENCE SPECIALIST COVID-19 Rule Out 11/03/2023 11/03/2023 11/03/2023 1:01 AM CDT documented as of this encounter Care Teams Five Piece Expansion Maker Hand Relationship Specialty Start Date End Date Mo Moy MD [address] [place] [address] PCP - General FAMILY PRACTICE 11/26/17 Sal Bliss MD [address] [facility] [address] [place] [address] [place] Helminthologist CARDIOVASCULAR DISEASE 12/10/17 Angel Lopez MD [address] [facility] [address] [place], [place] [phone] EP Helminthologist CLINICAL CARDIAC ELECTROPHYSIOLOGY 01/15/18 documented as of this encounter
--- OUTSIDE RECORDS SUMMARY | 2024-08-15 15:17 | XMS_ITS | Clinical Summary ---
Author Organization [facility] Address [facility] [place] [address] Care Team Providers Care Block Splitter Operator Name Role Phone Mo Moy MD Primary Care Provider [phone] Sal Bliss MD Unavailable [phone] Angel Lopez MD Unavailable Allergies Active Allergy [...] obstructive pulmonar y disease, unspecified COPD type ([facility]) 05/05/2021 Gastroesophageal reflux dise ase, unspecified whether esophagitis present 05/05/2021 Cigarette nicotine dependence in remission 05/05 Abnormal finding on lung imaging 05/05/2021 Multiple lung nodules 05/05/2021 Coronary artery disease due to calcified coronar y lesion 05/30/2018 Dyslipidemia 05/30/2018 Essential hypertension 03/07/2018 Abnormal stress test 03/07/2018 S/P ablation of atrial fibrillation 02/24/2018 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 0 12/29/2017 CHF (congestive heart failure) ([facility]) Paroxysmal atrial fibrillation ([facility]) Encounters Date Type Department Care Team Description 05/30/2024 12:40 PM ANALYSIS LEAD - 05/30/2024 11:59 PM [facility] Hospital Encounter [facility] [address] [place] [address] Nathan Scanlon MD Discharge Disposition: Home or [...] drink = 0.6 oz pur e alcohol) [facility] Utilities Answer Date Recorded In the [...] Sex Assigned at Female 05/30/2024 12:35 PM ANALYSIS LEAD Legal Sex Female 6:49 PM CDT Gender [...] Description 10/26/2024 11:00 AM CDT Office Visit [facility] Multispecialty Care - [address] [place] [address] [phone] Jacob Landry MD [address] [place] [address] [address] [place] [address] Health Maintenance Due Date Last Done Comments [...] 07/24/2021 07/24/2020, 01/15, 04/27/2018, Additional history exists COVID-19 Vaccine (2023- season) 2024 Influenza Adult (#1) 2024 PHQ-2 (Physician [place]) 05/17/2024 10/26/2022 Meningococcal B Vaccine Aged Out [...] PROTHROMBIN TIME, VENOUS Routine 05/30/2024 12:58 PM ANALYSIS LEAD Atrial flutter ([facility]) LIPID PANEL Routine 07/24/2020 8:19 AM ANALYSIS LEAD Coronary artery disease due to calcified coronary lesion from Last 3 Months or Most Recently Relevant to Health Maintenance Results * (ABNORMAL) PROTIME/INR, VENOUS (05/30/2024 12:58 PM ANALYSIS LEAD) PROTIME 43.9(H) 9.1 - 12.4 SEC 05/30/2024 1:07 PM ANALYSIS LEAD [facility] INR 4.0 05/30/2024 1:07 PM ANALYSIS LEAD [facility] Comment: Recommend INR ranges for Oral Anticoagulant Therapy: Mechanical Cardiac Values 2.5-3.5 All others indication 2.0-3.0 05/30/2024 12:5 8 PM ANALYSIS LEAD Nathan Scanlon MD LABORATORY Final Result [facility] [address] [place] [address], [place] [phone] * (ABNORMAL) LIPID PANEL (07/24/2020 8:19 AM ANALYSIS LEAD) CHOLESTEROL 244(H) <200.0 MG/DL 07/24/2020 9:02 AM [facility] TRIGLYCERIDES 131 <150 MG/DL 07/24/2020 9:02 AM [facility] HDL 77 >40.0 MG/DL 07/24/2020 9:02 AM [facility] LDL (CALCULATED) 141(H) <100 MG/DL 07/24/2020 9:02 AM [facility] NON HDL CHOLESTEROL 167(H) <130 MG/DL 07/24/2020 9:02 AM [facility] CHOL/HDL RATIO 3.2 0.0 - 4.5 07/24/2020 9:02 AM [facility] VLDL CALCULATION 26 5 - 55 MG/DL 07/24/2020 9:02 AM [facility] LIPID INTERPRETATION 07/24/2020 9:02 AM [facility] Comment: [facility] REPORT RECOMMENDATIONS: ADULT CHILD LOW RISK: CHOLESTEROL <200 <170 TRIGLYCERIDE <150 --- HDL >=60 --- LDL <100 <110 BORDERLINE: CHOLESTEROL 200-239 170-199 TRIGLYCERIDE 150-199 --- HDL 40-59 --- LDL 100-159 110-129 HIGH RISK: CHOLESTEROL >=240 >=200 TRIGLYCERIDE >=200 --- HDL <40 --- LDL >=160 >=130 07/24/2020 8:19 AM ANALYSIS LEAD [facility] Final Result [facility] [address] [place] [address], from Last 3 Months or Most Recently Relevant to Health Maintenance Insurance MEDICARE MEDICARE Advance Directives Documents on File Type Date Recorded Patient Muck Operator Expl anation Advance Directives and Living Will 02/25/2018 2:15 PM signed 02-11-17 * Full Code (Latest Code Status on File) Date Activated Date Inactivated Comments 07/01/2023 3:27 PM 07/03/2023 1:33 PM * Full Code Date Activated Date Inactivated Comments 07/10/2021 11:30 AM 07/10/2021 6:48 PM * Full Code Date Activated Date Inactivated Comments 02/24/2018 12:03 PM 02/25/2018 3:47 PM Care Teams Block Splitter Operator Relationship Specialty Start Date End Date Mo Moy MD [address] [place] [id number] PCP - General FAMILY PRACTICE 11/26/17 Sal Bliss MD [facility] [address] [place] [address] Ivor Translator And Interpreter CARDIOVASCULAR DISEASE 12/10/17 Angel Lopez MD [facility]. [facility] [address] [place], [place] [id number] EP Translator And Interpreter CLINICAL CARDIAC ELECTROPHYSIOLOGY 01/15/18
--- OUTSIDE RECORDS SUMMARY | 2024-08-15 15:17 | XMS_ITS | Encounter Summary ---
Author Organization [facility] Address [facility] [place] [address] Care Team Providers Care Certified Prosthetist/Orthotist Name Role Phone Mo Moy MD Primary Care Provider [phone] Sal Bliss MD Unavailable [phone] Angel Lopez MD Unavailable Encounter Details Date Type Department Care Team (Late st Contact Info) Description 07/05/2023 Hospital Follow-up Call [facility] Management [address] [place] [address] Chrissy Chaney RN Social History Tobacco Use Types Packs/Day Years Used Date Smoking Tobacco: Former Cigarettes 1 35 1 965 - 2000 Smokeless Tobacco: Never Comments:distant past Alcohol Use Standard Drinks/Week Comments No 0 (1 standard drink = 0.6 oz pur e alcohol) [facility] Utilities Answer Date Recorded In the past 12 months has e [employer], gas, oil, or water [employer] threatened to shut off services in your [...] place to sleep or slept in a usp (including now)? No 07/01/2023 Comments No Sex and Gender Information Value Date Recorded Sex Assigned at Female 05/30/2024 12:35 PM CONSTRUCTION CRAFT LABORER Legal Sex Female 6:49 PM CDT Gender [...] Assessment Author Status No 07/03/2023 10:20 AM CONSTRUCTION CRAFT LABORER Maddi Bryant R N Active * Are [...] CDT Office Visit [facility] Multispecialty Care - [address], [address] [place] [address] Jacob Landry MD [address] [place] [address] [place] [address] documented as of this encounter Visit Diagnoses Not on filedocumented in this encounter Additional Health Concerns Infection Onset Date Last Indicated Resolved Time COVID-19 Rule Out 11/03/2023 11/03/2023 11/03/2023 1:01 AM CDT Assessment Noted Time PHQ-9 Depression Total Score: 0 05/05/20 21 1:33 PM CONSTRUCTION CRAFT LABORER documented as of this encounter Care Teams Certified Prosthetist/Orthotist Relationship Specialty Start Date End Date Mo Moy MD [address] [place] [address] PCP - General FAMILY PRACTICE 11/26/17 Sal Bliss MD [address] [place] [address] Mcleod Billet Driller CARDIOVASCULAR DISEASE 12/10/17 Angel Lopez MD [address] [place] [address] EP Billet Driller CLINICAL CARDIAC ELECTROPHYSIOLOGY 01/15/18 documented as of this encounter
--- OUTSIDE RECORDS SUMMARY | 2024-08-15 15:17 | XMS_ITS | Continuity of Care Document ---
Author Organization [email or web address] Address [address] [facility] [address] [place] [address] Phone Care Team Providers Care Apprentice Electrician Name Role Phone Catracho Bojorquez MD Unavailable [...] Copied on Encounter Office/outpa tient Visit, [facility], [address] [place] [address] [address], [place], [place], [id number], [place] [phone] [place] Professional yag pc ou evaluation (chief complaint) Presence of intraocular lensOther secondary cataract, right eyeMacular hole of left eye [address] [place]. [address] [facility], [facility] A, [place], [place], [id number], [place]. tel:[phone] Sal Bliss MD.Referring Provider: Ashley Turcios, [address], [address]. tel:[phone] [facility], [address] [place] [address] [address], [place], [place], [id number], [place] tel:[phone] SEC Radha Bruno No Information [address] [place]. [address] [facility] [address], [place], [place], [id number], [place]. tel:[phone] Specialist: Sal Bliss MD, [address] [facility] [address], [place], [address]. tel:[phone] Provider: Ashley Turcios, [facility] [address], [address]. tel:[phone] Family History Family Member Type Diagnosis Age At Onset No Information Payers Payer name Insurance type Covered green party ID Authoriza tion(s) [place] [id number] [facility] [id number] Social History Type Description Quantity Date Captured [...]
--- OUTSIDE RECORDS SUMMARY | 2024-08-15 15:17 | XMS_ITS | Clinical Summary ---
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 BLOOD SPECIMEN / Unknown Venipuncture / Unknown 06/18/2024 8:38 PM MUSIC MINISTRIES DIRECTOR 06/18/2024 9:12 PM MUSIC MINISTRIES DIRECTOR Gordon Ingram MD LAB - CHEMISTRY JULIANNE OROZCO [facility] [address] [place] [address], [facility] [phone] * CT Ankle Left Wo Contrast (06/18/2024 7:57 PM MUSIC MINISTRIES DIRECTOR) Anatomical Region Laterality Modality Lower Extremity Computed Tomogra phy 06/18/2024 8:46 PM MUSIC MINISTRIES DIRECTOR Narrative 06/18/2024 9:15 PM MUSIC MINISTRIES DIRECTOR PROCEDURE: CT KNEE LEFT WO CONTRAST, CT [...] present. > Dictated by Dimitris Avila MD (Turkey Roll Maker) I, E. Isin Akduman, MD have personally [...] present. > Dictated by Dimitris Avila MD (Turkey Roll Maker) Higinio Price MD have personally reviewed and interpreted this examination/study. > Interpreting Provider: Higinio Whittington MD on 06/18/2024 9:15 PM Authorizing Provider Result Vanessa Ingram MD CT ORDERABLES * CT Knee Left Wo Contrast (06/18/2024 7:57 PM MUSIC MINISTRIES DIRECTOR) Anatomical Region Laterality Modality Lower Extremity Computed Tomogra phy 06/18/2024 8:46 PM MUSIC MINISTRIES DIRECTOR Narrative 06/18/2024 9:15 PM MUSIC MINISTRIES DIRECTOR PROCEDURE: CT KNEE LEFT WO CONTRAST, CT [...] present. > Dictated by Dimitris Avila MD (Turkey Roll Maker) Higinio Price MD have personally reviewed and [...] present. > Dictated by Dimitris Avila MD (Turkey Roll Maker) Higinio Price MD have personally reviewed and interpreted this examination/study. > Interpreting Provider: Higinio Whittington MD on 06/18/2024 9:15 PM Gordon Ingram MD CT ORDERABLES * BLOOD TYPE VERIFICATION (06/18/2024 6:57 PM MUSIC MINISTRIES DIRECTOR) ABO Rh O POS 06/18/2024 7:2 6 PM MUSIC MINISTRIES DIRECTOR [facility] Blood Bank BLOOD SPECIMEN / Unknown Venipuncture / Unknown 06/18/2024 6:57 PM MUSIC MINISTRIES DIRECTOR 06/18/2024 7:05 PM MUSIC MINISTRIES DIRECTOR Gordon Ingram MD LAB - BLOOD BANK ORD ERABLES [facility] [address] [place] [address], [place] [phone] * PREPARE PLATELET PHERESIS UNIT(S), 1 Units (06/18/2024 6:45 PM MUSIC MINISTRIES DIRECTOR) Unit Description LRPLTphere B7 IR [facility] Unit ABO O [facility] Unit Rh POS [facility] Product Number P31 [facility] Unit Donor # [id number] [facility] Unit Status transfused [facility] Product Code [id number] [facility] Blood Type Barcode 5100 [facility] Expiration Date S BLOOD BANK LAB Blood Bank BLOOD SPECIMEN / Unknown 06/18/2024 2:53 PM MUSIC MINISTRIES DIRECTOR Gordon Fernández MD LAB - BLOOD BANK ORD ERABLES Performing Organization Address City/[facility]/ZIP Co de Phone Number [facility] [address] [place] [address], [place] [phone] * XR Wrist Right 3Vw or More (06/18/2024 3:39 PM MUSIC MINISTRIES DIRECTOR) Anatomical Region Laterality Modality Wrist / Hand Digital Radiogra phy 06/18/2024 5:17 PM MUSIC MINISTRIES DIRECTOR Impressions 06/18/2024 8:04 PM MUSIC MINISTRIES DIRECTOR IMPRESSION: No acute fracture or dislocation identified. Report dictated by Vijay Jeong DO (resident care supervisor). Malcolm Price MD have personally reviewed and interpreted this examination/study. > Interpreting Provider: Malcolm Marroquin MD on 06/18/2024 8:04 PM Narrative 06/18/2024 8:04 PM MUSIC MINISTRIES DIRECTOR PROCEDURE: XR WRIST RIGHT 3VW OR MORE, DATE/TIME OF EXAM: 06/18/2024 3:39 PM, LOCATION [facility] INDICATION: T14.90XA: Trauma ADDITIONAL CLINICAL INFORMATION: [...] DATE/TIME OF EXAM: 53:39 PM, LOCATION [facility] INDICATION: T14.90XA: Trauma ADDITIONAL CLINICAL INFORMATION: [...] identified. Report dictated by Vijay Jeong DO (resident care supervisor). Malcolm Price MD have personally reviewed and interpreted this examination/study. > Interpreting Provider: Malcolm Marroquin MD on 06/18/2024 8:04 PM Gordon Ingram MD DIAGNOSTIC IMAGING O RDERABLES * XR Tibia Fibula Left 2Vw (06/18/2024 3:39 PM MUSIC MINISTRIES DIRECTOR) Anatomical Region Laterality Modality Lower Extremity Digital Radiogra phy 06/18/2024 5:13 PM MUSIC MINISTRIES DIRECTOR Impressions 06/18/2024 5:22 PM MUSIC MINISTRIES DIRECTOR IMPRESSION: Quadrimalleolar fracture. Report dictated by Vijay Jeong DO (resident care supervisor). Malcolm Price MD have personally reviewed and interpreted this examination/study. > Interpreting Provider: Malcolm Marroquin MD on 06/18/2024 5:22 PM Narrative 06/18/2024 5:22 PM MUSIC MINISTRIES DIRECTOR PROCEDURE: XR TIBIA FIBULA LEFT 2VW, DATE/TIME OF EXAM: 06/18/2024 3:39 PM, LOCATION [facility] INDICATION: T14.90XA: Trauma COMPARISON: None. FINDINGS: Quadrimalleolar fracture. Bone density and texture are normal. Soft tissue swelling is present. Procedure Note Malcolm Marroquin MD - 06/18/2024 PROCEDURE: XR TIBIA FIBULA LEFT 2VW, DATE/TIME OF EXAM: 06/18/2024 3:39PM, LOCATION [facility] INDICATION: T14.90XA: Trauma COMPARISON: None. FINDINGS: Quadrimalleolar fracture. Bone density and texture are normal. Softtissue swelling is present. IMPRESSION: Quadrimalleolar fracture. Report dictated by Vijay Jeong DO (resident care supervisor). Malcolm Price MD have personally reviewed and interpreted this examination/study. > Interpreting Provider: Malcolm Marroquin MD on 06/18/2024 5:22 PM Gordon Ingram MD DIAGNOSTIC IMAGING O RDERABLES * XR Hand Right 3Vw or More (06/18/2024 3:39 PM MUSIC MINISTRIES DIRECTOR) Anatomical Region Laterality Modality Wrist / Hand Digital Radiogra phy 06/18/2024 5:17 PM MUSIC MINISTRIES DIRECTOR Impressions 06/18/2024 8:05 PM MUSIC MINISTRIES DIRECTOR IMPRESSION: No acute fracture or dislocation identified. Report dictated by Vijay Jeong DO (resident care supervisor). Malcolm Price MD have personally reviewed and interpreted this examination/study. > Interpreting Provider: Malcolm Marroquin MD on 06/18/2024 8:05 PM Narrative 06/18/2024 8:05 PM MUSIC MINISTRIES DIRECTOR PROCEDURE: XR HAND RIGHT 3VW OR MORE, DATE/TIME OF EXAM: 06/18/2024 3:39 PM, LOCATION [facility] INDICATION: T14.90XA: Trauma COMPARISON: None. FINDINGS: [...] OF EXAM: 06/18/2024 3:39 PM, LOCATION [facility] INDICATION: T14.90XA: Trauma COMPARISON: None. FINDINGS: [...] identified. Report dictated by Vijay Jeong DO (resident care supervisor). Malcolm Price MD have personally reviewed and interpreted this examination/study. > Interpreting Provider: Malcolm Marroquin MD on 06/18/2024 8:05 PM Gordon Ingram MD DIAGNOSTIC IMAGING O RDERABLES * XR Hand Left 3Vw or More (06/18/2024 3:39 PM MUSIC MINISTRIES DIRECTOR) Anatomical Region Laterality Modality Wrist / Hand Digital Radiogra phy 06/18/2024 5:16 PM MUSIC MINISTRIES DIRECTOR Impressions 06/18/2024 8:03 PM MUSIC MINISTRIES DIRECTOR IMPRESSION: No acute fracture or dislocation identified. Report dictated by Vijay Jeong DO (resident care supervisor). Malcolm Price MD have personally reviewed and interpreted this examination/study. > Interpreting Provider: Malcolm Marroquin MD on 06/18/2024 8:03 PM Narrative 06/18/2024 8:03 PM MUSIC MINISTRIES DIRECTOR PROCEDURE: XR HAND LEFT 3VW OR MORE, DATE/TIME OF EXAM: 06/18/2024 3:39 PM, LOCATION [facility] INDICATION: T14.90XA: Trauma COMPARISON: None. FINDINGS: [...] DATE/TIME OF EXAM: 06/18/2024 3:39PM, LOCATION [facility] INDICATION: T14.90XA: Trauma COMPARISON: None. FINDINGS: The osseous structures are intact and well aligned without acutefracture or dislocation. The joint spaces are preserved. The bones are diffusely demineralized. No soft tissue swelling is present. Degenerative changesof the fifth distal interphalangeal and first carpometacarpal joints. IMPRESSION: No acute fracture or dislocation identified. Report dictated by Vijay Jeong DO (resident care supervisor). Malcolm Price MD have personally reviewed and interpreted this examination/study. > Interpreting Provider: Malcolm Marroquin MD on 06/18/2024 8:03 PM Gordon Ingram MD DIAGNOSTIC IMAGING O RDERABLES * CT LUMBAR SPINE WO CONTRAST - T/L-spine trauma, Spine fracture (06/18/2024 3:21 PM MUSIC MINISTRIES DIRECTOR) Anatomical Region Laterality Modality Spine Computed Tomogra phy 06/18/2024 3:49 PM MUSIC MINISTRIES DIRECTOR Impressions 06/18/2024 5:25 PM MUSIC MINISTRIES DIRECTOR IMPRESSION: 1.No evidence of acute fracture in the cervical, thoracic, or lumbar spine. 2.Please refer to the concurrent, dedicated body report for findings in the chest, abdomen, and pelvis. > Dictated by Vijay Jeong DO (Turkey Roll Maker), 06/18/2024 3:49 PM. IGlenny MD have personally reviewed and interpreted this examination/study. > Interpreting Provider: Glenny Ragsdale MD on 06/18/2024 5:25 PM Narrative 06/18/2024 5:25 PM MUSIC MINISTRIES DIRECTOR PROCEDURE: CT CERVICAL SPINE WO CONTRAST, CT LUMBAR SPINE WO CONTRAST, CT THORACIC SPINE WO CONTRAST, DATE/TIME OF EXAM: 06/18/2024 3:23 PM, LOCATION [facility] INDICATION: Trauma EXAMINATION: 1.CT of the [...] OF EXAM: 06/18/2024 3:23 PM, LOCATION [facility] INDICATION: Trauma EXAMINATION: 1.CT of the [...] pelvis. > Dictated by Vijay Jeong DO (Turkey Roll Maker), 06/18/2024 3:49 PM. IGlenny MD have personally reviewed and interpretedthis examination/study. > Interpreting Provider: Glenny Ragsdale MD on 06/18/2024 5:25 PM Gordon Ingram MD CT ORDERABLES * CT THORACIC SPINE WO CONTRAST - T/L-spine trauma, spine fracture (06/18/2024 3:21 PM MUSIC MINISTRIES DIRECTOR) Anatomical Region Laterality Modality Spine Computed Tomogra phy 06/18/2024 3:49 PM MUSIC MINISTRIES DIRECTOR Impressions 06/18/2024 5:25 PM MUSIC MINISTRIES DIRECTOR IMPRESSION: 1.No evidence of acute fracture in the cervical, thoracic, or lumbar spine. 2.Please refer to the concurrent, dedicated body report for findings in the chest, abdomen, and pelvis. > Dictated by Vijay Jeong DO (Turkey Roll Maker), 06/18/2024 3:49 PM. IGlenny MD have personally reviewed and interpreted this examination/study. > Interpreting Provider: Glenny Ragsdale MD on 06/18/2024 5:25 PM Narrative 06/18/2024 5:25 PM MUSIC MINISTRIES DIRECTOR PROCEDURE: CT CERVICAL SPINE WO CONTRAST, CT LUMBAR SPINE WO CONTRAST, CT THORACIC SPINE WO CONTRAST, DATE/TIME OF EXAM: 06/18/2024 3:23 PM, LOCATION [facility] INDICATION: Trauma EXAMINATION: 1.CT of the [...] OF EXAM: 06/18/2024 3:23 PM, LOCATION [facility] INDICATION: Trauma EXAMINATION: 1.CT of the [...] pelvis. > Dictated by Vijay Jeong DO (Turkey Roll Maker), 06/18/2024 3:49 PM. Glenny Price MD have personally reviewed and interpretedthis examination/study. > Interpreting Provider: Glenny Ragsdale MD on 06/18/2024 5:25 PM Gordon Ingram MD CT ORDERABLES * CT CERVICAL SPINE WO CONTRAST - C-Spine Trauma, Spine fracture (06/18/2024 3:21 PM MUSIC MINISTRIES DIRECTOR) Anatomical Region Laterality Modality Spine Computed Tomogra phy 06/18/2024 3:49 PM MUSIC MINISTRIES DIRECTOR Impressions 06/18/2024 5:25 PM MUSIC MINISTRIES DIRECTOR IMPRESSION: 1.No evidence of acute fracture in the cervical, thoracic, or lumbar spine. 2.Please refer to the concurrent, dedicated body report for findings in the chest, abdomen, and pelvis. > Dictated by Vijay Jeong DO (Turkey Roll Maker), 06/18/2024 3:49 PM. Glenny Price MD have personally reviewed and interpreted this examination/study. > Interpreting Provider: Glenny Ragsdale MD on 06/18/2024 5:25 PM Narrative 06/18/2024 5:25 PM MUSIC MINISTRIES DIRECTOR PROCEDURE: CT CERVICAL SPINE WO CONTRAST, CT LUMBAR SPINE WO CONTRAST, CT THORACIC SPINE WO CONTRAST, DATE/TIME OF EXAM: 06/18/2024 3:23 PM, LOCATION [facility] INDICATION: Trauma EXAMINATION: 1.CT of the [...] OF EXAM: 06/18/2024 3:23 PM, LOCATION [facility] INDICATION: Trauma EXAMINATION: 1.CT of the [...] pelvis. > Dictated by Vijay Jeong DO (Turkey Roll Maker), 06/18/2024 3:49 PM. IGlenny MD have personally reviewed and interpretedthis examination/study. > Interpreting Provider: Glenny Ragsdale MD on 06/18/2024 5:25 PM Gordon Ingram MD CT ORDERABLES * CT HEAD WO CONTRAST - Head Trauma, CSF leak, mental status changes (06/18/2024 3:21 PM MUSIC MINISTRIES DIRECTOR) Anatomical Region Laterality Modality Head Computed Tomogra phy 06/18/2024 3:01 PM MUSIC MINISTRIES DIRECTOR Impressions 06/18/2024 3:03 PM MUSIC MINISTRIES DIRECTOR IMPRESSION: 1. No acute intracranial process. 2. 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 > Interpreting Provider: Karin Velasco MD on 06/18/2024 3:03 PM Narrative 06/18/2024 3:03 PM MUSIC MINISTRIES DIRECTOR PROCEDURE: CT HEAD WO CONTRAST, DATE/TIME OF EXAM: 06/18/2024 2:46 PM, LOCATION [facility] INDICATION: Trauma ADDITIONAL CLINICAL INFORMATION: Ordering [...] OF EXAM: 06/18/2024 2:46 PM, LOCATION [facility] INDICATION: Trauma ADDITIONAL CLINICAL INFORMATION: Ordering [...] * TROPONIN-I HIGH SENSITIVE (06/18/2024 2:44 PM MUSIC MINISTRIES DIRECTOR) [facility] Troponin I High Sensitive 4 <=14 ng/L 06/18/2024 3:19 PM MUSIC MINISTRIES DIRECTOR [facility] Blood BLOOD SPECIMEN / Unknown Venipuncture / Unknown 06/18/2024 2:44 PM MUSIC MINISTRIES DIRECTOR 06/18/2024 2:48 PM MUSIC MINISTRIES DIRECTOR Gordon Ingram MD LAB - CHEMISTRY JULIANNE OROZCO Performing Organization Address [facility]/ZIP Co de Phone Number [address] [address], [place] [phone] * (ABNORMAL) TEG 6 GLOBAL HEMOSTASIS W/ LYSIS (06/18/2024 2:44 PM MUSIC MINISTRIES DIRECTOR) [facility] Citrated Kaolin R (Reaction Time) 4.3(L) 4.6 - 9.1 min 06/18/2024 3:54 PM MUSIC MINISTRIES DIRECTOR [facility] Comment:CK R result below no rmal range. Consistent with hypercoagulable clotting factors. Citrated Kaolin LY30 (Lysis) 0.1 0.0 - 2.6 % 06/18/2024 3:54 PM MUSIC MINISTRIES DIRECTOR [facility] Citrated Functional Fibrinogen MA (Max Amplitude) 19.3 15.0 - 32.0 mm 06/18/2024 3:54 PM MUSIC MINISTRIES DIRECTOR [facility] Citrated RapidTEG MA (Max Amplitude) 62.8 52.0 - 70.0 mm 06/18/2024 3:54 PM MUSIC MINISTRIES DIRECTOR [facility] Blood BLOOD SPECIMEN / Unknown Venipuncture / Unknown 06/18/2024 2:44 PM MUSIC MINISTRIES DIRECTOR 06/18/2024 2:52 PM MUSIC MINISTRIES DIRECTOR Gordon Ingram MD LAB - HEMATOLOGY ORD ERABLES Performing Organization Address City/[facility]/ZIP Co de Phone Number [address] [address], [place] [phone] * (ABNORMAL) TEG 6S PLATELET MAPPING (06/18/2024 2:44 PM MUSIC MINISTRIES DIRECTOR) [facility] TEGPLM (Max Amplitude) Koalin 64.2 53.0 - [...] 89.0 - 100.0 % 06/18/2024 4:03 PM [facility] Blood BLOOD SPECIMEN / Unknown Venipuncture / Unknown 06/18/2024 2:44 PM MUSIC MINISTRIES DIRECTOR 06/18/2024 2:52 PM MUSIC MINISTRIES DIRECTOR Gordon Ingram MD LAB - HEMATOLOGY ORD ERABLES [address] [address], [facility] [phone] * TYPE + SCREEN PANEL (06/18/2024 2:44 PM MUSIC MINISTRIES DIRECTOR) Antibody Screen NEG 3:33 PM MUSIC MINISTRIES DIRECTOR [facility] ABO Rh O POS 06/18/2024 3:33 PM MUSIC MINISTRIES DIRECTOR [facility] Blood Bank BLOOD SPECIMEN / Unknown Venipuncture / Unknown 06/18/2024 2:44 PM MUSIC MINISTRIES DIRECTOR 06/18/2024 2:53 PM MUSIC MINISTRIES DIRECTOR Godron Ingram MD LAB - BLOOD BANK ORD NILTON Performing Organization Address [facility]/ZIP Co de Phone Number [facility] [address] [place] [address], [facility] [phone] * ALCOHOL ETHYL BLOOD (06/18/2024 2:44 PM MUSIC MINISTRIES DIRECTOR) Ethanol (mg/dL) <10 <10 mg/dL 3:15 PM MUSIC MINISTRIES DIRECTOR [facility] Ethanol Calculated (g/dL) <0.010 <=0.010 g/dL 06/18/2024 3:15 PM MUSIC MINISTRIES DIRECTOR [facility] Blood BLOOD SPECIMEN / Unknown Venipuncture / Unknown 06/18/2024 2:44 PM MUSIC MINISTRIES DIRECTOR 06/18/2024 2:48 PM MUSIC MINISTRIES DIRECTOR Narrative [facility] - 06/18/2024 3:15 PM MUSIC MINISTRIES DIRECTOR Ethanol Interp <10: None Detected. Depression of BOOM WORKER: >100 mg/dl Potentially Critical: >250 mg/dl [...] CHEMISTRY JULIANNE OROZCO Performing Organization Address [facility] Co de Phone Number [facility] [address] [place] [address], [facility] [phone] * XR PELVIS 1 OR 2VW (06/18/2024 2:43 PM MUSIC MINISTRIES DIRECTOR) Anatomical Region Laterality Modality Pelvis Digital Radiogra phy 06/18/2024 5:02 PM MUSIC MINISTRIES DIRECTOR Impressions 06/18/2024 5:20 PM MUSIC MINISTRIES DIRECTOR IMPRESSION: No acute fracture identified. Report dictated by Vijay Jeong DO (resident care supervisor). IMalcolm MD have personally reviewed and interpreted this examination/study. > Interpreting Provider: Malcolm Marroquin MD on 06/18/2024 5:20 PM Narrative 06/18/2024 5:20 PM MUSIC MINISTRIES DIRECTOR PROCEDURE: XR PELVIS 1 OR 2VW, DATE/TIME OF EXAM: 06/18/2024 2:44 PM, LOCATION [facility] INDICATION: Trauma Fracture suspected COMPARISON: None. FINDINGS: No acute fracture is identified. The femoral heads appear well-seated within their respective acetabula. The pubic symphysis is intact. Bone density and texture are normal. The sacroiliac joints are normal. Procedure Note Malcolm Marroquin MD - 06/18/2024 PROCEDURE: XR PELVIS 1 OR 2VW, DATE/TIME OF EXAM: 06/18/2024 2:44 PM, LOCATION [facility] INDICATION: Trauma Fracture suspected COMPARISON: None. FINDINGS: No acute fracture is identified. The femoral heads appear well-seated within their respective acetabula. The pubic symphysis is intact. Bone density and texture are normal. The sacroiliac joints are normal. IMPRESSION: No acute fracture identified. Report dictated by Vijay Jeong DO (resident care supervisor). Malcolm Price MD have personally reviewed and interpreted this examination/study. > Interpreting Provider: Malcolm Marroquin MD on 06/18/2024 5:20 PM Gordon Ingram MD DIAGNOSTIC IMAGING O RDERABLES * XR Knee Left 2Vw or Less (06/18/2024 2:43 PM MUSIC MINISTRIES DIRECTOR) Anatomical Region Laterality Modality Lower Extremity Digital Radiogra phy 06/18/2024 5:03 PM MUSIC MINISTRIES DIRECTOR Impressions 06/18/2024 7:59 PM MUSIC MINISTRIES DIRECTOR Impression: Likely chronic osseous fragment adjacent to [...] knee. Report dictated by Vijay Jeong DO (resident care supervisor). Malcolm Price MD have personally reviewed and interpreted this examination/study. > Interpreting Provider: Malcolm Marroquin MD on 06/18/2024 7:59 PM Narrative 06/18/2024 7:59 PM MUSIC MINISTRIES DIRECTOR PROCEDURE: XR KNEE LEFT 2VW OR LESS, DATE/TIME OF EXAM: 06/18/2024 2:43 PM, LOCATION [facility] INDICATION: T14.90XA: Trauma COMPARISON: None. Procedure Note Malcolm Marroquin MD - 06/18/2024 PROCEDURE: XR KNEE LEFT 2VW OR LESS, DATE/TIME OF EXAM: 06/18/2024 2:43PM, LOCATION [facility] INDICATION: [id number]: Trauma COMPARISON: None. Impression: [...] knee. Report dictated by Vijay Jeong DO (resident care supervisor). IMalcolm MD have personally reviewed and interpreted this examination/study. > Interpreting Provider: Malcolm Marroquin MD on 06/18/2024 7:59 PM Gordon Ingram MD DIAGNOSTIC IMAGING O RDERABLES from Last 3 Months Advance Directives Documents on File Type Date Recorded Patient Dividend Clerk Expl anation Adv Directive/Living Will/POA 06/27/2024 10:06 AM * Full Code (Latest Code Status on File) Date Activated Date Inactivated Comments 06/18/2024 4:59 PM 07/05/2024 12:48 PM
[2024-08-15 15:34] LABS: Prothrombin Time 31.3 Seconds (11.1-14.7)
[2024-08-15 15:36] LABS: Add Urine Microscopic? YES; Appearance Urine Cloudy (Clear); Bacteria Urine 1+ /hpf; Bilirubin Urine Negative (Negative); Blood Urine Negative (Negative); Color Urine Yellow (Yellow); Glucose Urine UA Negative (Negative); Ketones Urine Negative (Negative); Leukocyte Esterase Ur 3+ LEU/UL (Negative); Need Manual Microscopic Reviewed; Nitrate Urine Negative (Negative); Protein Urine Negative (Negative); RBC Urine 0-2 /hpf (0-2); Squamous Epithelial Cell Urine Few /hpf (Few); Urobilinogen Urine 0.2 mg/dL (<2.0); WBC Urine >100 /hpf (0-3)
== END 2024-08-15 13:54 | disposition home or self-care (01) ==
LOC: ANHLAB 13:57 → HOME HLTH 13:59
PROVIDERS: PCP Family Medicine; Visit Provider Family Medicine
DX: N39.0 Urinary tract infection, site not specified (principal); N17.9 Acute kidney failure, unspecified; B96.5 Pseudomonas (aeruginosa) (mallei) (pseudomallei) as the cause of diseases classified elsewhere; Z45.2 Encounter for adjustment and management of vascular access device
CPT/HCPCS: 81001; 85610; 87086

== ENCOUNTER 2024-08-21 13:07 | Outpatient (NON) | payer MEDICARE, SELFPAY ==
[2024-08-21 13:59] LABS: Anion Gap 8 mmol/L (4-12); Blood Urea Nitrogen 14 mg/dL (7-17); Calcium 9.8 mg/dL (8.4-10.2); Carbon Dioxide 32 mmol/L (22-30); Chloride 95 mmol/L (98-107); Estimated Glomerular Filt Rate 58; Glucose 98 mg/dL (65-110); Potassium 3.6 mmol/L (3.4-5.0); Sodium 135 mmol/L (137-145)
--- OUTSIDE RECORDS SUMMARY | 2024-08-21 14:57 | XMS_ITS | Encounter Summary ---
Author Organization [facility] Health Address [address] [place] [address] Care Team Providers Care Psych Specialist Name Role Phone Unavailable Primary Care Provider Unavailabl e Encounter Details Date Type Department Care Team (Late st Contact Info) Description 08/17/2024 Orders Only [facility] [address] [place] [address], [place] [id number] Mikey Cortez, DO [address] [place] [address] DIV OF ORTHOPEDIC SURGERY [place], [place] [id number] Closed fracture of left ankle with routine healing, subsequent encounter Social History Tobacco Use Types Packs/Day Years [...] care, and heating? Not very hard 06/18/2024 [facility] Occupat ional Health - Occupational Stress [...] time in the past 12 m [facility], were you homeless or living in a intermediate (including now)? No 06/18/2024 Sex and Gender [...] Visit [facility] [address] [place] [address], [place] [id number] Mikey Cortez, DO [address] [place] [address] [place] [address] Scheduled Orders Name Type Priority Associated Diagnoses Orde r Schedule XR Ankle Left 3Vw or More Imaging Routine Closed fracture of left ankle with routine healing, subsequent encounter 1 Occurrences starting 08/17/2024 until 08/17/2025 documented as of this encounter Goals Goal [...]
--- OUTSIDE RECORDS SUMMARY | 2024-08-21 14:57 | XMS_ITS | Clinical Summary ---
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 LAB - CHEMISTRY OR DERABLES Performing Organization Address City/[facility]/ZIP Co de Phone Number [address] [address], [facility] [phone] * LACTIC ACID BLOOD (06/18/2024 8:38 PM DRY CURER) Lactic Acid-Stat 1.4 <=2.0 mmol/L 06/18/2024 9:38 PM DRY CURER [facility] Blood BLOOD SPECIMEN / Unknown Venipuncture / Unknown 06/18/2024 8:38 PM DRY CURER 06/18/2024 9:12 PM DR[facility] CURER Gordon Ingram MD LAB - CHEMISTRY ORDE PAM Performing Organization Address [facility]/ZIP Co de Phone Number [address] [address], [facility] [phone] * CT Ankle Left Wo Contrast (06/18/2024 7:57 PM DRY CURER) Anatomical Region Laterality Modality Lower Extremity Computed Tomogra phy 06/18/2024 8:46 PM [facility]ER Narrative 06/18/2024 9:15 PM [facility]ER PROCEDURE: CT KNEE LEFT WO CONTRAST, CT [...] present. > Dictated by Dimitris Avila MD ([employer]eli Bakery Clerk) Higinio Price MD have personally reviewed and [...] present. > Dictated by Dimitris Avila MD ([employer] Bak[employer] Clerk) IHiginio MD have personally reviewed and interpreted this examination/study. > Interpreting Provider: Higinio Whittington MD on 06/18/2024 9:15 PM Gordon Ingram MD CT ORDERABLES * CT Knee Left Wo Contrast (06/18/2024 7:57 PM DRY CURER) Anatomical Region Laterality Modality Lower Extremity Computed Tomogra phy 06/18/2024 8:46 PM [facility]ER Narrative 06/18/2024 9:15 PM [facility]ER PROCEDURE: CT KNEE LEFT WO CONTRAST, CT [...] present. > Dictated by Dimitris Avila MD ([employer] Bak[employer] Clerk) Higinio Price MD have personally reviewed and [...] present. > Dictated by Dimitris Avila MD ([employer] Bak[employer] Clerk) IHiginio MD have personally reviewed and interpreted this examination/study. > Interpreting Provider: Higinio Whittington MD on 06/18/2024 9:15 PM Gordon Ingram MD CT ORDERABLES * BLOOD TYPE VERIFICATION (06/18/2024 6:57 PM DRY CURER) Pathologist [facility] ABO Rh O POS 06/18/2024 7:2 6 PM DRY CURER [facility] Blood Bank BLOOD SPECIMEN / Unknown Venipuncture / Unknown 06/18/2024 6:57 PM DRY CURER 06/18/2024 7:05 PM DRY CURER Gordon Ingram MD LAB - BLOOD BANK ORD ERABLES [facility] [address] [place] [address], [facility] [phone] * PREPARE PLATELET PHERESIS UNIT(S), 1 Units (06/18/2024 6:45 PM DRY CURER) Unit Description LRPLTphere B7 IR [facility] Unit ABO O [facility] Unit Rh POS [facility] Product Number P31 [facility] Unit Donor # [id number] [facility] Unit Status transfused [facility] Product Code [id number] [facility] Blood Type Barcode 5100 [facility] Expiration Date S BLOOD BANK LAB Blood Bank BLOOD SPECIMEN / Unknown 06/18/2024 2:53 PM [facility]ER Gordon Fernández MD LAB - BLOOD BANK ORD ERABLES [facility] [address] [place] [address], [facility] [phone] * XR Wrist Right 3Vw or More (06/18/2024 3:39 PM DRY CURER) Anatomical Region Laterality Modality Wrist / Hand Digital Radiogra phy 06/18/2024 5:17 PM [facility]ER Impressions 06/18/2024 8:04 PM [facility]ER IMPRESSION: No acute fracture or dislocation identified. Report dictated by Vijay Jeong DO (residential air sealing technician). Malcolm Price MD have personally reviewed and interpreted this examination/study. > Interpreting Provider: Malcolm Marroquin MD on 06/18/2024 8:04 PM Narrative 06/18/2024 8:04 PM [facility] PROCEDURE: XR WRIST RIGHT 3VW OR MORE, DATE/TIME OF EXAM: 06/18/2024 3:39 PM, LOCATION [facility] INDICATION: T14.90XA: Trauma ADDITIONAL CLINICAL INFORMATION: [...] MORE, DATE/TIME OF EXAM: 53:39 PM, LOCATION [facility] INDICATION: T14.90XA: Trauma ADDITIONAL CLINICAL INFORMATION: [...] Report dictated by Vijay Jeong DO (residential air sealing technician). Malcolm Price MD have personally reviewed and interpreted this examination/study. > Interpreting Provider: Malcolm Marroquin MD on 06/18/2024 8:04 PM Gordon Ingram MD DIAGNOSTIC IMAGING O RDERABLES * XR Tibia Fibula Left 2Vw (06/18/2024 3:39 PM [facility]Y [facility]ER) Anatomical Region Laterality Modality Lower Extremity Digital Radiogra phy 06/18/2024 5:13 PM [facility]ER Impressions 06/18/2024 5:22 PM [facility]ER IMPRESSION: Quadrimalleolar fracture. Report dictated by Vijay Jeong DO (residential air sealing technician). Malcolm Price MD have personally reviewed and interpreted this examination/study. > Interpreting Provider: Malcolm Marroquin MD on 06/18/2024 5:22 PM Narrative 06/18/2024 5:22 PM [facility]ER PROCEDURE: XR TIBIA FIBULA LEFT 2VW, DATE/TIME OF EXAM: 06/18/2024 3:39 PM, LOCATION [facility] INDICATION: T14.90XA: Trauma COMPARISON: None. FINDINGS: Quadrimalleolar fracture. Bone density and texture are normal. Soft tissue swelling is present. Procedure Note Malcolm Marroquin MD - 06/18/2024 PROCEDURE: XR TIBIA FIBULA LEFT 2VW, DATE/TIME OF EXAM: 06/18/2024 3:39PM, LOCATION [facility] INDICATION: T14.90XA: Trauma COMPARISON: None. FINDINGS: Quadrimalleolar fracture. Bone density and texture are normal. Softtissue swelling is present. IMPRESSION: Quadrimalleolar fracture. Report dictated by Vijay Jeong DO (residential air sealing technician). Malcolm Price MD have personally reviewed and interpreted this examination/study. > Interpreting Provider: Malcolm Marroquin MD on 06/18/2024 5:22 PM Gordon Ingram MD DIAGNOSTIC IMAGING O RDERABLES * XR Hand Right 3Vw or More (06/18/2024 3:39 PM DRY CURER) Anatomical Region Laterality Modality Wrist / Hand Digital Radiogra phy 06/18/2024 5:17 PM DRY [facility]ER Impressions 06/18/2024 8:05 PM DRY [facility]ER IMPRESSION: No acute fracture or dislocation identified. Report dictated by Vijay Jeong DO (residential air sealing technician). Malcolm Price MD have personally reviewed and interpreted this examination/study. > Interpreting Provider: Malcolm Marroquin MD on 06/18/2024 8:05 PM Narrative 06/18/2024 8:05 PM [facility]Y [facility]ER PROCEDURE: XR HAND RIGHT 3VW OR MORE, DATE/TIME OF EXAM: 06/18/2024 3:39 PM, LOCATION [facility] INDICATION: T14.90XA: Trauma COMPARISON: None. FINDINGS: [...] DATE/TIME OF EXAM: 06/18/2024 3:39 PM, LOCATION [facility] INDICATION: T14.90XA: Trauma COMPARISON: None. FINDINGS: [...] Report dictated by Vijay Jeong DO (residential air sealing technician). Malcolm Price MD have personally reviewed and interpreted this examination/study. > Interpreting Provider: Malcolm Marroquin MD on 06/18/2024 8:05 PM Gordon Ingram MD DIAGNOSTIC IMAGING O RDERABLES * XR Hand Left 3Vw or More (06/18/2024 3:39 PM DRY CURER) Anatomical Region Laterality Modality Wrist / Hand Digital Radiogra phy 06/18/2024 5:16 PM DRY [facility]ER Impressions 06/18/2024 8:03 PM [facility]Y [facility]ER IMPRESSION: No acute fracture or dislocation identified. Report dictated by Vijay Jeong DO (residential air sealing technician). Malcolm Price MD have personally reviewed and interpreted this examination/study. > Interpreting Provider: Malcolm Marroquin MD on 06/18/2024 8:03 PM Narrative 06/18/2024 8:03 PM DRY [facility]ER PROCEDURE: XR HAND LEFT 3VW OR MORE, DATE/TIME OF EXAM: 06/18/2024 3:39 PM, LOCATION [facility] INDICATION: T14.90XA: Trauma COMPARISON: None. FINDINGS: [...] MORE, DATE/TIME OF EXAM: 06/18/2024 3:39PM, LOCATION [facility] INDICATION: T14.90XA: Trauma COMPARISON: None. FINDINGS: The osseous structures are intact and well aligned without acutefracture or dislocation. The joint spaces are preserved. The bones are diffusely demineralized. No soft tissue swelling is present. Degenerative changesof the fifth distal interphalangeal and first carpometacarpal joints. IMPRESSION: No acute fracture or dislocation identified. Report dictated by Vijay Jeong DO (residential air sealing technician). Malcolm Price MD have personally reviewed and interpreted this examination/study. > Interpreting Provider: Malcolm Marroquin MD on 06/18/2024 8:03 PM Gordon Ingram MD DIAGNOSTIC IMAGING O RDERABLES * CT LUMBAR SPINE WO CONTRAST - T/L-spine trauma, Spine fracture (06/18/2024 3:21 PM DRY CURER) Anatomical Region Laterality Modality Spine Computed Tomogra phy 06/18/2024 3:49 PM DRY CURER Impressions 06/18/2024 5:25 PM DRY [facility]ER IMPRESSION: 1.No evidence of acute fracture in the cervical, thoracic, or lumbar spine. 2.Please refer to the concurrent, dedicated body report for findings in the chest, abdomen, and pelvis. > Dictated by Vijay Jeong DO (Deli Bakery Clerk), 06/18/2024 3:49 PM. IGlenny MD have personally reviewed and interpreted this examination/study. > Interpreting Provider: Glenny Ragsdale MD on 06/18/2024 5:25 PM Narrative 06/18/2024 5:25 PM [facility]ER PROCEDURE: CT CERVICAL SPINE WO CONTRAST, CT LUMBAR SPINE WO CONTRAST, CT THORACIC SPINE WO CONTRAST, DATE/TIME OF EXAM: 06/18/2024 3:23 PM, LOCATION [facility] INDICATION: Trauma EXAMINATION: 1.CT of the [...] DATE/TIME OF EXAM: 06/18/2024 3:23 PM, LOCATION [facility] INDICATION: Trauma EXAMINATION: 1.CT of the [...] pelvis. > Dictated by Vijay Jeong DO (Deli Bakery Clerk), 06/18/2024 3:49 PM. IGlenny MD have personally reviewed and interpretedthis examination/study. > Interpreting Provider: Glenny Ragsdale MD on 06/18/2024 5:25 PM Gordon Ingram MD CT ORDERABLES * CT THORACIC SPINE WO CONTRAST - T/L-spine trauma, spine fracture (06/18/2024 3:21 PM DRY CURER) Anatomical Region Laterality Modality Spine Computed Tomogra phy 06/18/2024 3:49 PM DRY CURER Impressions 06/18/2024 5:25 PM DRY CURER IMPRESSION: 1.No evidence of acute fracture in the cervical, thoracic, or lumbar spine. 2.Please refer to the concurrent, dedicated body report for findings in the chest, abdomen, and pelvis. > Dictated by Vijay Jeong DO (Deli Bakery Clerk), 06/18/2024 3:49 PM. Glenny Price MD have personally reviewed and interpreted this examination/study. > Interpreting Provider: Glenny Ragsdale MD on 06/18/2024 5:25 PM Narrative 06/18/2024 5:25 PM DRY [facility]ER PROCEDURE: CT CERVICAL SPINE WO CONTRAST, CT LUMBAR SPINE WO CONTRAST, CT THORACIC SPINE WO CONTRAST, DATE/TIME OF EXAM: 06/18/2024 3:23 PM, LOCATION [facility] INDICATION: Trauma EXAMINATION: 1.CT of the [...] DATE/TIME OF EXAM: 06/18/2024 3:23 PM, LOCATION [facility] INDICATION: Trauma EXAMINATION: 1.CT of the [...] pelvis. > Dictated by Vijay Jeong DO ([employer]eli Bak[employer] Clerk), 06/18/2024 3:49 PM. IGlenny MD have personally reviewed and interpretedthis examination/study. > Interpreting Provider: Glenny Ragsdale MD on 06/18/2024 5:25 PM Gordon Ingram MD CT ORDERABLES * CT CERVICAL SPINE WO CONTRAST - C-Spine Trauma, Spine fracture (06/18/2024 3:21 PM DRY CURER) Anatomical Region Laterality Modality Spine Computed Tomogra phy 06/18/2024 3:49 PM DRY CURER Impressions 06/18/2024 5:25 PM DRY CURER IMPRESSION: 1.No evidence of acute fracture in the cervical, thoracic, or lumbar spine. 2.Please refer to the concurrent, dedicated body report for findings in the chest, abdomen, and pelvis. > Dictated by Vijay Jeong DO ([employer]eli Bak[employer] Clerk), 06/18/2024 3:49 PM. Glenny Price MD have personally reviewed and interpreted this examination/study. > Interpreting Provider: Glenny Ragsdale MD on 06/18/2024 5:25 PM Narrative 06/18/2024 5:25 PM DRY [facility]ER PROCEDURE: CT CERVICAL SPINE WO CONTRAST, CT LUMBAR SPINE WO CONTRAST, CT THORACIC SPINE WO CONTRAST, DATE/TIME OF EXAM: 06/18/2024 3:23 PM, LOCATION [facility] INDICATION: Trauma EXAMINATION: 1.CT of the [...] DATE/TIME OF EXAM: 06/18/2024 3:23 PM, LOCATION [facility] INDICATION: Trauma EXAMINATION: 1.CT of the [...] pelvis. > Dictated by Vijay Jeong DO ([employer] Bak[employer] Clerk), 06/18/2024 3:49 PM. IGlenny MD have personally reviewed and interpretedthis examination/study. > Interpreting Provider: Glenny Ragsdale MD on 06/18/2024 5:25 PM Gordon Ingram MD CT ORDERABLES * CT HEAD WO CONTRAST - Head Trauma, CSF leak, mental status changes (06/18/2024 3:21 PM DRY CURER) Anatomical Region Laterality Modality Head Computed Tomogra phy 06/18/2024 3:01 PM DRY CURER Impressions 06/18/2024 3:03 PM DRY CURER IMPRESSION: 1. No acute intracranial process. 2. 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 > Interpreting Provider: Karin Velasco MD on 06/18/2024 3:03 PM Narrative 06/18/2024 3:03 PM [facility]ER PROCEDURE: CT HEAD WO CONTRAST, DATE/TIME OF EXAM: 06/18/2024 2:46 PM, LOCATION [facility] INDICATION: Trauma ADDITIONAL CLINICAL INFORMATION: Ordering [...] DATE/TIME OF EXAM: 06/18/2024 2:46 PM, LOCATION [facility] INDICATION: Trauma ADDITIONAL CLINICAL INFORMATION: Ordering [...] * TROPONIN-I HIGH SENSITIVE (06/18/2024 2:44 PM DRY CURER) [facility] Troponin I High Sensitive 4 <=14 ng/L 06/18/2024 3:19 PM DRY CURER [facility] Blood BLOOD SPECIMEN / Unknown Venipuncture / Unknown 06/18/2024 2:44 PM DRY CURER 06/18/2024 2:48 PM DRY CURER Gordon Ingram MD LAB - CHEMISTRY ORDE RABTHERESA Performing Organization Address [facility]/ZIP Co de Phone Number [address] [address], [place] [phone] * (ABNORMAL) TEG 6 GLOBAL HEMOSTASIS W/ LYSIS (06/18/2024 2:44 PM DRY CURER) [facility] Citrated Kaolin R (Reaction Time) 4.3(L) 4.6 - 9.1 min 06/18/2024 3:54 PM [facility] Comment:CK R result below no rmal range. Consistent with hypercoagulable clotting factors. Citrated Kaolin LY30 (Lysis) 0.1 0.0 - 2.6 % 06/18/2024 3:54 PM DRY CURER [facility] Citrated Functional Fibrinogen MA (Max Amplitude) 19.3 15.0 - 32.0 mm 06/18/2024 3:54 PM [facility] Citrated RapidTEG MA (Max Amplitude) 62.8 52.0 - 70.0 mm 06/18/2024 3:54 PM [facility] Blood BLOOD SPECIMEN / Unknown Venipuncture / Unknown 06/18/2024 2:44 PM DRY CURER 06/18/2024 2:52 PM DRY CURER Gordon Ingram MD LAB - HEMATOLOGY ORD ERASRINI Performing Organization Address City/[facility]/ZIP Co de Phone Number [address] [address], [place] [phone] * (ABNORMAL) TEG 6S PLATELET MAPPING (06/18/2024 2:44 PM DRY CURER) Pathologist [facility] TEGPLM (Max Amplitude) Koalin 64.2 53.0 - 68.0 mm 06/18/2024 4:03 PM [facility] TEGPLM (Max Amplitude) ACTF 10.1 2.0 - 19.0 mm 06/18/2024 4:03 PM [facility] TEGPLM (Max Amplitude) ADP 48.6 45.0 - 69.0 mm 06/18/2024 4:03 PM [facility] TEGPLM (Max Amplitude) AA 18.0(L) 51.0 - 71.0 mm 06/18/2024 4:03 PM [facility] Comment:AA MA below normal r dov. Inhibition present. TEGPLM %Inhibition ADP 28.8(H) 0.0 - 17.0 % 06/18/2024 4:03 PM [facility] TEGPLM %Inhibition AA 85.4(H) 0.0 - 11.0 % 06/18/2024 4:03 PM [facility] TEGPLM %Aggregation ADP 71.2(L) 83.0 - 100.0 % 06/18/2024 4:03 PM [facility] TEGPLM % Aggregation AA 14.6(L) 89.0 - 100.0 % 06/18/2024 4:03 PM [facility] Blood BLOOD SPECIMEN / Unknown Venipuncture / Unknown 06/18/2024 2:44 PM DRY CURER 06/18/2024 2:52 PM DRY CURER Gordon Ingram MD LAB - HEMATOLOGY ORD ERABLES [facility] [address] [place] [address], [facility] [phone] * TYPE + SCREEN PANEL (06/18/2024 2:44 PM DRY CURER) Antibody Screen NEG 3:33 PM [facility] ABO Rh O POS 06/18/2024 3:33 PM [facility] Blood Bank BLOOD SPECIMEN / Unknown Venipuncture / Unknown 06/18/2024 2:44 PM DRY CURER 06/18/2024 2:53 PM DRY CURER Gordon Ingram MD LAB - BLOOD BANK ORD JACEKBLES Performing Organization Address [facility] Co de Phone Number [facility] [address] [place] [address], [facility] [phone] * ALCOHOL ETHYL BLOOD (06/18/2024 2:44 PM DRY CURER) Ethanol (mg/dL) <10 <10 mg/dL 3:15 PM DRY CURER [facility] Ethanol Calculated (g/dL) <0.010 <=0.010 g/dL 06/18/2024 3:15 PM DRY CURER [facility] Blood BLOOD SPECIMEN / Unknown Venipuncture / Unknown 06/18/2024 2:44 PM DRY CURER 06/18/2024 2:48 PM DRY CURER Narrative [facility] - 06/18/2024 3:15 PM DRY CURER Ethanol Interp <10: None Detected. Depression of AVIAN KEEPER: >100 mg/dl Potentially Critical: >250 mg/dl Potentially [...] JULIANNE OROZCO Performing Organization Address [facility]/ZIP Co de Phone Number [facility] [address] [place] [address], [facility] [phone] * XR PELVIS 1 OR 2VW (06/18/2024 2:43 PM DRY CURER) Anatomical Region Laterality Modality Pelvis Digital Radiogra phy 06/18/2024 5:02 PM DRY CURER Impressions 06/18/2024 5:20 PM [facility]ER IMPRESSION: No acute fracture identified. Report dictated by Vijay Jeong DO (residential air sealing technician). Malcolm Price MD have personally reviewed and interpreted this examination/study. > Interpreting Provider: Malcolm Marroquin MD on 06/18/2024 5:20 PM Narrative 06/18/2024 5:20 PM DRY [facility]ER PROCEDURE: XR PELVIS 1 OR 2VW, DATE/TIME OF EXAM: 06/18/2024 2:44 PM, LOCATION [facility] INDICATION: Trauma Fracture suspected COMPARISON: None. FINDINGS: No acute fracture is identified. The femoral heads appear well-seated within their respective acetabula. The pubic symphysis is intact. Bone density and texture are normal. The sacroiliac joints are normal. Procedure Note Malcolm Marroquin MD - 06/18/2024 PROCEDURE: XR PELVIS 1 OR 2VW, DATE/TIME OF EXAM: 06/18/2024 2:44 PM, LOCATION [facility] INDICATION: Trauma Fracture suspected COMPARISON: None. FINDINGS: No acute fracture is identified. The femoral heads appear well-seated within their respective acetabula. The pubic symphysis is intact. Bone density and texture are normal. The sacroiliac joints are normal. IMPRESSION: No acute fracture identified. Report dictated by Vijay Jeong DO (residential air sealing technician). Malcolm Price MD have personally reviewed and interpreted this examination/study. > Interpreting Provider: Malcolm Marroquin MD on 06/18/2024 5:20 PM Gordon Ingram MD DIAGNOSTIC IMAGING O RDERABLES * XR Knee Left 2Vw or Less (06/18/2024 2:43 PM DRY CURER) Anatomical Region Laterality Modality Lower Extremity Digital Radiogra phy 06/18/2024 5:03 PM DRY CURER Impressions 06/18/2024 7:59 PM DRY CURER Impression: Likely chronic osseous fragment adjacent to [...] Report dictated by Vijay Jeong DO (residential air sealing technician). Malcolm Price MD have personally reviewed and interpreted this examination/study. > Interpreting Provider: Malcolm Marroquin MD on 06/18/2024 7:59 PM Narrative 06/18/2024 7:59 PM DRY [facility]ER PROCEDURE: XR KNEE LEFT 2VW OR LESS, DATE/TIME OF EXAM: 06/18/2024 2:43 PM, LOCATION [facility] INDICATION: T14.90XA: Trauma COMPARISON: None. Procedure Note Malcolm Marroquin MD - 06/18/2024 PROCEDURE: XR KNEE LEFT 2VW OR LESS, DATE/TIME OF EXAM: 06/18/2024 2:43PM, LOCATION [facility] INDICATION: T14.90XA: Trauma COMPARISON: None. Impression: [...] Report dictated by Vijay Jeong DO (residential air sealing technician). Malcolm Price MD have personally reviewed and interpreted this examination/study. 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
--- OUTSIDE RECORDS SUMMARY | 2024-08-21 14:57 | XMS_ITS | Encounter Summary ---
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 Legal Sex Female 6:49 PM CDT [...] 10/26/2024 11:00 AM CDT Office Visit [facility] Medical Group Multispecialty Care - [facility] [address] [facility] [place] [phone] Jacob Landry MD [address] [facility] [address] [place] [address] documented as of this encounter Procedures Procedure [...] Rule Out 07/01/2023 07/01/2023 07/01/2023 3:40 PM FIRE EXTINGUISHER SPRINKLER INSPECTOR COVID-19 Rule Out 11/03/2023 11/03/2023 11/03/2023 1:01 AM CDT Assessment Noted Time PHQ-9 Depression Total Score: 0 05/05/20 1:33 PM FIRE EXTINGUISHER SPRINKLER INSPECTOR documented as of this encounter Care Teams Lab Nurse Relationship Specialty Start Date End Date Mo Moy MD [address] [place] [address] PCP - General FAMILY PRACTICE 11/26/17 Sal Bliss MD [address] [facility] [address] [place], [place] [address] Wilton Manager Digital CARDIOVASCULAR DISEASE 12/10/17 Angel Lopez MD [address] [place], [place] [id number] EP Manager Digital CLINICAL CARDIAC ELECTROPHYSIOLOGY 01/15/18 documented as of this encounter
--- OUTSIDE RECORDS SUMMARY | 2024-08-21 14:57 | XMS_ITS | Encounter Summary ---
Author Organization [facility] Address [facility] [place] [address] Care Team Providers Care Clinical Research Associate Name Role Phone Mo Moy MD Primary Care Provider [phone] Sal Bliss MD Unavailable [phone] Angel Lopez MD Unavailable Encounter Details Date Type Department Care Team (Late st Contact Info) Description 12/29/2017 Abstract [facility] at [address] [address] Faizan Pereira MA Social History Tobacco Use Types Packs/Day Years Used Date Smoking Tobacco: Former Cigarettes Q uit: 2000 Smokeless Tobacco: Never Alcohol Use Standard Drinks/Week Comments No 0 (1 standard drink = 0.6 oz pur e alcohol) Comments Unknown Sex and Gender Information Value Date Recorded Sex Assigned at Female 05/30/2024 12:35 PM 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 Legal Sex Female 6:49 PM CDT [...] Description 10/26/2024 11:00 AM CDT Office Visit [facility] Medical Group Multispecialty Care - [facility] [address] [place] [address] Jacob Landry MD [address] [facility] [address] [place] [address] documented as of this encounter Procedures Procedure [...] Rule Out 07/07/2021 07/07/2021 07/08/2021 7:49 PM 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 COVID-19 Rule Out 09/27/2021 09/27/2021 09/28/2021 10:26 AM CDT COVID-19 Rule Out 07/01/2023 07/01/2023 07/01/2023 3:40 PM 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 COVID-19 Rule Out 11/03/2023 11/03/2023 11/03/2023 1:01 AM CDT documented as of this encounter Care Teams Clinical Research Associate Relationship Specialty Start Date End Date Mo Moy MD [address] [place] [address] PCP - General FAMILY PRACTICE 11/26/17 Sal Bliss MD Three [facility] [address] [place] [address] Hailey Peoplesoft Hrms Developer CARDIOVASCULAR DISEASE 12/10/17 Angel Lopez MD Three [facility]. [address] [place], [place] [phone] EP Peoplesoft Hrms Developer CLINICAL CARDIAC ELECTROPHYSIOLOGY 01/15/18 documented as of this encounter
--- OUTSIDE RECORDS SUMMARY | 2024-08-21 14:57 | XMS_ITS | Continuity of Care Document ---
Author Organization [facility] Address [address] [facility] [address] [place] [address] Phone Care Team Providers Care Fishery Biologist Name Role Phone Catracho Bojorquez MD Unavailable [...] Copied on Encounter Office/outpa tient Visit, [facility], [address] [place] [address] [address], [place], [place], [id number], [place] [phone] [place] Professional yag pc ou evaluation (chief complaint) Presence of intraocular lensOther secondary cataract, right eyeMacular hole of left eye 1 [place]. [address] [facility], [facility] A, [place], [place], [address], [place]. tel:[phone] Sal Bliss MD.Referring Provider: Ashley Turcios, [address], [address]. tel:[phone] [facility], [address] [place] [address] [address], [place], [place], [id number], [place] tel:[phone] SEC Radha Bruno No Information 1 [place]. [address] [facility] A, [place], [place], [id number], [place]. tel:[phone] Specialist: Sal Bliss MD, [address] [facility] [address], [place], [address]. tel:[phone] Provider: Ashley Turcios, [facility] [address], [address]. tel:[phone] Family History Family Member Type Diagnosis Age At Onset No Information Payers Payer name Insurance type Covered democrat ID Authoriza tion(s) [place] [id number] [facility] [id number] Social History Type Description Quantity Date Captured [...]
--- OUTSIDE RECORDS SUMMARY | 2024-08-21 14:57 | XMS_ITS | Encounter Summary ---
Author Organization [facility] Address [facility] [place] [address] Care Team Providers Care Welding Machine Operator Friction Name Role Phone Mo Moy MD Primary Care Provider [phone] Sal Bliss MD Unavailable [phone] Angel Lopez MD Unavailable Encounter Details Date Type Department Care Team (Late st Contact Info) Description 01/26/2019 Abstract [facility] at [address] [address] Faizan Pereira MA Social History Tobacco Use Types Packs/Day Years Used Date Smoking Tobacco: Former Cigarettes 0.5 35 1 965 - 2000 Smokeless Tobacco: Never Comments:distant past Alcohol Use Standard Drinks/Week Comments No 0 (1 standard drink = 0.6 oz pur e alcohol) Comments No Sex and Gender Information Value Date Recorded Sex Assigned at Female 05/30/2024 12:35 PM SENIOR ANDROID SOFTWARE ENGINEER Legal Sex Female 6:49 PM CDT [...] [facility] Multispecialty Care - [address] [place] [address] Jacob Landry MD [address] [place] [address] [place] [address] documented as of this encounter Procedures Procedure [...] (ABNORMAL) COMPREHENSIVE METABOLIC PANEL (01/24/2019) Pathologist [facility] SODIUM S/P/B 140 POTASSIUM S/P/B 4.7 CO2 [...] Rule Out 07/07/2021 07/07/2021 07/08/2021 7:49 PM SENIOR ANDROID SOFTWARE ENGINEER COVID-19 Rule Out 09/27/2021 09/27/2021 09/28/2021 10:26 AM CDT COVID-19 Rule Out 07/01/2023 07/01/2023 07/01/2023 3:40 PM SENIOR ANDROID SOFTWARE ENGINEER COVID-19 Rule Out 11/03/2023 11/03/2023 11/03/2023 1:01 AM CDT documented as of this encounter Care Teams Welding Machine Operator Friction Relationship Specialty Start Date End Date Mo Moy MD [address] [place] [id number] PCP - General FAMILY PRACTICE 11/26/17 Sal Bliss MD [address] [address] [place] Clinical Team Manager CARDIOVASCULAR DISEASE 12/10/17 Angel Lopez MD [facility]. [facility] [address] [place] [address] EP Clinical Team Manager CLINICAL CARDIAC ELECTROPHYSIOLOGY 01/15/18 documented as of this encounter
--- OUTSIDE RECORDS SUMMARY | 2024-08-21 14:57 | XMS_ITS | Encounter Summary ---
Author Organization [facility] Address [facility] [place] [address] Care Team Providers Care Blow Machine Tender Starch Spraying Name Role Phone Mo Moy MD Primary Care Provider [phone] Sal Bliss MD Unavailable [phone] Angel Lopez MD Unavailable Encounter Details Date Type Department Care Team (Late Contact Info) Description 10/14/2018 Abstract [email or web address] [address] [place], [place] [phone] Sal Bliss MD [address] [address] Social History Tobacco Use Types Packs/Day Years Used Date Smoking Tobacco: Former Cigarettes 0.5 35 1 965 - 2000 Smokeless Tobacco: Never Comments:distant past Alcohol Use Standard Drinks/Week Comments No 0 (1 standard drink = 0.6 oz pur e alcohol) Comments No Sex and Gender Information Value Date Recorded Sex Assigned at Female 05/30/2024 12:35 PM RESEARCH ASSOCIATE PROFESSOR Legal Sex Female 6:49 PM CDT Gender Identity Not on file Sexual Orientation Not on file Occupation Industry Job Start Date Job End Date Not on file Not on file Not on file Not on file documented as of this encounter Plan of Treatment Upcoming Encounters Date Type Department Care Team (Late Contact Info) Description 10/26/2024 11:00 AM CDT Office Visit [facility] Medical Group Multispecialty Care - [facility] [address] [facility] [address] [place] [address] Jacob Landry MD [address] [facility] [address] [place] [address] documented as of this encounter Procedures Procedure Name Priority Date/Time Associated Diagnosis Comments PROTHROMBIN TIME, FINGERSTICK Routine 10/14/2018 10:05 AM CDT documented in this encounter Results * PROTIME/INR, FINGERSTICK (10/14/2018 10:05 AM CDT) INR WHOLE BLOOD 2.3 9 10:09 AM CDT [facility] Comment: Recommend INR ranges for Oral Anticoagulant Therapy:Mechanical Cardiac Values 2.5-3.5All others indication 2.0-3.0 10/14/2018 10:0 5 AM CDT 10/14/2018 10:06 AM CDT us Generic Conversion Md [facility] Final R esult [facility] [address] [place] [address], documented in this encounter Visit Diagnoses Diagnosis Atrial fibrillation (CMS/HCC HHS/HCC) Atrial fibrillation documented in this encounter Additional Health Concerns Infection Onset Date Last Indicated Resolved Time COVID-19 Rule Out 01/14/2020 01/27/2020 01/28/2020 4:35 PM CDT COVID-19 Rule Out 07/07/2021 07/07/2021 07/08/2021 7:49 PM RESEARCH ASSOCIATE PROFESSOR COVID-19 Rule Out 09/27/2021 09/27/2021 09/28/2021 10:26 AM CDT COVID-19 Rule Out 07/01/2023 07/01/2023 07/01/2023 3:40 PM RESEARCH ASSOCIATE PROFESSOR COVID-19 Rule Out 11/03/2023 11/03/2023 11/03/2023 1:01 AM CDT documented as of this encounter Care Teams Blow Machine Tender Starch Spraying Relationship Specialty Start Date End Date Mo Moy MD [address] [place] [address] PCP - General FAMILY PRACTICE 11/26/17 Sal Bliss MD Three [facility]. [address] [place] [address] Show Low Guest Services Attendant CARDIOVASCULAR DISEASE 12/10/17 Angel Lopez MD Three [facility]. [address] [place], [place] [phone] EP Guest Services Attendant CLINICAL CARDIAC ELECTROPHYSIOLOGY 01/15/18 documented as of this encounter
--- OUTSIDE RECORDS SUMMARY | 2024-08-21 14:58 | XMS_ITS | Clinical Summary ---
Author Organization [facility] Address [facility] [place] [address] Care Team Providers Care Delinquent Tax Collector Name Role Phone Mo Moy MD Primary Care Provider [phone] Sal Bliss MD Unavailable [phone] Angel Lopez MD Unavailable Allergies Active Allergy [...] obstructive pulmonar y disease, unspecified COPD type ([facility]) 05/05/2021 Gastroesophageal reflux dise ase, unspecified whether esophagitis present 05/05/2021 Cigarette nicotine dependence in remission 05/05 Abnormal finding on lung imaging 05/05/2021 Multiple lung nodules 05/05/2021 Coronary artery disease due to calcified coronar y lesion 05/30/2018 Dyslipidemia 05/30/2018 Essential hypertension 03/07/2018 Abnormal stress test 03/07/2018 S/P ablation of atrial fibrillation 02/24/2018 terminal operator current use of anticoagulant therapy 0 12/29/2017 CHF (congestive heart failure) ([facility]) Paroxysmal atrial fibrillation ([facility]) Encounters Date Type Department Care Team Description 05/30/2024 12:40 PM SERVICE TECH - 05/30/2024 11:59 PM [facility] Hospital Encounter [facility] [address] [place] [address] Nathan Scanlon MD Discharge Disposition: Home or [...] drink = 0.6 oz pur e alcohol) [facility] Utilities Answer Date Recorded In the [...] place to sleep or slept in a long-term (including now)? No 07/01/2023 Comments No Sex and Gender Information Value Date Recorded Sex Assigned at Female 05/30/2024 12:35 PM SERVICE TECH Legal Sex Female 6:49 PM CDT Gender [...] [facility] Medical Group Multispecialty Care - [address] [place] [phone] Jacob Landry MD [address] [place] [address] [address] [place] [address] Health Maintenance Due Date Last Done Comments [...] history exists COVID-19 Vaccine (2023- season) 2024 PHQ-2 (Physician [place]) 05/17/2024 10/26/2022 Meningococcal B Vaccine Aged Out [...] PROTHROMBIN TIME, VENOUS Routine 05/30/2024 12:58 PM SERVICE TECH Atrial flutter ([facility]) LIPID PANEL Routine 07/24/2020 8:19 AM SERVICE TECH Coronary artery disease due to calcified coronary lesion from Last 3 Months or Most Recently Relevant to Health Maintenance Results * (ABNORMAL) PROTIME/INR, VENOUS (05/30/2024 12:58 PM SERVICE TECH) PROTIME 43.9(H) 9.1 - 12.4 SEC 05/30/2024 1:07 PM SERVICE TECH [facility] INR 4.0 05/30/2024 1:07 PM SERVICE TECH [facility] Comment: Recommend INR ranges for Oral Anticoagulant Therapy: Mechanical Cardiac Values 2.5-3.5 All others indication 2.0-3.0 05/30/2024 12:5 8 PM SERVICE TECH us Nathan Scanlon MD LABORATORY Final Result [facility] [address] [place] [address], [place] [phone] * (ABNORMAL) LIPID PANEL (07/24/2020 8:19 AM SERVICE TECH) CHOLESTEROL 244(H) <200.0 MG/DL 07/24/2020 9:02 AM [facility] TRIGLYCERIDES 131 <150 MG/DL 07/24/2020 9:02 AM [facility] HDL 77 >40.0 MG/DL 07/24/2020 9:02 AM [facility] LDL (CALCULATED) 141(H) <100 MG/DL 07/24/2020 9:02 AM [facility] NON HDL CHOLESTEROL 167(H) <130 MG/DL 07/24/2020 9:02 AM [facility] CHOL/HDL RATIO 3.2 0.0 - 4.5 07/24/2020 9:02 AM [facility] VLDL CALCULATION 26 5 - 55 MG/DL 07/24/2020 9:02 AM [facility] LIPID INTERPRETATION 07/24/2020 9:02 AM [facility] Comment: NIH CONCENSUS REPORT RECOMMENDATIONS: ADULT CHILD LOW RISK: CHOLESTEROL <200 <170 TRIGLYCERIDE <150 --- HDL >=60 --- LDL <100 <110 BORDERLINE: CHOLESTEROL 200-239 170-199 TRIGLYCERIDE 150-199 --- HDL 40-59 --- LDL 100-159 110-129 HIGH RISK: CHOLESTEROL >=240 >=200 TRIGLYCERIDE >=200 --- HDL <40 --- LDL >=160 >=130 07/24/2020 8:19 AM SERVICE TECH us Cleopatra Saul BOAT BUFFER PLASTIC LABORATORY Final Result [facility] [address] [place] [address], from Last 3 Months or Most Recently Relevant to Health Maintenance Insurance MEDICARE MEDICARE [facility] Advance Directives Documents on File Type Date Recorded Patient Potter Or Ceramic Artist Expl anation Advance Directives and Living Will 02/25/2018 2:15 PM signed 02-11-17 * Full Code (Latest Code Status on File) Date Activated Date Inactivated Comments 07/01/2023 3:27 PM 07/03/2023 1:33 PM * Full Code Date Activated Date Inactivated Comments 07/10/2021 11:30 AM 07/10/2021 6:48 PM * Full Code Date Activated Date Inactivated Comments 02/24/2018 12:03 PM 02/25/2018 3:47 PM Care Teams Delinquent Tax Collector Relationship Specialty Start Date End Date Mo Moy MD [address] [place] [address] PCP - General FAMILY PRACTICE 11/26/17 Sal Bliss MD Three [facility]. [address] [place] [address] Anderson Knockdown Man CARDIOVASCULAR DISEASE 12/10/17 Angel Lopez MD Three [facility]. [address] [place] [address] EP Knockdown Man CLINICAL CARDIAC ELECTROPHYSIOLOGY 01/15/18
--- OUTSIDE RECORDS SUMMARY | 2024-08-21 14:58 | XMS_ITS | Encounter Summary ---
Author Organization [facility] Address [facility] [place] [address] Care Team Providers Care Audio Visual Secretary Name Role Phone Mo Moy MD Primary Care Provider [phone] Sal lBiss MD Unavailable [phone] Angel Lopez MD Unavailable Encounter Details Date Type Department Care Team (Late st Contact Info) Description 07/05/2023 Hospital Follow-up Call [facility] Care Management [address] [place] [address] Chrissy Chaney RN Social History Tobacco Use Types Packs/Day Years Used Date Smoking Tobacco: Former Cigarettes 1 35 1 965 - 2000 Smokeless Tobacco: Never Comments:distant past Alcohol Use Standard Drinks/Week Comments No 0 (1 standard drink = 0.6 oz pur e alcohol) [facility] Utilities Answer Date Recorded In the past 12 months has e [employer], gas, oil, or water [email or web address] threatened to shut off services in your [...] place to sleep or slept in a fpc (including now)? No 07/01/2023 Comments No Sex and Gender Information Value Date Recorded Sex Assigned at Female 05/30/2024 12:35 PM ETIQUETTE TEACHER Legal Sex Female 6:49 PM CDT [...] Assessment Author Status No 07/03/2023 10:20 AM ETIQUETTE TEACHER Maddi Bryant R N Active * Are [...] Description 10/26/2024 11:00 AM CDT Office Visit [facility] Medical Group Multispecialty Care - [address] [place] [address] Jacob Landry MD [address] [place] [address] [place] [address] documented as of this encounter Visit Diagnoses Not on filedocumented in this encounter Additional Health Concerns Infection Onset Date Last Indicated Resolved Time COVID-19 Rule Out 11/03/2023 11/03/2023 11/03/2023 1:01 AM CDT Assessment Noted Time PHQ-9 Depression Total Score: 0 05/05/20 21 1:33 PM ETIQUETTE TEACHER documented as of this encounter Care Teams Audio Visual Secretary Relationship Specialty Start Date End Date Mo Moy MD [address] [place] [address] PCP - General FAMILY PRACTICE 11/26/17 Sal Bliss MD [address] [place] [address] Perdido Nozzle Worker CARDIOVASCULAR DISEASE 12/10/17 Angel Lopez MD [address] [place] [address] EP Nozzle Worker CLINICAL CARDIAC ELECTROPHYSIOLOGY 01/15/18 documented as of this encounter
--- OUTSIDE RECORDS SUMMARY | 2024-08-21 14:58 | XMS_ITS | Encounter Summary ---
Author Organization [facility] Address [facility] [place] [address] Care Team Providers Care Seed Cone Picker Name Role Phone Mo Moy MD Primary Care Provider [phone] Sal Bliss MD Unavailable [phone] Angel Lopez MD Unavailable Encounter Details Date Type Department Care Team (Late st Contact Info) Description 03/14/2018 Abstract [facility] at [address] [address] Faizan Pereira MA Social History Tobacco Use Types Packs/Day Years Used Date Smoking Tobacco: Former Cigarettes 0.5 35 1 965 - 2000 Smokeless Tobacco: Never Comments:distant past Alcohol Use Standard Drinks/Week Comments No 0 (1 standard drink = 0.6 oz pur e alcohol) Comments No Sex and Gender Information Value Date Recorded Sex Assigned at Female 05/30/2024 12:35 PM CLOTH SECONDS SORTER Legal Sex Female 6:49 PM CDT Gender [...] Description 10/26/2024 11:00 AM CDT Office Visit [facility] Medical Group Multispecialty Care - [facility] [address] [facility] [address] [facility] [address] Jacob Landry MD [address] [facility] [address] [place] [address] documented as of this encounter Procedures Procedure [...] Rule Out 07/07/2021 07/07/2021 07/08/2021 7:49 PM CLOTH SECONDS SORTER COVID-19 Rule Out 09/27/2021 09/27/2021 09/28/2021 10:26 AM CDT COVID-19 Rule Out 07/01/2023 07/01/2023 07/01/2023 3:40 PM CLOTH SECONDS SORTER COVID-19 Rule Out 11/03/2023 11/03/2023 11/03/2023 1:01 AM CDT documented as of this encounter Care Teams Seed Cone Picker Relationship Specialty Start Date End Date Mo Moy MD [address] [place] [address] PCP - General FAMILY PRACTICE 11/26/17 Sal Bliss MD [address] [facility] [address] [place] [address] Sarah Ann Mycologist CARDIOVASCULAR DISEASE 12/10/17 Angel Lopez MD [address] [facility] [address] [place], [place] [phone] EP Mycologist CLINICAL CARDIAC ELECTROPHYSIOLOGY 01/15/18 documented as of this encounter
== END 2024-08-21 13:08 | disposition home or self-care (01) ==
LOC: ANHLAB 13:09 → HOME HLTH 13:09
PROVIDERS: PCP Family Medicine; Visit Provider Family Medicine
DX: E87.1 Hypo-osmolality and hyponatremia (principal); N39.0 Urinary tract infection, site not specified; Z45.2 Encounter for adjustment and management of vascular access device; B96.5 Pseudomonas (aeruginosa) (mallei) (pseudomallei) as the cause of diseases classified elsewhere; N17.9 Acute kidney failure, unspecified
CPT/HCPCS: 80048